=== PATIENT | male | born 1970 | race Caucasian/White ===

== ENCOUNTER 2019-06-08 21:28 | Emergency (ER) | payer OTHER ==
[2019-06-08] MEDS ORDERED: NA CHLORIDE 0.9% 1,000 ML ONE (21:51)
[2019-06-08 22:30] LABS: Urine Blood NEGATIVE (NEG); Urine Glucose NEGATIVE (NEG); Urine Protein TRACE (NEG); Urine Specific Gravity 1.015 (1.005-1.030)
[2019-06-08 22:47] LABS: Barbiturates NEGATIVE (NEGATIVE); Benzodiazepines NEGATIVE (NEGATIVE); Cocaine NEGATIVE (NEGATIVE); METHAMPHETAM NEGATIVE (NEGATIVE); Methadone NEGATIVE (NEGATIVE); Opiates NEGATIVE (NEGATIVE); Phencyclidine NEGATIVE (NEGATIVE); THC Cannibis NEGATIVE (NEGATIVE)
[2019-06-08 23:00] LABS: Absolute Lymphocytes (CBC) 1.8 K/uL (0.7-4.9); Basophils % 0.8 % (0-1.3); Hematocrit 43.6 % (39.6-49.0); MPV 7.9 fL (7.6-11.3); RBC Red Blood Cell Count 4.91 M/uL (4.33-5.43)
[2019-06-08 23:04] LABS: Protime INR 0.86
[2019-06-08 23:26] LABS: ALT/SGPT 58 U/L (12-78); AST/SGOT 53 U/L (15-37); Albumin 3.4 g/dL (3.4-5.0); Alkaline Phosphatase 67 U/L (45-117); BUN Blood Urea Nitrogen 7 mg/dL (7-18); Bicarbonate 24 mmol/L (21-32); Bilirubin Direct < 0.1 mg/dL (0-0.2); Bilirubin Total 0.2 mg/dL (0.2-1.0); Glucose Level 95 mg/dL (74-106); Potassium 3.9 mmol/L (3.5-5.1); Protein, Total 7.1 g/dL (6.4-8.2); Sodium Level 143 mmol/L (136-145); Troponin (Emerg Dept Use Only) < 0.02 ng/mL (0.0-0.045)
[2019-06-08] MEDS ORDERED: clonazePAM 0.5 MG TAB ONE (23:39)
[2019-06-09] MEDS ORDERED: NICOTINE 21 MG/PAT TD ONE (01:53)
[2019-06-09] MEDS ORDERED: DIPHENHYDRAMINE 50 MG/ML VIAL ONE (02:00)
--- NOTE | 2019-06-09 09:14 | ER ---
Nurse's Notes [facility] Name: Joe Marina Jr Age: 48 yrs Sex: Male : 1970 Arrival Date: 06/08/2019 Time: 21:29 Bed 6 Private MD: Diagnosis: Adjustment disorder with depressed mood;Major depressive disorder, recurrent;Suicidal ideations;Alcohol abuse Presentation: 06/08 21:28 Presenting complaint: EMS states: that pt stopped taking his bp medication 5 days ago fc and started extensively drinking ETOH. Pt told them he was trying to drink himself to . Transition of care: patient was not received from another setting of care. Onset of symptoms was June 08, 2019. Risk Assessment: Do you want to hurt yourself or someone else? Patient reports desire/thoughts of hurting themselves or someone else. Provider notified. Initial Sepsis Screen: Does the patient meet any 2 criteria? HR > 90 bpm. Does the patient have a suspected source of infection? No. Patient's initial sepsis screen is negative. Care prior to arrival: None. 21:28 Method Of Arrival: EMS: [facility] 21:28 Acuity: DARSHAN 2 fc Historical: - Allergies: 21:41 No Known Allergies; fc - Home Meds: 21:41 None [Active]; fc - PMHx: 21:41 Hypertension; PTSD; fc - PSHx: 21:41 Appendectomy; Cholecystectomy; Hernia repair; fc - Immunization history:: Last tetanus immunization: unknown. - Social history:: Smoking status: Patient uses tobacco products, smokes one pack cigarettes per day. Patient uses alcohol, 36 beers a day. Patient/guardian denies using street drugs. - Ebola Screening: : Patient negative for fever greater than or equal to 101.5 degrees Fahrenheit, and additional compatible Ebola Virus Disease symptoms Patient denies exposure to infectious person Patient denies travel to an Ebola-affected area in the 21 days before illness onset. Screenin:28 Abuse screen: Denies threats or abuse. Nutritional screening: No deficits noted. fc Tuberculosis screening: No symptoms or risk factors identified. Fall Risk None identified. Assessment: 21:29 General: Appears in no apparent distress. comfortable, well groomed, Behavior is ak1 agitated, anxious. 21:29 Pain: Denies pain. Neuro: Level of Consciousness is awake, alert, obeys commands, ak1 Oriented to person, place, time, situation, Appropriate for age Moves all extremities. Speech is normal, Pupils are dilated. Cardiovascular: No deficits noted. Respiratory: No deficits noted. GI: No signs and/or symptoms were reported involving the gastrointestinal system. : No signs and/or symptoms were reported regarding the genitourinary system. EENT: No signs and/or symptoms were reported regarding the EENT system. Derm: No signs and/or symptoms reported regarding the dermatologic system. Musculoskeletal: No signs and/or symptoms reported regarding the musculoskeletal system. 22:00 Reassessment: pt demanding IV fluids and Ativan. DR. Gustafosn informed, no new verbal [facility] orders. pt informed of wait for all lab results to return including UDS before we given any medications per Dr. Gustafson. pt encouraged to provide urine sample. sitter at bedside. . 22:07 Reassessment: Patient appears in no apparent distress at this time. pt demanding to [facility] speak to doctor. pt is adimit he only had alcohol. pt is adimit he receive Ativan. 22:55 Reassessment: pt continues to demand Ativan and now another "bag of fluid" pt stated to [facility] sitter that "if we were not going to do what he wants he will just walk out and leave" pt informed that after his threat of suicide he no longer gets to "walk out and leave" that if he so chooses to try [facility] department will be called. pt verbalized his understanding. pt was given ice water upon request. 23:08 Reassessment: pt requesting medications from the doctor as the doctor passed by in the [facility] trauma hallway. pt again informed of the wait for lab results. pt has already denied drinking alcohol on a daily basis. 06/09 00:30 Reassessment: Patient appears in no apparent distress at this time. No changes from ak1 previously documented assessment. Patient and/or family updated on plan of care and expected duration. Pain level reassessed. 01:15 Reassessment: Patient appears in no apparent distress at this time. No changes from ak1 previously documented assessment. Patient and/or family updated on plan of care and expected duration. Pain level reassessed. sitter remains at bedside. 02:50 Reassessment: Patient appears in no apparent distress at this time. No changes from [facility] previously documented assessment. Patient and/or family updated on plan of care and expected duration. Pain level reassessed. pt reminded that his girlfriend already spoke with hospital security at the pt's request upon arrival and knows where the pt is. pt notified that his girlfriend has not come to the ER as of yet. 03:38 Reassessment: pt appears to be sleeping, resp even and unlabored at this time. sitter ak1 remains at the bedside. 04:34 Reassessment: Patient appears in no apparent distress at this time. No changes from ak previously documented assessment. 05:38 Reassessment: repeat ETOH sent to lab. pt informed of wait for the results for [address] to come out and assess pt. pt asked about his girlfriend, pt informed again that his girlfriend has not come to the ER. 06:09 Reassessment: Patient appears in no apparent distress at this time. No changes from [facility] previously documented assessment. 07:00 Reassessment: RECD REPORT FROM [place]. 48YO WM P/W SI AND ETOH ABUSE. [facility] bp C/S PENDING. 07:28 Reassessment: Patient appears in no apparent distress at this time. Patient and/or ph family updated on plan of care and expected duration. Pain level reassessed. Patient is alert, oriented x 3, equal unlabored respirations, skin warm/dry/pink. Pt now awake, speaking w/ radioisotope technologist, denies SI at this time, states, " I don't want to kill myself, I was drunk when I was saying that before but I really don't." Awaiting [facility] artist representative for DOLLY franco, radioisotope technologist at bedside. 08:40 Reassessment: [facility] AT B/S. bp 08:48 Reassessment: PER [facility], PT CLEARED FOR D/C. bp 09:25 Reassessment: PT D/C HOME AMBULATORY, DENIES SI/HI, TRANSPORT EN ROUTE. bp 09:36 Reassessment: PT RETURNED FROM OUTSIDE WITH C/O SOB AFTER SMOKING. bp 09:58 Reassessment: Patient appears in no apparent distress at this time. Patient is alert, ph oriented x 3, equal unlabored respirations, skin warm/dry/pink. Pt administered PO anxiety medication, awaiting ride. Psych: 06/08 22:02 Objective: Patient is. Interventions: Removed personal items and placed in bag. Patient ak1 placed in hospital gown. Searched person for dangerous items. Belonging list filled out. Suicide Risk Assessment: Sad Person Scale: Sex of patient: Male: Score 1 point. Age of patient: Score 0 point if patient falls outside of specified age parameters. Depression: Score 1 point if signs of depression are present. Previous Attempt: Score 0 point if patient has not previously attempted suicide. Substance Abuse: Score 1 point if patient abuses alcohol or drugs. Rational Thinking: Score 1 point if patient is lacking rational thinking. Social Support: Score 0 if social support is present/available. Organized Plan: Score 1 point if patient had a plan in place. Relationship: Score 0 point if patient has a spouse or domestic partner. Patient uses. 22:05 Subjective: Patient's mood is sad, irritable, Delusions are denied, Hallucinations are ak1 denied Having thoughts of suicide. Plan for suicide is "drink myself to " pt stated to ERP that he "did not want to be here anymore" pt called his girlfriend to come picker his belongings. 23:10 Safety Checks: sitter at bedside. ak1 Vital Signs: 21:28 BP 141 / 106; Pulse 146; Resp 20; Temp 98.0(O); Pulse Ox 94% on R/A; Weight 92.99 kg fc (R); Height 6 ft. 4 in. (193.04 cm) (R); Pain 0/10; 22:08 BP 119 / 80; Pulse 126; Resp 20; Pulse Ox 88% on R/A; ak1 23:00 BP 133 / 89; Pulse 124; Resp 16; Temp 98; Pulse Ox 92% on R/A; ak1 06/09 00:01 BP 123 / 81; Pulse 127; Resp 18; Pulse Ox 93% on 3 lpm NC; oe 01:00 BP 123 / 80; Pulse 112; Resp 18; Pulse Ox 95% on 3 lpm NC; oe 02:00 BP 118 / 85; Pulse 108; Resp 18; Pulse Ox 91% on NC; oe 03:00 BP 115 / 81; Pulse 104; Resp 19; Pulse Ox 90% on R/A; oe 04:00 BP 122 / 85; Pulse 104; Resp 19; Pulse Ox 91% on R/A; oe 05:00 BP 116 / 63; Pulse 107; Resp 13; Pulse Ox 94% on R/A; oe 06:00 BP 129 / 93; Pulse 95; Resp 18; Pulse Ox 90% on R/A; oe 06:55 BP 124 / 70; Pulse 107; Resp 16; Pulse Ox 91% on R/A; oe 09:30 BP 145 / 96; Pulse 124; Resp 16; Pulse Ox 96% ; bp 09:58 Pulse 117; Resp 22; Pulse Ox 95% on R/A; ph 06/08 21:28 Body Mass Index 24.95 (92.99 kg, 193.04 cm) fc ED Course: 06/08 21:28 Arm band placed on Patient placed in an exam room, on a stretcher. fc 21:28 Patient has correct armband on for positive identification. Placed in gown. Bed in low fc position. Call light in reach. library monitor on. Pulse ox on. NIBP on. 21:28 No provider procedures requiring assistance completed. fc 21:29 Patient arrived in ED. ds1 21:30 Ari Gustafson MD is Attending Physician. tw4 21:38 Triage completed. fc 21:45 Safety checks: Items removed: yes. Door open/sign placed on door: yes. Family/friend lt1 present: no. Sitter present: Yes. 21:58 Adore Newman, RN is Primary Nurse. ak1 22:00 Safety checks: Items removed: yes. Door open/sign placed on door: yes. Family/friend lt1 present: no. Sitter present: Yes. 22:00 Initial lab(s) drawn, by me, sent to lab. EKG done, by ED staff, reviewed by Ari Gustafson MD. Inserted saline lock: 20 gauge in right antecubital area, using aseptic technique. Blood collected. 22:15 Safety checks: Items removed: yes. Door open/sign placed on door: yes. Family/friend lt1 present: no. Sitter present: Yes. 22:15 Straight cath inserted, using sterile technique, 16 Fr. Specimen obtained. rr5 22:30 Safety checks: Items removed: yes. Door open/sign placed on door: yes. Family/friend lt1 present: no. Sitter present: Yes. 22:40 Lab(s) recollected, by me, sent to lab. rr5 22:45 Safety checks: Items removed: yes. Door open/sign placed on door: yes. Family/friend lt1 present: no. Sitter present: Yes. 23:00 Safety checks: Items removed: yes. Door open/sign placed on door: yes. Family/friend lt1 present: no. Sitter present: Yes. 23:15 Safety checks: Items removed: yes. Door open/sign placed on door: yes. Family/friend lt1 present: no. Sitter present: Yes. 23:30 Safety checks: Items removed: yes. Door open/sign placed on door: yes. Family/friend lt1 present: no. Sitter present: Yes. 23:45 Safety checks: Items removed: yes. Door open/sign placed on door: yes. Family/friend lt1 present: no. Sitter present: Yes. 23:50 Diet: sandwich and apple juice given. oe 06/09 00:00 Safety checks: Items removed: yes. Door open/sign placed on door: yes. Family/friend oe present: no. Sitter present: Yes. 00:15 Safety checks: Items removed: yes. Door open/sign placed on door: yes. Family/friend oe present: no. Sitter present: Yes. 00:30 Safety checks: Items removed: yes. Door open/sign placed on door: yes. Family/friend oe present: no. Sitter present: Yes. 00:45 Safety checks: Items removed: yes. Door open/sign placed on door: yes. Family/friend oe present: no. Sitter present: Yes. 01:00 Safety checks: Items removed: yes. Door open/sign placed on door: yes. Family/friend oe present: no. Sitter present: Yes. 01:15 Safety checks: Items removed: yes. Door open/sign placed on door: yes. Family/friend oe present: no. Sitter present: Yes. 01:30 Safety checks: Items removed: yes. Door open/sign placed on door: yes. Family/friend oe present: no. Sitter present: Yes. 01:45 Safety checks: Items removed: yes. Door open/sign placed on door: yes. Family/friend oe present: no. Sitter present: Yes. 02:00 Safety checks: Items removed: yes. Door open/sign placed on door: yes. Family/friend oe present: no. Sitter present: Yes. 02:15 Safety checks: Items removed: yes. Door open/sign placed on door: yes. Family/friend oe present: no. Sitter present: Yes. 02:25 Safety checks: Items removed: yes. Door open/sign placed on door: yes. Family/friend oe present: no. Sitter present: Yes. 02:30 Safety checks: Items removed: yes. Door open/sign placed on door: yes. Family/friend oe present: no. Sitter present: Yes. 02:45 Safety checks: Items removed: yes. Door open/sign placed on door: yes. Family/friend oe present: no. Sitter present: Yes. 03:00 Safety checks: Items removed: yes. Door open/sign placed on door: yes. Family/friend oe present: no. Sitter present: Yes. 03:15 Safety checks: Items removed: yes. Door open/sign placed on door: yes. Family/friend oe present: no. Sitter present: Yes. 03:30 Safety checks: Items removed: yes. Door open/sign placed on door: yes. Family/friend oe present: no. Sitter present: Yes. 03:45 Safety checks: Items removed: yes. Door open/sign placed on door: yes. Family/friend oe present: no. Sitter present: Yes. 04:00 Safety checks: Items removed: yes. Door open/sign placed on door: yes. Family/friend oe present: no. Sitter present: Yes. 04:15 Safety checks: Items removed: yes. Door open/sign placed on door: yes. Family/friend oe present: no. Sitter present: Yes. 04:30 Safety checks: Items removed: yes. Door open/sign placed on door: yes. Family/friend oe present: no. Sitter present: Yes. 04:45 Safety checks: Items removed: yes. Door open/sign placed on door: yes. Family/friend oe present: no. Sitter present: Yes. 05:00 Safety checks: Items removed: yes. Door open/sign placed on door: yes. Family/friend oe present: no. Sitter present: Yes. 05:15 Safety checks: Items removed: yes. Door open/sign placed on door: yes. Family/friend oe present: no. Sitter present: Yes. 05:30 Safety checks: Items removed: yes. Door open/sign placed on door: yes. Family/friend oe present: no. Sitter present: Yes. 05:45 Safety checks: Items removed: yes. Door open/sign placed on door: yes. Family/friend oe present: no. Sitter present: Yes. 06:00 Safety checks: Items removed: yes. Door open/sign placed on door: yes. Family/friend oe present: no. Sitter present: Yes. 06:15 Safety checks: Items removed: yes. Door open/sign placed on door: yes. Family/friend oe present: no. Sitter present: Yes. 06:30 Safety checks: Items removed: yes. Door open/sign placed on door: yes. Family/friend oe present: no. Sitter present: Yes. 06:45 Safety checks: Items removed: yes. Door open/sign placed on door: yes. Family/friend oe present: no. Sitter present: Yes. 07:00 Safety checks: Items removed: yes. Door open/sign placed on door: yes. Family/friend oe present: no. Sitter present: Yes. 07:00 Safety checks: Items removed: yes. Door open/sign placed on door: yes. Family/friend em1 present: no. Sitter present: Yes. 07:15 Safety checks: Items removed: yes. Door open/sign placed on door: yes. Family/friend em1 present: no. Sitter present: Yes. 07:30 Safety checks: Items removed: yes. Door open/sign placed on door: yes. Family/friend em1 present: no. Sitter present: Yes. 07:45 Safety checks: Items removed: yes. Door open/sign placed on door: yes. Family/friend em1 present: no. Sitter present: Yes. 08:00 Safety checks: Items removed: yes. Door open/sign placed on door: yes. Family/friend em1 present: no. Sitter present:. Diet tray given. 08:15 Safety checks: Items removed: yes. Door open/sign placed on door: yes. Family/friend em1 present: no. Sitter present: Yes. 09:12 Attending Physician role handed off by Ari Gustafson MD cha 09:12 Zachary Warren MD is Attending Physician. gregorio 09:25 IV discontinued, intact, bleeding controlled, No redness/swelling at site. Pressure bp dressing applied. Administered Medications: 06/08 21:59 Drug: NS 0.9% 1000 ml Route: IV; Rate: 1 bolus; Site: right antecubital; ak1 23:05 Follow up: IV Status: Completed infusion; IV Intake: 1000ml ak1 23:44 Drug: KLONopin 0.5 mg Route: PO; ak1 23:44 Follow up: Response: No adverse reaction ak1 06/09 02:05 Drug: Nicoderm CQ 7 mg/24 hr 1 patches {Note: RIGHT UPPER ARM.} Route: Transdermal; rr5 Site: affected area; 02:08 Drug: Benadryl 50 mg Route: IVP; Site: right antecubital; rr5 06:09 Follow up: Response: No adverse reaction ak1 09:45 Drug: Ativan 2 mg Route: PO; ph 09:45 CANCELLED (Duplicate Order): Ativan 2 mg PO once ph Intake: 06/08 23:05 IV: 1000ml; Total: 1000ml. ak1 Outcome: 06/09 09:13 Discharge ordered by . gregorio 10:38 Patient left the ED. ph Signatures: Zachary Warren MD MD cha Chretien, Felicia, RN RN Jen Mcguire ds1 Jose Guadalupe Cameron em1 Adore Newman RN RN ak1 Izzy Galeas RN RN Ravi Sahu Brian, RN Ari Hernandez MD MD 4 Dewey De Oliveira RN RN rr5 Ana Segura lt1 Corrections: (The following items were deleted from the chart) 00:04 00:00 BP 123 / 81; Pulse 118bpm; Resp 16bpm; Pulse Ox 93% RA; ak1 ak1 00:43 00:26 Safety checks: Items removed: yes. Door open/sign placed on door: yes. oe Family/friend present: no. Sitter present: Yes. oe 01:42 00:49 Safety checks: Items removed: yes. Door open/sign placed on door: yes. oe Family/friend present: no. Sitter present: Yes. oe 02:42 02:23 Safety checks: Items removed: yes. Door open/sign placed on door: yes. oe Family/friend present: no. Sitter present: Yes. oe 02:42 02:25 Safety checks: Items removed: yes. Door open/sign placed on door: yes. oe Family/friend present: no. Sitter present: Yes. oe 03:12 02:42 Safety checks: Items removed: yes. Door open/sign placed on door: yes. oe Family/friend present: no. Sitter present: Yes. oe 03:57 03:43 Safety checks: Items removed: yes. Door open/sign placed on door: yes. oe Family/friend present: no. Sitter present: Yes. oe 06:16 05:55 Safety checks: Items removed: yes. Door open/sign placed on door: yes. oe Family/friend present: no. Sitter present: Yes. oe 06:45 06:28 Safety checks: Items removed: yes. Door open/sign placed on door: yes. oe Family/friend present: no. Sitter present: Yes. oe 06:58 06:49 Safety checks: Items removed: yes. Door open/sign placed on door: yes. oe Family/friend present: no. Sitter present: Yes. oe 07:04 06:58 Safety checks: Items removed: yes. Door open/sign placed on door: yes. oe Family/friend present: no. Sitter present: Yes. oe
--- NOTE | 2019-06-09 09:15 | EDPHYS ---
Physician Documentation [facility] Name: Joe Marina Jr Age: 48 yrs Sex: Male : 1970 Arrival Date: 06/08/2019 Time: 21:29 Bed 6 Private MD: ED Physician Zachary Warren HPI: 06/09 03:56 This 48 yrs old Male presents to ER via EMS with complaints of Suicidal tw4 Ideation. 03:56 The patient presents to the emergency department with suicide ideation, and the patient tw4 has a plan, to overdose with medications. Onset: The symptoms/episode began/occurred today. Associated signs and symptoms: The patient has no apparent associated signs or symptoms. Severity of symptoms: At their worst the symptoms were moderate in the emergency department the symptoms are unchanged. The patient has not experienced similar symptoms in the past. Historical: - Allergies: 06/08 21:41 No Known Allergies; fc - Home Meds: 21:41 None [Active]; fc - PMHx: 21:41 Hypertension; PTSD; fc - PSHx: 21:41 Appendectomy; Cholecystectomy; Hernia repair; fc - Immunization history:: Last tetanus immunization: unknown. - Social history:: Smoking status: Patient uses tobacco products, smokes one pack cigarettes per day. Patient uses alcohol, 36 beers a day. Patient/guardian denies using street drugs. - Ebola Screening: : Patient negative for fever greater than or equal to 101.5 degrees Fahrenheit, and additional compatible Ebola Virus Disease symptoms Patient denies exposure to infectious person Patient denies travel to an Ebola-affected area in the 21 days before illness onset. ROS: 06/09 03:56 Constitutional: Negative for fever, chills, and weight loss, Eyes: Negative for injury, tw4 pain, redness, and discharge, Cardiovascular: Negative for chest pain, palpitations, and edema, Respiratory: Negative for shortness of breath, cough, wheezing, and pleuritic chest pain, Abdomen/GI: Negative for abdominal pain, nausea, vomiting, diarrhea, and constipation, Back: Negative for injury and pain, MS/Extremity: Negative for injury and deformity, Skin: Negative for injury, rash, and discoloration. Neuro: Positive for Exam: 03:56 Constitutional: This is a well developed, well nourished patient who is awake, alert, tw4 and in no acute distress. Head/Face: Normocephalic, atraumatic. Chest/axilla: Normal chest wall appearance and motion. Nontender with no deformity. No lesions are appreciated. Cardiovascular: Regular rate and rhythm with a normal S1 and S2. No gallops, murmurs, or rubs. Normal PMI, no JVD. No pulse deficits. Respiratory: Lungs have equal breath sounds bilaterally, clear to auscultation and percussion. No rales, rhonchi or wheezes noted. No increased work of breathing, no retractions or nasal flaring. Abdomen/GI: Soft, non-tender, with normal bowel sounds. No distension or tympany. No guarding or rebound. No evidence of tenderness throughout. Back: No spinal tenderness. No costovertebral tenderness. Full range of motion. MS/ Extremity: Pulses equal, no cyanosis. Neurovascular intact. Full, normal range of motion. 03:56 Neuro: Orientation: is normal, to person, place \T\ time. Mentation: is normal, Memory: is normal. 03:56 Psych: Behavior/mood is anxious, uncooperative, Affect is animated, Oriented to person, place, time, Patient having thoughts of suicide. Judgement / Insight is impaired. Memory is normal. Delusions/hallucinations are not present. 09:42 Musculoskeletal/extremity: DVT Exam: No signs of deep vein thrombosis. no pain, no gregorio swelling, no tenderness, negative Homans' sign noted on exam, no appreciated bluish discoloration, no erythema, no increased warmth. Vital Signs: 06/08 21:28 BP 141 / 106; Pulse 146; Resp 20; Temp 98.0(O); Pulse Ox 94% on R/A; Weight 92.99 kg fc (R); Height 6 ft. 4 in. (193.04 cm) (R); Pain 0/10; 22:08 BP 119 / 80; Pulse 126; Resp 20; Pulse Ox 88% on R/A; ak1 23:00 BP 133 / 89; Pulse 124; Resp 16; Temp 98; Pulse Ox 92% on R/A; ak1 06/09 00:01 BP 123 / 81; Pulse 127; Resp 18; Pulse Ox 93% on 3 lpm NC; oe 01:00 BP 123 / 80; Pulse 112; Resp 18; Pulse Ox 95% on 3 lpm NC; oe 02:00 BP 118 / 85; Pulse 108; Resp 18; Pulse Ox 91% on NC; oe 03:00 BP 115 / 81; Pulse 104; Resp 19; Pulse Ox 90% on R/A; oe 04:00 BP 122 / 85; Pulse 104; Resp 19; Pulse Ox 91% on R/A; oe 05:00 BP 116 / 63; Pulse 107; Resp 13; Pulse Ox 94% on R/A; oe 06:00 BP 129 / 93; Pulse 95; Resp 18; Pulse Ox 90% on R/A; oe 06:55 BP 124 / 70; Pulse 107; Resp 16; Pulse Ox 91% on R/A; oe 09:30 BP 145 / 96; Pulse 124; Resp 16; Pulse Ox 96% ; bp 09:58 Pulse 117; Resp 22; Pulse Ox 95% on R/A; ph 06/08 21:28 Body Mass Index 24.95 (92.99 kg, 193.04 cm) fc MDM: 06/08 21:30 Patient medically screened. 4 06/09 09:41 Data reviewed: vital signs, nurses notes, lab test result(s), EKG. gregorio 06/08 21:30 Order name: Acetaminophen; Complete Time: 08:09 [facility] 06/08 21:30 Order name: Basic Metabolic Panel; Complete Time: 08: [facility] 06/08 21:30 Order name: CBC with Diff; Complete Time: 08:09 [facility] 06/08 21:30 Order name: ETOH Level; Complete Time: 08:09 [facility] 06/08 21:30 Order name: Hepatic Function; Complete Time: 08: [facility] 06/08 21:30 Order name: PT-INR; Complete Time: 08:09 [facility] 06/08 21:30 Order name: Ptt, Activated; Complete Time: 08:09 [facility] 06/08 21:30 Order name: Salicylate; Complete Time: 08: [facility] 06/08 21:30 Order name: Urine Drug Screen; Complete Time: 08:09 [facility] 06/08 22:20 Order name: Troponin (Emerg Dept Use Only); Complete Time: 08:09 EDMS 06/08 22:26 Order name: Urine Dipstick--Ancillary (enter results); Complete Time: 08:09 ar5 06/09 05:26 Order name: ETOH Level; Complete Time: 08:09 rr5 06/08 21:30 Order name: EKG; Complete Time: 21:31 tw4 06/08 21:30 Order name: EKG - Nurse/Tech; Complete Time: 22:00 tw4 06/08 21:30 Order name: IV Saline Lock; Complete Time: 22:00 tw4 06/08 21:30 Order name: Labs collected and sent; Complete Time: 22:00 tw4 06/08 21:30 Order name: Urine Dipstick-Ancillary (obtain specimen); Complete Time: 23:05 tw4 06/09 07:17 Order name: Diet Finger Food; Complete Time: 07:18 em1 06/09 09:41 Order name: Diet Regular; Complete Time: 09:41 gregorio Administered Medications: 06/08 21:59 Drug: NS 0.9% 1000 ml Route: IV; Rate: 1 bolus; Site: right antecubital; ak1 23:05 Follow up: IV Status: Completed infusion; IV Intake: 1000ml ak1 23:44 Drug: KLONopin 0.5 mg Route: PO; ak1 23:44 Follow up: Response: No adverse reaction pa1 06/09 02:05 Drug: Nicoderm CQ 7 mg/24 hr 1 patches {Note: RIGHT UPPER ARM.} Route: Transdermal; rr5 Site: affected area; 02:08 Drug: Benadryl 50 mg Route: IVP; Site: right antecubital; rr5 06:09 Follow up: Response: No adverse reaction ak1 09:45 Drug: Ativan 2 mg Route: PO; ph 09:45 CANCELLED (Duplicate Order): Ativan 2 mg PO once ph Disposition: 06/09/19 09:13 Discharged to Home. Impression: Adjustment disorder with depressed mood, Major depressive disorder, recurrent, Suicidal ideations, Alcohol abuse. - Condition is Stable. - Discharge Instructions: Adjustment Disorder, Adult, Alcohol Intoxication, Alcohol Use Disorder, Suicidal Feelings: How to Help Yourself, Helping Someone Who is Suicidal, Alcohol Intoxication, [id number], Alcohol Abuse and Nutrition, Stress and Stress Management. - Medication Reconciliation Form, Thank You Letter, Antibiotic Education, Prescription Opioid Use form. - Follow up: Private Physician; When: 2 - 3 days; Reason: Recheck today's complaints, Continuance of care, Re-evaluation by your physician. - Problem is new. - Symptoms have improved. Signatures: Dispatcher [employer] [facility] Zachary Warren MD MD cha Chretien, Felicia, RN RN Adore Newman, RN RN ak1 Izzy Galeas, RN RN Ari Gustafson MD MD tw4 Dionisio De Oliveira, RN RN rr5 Corrections: (The following items were deleted from the chart) 06/08 22:15 21:42 TROPONIN (EMERG DEPT USE ONLY)+C.LAB.BRZ ordered. [facility] 06/09 09:45 09:40 Ativan 2 mg PO once ordered. [facility] 10:38 09:13 06/09/2019 09:13 Discharged to Home. Impression: Adjustment disorder with ph depressed mood; Major depressive disorder, recurrent; Suicidal ideations; Alcohol abuse. Condition is Stable. Forms are Medication Reconciliation Form, Thank You Letter, Antibiotic Education, Prescription Opioid Use. Follow up: Private Physician; When: 2 - 3 days; Reason: Recheck today's complaints, Continuance of care, Re-evaluation by your physician. Problem is new. Symptoms have improved. gregorio
[2019-06-09] MEDS ORDERED: LORAZEPAM 1 MG TABLET ONE (09:41)
[2019-06-09 10:50] VITALS: TEMP 98
[2019-06-09 11:01] VITALS: BP 145/96
[2019-06-09 11:03] VITALS: O2SAT 95
--- NOTE | 2019-06-09 15:43 | EKG ---
Test Date: 2019-06-08 Test Time: 21:43:16 [employer] Assembler: JONAS MEASUREMENT RESULTS: Intervals: Rate: 131 NV: 150 QRSD: 86 QT: 278 QTc: 410 [place]: P: 75 NV: 150 QRS: 94 T: 53 INTERPRETIVE STATEMENTS: Sinus tachycardia Rightward axis Borderline ECG Compared to ECG 11/22/2012 20:05:09 Right-axis deviation now present Electronically Signed On 06-09-19 15:43:00 CDT by Kole Ambriz
== END 2019-06-09 10:38 | disposition home or self-care (01) ==
LOC: ER 21:28
DX: F43.21 Adjustment disorder with depressed mood (principal); F33.9 Major depressive disorder, recurrent, unspecified; F10.10 Alcohol abuse, uncomplicated; F43.10 Post-traumatic stress disorder, unspecified; I10 Essential (primary) hypertension; F17.210 Nicotine dependence, cigarettes, uncomplicated
CPT/HCPCS: 96361; 93005; 85025; 80048; 36415; 80320 ×2; 80329 ×2; 85610; 80076; 80307 ×8; 85730; 81003; 84484; 51702; 96374; 99285; J7030

== ENCOUNTER 2019-06-14 21:36 | Emergency (ER) | payer OTHER ==
[2019-06-14 22:32] LABS: Absolute Lymphocytes (CBC) 1.8 K/uL (0.7-4.9); Basophils % 0.7 % (0-1.3); Lymphocytes % 33.4 % (15.3-44.8); MPV 7.7 fL (7.6-11.3); RBC Red Blood Cell Count 4.78 M/uL (4.33-5.43)
[2019-06-14 22:38] LABS: Urine Blood NEGATIVE (NEG); Urine Glucose NEGATIVE (NEG); Urine Protein NEGATIVE (NEG); Urine Specific Gravity <1.005 (1.005-1.030); Urine pH 5.5 (5.0-7.0)
[2019-06-14 22:40] LABS: Protime INR 0.9
[2019-06-14 22:47] LABS: Barbiturates NEGATIVE (NEGATIVE); Benzodiazepines NEGATIVE (NEGATIVE); Cocaine NEGATIVE (NEGATIVE); METHAMPHETAM NEGATIVE (NEGATIVE); Methadone NEGATIVE (NEGATIVE); Opiates NEGATIVE (NEGATIVE); Phencyclidine NEGATIVE (NEGATIVE); THC Cannibis NEGATIVE (NEGATIVE)
[2019-06-14] MEDS ORDERED: NA CHLORIDE 0.9% 1,000 ML ONE (22:51)
[2019-06-14] MEDS ORDERED: DIAZEPAM 5 MG TABLET ONE (22:51)
[2019-06-14 23:07] LABS: ALT/SGPT 76 U/L (12-78); AST/SGOT 62 U/L (15-37); Albumin 3.6 g/dL (3.4-5.0); Alkaline Phosphatase 62 U/L (45-117); BUN Blood Urea Nitrogen 5 mg/dL (7-18); Bicarbonate 24 mmol/L (21-32); Bilirubin Direct 0.1 mg/dL (0-0.2); Bilirubin Total 0.2 mg/dL (0.2-1.0); Glucose Level 86 mg/dL (74-106); Protein, Total 7.3 g/dL (6.4-8.2); Sodium Level 137 mmol/L (136-145); Troponin (Emerg Dept Use Only) < 0.02 ng/mL (0.0-0.045)
[2019-06-14] MEDS ORDERED: LORazepam 2 MG/ML VIAL ONE (23:40)
[2019-06-15] MEDS ORDERED: LORazepam 2 MG/ML VIAL ONE (01:43)
[2019-06-15] MEDS ORDERED: LORAZEPAM 1 MG TABLET ONE (07:11)
--- NOTE | 2019-06-15 11:54 | ER ---
Nurse's Notes [facility] Name: Joe Marina Jr Age: 48 yrs Sex: Male : 1970 Arrival Date: 06/14/2019 Time: 21:40 Bed 17 Private MD: Diagnosis: Suicidal ideations;Depression, ETOH abuse Presentation: 06/14 21:35 Presenting complaint: Patient states: that he is very sad, states that the "war has fc kicked his ass today" and now he is suicidal. States that he just wants to . Had large amt of alcohol today. Transition of care: patient was not received from another setting of care. Onset of symptoms was June 14, 2019. Risk Assessment: Do you want to hurt yourself or someone else? Patient reports desire/thoughts of hurting themselves or someone else. Provider notified. Initial Sepsis Screen: Does the patient meet any 2 criteria? HR > 90 bpm. Yes Does the patient have a suspected source of infection? No. Patient's initial sepsis screen is negative. Care prior to arrival: None. 21:35 Method Of Arrival: Law Enforcement: [facility] [place] 21:35 Acuity: DARSHAN 2 fc Historical: - Allergies: 21:49 No Known Allergies; fc - Home Meds: 21:49 None [Active]; fc - PMHx: 21:49 Hypertension; PTSD; Suicide Attempt; fc - PSHx: 21:49 Appendectomy; Cholecystectomy; Hernia repair; fc - Immunization history:: Last tetanus immunization: up to date. - Social history:: Smoking status: Patient uses tobacco products, smokes one pack cigarettes per day. Patient uses alcohol, on a daily basis. "large amts". Patient/guardian denies using street drugs. - Ebola Screening: : Patient negative for fever greater than or equal to 101.5 degrees Fahrenheit, and additional compatible Ebola Virus Disease symptoms Patient denies exposure to infectious person Patient denies travel to an Ebola-affected area in the 21 days before illness onset. Screenin:35 Abuse screen: Denies threats or abuse. Nutritional screening: No deficits noted. fc Tuberculosis screening: No symptoms or risk factors identified. Fall Risk None identified. Assessment: 21:40 General: Appears in no apparent distress. uncomfortable, Behavior is calm, cooperative, jb4 anxious, when pt was questioned if he had a plan to harm himself, pt said he did have a plan bu refuses to tell what it is and says "you don't want to know.". Pain: Complains of pain in chest Pain does not radiate. Pain currently is 8 out of 10 on a pain scale. Quality of pain is described as pressure, Pain began suddenly. Neuro: Level of Consciousness is awake, alert, obeys commands, Oriented to person, place, time, situation. Cardiovascular: Patient's skin is warm and dry. Rhythm is sinus tachycardia. Respiratory: Airway is patent Respiratory effort is even, unlabored, Respiratory pattern is regular, symmetrical. GI: No deficits noted. No signs and/or symptoms were reported involving the gastrointestinal system. : No deficits noted. No signs and/or symptoms were reported regarding the genitourinary system. EENT: No deficits noted. No signs and/or symptoms were reported regarding the EENT system. Derm: Skin is intact, Skin is pink, warm \\T\\ dry. Musculoskeletal: Circulation, motion, and sensation intact. Range of motion: intact in all extremities. 22:30 Reassessment: Patient appears in no apparent distress at this time. Patient and/or jb4 family updated on plan of care and expected duration. Pain level reassessed. Patient is alert, oriented x 3, equal unlabored respirations, skin warm/dry/pink. 23:37 Reassessment: Pt reports that medication is not helping. States "it feels like I am jb4 shaking to ." provider notified, see MAR for orders. 23:45 Reassessment: Patient appears in no apparent distress at this time. Patient and/or jb4 family updated on plan of care and expected duration. Pain level reassessed. Patient is alert, oriented x 3, equal unlabored respirations, skin warm/dry/pink. 06/15 00:45 Reassessment: Patient appears in no apparent distress at this time. Patient and/or jb4 family updated on plan of care and expected duration. Pain level reassessed. Patient is alert, oriented x 3, equal unlabored respirations, skin warm/dry/pink. 02:00 Reassessment: Patient appears in no apparent distress at this time. Patient and/or jb4 family updated on plan of care and expected duration. Pain level reassessed. PT resting in bed with eyes closed, repiration even and unlabored. Pt desat to 89% O2 on room air, placed on 2L NC, provider notified. 02:18 Reassessment: O2 increased to 92% on 2L NC while patient is resting with eyes closed, jb4 respirations remain even and unlabored. 03:45 Reassessment: Patient appears in no apparent distress at this time. Patient and/or jb4 family updated on plan of care and expected duration. Pain level reassessed. Pt is resting in bed with no s/s of distress or pain noted. Respirations are even and unlabored. 05:00 Reassessment: Patient appears in no apparent distress at this time. No changes from jb4 previously documented assessment. Patient and/or family updated on plan of care and expected duration. Pain level reassessed. 06:15 Reassessment: Patient appears in no apparent distress at this time. No changes from jb4 previously documented assessment. Patient and/or family updated on plan of care and expected duration. Pain level reassessed. 07:06 Reassessment: Patient appears in no apparent distress at this time. No changes from jb4 previously documented assessment. Patient and/or family updated on plan of care and expected duration. Pain level reassessed. 08:37 Reassessment: Patient appears in no apparent distress at this time. Patient and/or em family updated on plan of care and expected duration. Pain level reassessed. Patient is alert, oriented x 3, equal unlabored respirations, skin warm/dry/pink. breakfast tray given, sitter at bedside. 10:35 Reassessment: reports not suicidal anymore, request to speak with the Dr. Felix Brown notified of pt requests. 11:30 Reassessment: Dr. Washington at bedside, received verbal order for atenolol [address] raquel Washington. 12:40 Reassessment: Patient appears in no apparent distress at this time. Patient and/or em family updated on plan of care and expected duration. Pain level reassessed. Patient is alert, oriented x 3, equal unlabored respirations, skin warm/dry/pink. reports he will go to [facility] or [facility] after being discharged, given a dollar for the bus. Psych: 06/14 21:49 Subjective: Patient's mood is angry, hopeless, Delusions are denied, Hallucinations are fc denied Having thoughts of suicide. Plan for suicide is jump of bridge and kill self. Objective: Patient is uncooperative, defensive, irritable, using poor eye contact, restless, suspicious, Speech is normal, Affect is inappropriate. Interventions: Removed personal items and placed in bag. Patient placed in hospital gown. Searched person for dangerous items. Urine collected and sent for urine drug test. Belonging list filled out. Suicide Risk Assessment: Sad Person Scale: Sex of patient: Male: Score 1 point. Age of patient: Score 0 point if patient falls outside of specified age parameters. Depression: Score 1 point if signs of depression are present. Previous Attempt: Score 1 point if patient has previously attempted suicide. Substance Abuse: Score 1 point if patient abuses alcohol or drugs. Rational Thinking: Score 1 point if patient is lacking rational thinking. Social Support: Score 1 point if social support is lacking and/or unavailable. Organized Plan: Score 1 point if patient had a plan in place. Relationship: Score 1 point if patient is , , , or for a single male Chronic Sickness: Score 0 point if patient does not have a chronic illness, debilitating, or severe disorder. TOTAL POINTS: If total points are 7-10, the proposed clinical action is to hospitalize or commit. Implement suicide precautions. Safety Checks: Personal items have been removed. Door is open. No visitors are present at this time. Patient uses "large amt" of beer, daily. Last use was 1 hours ago. Patient does not have a history of DTs. Vital Signs: 21:35 BP 139 / 104; Pulse 128; Resp 20; Pulse Ox 95% on R/A; Weight 95.25 kg (R); Height 6 fc ft. 4 in. (193.04 cm) (R); Pain 5/10; 23:30 BP 128 / 94; Pulse 102; Resp 16; Pulse Ox 95% on R/A; jb4 0830 00:45 BP 106 / 67; Pulse 119; Resp 16; Pulse Ox 100% on R/A; jb4 01:00 Temp 98.4(O); jb4 02:00 BP 130 / 87; Pulse 114; Resp 22; Pulse Ox 89% on R/A; jb4 02:18 Pulse Ox 92% on 2 lpm NC; jb4 02:30 BP 134 / 80; Pulse 115; Resp 21; Pulse Ox 100% on 2 lpm NC; jb4 03:45 BP 118 / 70; Pulse 114; Resp 21; Pulse Ox 92% on 2 lpm NC; jb4 04:39 BP 124 / 90; Pulse 105; Resp 22; Pulse Ox 100% on NC; cm6 05:00 BP 124 / 84; Pulse 97; Resp 19; Pulse Ox 95% on 2 lpm NC; jb4 06:15 BP 113 / 67; Pulse 105; Resp 20; Pulse Ox 92% on 2 lpm NC; jb4 07:00 BP 135 / 87; Pulse 98; Resp 18; Pulse Ox 97% on 2 lpm NC; jb4 07:31 BP 146 / 94; Pulse 99; Resp 18; Pulse Ox 97% on 2 lpm NC; jb1 10:00 BP 140 / 80; Pulse 98; Resp 18; Pulse Ox 98% 2 lpm ; jb1 06/14 21:35 Body Mass Index 25.56 (95.25 kg, 193.04 cm) fc 02:00 Pt placed on 2l NC jb4 ED Course: 06/14 21:35 Arm band placed on Patient placed in an exam room, on a stretcher. fc 21:35 Patient has correct armband on for positive identification. Placed in gown. Bed in low fc position. Call light in reach. labor relations consultant on. Pulse ox on. NIBP on. 21:35 No provider procedures requiring assistance completed. fc 21:40 Patient arrived in ED. fc 21:40 Safety checks: Items removed: yes. Door open/sign placed on door: yes. Family/friend cm6 present: no. Sitter present: Yes. 21:44 Tim Childress MD is Attending Physician. gs 21:44 Triage completed. fc 21:55 Safety checks: Items removed: yes. Door open/sign placed on door: yes. Family/friend cm6 present: no. Sitter present: Yes. 22:10 Safety checks: Items removed: yes. Door open/sign placed on door: yes. Family/friend cm6 present: no. Sitter present: Yes. 22:20 Initial lab(s) drawn, by me, sent to lab. Urine collected: clean catch specimen, clear. jb4 Inserted saline lock: 20 gauge in right antecubital area, using aseptic technique. Blood collected. 22:25 Safety checks: Items removed: yes. Door open/sign placed on door: yes. Family/friend cm6 present: no. Sitter present: Yes. 22:36 Macho Caballero RN is Primary Nurse. jb4 22:40 Safety checks: Items removed: yes. Door open/sign placed on door: yes. Family/friend cm6 present: no. Sitter present: Yes. 22:55 Safety checks: Items removed: yes. Door open/sign placed on door: yes. Family/friend cm6 present: no. Sitter present: Yes. 23:10 Safety checks: Items removed: yes. Door open/sign placed on door: yes. Family/friend cm6 present: no. Sitter present: Yes. 23:25 Safety checks: Items removed: yes. Door open/sign placed on door: yes. Family/friend cm6 present: no. Sitter present: Yes. 23:40 Safety checks: Items removed: yes. Door open/sign placed on door: yes. Family/friend cm6 present: no. Sitter present: Yes. 23:55 Safety checks: Items removed: yes. Door open/sign placed on door: yes. Family/friend cm6 present: no. Sitter present: Yes. 06/15 00:10 Safety checks: Items removed: yes. Door open/sign placed on door: yes. Family/friend cm6 present: no. Sitter present: Yes. 00:25 Safety checks: Items removed: yes. Door open/sign placed on door: yes. Family/friend cm6 present: no. Sitter present: Yes. 00:40 Safety checks: Items removed: yes. Door open/sign placed on door: yes. Family/friend cm6 present: no. Sitter present: Yes. 00:55 Safety checks: Items removed: yes. Door open/sign placed on door: yes. Family/friend cm6 present: no. Sitter present: Yes. 01:10 Safety checks: Items removed: yes. Door open/sign placed on door: yes. Family/friend cm6 present: no. Sitter present: Yes. 01:25 Safety checks: Items removed: yes. Door open/sign placed on door: yes. Family/friend cm6 present: no. Sitter present: Yes. 01:38 sheriff rojas stopped by and spoke with the patient just to check and see if he was ok.cm6 01:40 Safety checks: Items removed: yes. Door open/sign placed on door: yes. Family/friend cm6 present: no. Sitter present: Yes. 01:55 Safety checks: Items removed: yes. Door open/sign placed on door: yes. Family/friend cm6 present: no. Sitter present: Yes. 02:10 Safety checks: Items removed: yes. Door open/sign placed on door: yes. Family/friend cm6 present: no. Sitter present: Yes. 02:22 Safety checks: Items removed: yes. Door open/sign placed on door: yes. Family/friend cm6 present: no. Sitter present: Yes. 02:37 Safety checks: Items removed: yes. Door open/sign placed on door: yes. Family/friend cm6 present: no. Sitter present: Yes. 02:52 Safety checks: Items removed: yes. Door open/sign placed on door: yes. Family/friend cm6 present: no. Sitter present: Yes. 03:10 Safety checks: Items removed: yes. Door open/sign placed on door: yes. Family/friend cm6 present: no. Sitter present: Yes. 03:25 Safety checks: Items removed: yes. Door open/sign placed on door: yes. Family/friend cm6 present: no. Sitter present: Yes. 03:40 Safety checks: Items removed: yes. Door open/sign placed on door: yes. Family/friend cm6 present: no. Sitter present: Yes. 03:55 Safety checks: Items removed: yes. Door open/sign placed on door: yes. Family/friend cm6 present: no. Sitter present: Yes. 04:10 Safety checks: Items removed: yes. Door open/sign placed on door: yes. Family/friend cm6 present: no. Sitter present: Yes. 04:35 Safety checks: Items removed: yes. Door open/sign placed on door: yes. Family/friend cm6 present: no. Sitter present: Yes. 04:50 Safety checks: Items removed: yes. Door open/sign placed on door: yes. Family/friend cm6 present: no. Sitter present: Yes. 05:10 Safety checks: Items removed: yes. Door open/sign placed on door: yes. Family/friend cm6 present: no. Sitter present: Yes. 05:25 Safety checks: Items removed: yes. Door open/sign placed on door: yes. Family/friend cm6 present: no. Sitter present: Yes. 05:40 Safety checks: Items removed: yes. Door open/sign placed on door: yes. Family/friend cm6 present: no. Sitter present: Yes. 05:55 Safety checks: Items removed: yes. Door open/sign placed on door: yes. Family/friend cm6 present: no. Sitter present: Yes. 06:10 Safety checks: Items removed: yes. Door open/sign placed on door: yes. Family/friend cm6 present: no. Sitter present: Yes. 06:25 Safety checks: Items removed: yes. Door open/sign placed on door: yes. Family/friend cm6 present: no. Sitter present: Yes. 06:40 Safety checks: Items removed: yes. Door open/sign placed on door: yes. Family/friend cm6 present: no. Sitter present: Yes. 06:55 Safety checks: Items removed: yes. Door open/sign placed on door: yes. Family/friend cm6 present: no. Sitter present: Yes. 07:00 Safety checks: Items removed: yes. Door open/sign placed on door: yes. Family/friend jb1 present: no. Sitter present: Yes. 07:15 Safety checks: Items removed: yes. Door open/sign placed on door: yes. Family/friend jb1 present: no. Sitter present: Yes. 07:18 Attending Physician role handed off by Tim Childress MD kdr 07:18 Cali Washington MD is Attending Physician. kdr 07:30 Safety checks: Items removed: yes. Door open/sign placed on door: yes. Family/friend jb1 present: no. Sitter present: Yes. 07:45 Safety checks: Items removed: yes. Door open/sign placed on door: yes. Family/friend jb1 present: no. Sitter present: Yes. 07:50 called the [facility] and spoke with Paola at the transfer center to check on the eb status of the transfer/ Paola says she needs to review the clinical's and that she will call us right back. 08:00 Safety checks: Items removed: yes. Door open/sign placed on door: yes. Family/friend jb1 present: no. Sitter present: Yes. 08:15 Safety checks: Items removed: yes. Door open/sign placed on door: yes. Family/friend jb1 present: no. Sitter present: Yes. 08:30 Safety checks: Items removed: yes. Door open/sign placed on door: yes. Family/friend jb1 present: no. Sitter present: Yes. 08:45 Safety checks: Items removed: yes. Door open/sign placed on door: yes. Family/friend jb1 present: no. Sitter present: Yes. 09:00 Safety checks: Items removed: yes. Door open/sign placed on door: yes. Family/friend jb1 present: no. Sitter present: Yes. 09:15 Safety checks: Items removed: yes. Door open/sign placed on door: yes. Family/friend jb1 present: no. Sitter present: Yes. 09:30 Safety checks: Items removed: yes. Door open/sign placed on door: yes. Family/friend jb1 present: no. Sitter present: Yes. 09:45 Safety checks: Items removed: yes. Door open/sign placed on door: yes. Family/friend jb1 present: no. Sitter present: Yes. 10:00 Safety checks: Items removed: yes. Door open/sign placed on door: yes. Family/friend jb1 present: no. Sitter present: Yes. 10:15 Safety checks: Items removed: yes. Door open/sign placed on door: yes. Family/friend jb1 present: no. Sitter present: Yes. 10:18 called the [facility] again to check on the status of the transfer. Spoke with roula Fay she says that the clinical's have been received and are up for review. 10:30 Safety checks: Items removed: yes. Door open/sign placed on door: yes. Family/friend jb1 present: no. Sitter present: Yes. 10:45 Safety checks: Items removed: yes. Door open/sign placed on door: yes. Family/friend jb1 present: no. Sitter present: Yes. 11:00 Safety checks: Items removed: yes. Door open/sign placed on door: yes. Family/friend jb1 present: no. Sitter present: Yes. 11:15 Safety checks: Items removed: yes. Door open/sign placed on door: yes. Family/friend jb1 present: no. Sitter present: Yes. 11:30 Safety checks: Items removed: yes. Door open/sign placed on door: yes. Family/friend jb1 present: no. Sitter present: Yes. 12:39 IV discontinued, intact, bleeding controlled, No redness/swelling at site. Pressure em dressing applied. Administered Medications: 06/14 22:59 Drug: NS 0.9% 1000 ml Route: IV; Rate: 1 bolus; Site: right antecubital; jb4 06/15 00:00 Follow up: Response: No adverse reaction; IV Status: Completed infusion; IV Intake: jb4 1000ml 06/14 22:59 Drug: Valium 10 mg Route: PO; jb4 23:30 Follow up: Response: No adverse reaction; No change in condition jb4 23:43 Drug: Ativan 1 mg Route: IVP; Site: right antecubital; jb4 06/15 00:10 Follow up: Response: No adverse reaction; Marked relief of symptoms jb4 01:57 Drug: Ativan 1 mg Route: IVP; Site: right antecubital; jb4 02:07 Follow up: Response: No adverse reaction; Marked relief of symptoms 4 07:12 Drug: Ativan 1 mg Route: PO; sg 07:29 Follow up: Response: No adverse reaction; Marked relief of symptoms em 12:25 Drug: Atenolol 50 mg Route: PO; em 12:37 Follow up: Response: Medication administered at discharge. em Intake: 00:00 IV: 1000ml; Total: 1000ml. jb4 Outcome: 11:53 Discharge ordered by . kdr 12:38 Discharged to home ambulatory. em 12:38 Condition: good 12:38 Discharge instructions given to patient, Instructed on discharge instructions, follow up and referral plans. Demonstrated understanding of instructions, follow-up care. 12:47 Patient left the ED. em Signatures: Christophe Suarez jb1 Cj Ortega RN RN sg Rittger, Kevin, MD MD kdr Chretien, Felicia, RN RN fc Steve Dumont, SENSOR SPECIALIST SENSOR SPECIALIST em Macho Caballero RN RN jb4 Tim Childress MD MD gs Botello, Elizabeth eb Mack, Candace cm6 Corrections: (The following items were deleted from the chart) 06/14 21:47 21:46 BP 139 / 104; Pulse 128bpm; Resp 20bpm; Pulse Ox 95% RA; 95.25 kg Reported; fc Height 6 ft. 4 in. Reported; BMI: 25.5; Pain 5/10; fc 06/15 01:40 01:37 Safety checks: Items removed: yes. Door open/sign placed on door: yes. cm6 Family/friend present: no. Sitter present: Yes. cm6 02:21 01:38 Safety checks: Items removed: yes. Door open/sign placed on door: yes. cm6 Family/friend present: no. Sitter present: Yes. cm6 04:01 03:45 Reassessment: Patient appears in no apparent distress at this time. Patient jb4 and/or family updated on plan of care and expected duration. Pain level reassessed. Patient is alert, oriented x 3, equal unlabored respirations, skin warm/dry/pink. Pt is resting in bed with no s/s of distress or pain noted. jb4 04:14 02:00 Reassessment: Patient appears in no apparent distress at this time. Patient jb4 and/or family updated on plan of care and expected duration. Pain level reassessed. Patient is alert, oriented x 3, equal unlabored respirations, skin warm/dry/pink. jb4 04:16 02:00 Reassessment: Patient appears in no apparent distress at this time. Patient jb4 and/or family updated on plan of care and expected duration. Pain level reassessed. Patient is alert, oriented x 3, equal unlabored respirations, skin warm/dry/pink. Pt desat to 89% O2 on room air, placed on 2L NC, provider notified. jb4 06:42 06:39 Safety checks: Items removed: yes. Door open/sign placed on door: yes. cm6 Family/friend present: no. Sitter present: Yes. cm6 10:00 07:31 BP 146 / 94; Pulse 99bpm; Resp 18bpm; Pulse Ox 97% RA; jb1 jb1 10:15 10:10 Safety checks: jb1 jb1
--- NOTE | 2019-06-15 11:55 | EDPHYS ---
Physician Documentation [facility] Name: Joe Marina Jr Age: 48 yrs Sex: Male : 1970 Arrival Date: 06/14/2019 Time: 21:40 Bed 17 Private MD: ED Physician Cali Washington HPI: 06/15 04:53 This 48 yrs old Male presents to ER via [employer] with complaints of gs Suicidal Ideation, ETOH ABUSE. 04:53 The patient presents to the emergency department with suicide ideation, and the patient gs has a plan, DROWN IN RIVER. Onset: The symptoms/episode began/occurred yesterday. Associated signs and symptoms: Pertinent positives; substance abuse. Severity of symptoms: At their worst the symptoms were severe in the emergency department the symptoms are unchanged. The patient has experienced similar episodes in the past, multiple times. Historical: - Allergies: 06/14 21:49 No Known Allergies; fc - Home Meds: 21:49 None [Active]; fc - PMHx: 21:49 Hypertension; PTSD; Suicide Attempt; fc - PSHx: 21:49 Appendectomy; Cholecystectomy; Hernia repair; fc - Immunization history:: Last tetanus immunization: up to date. - Social history:: Smoking status: Patient uses tobacco products, smokes one pack cigarettes per day. Patient uses alcohol, on a daily basis. "large amts". Patient/guardian denies using street drugs. - Ebola Screening: : Patient negative for fever greater than or equal to 101.5 degrees Fahrenheit, and additional compatible Ebola Virus Disease symptoms Patient denies exposure to infectious person Patient denies travel to an Ebola-affected area in the 21 days before illness onset. ROS: 06/15 04:53 All other systems are negative. gs 14:35 Constitutional: Negative for fever, chills, and weight loss. kdr Exam: 04:53 Head/Face: Normocephalic, atraumatic. Eyes: Pupils equal round and reactive to light, gs extra-ocular motions intact. Lids and lashes normal. Conjunctiva and sclera are non-icteric and not injected. Cornea within normal limits. Periorbital areas with no swelling, redness, or edema. ENT: Nares patent. No nasal discharge, no septal abnormalities noted. Tympanic membranes are normal and external auditory canals are clear. Oropharynx with no redness, swelling, or masses, exudates, or evidence of obstruction, uvula midline. Mucous membranes moist. Neck: Trachea midline, no thyromegaly or masses palpated, and no cervical lymphadenopathy. Supple, full range of motion without nuchal rigidity, or vertebral point tenderness. No Meningismus. Chest/axilla: Normal chest wall appearance and motion. Nontender with no deformity. No lesions are appreciated. Respiratory: Lungs have equal breath sounds bilaterally, clear to auscultation and percussion. No rales, rhonchi or wheezes noted. No increased work of breathing, no retractions or nasal flaring. Abdomen/GI: Soft, non-tender, with normal bowel sounds. No distension or tympany. No guarding or rebound. No evidence of tenderness throughout. Back: No spinal tenderness. No costovertebral tenderness. Full range of motion. Skin: Warm, dry with normal turgor. Normal color with no rashes, no lesions, and no evidence of cellulitis. MS/ Extremity: Pulses equal, no cyanosis. Neurovascular intact. Full, normal range of motion. Neuro: Awake and alert, GCS 15, oriented to person, place, time, and situation. Cranial nerves II-XII grossly intact. Motor strength 5/5 in all extremities. Sensory grossly intact. Cerebellar exam normal. Normal gait. 04:53 Constitutional: The patient appears alert, awake. 04:53 Cardiovascular: Rate: tachycardic, Rhythm: regular, Pulses: no pulse deficits are appreciated. 04:53 Psych: Behavior/mood is depressed, Affect is flat, Patient having thoughts of suicide. Plan for suicide is drowning self Vital Signs: 06/14 21:35 BP 139 / 104; Pulse 128; Resp 20; Pulse Ox 95% on R/A; Weight 95.25 kg (R); Height 6 fc ft. 4 in. (193.04 cm) (R); Pain 5/10; 23:30 BP 128 / 94; Pulse 102; Resp 16; Pulse Ox 95% on R/A; jb4 06/15 00:45 BP 106 / 67; Pulse 119; Resp 16; Pulse Ox 100% on R/A; jb4 01:00 Temp 98.4(O); jb4 02:00 BP 130 / 87; Pulse 114; Resp 22; Pulse Ox 89% on R/A; jb4 02:18 Pulse Ox 92% on 2 lpm NC; jb4 02:30 BP 134 / 80; Pulse 115; Resp 21; Pulse Ox 100% on 2 lpm NC; jb4 03:45 BP 118 / 70; Pulse 114; Resp 21; Pulse Ox 92% on 2 lpm NC; jb4 04:39 BP 124 / 90; Pulse 105; Resp 22; Pulse Ox 100% on NC; cm6 05:00 BP 124 / 84; Pulse 97; Resp 19; Pulse Ox 95% on 2 lpm NC; jb4 06:15 BP 113 / 67; Pulse 105; Resp 20; Pulse Ox 92% on 2 lpm NC; jb4 07:00 BP 135 / 87; Pulse 98; Resp 18; Pulse Ox 97% on 2 lpm NC; jb4 07:31 BP 146 / 94; Pulse 99; Resp 18; Pulse Ox 97% on 2 lpm NC; jb1 10:00 BP 140 / 80; Pulse 98; Resp 18; Pulse Ox 98% 2 lpm ; jb1 06/14 21:35 Body Mass Index 25.56 (95.25 kg, 193.04 cm) fc 02:00 Pt placed on 2l NC jb4 MDM: 06/14 22:43 Patient medically screened. 06/15 04:53 Differential diagnosis: acute psychotic break, depression, ALCOHOLISM. Data reviewed: vital signs, nurses notes. Data reviewed: lab test result(s). Counseling: I had a detailed discussion with the patient and/or guardian regarding: the historical points, exam findings, and any diagnostic results supporting the discharge/admit diagnosis. ED course: SHOWED SOME EARLY WITHDRAWAL SIGN GAVE VALIUM AND ATIVAN. UPON ARRIVAL HAD BEEN 6 HOURS SINCE LAST DRINK. 11:56 ED course: I have interviewed the patient and note that he is awake, pleasant and kdr oriented x 4. He is aware of the circumstance that brought him to the ED. He plans to get back to his truck and then go to the [facility] for temporary living. He is trying to get a new jomar job but is having difficulty since he has no place to live. He states he has had no prior SI/SA or DUI's. He states that he realizes he needs to get his "head out of " and get things pulled together. 06/14 22:14 Order name: Acetaminophen fc 06/14 22:14 Order name: Basic Metabolic Panel 06/14 22:14 Order name: CBC with Diff 06/14 22:14 Order name: ETOH Level 06/14 22:14 Order name: Hepatic Function 06/14 22:14 Order name: PT-INR 06/14 22:14 Order name: Ptt, Activated 06/14 22:14 Order name: Salicylate 06/14 22:14 Order name: Urine Drug Screen 06/14 22:14 Order name: Troponin (emerg Dept Use Only) 06/14 22:31 Order name: Urine Dipstick--Ancillary (enter results) ar5 06/14 22:45 Order name: CBC with Automated Diff; Complete Time: 23:34 EDMS 06/14 22:45 Order name: Protime (+INR); Complete Time: 23:34 EDMS 06/14 22:45 Order name: PTT, Activated Partial Thromb; Complete Time: 23:34 EDMS 06/14 22:14 Order name: EKG; Complete Time: 22:16 06/14 22:45 Order name: Urine Dipstick-Ancillary; Complete Time: 23:34 EDMS 06/14 22:53 Order name: Salicylates Level; Complete Time: 23:34 EDMS 06/14 22:53 Order name: Urine Drug Screen; Complete Time: 23:34 EDMS 06/14 23:09 Order name: Basic Metabolic Panel; Complete Time: 23:34 EDMS 06/14 23:09 Order name: Liver (Hepatic) Function; Complete Time: 23:34 EDMS 06/14 23:09 Order name: Troponin (Emerg Dept Use Only); Complete Time: 23:34 EDMS 06/14 23:09 Order name: Acetaminophen Level; Complete Time: 23:34 EDMS 06/14 23:09 Order name: Alcohol Serum/Plasma; Complete Time: 23:34 EDMS 06/15 07:11 Order name: Diet Finger Food; Complete Time: 07:11 06/14 22:14 Order name: EKG - Nurse/Tech; Complete Time: 23:00 06/14 22:14 Order name: IV Saline Lock; Complete Time: 23:00 06/14 22:14 Order name: Labs collected and sent; Complete Time: 23:00 06/14 22:14 Order name: Urine Dipstick-Ancillary (obtain specimen); Complete Time: 22:59 Administered Medications: 06/14 22:59 Drug: NS 0.9% 1000 ml Route: IV; Rate: 1 bolus; Site: right antecubital; jb4 06/15 00:00 Follow up: Response: No adverse reaction; IV Status: Completed infusion; IV Intake: jb4 1000ml 06/14 22:59 Drug: Valium 10 mg Route: PO; jb4 23:30 Follow up: Response: No adverse reaction; No change in condition jb4 23:43 Drug: Ativan 1 mg Route: IVP; Site: right antecubital; jb4 06/15 00:10 Follow up: Response: No adverse reaction; Marked relief of symptoms jb4 01:57 Drug: Ativan 1 mg Route: IVP; Site: right antecubital; jb4 02:07 Follow up: Response: No adverse reaction; Marked relief of symptoms 4 07:12 Drug: Ativan 1 mg Route: PO; sg 07:29 Follow up: Response: No adverse reaction; Marked relief of symptoms em 12:25 Drug: Atenolol 50 mg Route: PO; em 12:37 Follow up: Response: Medication administered at discharge. em Disposition: 06/15/19 11:53 Discharged to Home. Impression: Suicidal ideations, Depression, ETOH abuse. - Condition is Stable. - Discharge Instructions: Suicidal Feelings: How to Help Yourself. - Medication Reconciliation Form, Thank You Letter form. - Follow up: Private Physician; When: 2 - 3 days; Reason: If symptoms return, Further diagnostic work-up, Recheck today's complaints, Continuance of care, Re-evaluation by your physician. - Problem is new. - Symptoms have improved. Signatures: Dispatcher [employer] Cj Sanders RN RN sg Cali Washington MD MD kdr Chretien, Felicia, RN RN Steve Dumont, HOT STONE SETTER HOT STONE SETTER Macho Zamudio RN RN jb4 Tim Childress MD MD gs Corrections: (The following items were deleted from the chart) 12:47 11:53 06/15/2019 11:53 Discharged to Home. Impression: Suicidal ideations; Depression, em ETOH abuse. Condition is Stable. Forms are Medication Reconciliation Form, Thank You Letter, Antibiotic Education, Prescription Opioid Use. Follow up: Private Physician; When: 2 - 3 days; Reason: If symptoms return, Further diagnostic work-up, Recheck today's complaints, Continuance of care, Re-evaluation by your physician. Problem is new. Symptoms have improved. kdr
[2019-06-15] MEDS ORDERED: ATENOLOL 50 MG TAB ONE (12:24)
[2019-06-15 13:02] VITALS: TEMP 98.4
[2019-06-15 13:16] VITALS: BP 140/80; O2SAT 98
--- NOTE | 2019-06-17 08:13 | EKG ---
Test Date: 2019-06-14 Test Time: 22:07:44 [employer]: PJ MEASUREMENT RESULTS: Intervals: Rate: 115 OH: 152 QRSD: 96 QT: 314 QTc: 434 [place]: P: 80 OH: 152 QRS: 89 T: 63 INTERPRETIVE STATEMENTS: Sinus tachycardia Otherwise normal ECG Compared to ECG 06/08/2019 21:43:16 Right-axis deviation no longer present Electronically Signed On 06-17-19 08:07:54 CDT by George Berger
== END 2019-06-15 12:47 | disposition home or self-care (01) ==
LOC: ER 21:36
DX: R45.851 Suicidal ideations (principal); F32.9 Major depressive disorder, single episode, unspecified; F10.10 Alcohol abuse, uncomplicated; F17.210 Nicotine dependence, cigarettes, uncomplicated
CPT/HCPCS: 96361; 93005; 85025; 80048; 36415; 80320; 80329 ×2; 85610; 80076; 80307 ×8; 85730; 81003; 84484; 96374; 99285; J7030

== ENCOUNTER 2019-09-16 00:53 | Emergency (ER) | payer OTHER ==
[2019-09-16 01:16] LABS: Absolute Lymphocytes (CBC) 2.7 K/uL (0.7-4.9); Basophils % 0.7 % (0-1.3); Hematocrit 45.6 % (39.6-49.0); Lymphocytes % 37.3 % (15.3-44.8); MPV 8.4 fL (7.6-11.3); RBC Red Blood Cell Count 5.02 M/uL (4.33-5.43)
[2019-09-16 01:20] LABS: Protime INR 0.89
[2019-09-16 01:31] LABS: ALT/SGPT 137 U/L (12-78); AST/SGOT 76 U/L (15-37); Albumin 3.8 g/dL (3.4-5.0); Alkaline Phosphatase 51 U/L (45-117); BUN Blood Urea Nitrogen 6 mg/dL (7-18); Bicarbonate 21 mmol/L (21-32); Bilirubin Direct 0.1 mg/dL (0-0.2); Bilirubin Total 0.3 mg/dL (0.2-1.0); Glucose Level 99 mg/dL (74-106); Potassium 3.8 mmol/L (3.5-5.1); Protein, Total 7.1 g/dL (6.4-8.2); Sodium Level 134 mmol/L (136-145)
[2019-09-16] MEDS ORDERED: NA CHLORIDE 0.9% 1,000 ML ONE ×2 (01:56→02:35)
[2019-09-16] MEDS ORDERED: LORazepam 2 MG/ML VIAL ONE (02:04)
[2019-09-16] MEDS ORDERED: THIAMINE 200 MG/2 ML INJ ONE ×2 (02:04→02:33)
--- NOTE | 2019-09-16 02:20 | ER ---
Nurse's Notes [facility] Name: Joe Marina Jr Age: 49 yrs Sex: Male : 1970 Arrival Date: 09/16/2019 Time: 00:55 Bed 15 Private MD: Diagnosis: Alcohol abuse with intoxication Presentation: 09/16 01:05 Presenting complaint: EMS states: Pt picked up at the [facility], initially ea requested to go to psych facility then reported he was having chest pain due to anxiety. PD at bedside, pt reported he was having SI without a plan. Transition of care: patient was not received from another setting of care. Onset of symptoms was September 16, 2019. Risk Assessment: Do you want to hurt yourself or someone else? Patient reports desire/thoughts of hurting themselves or someone else. Provider notified. Initial Sepsis Screen: Does the patient meet any 2 criteria? No. Patient's initial sepsis screen is negative. Does the patient have a suspected source of infection? No. Patient's initial sepsis screen is negative. Care prior to arrival: None. 01:05 Method Of Arrival: Ambulatory ea 01:05 Acuity: DARSHAN 2 ea Triage Assessment: 01:14 General: Appears in no apparent distress. Behavior is cooperative. Pain: Denies pain. ea Historical: - Allergies: 01:14 PENICILLINS; ea :14 Haloperidol; ea - PMHx: 01:14 Hypertension; PTSD; SUICIDE ATTEMPT; ea - PSHx: 01:14 Appendectomy; Cholecystectomy; Hernia repair; ea - Immunization history:: Adult Immunizations up to date. - Social history:: Smoking status: Patient uses tobacco products, smokes one pack cigarettes per day. - Ebola Screening: : No symptoms or risks identified at this time. - Family history:: not pertinent. Screenin:11 Abuse screen: Denies threats or abuse. Nutritional screening: No deficits noted. ea Tuberculosis screening: No symptoms or risk factors identified. Fall Risk None identified. Assessment: 01:00 General: Appears uncomfortable, Behavior is calm, cooperative. Pain: Denies pain. tr5 Neuro: Level of Consciousness is awake, alert, obeys commands, Oriented to person, place, time, Teradata Developer are equal bilaterally Moves all extremities. Cardiovascular: Heart tones present Capillary refill < 3 seconds Pulses are all present. Edema is absent. Respiratory: Airway is patent Respiratory effort is even, unlabored, Respiratory pattern is regular, symmetrical. GI: No signs and/or symptoms were reported involving the gastrointestinal system. : No signs and/or symptoms were reported regarding the genitourinary system. EENT: No signs and/or symptoms were reported regarding the EENT system. Derm: No signs and/or symptoms reported regarding the dermatologic system. Musculoskeletal: No signs and/or symptoms reported regarding the musculoskeletal system. 02:00 Reassessment: Patient and/or family updated on plan of care and expected duration. Pain ea level reassessed. Patient is alert, oriented x 3, equal unlabored respirations, skin warm/dry/pink. 03:41 Reassessment: Patient and/or family updated on plan of care and expected duration. Pain ea level reassessed. Patient is alert, oriented x 3, equal unlabored respirations, skin warm/dry/pink. 05:34 Reassessment: Patient and/or family updated on plan of care and expected duration. Pain ea level reassessed. Pt resting with eyes closed, respirations even and unlabored, chest expansions even and symmetrical. 07:00 General: Appears in no apparent distress. comfortable, Pt. is resting with eyes closed, rb1 respirations even, unlabored.. Cardiovascular: Patient's skin is warm and dry. Respiratory: Airway is patent Respiratory effort is even, unlabored, Respiratory pattern is regular, symmetrical. 08:00 Reassessment: Patient appears in no apparent distress at this time. No changes from rb1 previously documented assessment. Sitter at the bedside. 09:00 Reassessment: Patient appears in no apparent distress at this time. Patient and/or rb1 family updated on plan of care and expected duration. Pain level reassessed. Patient is alert, oriented x 3, equal unlabored respirations, skin warm/dry/pink. Patient denies pain at this time. 10:00 Reassessment: Patient appears in no apparent distress at this time. Pt. is resting with rb1 eyes closed, respirations even, unlabored. 11:00 Reassessment: Patient appears in no apparent distress at this time. No changes from rb1 previously documented assessment. 11:50 Reassessment: Called security for the pt. belongings. rb1 12:00 Reassessment: Patient appears in no apparent distress at this time. Patient and/or rb1 family updated on plan of care and expected duration. Pain level reassessed. Patient is alert, oriented x 3, equal unlabored respirations, skin warm/dry/pink. Pt. requested a professor of social work; provider notified. 12:09 Reassessment: Gave written community resources to the pt. Pt. reports that he does not rb1 have transportation back to [place] and the bus doesn't run on Tuesday. Notified [employer] litigation secretary. 12:20 Reassessment: Pt. will be taking a cab back to [place], cab will be here in twenty rb1 minutes. 12:26 Reassessment: Belongings were returned to the pt before discharge. rb1 12:42 Reassessment: Patient appears in no apparent distress at this time. Patient and/or rb1 family updated on plan of care and expected duration. Pain level reassessed. Patient is alert, oriented x 3, equal unlabored respirations, skin warm/dry/pink. Patient denies pain at this time. Psych: 01:15 Subjective: Patient's mood is sad. Objective: Patient is cooperative, Speech is normal, ea Affect is appropriate. Interventions: Removed personal items and placed in bag. Patient placed in hospital gown. Searched person for dangerous items. Suicide Risk Assessment: Sad Person Scale: Sex of patient: Male: Score 1 point. Age of patient: Score 0 point if patient falls outside of specified age parameters. Depression: Score 1 point if signs of depression are present. Previous Attempt: Score 1 point if patient has previously attempted suicide. Substance Abuse: Score 0 point if patient does not abuse alcohol or drugs. Rational Thinking: Score 0 point if patient has rational thinking. Social Support: Score 1 point if social support is lacking and/or unavailable. Organized Plan: Score 0 if patient did not have an organized plan in place. Safety Checks: Personal items have been removed. Door is open. No visitors are present at this time. Patient uses tobacco 1 pack. Commitment: Patient will be a voluntary commitment. Vital Signs: 01:10 BP 127 / 112; Pulse 103; Resp 19; Temp 98; Pulse Ox 95% on R/A; Weight 77.11 kg; Height ea 6 ft. 6 in. (198.12 cm); Pain 0/10; 01:45 BP 126 / 87; Pulse 87; Resp 18; Pulse Ox 97% on R/A; mt 03:46 BP 132 / 86; Pulse 92; Resp 17; Pulse Ox 96% on R/A; mt 09:29 BP 123 / 84; Pulse 93; Resp 20; Temp 98.2; Pulse Ox 97% on R/A; em1 12:20 BP 126 / 79; Pulse 84; Resp 17; Pulse Ox 99% on R/A; Pain 0/10; rb1 01:10 Body Mass Index 19.65 (77.11 kg, 198.12 cm) ea ED Course: 00:55 Patient arrived in ED. ds1 01:00 Safety checks: Items removed: yes. Door open/sign placed on door: yes. Family/friend mt present: no. Sitter present: Yes. 01:05 Davis Still, BESSIE is Primary Nurse. tr5 01:09 Zachary Warren MD is Attending Physician. gregorio 01:10 Triage completed. ea 01:10 Inserted saline lock: 20 gauge in right forearm, using aseptic technique. Blood mt collected. 01:12 Patient has correct armband on for positive identification. Placed in gown. Bed in low ea position. Call light in reach. 01:12 Arm band placed on right wrist. Patient placed in an exam room, on a stretcher, on ea pulse oximetry. 01:15 Safety checks: Items removed: yes. Door open/sign placed on door: yes. Family/friend mt present: no. Sitter present: Yes. 01:30 Safety checks: Items removed: yes. Door open/sign placed on door: yes. Family/friend mt present: no. Sitter present: Yes. 01:45 Safety checks: Items removed: yes. Door open/sign placed on door: yes. Family/friend mt present: no. Sitter present: Yes. 02:00 Safety checks: Items removed: yes. Door open/sign placed on door: yes. Family/friend mt present: no. Sitter present: Yes. 02:15 Safety checks: Items removed: yes. Door open/sign placed on door: yes. Family/friend mt present: no. Sitter present: Yes. 02:30 Safety checks: Items removed: yes. Door open/sign placed on door: yes. Family/friend mt present: no. Sitter present: Yes. 02:45 Safety checks: Items removed: yes. Door open/sign placed on door: yes. Family/friend mt present: no. Sitter present: Yes. 03:00 Safety checks: Items removed: yes. Door open/sign placed on door: yes. Family/friend mt present: no. Sitter present: Yes. 03:15 Safety checks: Items removed: yes. Door open/sign placed on door: yes. Family/friend mt present: no. Sitter present: Yes. 03:30 Safety checks: Items removed: yes. Door open/sign placed on door: yes. Family/friend mt present: no. Sitter present: Yes. 03:45 Safety checks: Items removed: yes. Door open/sign placed on door: yes. Family/friend mt present: no. Sitter present: Yes. 04:00 Safety checks: Items removed: yes. Door open/sign placed on door: yes. Family/friend mt present: no. Sitter present: Yes. 04:15 Safety checks: Items removed: yes. Door open/sign placed on door: yes. Family/friend mt present: no. Sitter present: Yes. 04:30 Safety checks: Items removed: yes. Door open/sign placed on door: yes. Family/friend mt present: no. Sitter present: Yes. 04:45 Safety checks: Items removed: yes. Door open/sign placed on door: yes. Family/friend mt present: no. Sitter present: Yes. 05:00 Safety checks: Items removed: yes. Door open/sign placed on door: yes. Family/friend mt present: no. Sitter present: Yes. 05:15 Safety checks: Items removed: yes. Door open/sign placed on door: yes. Family/friend mt present: no. Sitter present: Yes. 05:30 Safety checks: Items removed: yes. Door open/sign placed on door: yes. Family/friend mt present: no. Sitter present: Yes. 05:45 Safety checks: Items removed: yes. Door open/sign placed on door: yes. Family/friend mt present: no. Sitter present: Yes. 06:00 Safety checks: Items removed: yes. Door open/sign placed on door: yes. Family/friend mt present: no. Sitter present: Yes. 06:15 Safety checks: Items removed: yes. Door open/sign placed on door: yes. Family/friend mt present: no. Sitter present: Yes. 06:30 Safety checks: Items removed: yes. Door open/sign placed on door: yes. Family/friend mt present: no. Sitter present: Yes. 06:45 Safety checks: Items removed: yes. Door open/sign placed on door: yes. Family/friend mt present: no. Sitter present: Yes. 07:00 Safety checks: Items removed: yes. Door open/sign placed on door: yes. Family/friend em1 present: no. Sitter present: Yes. 07:15 Safety checks: Items removed: yes. Door open/sign placed on door: yes. Family/friend em1 present: no. Sitter present: Yes. 07:30 Safety checks: Items removed: yes. Door open/sign placed on door: yes. Family/friend em1 present: no. Sitter present: Yes. 07:45 Safety checks: Items removed: yes. Door open/sign placed on door: yes. Family/friend em1 present: no. Sitter present: Yes. 08:00 Safety checks: Items removed: yes. Door open/sign placed on door: yes. Family/friend em1 present: no. Sitter present: Yes. 08:15 Safety Checks: Personal items have been removed. The door is open or patient has been rb1 placed in a hallway bed/chair. There are no family/friend visitors at this time Sitter present at this time. 08:15 Safety checks: Items removed: yes. Door open/sign placed on door: yes. Family/friend em1 present: no. Sitter present: Yes. 08:30 Safety Checks: Personal items have been removed. The door is open or patient has been rb1 placed in a hallway bed/chair. There are no family/friend visitors at this time Sitter present at this time. 08:30 Safety checks: Items removed: yes. Door open/sign placed on door: yes. Family/friend em1 present: no. Sitter present: Yes. 08:45 Safety Checks: Personal items have been removed. The door is open or patient has been rb1 placed in a hallway bed/chair. There are no family/friend visitors at this time Sitter present at this time. 08:45 Safety checks: Items removed: yes. Door open/sign placed on door: yes. Family/friend em1 present: no. Sitter present: Yes. 09:00 Safety Checks: Personal items have been removed. The door is open or patient has been rb1 placed in a hallway bed/chair. There are no family/friend visitors at this time Sitter present at this time. 09:00 Safety checks: Items removed: yes. Door open/sign placed on door: yes. Family/friend em1 present: no. Sitter present: Yes. 09:15 Safety Checks: Personal items have been removed. The door is open or patient has been rb1 placed in a hallway bed/chair. There are no family/friend visitors at this time Sitter present at this time. 09:15 Safety checks: Items removed: yes. Door open/sign placed on door: yes. Family/friend em1 present: no. Sitter present: Yes. 09:30 Safety Checks: Personal items have been removed. The door is open or patient has been rb1 placed in a hallway bed/chair. There are no family/friend visitors at this time Sitter present at this time. 09:30 Safety checks: Items removed: yes. Door open/sign placed on door: yes. Family/friend em1 present: no. Sitter present: Yes. 09:34 Attending Physician role handed off by Zachary Warren MD ps1 09:34 Isrrael John MD is Attending Physician. ps1 09:45 Safety Checks: Personal items have been removed. The door is open or patient has been rb1 placed in a hallway bed/chair. There are no family/friend visitors at this time Sitter present at this time. 10:00 Safety Checks: Personal items have been removed. The door is open or patient has been rb1 placed in a hallway bed/chair. There are no family/friend visitors at this time Sitter present at this time. 10:15 Safety Checks: Personal items have been removed. The door is open or patient has been rb1 placed in a hallway bed/chair. There are no family/friend visitors at this time Sitter present at this time. 10:30 Safety Checks: Personal items have been removed. The door is open or patient has been rb1 placed in a hallway bed/chair. There are no family/friend visitors at this time Sitter present at this time. 10:45 Safety Checks: Personal items have been removed. The door is open or patient has been rb1 placed in a hallway bed/chair. There are no family/friend visitors at this time Sitter present at this time. 11:00 Safety Checks: Personal items have been removed. The door is open or patient has been rb1 placed in a hallway bed/chair. There are no family/friend visitors at this time Sitter present at this time. 11:15 Safety Checks: Personal items have been removed. The door is open or patient has been rb1 placed in a hallway bed/chair. There are no family/friend visitors at this time Sitter present at this time. 11:30 Safety Checks: Personal items have been removed. The door is open or patient has been rb1 placed in a hallway bed/chair. There are no family/friend visitors at this time Sitter present at this time. 11:45 Safety Checks: Personal items have been removed. The door is open or patient has been rb1 placed in a hallway bed/chair. There are no family/friend visitors at this time Sitter present at this time. 12:00 Safety Checks: Personal items have been removed. The door is open or patient has been rb1 placed in a hallway bed/chair. There are no family/friend visitors at this time Sitter present at this time. 12:15 Safety Checks: Personal items have been removed. The door is open or patient has been rb1 placed in a hallway bed/chair. There are no family/friend visitors at this time Sitter present at this time. 12:30 Safety Checks: Personal items have been removed. The door is open or patient has been rb1 placed in a hallway bed/chair. There are no family/friend visitors at this time Sitter present at this time. 12:45 Safety Checks: Personal items have been removed. The door is open or patient has been rb1 placed in a hallway bed/chair. There are no family/friend visitors at this time Sitter present at this time. 13:00 Safety Checks: Personal items have been removed. The door is open or patient has been rb1 placed in a hallway bed/chair. There are no family/friend visitors at this time Sitter present at this time. 13:01 No provider procedures requiring assistance completed. IV discontinued, intact, rb1 bleeding controlled, No redness/swelling at site. Pressure dressing applied. Administered Medications: 01:57 Drug: NS 0.9% 1000 ml Route: IV; Rate: 1 bolus; Site: right forearm; tr5 03:00 Follow up: Response: No adverse reaction; IV Status: Completed infusion; IV Intake: ea 1000ml 02:09 Drug: Thiamine 100 mg Route: IV; Rate: bolus; Site: right forearm; tr5 02:15 Follow up: IV Status: Completed infusion ea 02:11 Drug: Ativan 1 mg Route: IVP; Site: right antecubital; tr5 02:40 Follow up: Response: No adverse reaction ea 02:44 Drug: Banana Bag - (NS 0.9% 1000 ml, foLIC Acid 1 mg, Thiamine 100 mg, Multivitamin 1 ea amp) Route: IV; Rate: 125 ml/hr; Site: right antecubital; 02:48 Drug: Ativan 1 mg Route: IVP; Site: right antecubital; ea 03:00 Follow up: Response: No adverse reaction; Anxiety decreased ea Intake: 03:00 IV: 1000ml; Total: 1000ml. ea Outcome: 02:20 ER care complete, transfer ordered by . gregorio 11:33 Discharge ordered by . ps1 13:01 Discharged to home ambulatory. rb1 13:01 Condition: stable 13:01 Discharge instructions given to patient, Instructed on discharge instructions, follow up and referral plans. Demonstrated understanding of instructions, follow-up care, Prescriptions given X none Signatures: Zachary Warren MD MD cha Sanford, Jen ds1 Rakesh, Jose Guadalupe em1 Noelle Pena RN RN rb1 Baxter, Heather, RN RN hb Thompson, Moriah mt Antunez, Elena, RN RN ea Singer, Phillip, MD MD ps1 Rodriguez, Tommie, RN RN tr5 Corrections: (The following items were deleted from the chart) 17:34 13:16 Patient left the ED. rb1 17:38 12:00 Reassessment: Patient appears in no apparent distress at this time. Patient rb1 and/or family updated on plan of care and expected duration. Pain level reassessed. Patient is alert, oriented x 3, equal unlabored respirations, skin warm/dry/pink. rb1
--- NOTE | 2019-09-16 02:21 | EDPHYS ---
Physician Documentation [facility] Name: Joe Marina Jr Age: 49 yrs Sex: Male : 1970 Arrival Date: 09/16/2019 Time: 00:55 Bed 15 Private MD: ED Physician Isrrael John HPI: 09/16 02:15 This 49 yrs old Male presents to ER via Ambulatory with complaints of gregorio Suicidal Ideation. 02:15 The patient presents to the emergency department with anxiety, depression. Onset: The gregorio symptoms/episode began/occurred 2 day(s) ago. Past psychiatric history: Prior diagnosis: bipolar disorder, PTSD. Associated signs and symptoms: The patient has no apparent associated signs or symptoms. Severity of symptoms: At their worst the symptoms were mild in the emergency department the symptoms are unchanged. The patient has not experienced similar symptoms in the past. Historical: - Allergies: 01:14 PENICILLINS; ea 01:14 Haloperidol; ea - PMHx: 01:14 Hypertension; PTSD; SUICIDE ATTEMPT; ea - PSHx: 01:14 Appendectomy; Cholecystectomy; Hernia repair; ea - Immunization history:: Adult Immunizations up to date. - Social history:: Smoking status: Patient uses tobacco products, smokes one pack cigarettes per day. - Ebola Screening: : No symptoms or risks identified at this time. - Family history:: not pertinent. ROS: 02:15 Constitutional: Negative for fever, chills, and weight loss, Eyes: Negative for injury, gregorio pain, redness, and discharge, ENT: Negative for injury, pain, and discharge, Neck: Negative for injury, pain, and swelling, Cardiovascular: Negative for chest pain, palpitations, and edema, Respiratory: Negative for shortness of breath, cough, wheezing, and pleuritic chest pain, Abdomen/GI: Negative for abdominal pain, nausea, vomiting, diarrhea, and constipation, Back: Negative for injury and pain, : Negative for injury, bleeding, discharge, and swelling, MS/Extremity: Negative for injury and deformity, Skin: Negative for injury, rash, and discoloration, Neuro: Negative for headache, weakness, numbness, tingling, and seizure, Allergy/Immunology: Negative for hives, rash, and allergies, Endocrine: Negative for neck swelling, polydipsia, polyuria, polyphagia, and marked weight changes, Hematologic/Lymphatic: Negative for swollen nodes, abnormal bleeding, and unusual bruising. 02:15 Psych: Positive for anxiety. Exam: 02:15 Constitutional: This is a well developed, well nourished patient who is awake, alert, gregorio and in no acute distress. Head/Face: Normocephalic, atraumatic. Eyes: Pupils equal round and reactive to light, extra-ocular motions intact. Lids and lashes normal. Conjunctiva and sclera are non-icteric and not injected. Cornea within normal limits. Periorbital areas with no swelling, redness, or edema. ENT: Nares patent. No nasal discharge, no septal abnormalities noted. Tympanic membranes are normal and external auditory canals are clear. Oropharynx with no redness, swelling, or masses, exudates, or evidence of obstruction, uvula midline. Mucous membranes moist. Neck: Trachea midline, no thyromegaly or masses palpated, and no cervical lymphadenopathy. Supple, full range of motion without nuchal rigidity, or vertebral point tenderness. No Meningismus. Chest/axilla: Normal chest wall appearance and motion. Nontender with no deformity. No lesions are appreciated. Cardiovascular: Regular rate and rhythm with a normal S1 and S2. No gallops, murmurs, or rubs. Normal PMI, no JVD. No pulse deficits. Respiratory: Lungs have equal breath sounds bilaterally, clear to auscultation and percussion. No rales, rhonchi or wheezes noted. No increased work of breathing, no retractions or nasal flaring. Abdomen/GI: Soft, non-tender, with normal bowel sounds. No distension or tympany. No guarding or rebound. No evidence of tenderness throughout. Back: No spinal tenderness. No costovertebral tenderness. Full range of motion. Male : Normal genitalia with no discharge or lesions. Skin: Warm, dry with normal turgor. Normal color with no rashes, no lesions, and no evidence of cellulitis. MS/ Extremity: Pulses equal, no cyanosis. Neurovascular intact. Full, normal range of motion. Neuro: Awake and alert, GCS 15, oriented to person, place, time, and situation. Cranial nerves II-XII grossly intact. Motor strength 5/5 in all extremities. Sensory grossly intact. Cerebellar exam normal. Normal gait. 02:15 Psych: Behavior/mood is anxious, Affect is flat, animated, Oriented to Patient has no thoughts/intents to harm self or others. Judgement / Insight is normal. Memory is normal. Delusions/hallucinations are not present. Vital Signs: 01:10 BP 127 / 112; Pulse 103; Resp 19; Temp 98; Pulse Ox 95% on R/A; Weight 77.11 kg; Height ea 6 ft. 6 in. (198.12 cm); Pain 0/10; 01:45 BP 126 / 87; Pulse 87; Resp 18; Pulse Ox 97% on R/A; mt 03:46 BP 132 / 86; Pulse 92; Resp 17; Pulse Ox 96% on R/A; mt 09:29 BP 123 / 84; Pulse 93; Resp 20; Temp 98.2; Pulse Ox 97% on R/A; em1 12:20 BP 126 / 79; Pulse 84; Resp 17; Pulse Ox 99% on R/A; Pain 0/10; rb1 01:10 Body Mass Index 19.65 (77.11 kg, 198.12 cm) MDM: 01:10 Patient medically screened. [facility] 02:18 Data reviewed: vital signs, nurses notes, lab test result(s), EKG, radiologic studies, gregorio plain films. 09:34 ED course: patient is alert and awake. Will reassess for sobriety. UA provided. . ps1 11:34 ED course: Patient was intoxicated and not cogent to make suicidal claim with ps1 competence upon initial presentation. Refused by [facility] 2/2 intoxication. Reassessed patient who was sober, alert oriented and ambulating without assistance. He was given breakfast. States that he was not SI/HI at this time. Not on MELISSA. Changed disposition to discharge. . 09/16 01:01 Order name: Acetaminophen; Complete Time: 09/16 01:01 Order name: Basic Metabolic Panel; Complete Time: 09/16 01:01 Order name: CBC with Diff; Complete Time: 09/16 01:01 Order name: ETOH Level; Complete Time: 09/16 01:01 Order name: Hepatic Function; Complete Time: 09/16 01:01 Order name: PT-INR; Complete Time: 09/16 01:01 Order name: Ptt, Activated; Complete Time: 09/16 01:01 Order name: Salicylate; Complete Time: :58 ea 09/16 01:01 Order name: Urine Drug Screen; Complete Time: 09:35 ea 09/16 01:01 Order name: EKG; Complete Time: 01:03 ea 09/16 01:01 Order name: EKG - Nurse/Tech; Complete Time: 01:20 ea 09/16 01:01 Order name: IV Saline Lock; Complete Time: :20 ea 09/16 01:01 Order name: Labs collected and sent; Complete Time: :20 ea 09/16 01:01 Order name: Urine Dipstick-Ancillary (obtain specimen); Complete Time: 09:25 ea 09/16 08:46 Order name: Diet Finger Food; Complete Time: 08:47 rb1 Administered Medications: 01:57 Drug: NS 0.9% 1000 ml Route: IV; Rate: 1 bolus; Site: right forearm; tr5 03:00 Follow up: Response: No adverse reaction; IV Status: Completed infusion; IV Intake: ea 1000ml 02:09 Drug: Thiamine 100 mg Route: IV; Rate: bolus; Site: right forearm; tr5 02:15 Follow up: IV Status: Completed infusion ea 02:11 Drug: Ativan 1 mg Route: IVP; Site: right antecubital; tr5 02:40 Follow up: Response: No adverse reaction ea 02:44 Drug: Banana Bag - (NS 0.9% 1000 ml, foLIC Acid 1 mg, Thiamine 100 mg, Multivitamin 1 ea amp) Route: IV; Rate: 125 ml/hr; Site: right antecubital; 02:48 Drug: Ativan 1 mg Route: IVP; Site: right antecubital; ea 03:00 Follow up: Response: No adverse reaction; Anxiety decreased ea Disposition: 09/16/19 11:33 Discharged to Home. Impression: Alcohol abuse with intoxication. - Condition is Stable. - Discharge Instructions: Alcohol Intoxication. - Medication Reconciliation Form, Thank You Letter, Antibiotic Education, Prescription Opioid Use form. - Follow up: Emergency Department; When: As needed; Reason: Worsening of condition. Follow up: Private Physician; When: As needed; Reason: Recheck today's complaints, Continuance of care, Re-evaluation by your physician. - Problem is chronic. - Symptoms have improved. Signatures: Dispatcher [employer] Zachary Leal MD MD cha Baxter, Heather, BESSIE RN hb Trisha Alvarado RN RN ea Singer, Phillip, MD MD ps1 Davis Still RN RN tr5 Corrections: (The following items were deleted from the chart) 11:33 02:20 09/16/2019 02:20 Transfer ordered to [facility] [address] Diagnosis is Suicidal ideations; Bipolar disorder; Alcohol abuse with intoxication. Reason for transfer: Higher level of care. Accepting physician is TO [place]. Condition is Fair. Problem is new. Symptoms have improved. [facility] 13:16 11:33 09/16/2019 11:33 Discharged to Home. Impression: Alcohol abuse with intoxication. Condition is Stable. Forms are Medication Reconciliation Form, Thank You Letter, Antibiotic Education, Prescription Opioid Use. Follow up: Emergency Department; When: As needed; Reason: Worsening of condition. Follow up: Private Physician; When: As needed; Reason: Recheck today's complaints, Continuance of care, Re-evaluation by your physician. Problem is chronic. Symptoms have improved. ps1
[2019-09-16] MEDS ORDERED: MULTIVITAMINS 10 ML VIAL (INJ) IV ONE (02:34)
[2019-09-16] MEDS ORDERED: FOLIC ACID 5 MG/ML VIAL ONE (02:35)
[2019-09-16 06:12] LABS: Barbiturates NEGATIVE (NEGATIVE); Benzodiazepines NEGATIVE (NEGATIVE); Cocaine NEGATIVE (NEGATIVE); METHAMPHETAM NEGATIVE (NEGATIVE); Methadone NEGATIVE (NEGATIVE); Opiates NEGATIVE (NEGATIVE); Phencyclidine NEGATIVE (NEGATIVE); THC Cannibis NEGATIVE (NEGATIVE)
--- NOTE | 2019-09-16 06:12 | EKG ---
Test Date: 2019-09-16 Test Time: 01:15:07 Type Casting Machine Operator: SEAN MEASUREMENT RESULTS: Intervals: Rate: 86 OR: 168 QRSD: 98 QT: 362 QTc: 433 [place]: P: 81 OR: 168 QRS: 92 T: 101 INTERPRETIVE STATEMENTS: Normal sinus rhythm Rightward axis ST elevation, consider early repolarization, pericarditis, or injury Nonspecific ST abnormality Abnormal ECG Compared to ECG 06/14/2019 22:07:44 Right-axis deviation now present ST (T wave) deviation now present Sinus tachycardia no longer present Electronically Signed On 09-16-19 06:12:06 [employer] by Kole Ambriz
[2019-09-16 13:26] VITALS: BP 123/84; TEMP 98.2; O2SAT 97
== END 2019-09-16 13:16 | disposition home or self-care (01) ==
LOC: ER 00:53
DX: F10.129 Alcohol abuse with intoxication, unspecified (principal); Z88.0 Allergy status to penicillin; F17.210 Nicotine dependence, cigarettes, uncomplicated
CPT/HCPCS: 96361; 93005; 85025; 80048; 36415; 80320; 80329 ×2; 85610; 80076; 80307 ×8; 85730; 96375; 96374; 99285; J3411 ×2; J7030 ×2

== ENCOUNTER 2019-12-28 16:07 | Emergency (ER) | payer OTHER ==
--- OUTSIDE RECORDS SUMMARY | 2019-12-28 16:10 | XMS REPORT ---
:1970 Author Organization [facility] Address [address] [place] [address] Care Team Providers Name Role Phone Unavailable Unavailable Unavailable Payers Payer Name Policy Type Policy Number Effective Date Expiration Date Problems This patient has no known problems. Allergies, Adverse Reactions, Alerts Allergy Name Allergy Status Severity Reaction(s) Onset Inactive Treating Comments Type Date Date Clinician penicillin G DA Active MO 2019-10 00:00:0 0 No Known DA Active U 2003-02 Contrast -08 Allergies 00:00:0 0 No Known DA Active U 2003-02 Food -08 Allergies 00:00:0 0 No Known DA Active U 2003-02 Other -08 Allergies 00:00:0 0 PENICILLIN DA Active U 2003-02 00:00:0 0 penicillin G DA Active U 2001-02 00:00:0 0 Medications This patient has no known medications. Results Test Description Test Time Test Comments Text Results Atomic Results Result Comments - XR CHEST 2 V 2019-12-05 10:26:00 Patient Name: BASIL BERGER Unit No: [id number] EXAMS: CPT CODE: [id number] XR CHEST 2 V [id number] EXAMINATION: - XR CHEST 2 V LOCATION: W1 INDICATION/CLINICAL HISTORY: J44.0 COMPARISON: None. TECHNIQUE: Frontal and lateral views of the chest. FINDINGS: Cardiomediastinal silhouette: Normal. Pulmonary vasculature: Not congested. Lungs/pleura: No consolidation, pneumothorax or pleural effusion. There is pulmonary hyperinflation. Upper abdomen: Unremarkable. Regional osseous structures: Intact. IMPRESSION: Pulmonary hyperinflation. No consolidations or infiltrates. at 1026 Reported and signed by: Marcin Morataya M.D. CC: Rodger Fernandes MD Technologist: Clive Eng Time: DAP (Gy m2): Air Kerma (mGy): Trscr Dt/Tm: 12/05/2019 (1026) by:[email or web address] Printed Date/Time: 12/05/2019 (1030) Name: BASIL BERGER [facility] Phys: Rodger Castellano MD [address] : 1970 Age: 49 Sex: M [place] [id number] Loc: P.PUL Exam Date: 12/05/2019 Status: REG CLI PH: FAX: PAGE 1 Signed Report ACUTE HEPATITIS PANEL 2019-10-20 20:50:00 Test Item Value Reference Range Comments AB HEPATITIS A IGM (test NON REACTIVE INDEX NON REACT. Testing done at [facility] code=HAVMAB) [facility] [address] [place] [address] AB HEPATITIS B SURFACE <3.1 mIU/mL Immunity>9.9 Status of Immunity (test code=HBSAB) Anti-HBs Level Inconsistent with Immunity 0.0 - 9.9Consistent with Immunity >9.9Performed At: [facility] [id number] Patterson MD Ph:[phone] PERFORMED AT [facility] [address] AG HEPATITIS B SURFACE NON REACTIVE INDEX NonReactive Testing done at [facility] (test code=HBSAG) [facility] [address] [place] [address] [id number] AB HEPATITIS B CORE IGM NON REACTIVE INDEX NON REACT. Testing done at [facility] (test code=HBCMAB) [facility] [address] [place] [address] AB HEPATITIS C (test NON REACTIVE INDEX NON REACT. Testing done at [facility] code=HCVAB) [facility] [address] [place] [address] Specimen comments: May do on blood in lab, if possible.COMPREHENSIVE METABOLIC [id number] 06:51:00 Test Item Value Reference Range Comments SODIUM (test code=NA) 127 mmol/l 134.0-147.0 POTASSIUM (test code=K) 4.1 mmol/L 3.6-5.2 CHLORIDE (test code=CL) 98 mmol/l 98.0-107.0 CARBON DIOXIDE (test code=CO2) 26.9 mmol/l 21.0-33.0 ANION GAP (test code=GAP) 5.1 0-20 GLUCOSE (test code=GLU) 171 mg/dl 70.0-110.0 BLOOD UREA NITROGEN (test code=BUN) 11 mg/dl 7.0-18.0 CREATININE (test code=CREAT) 0.60 mg/dL 0.60-1.30 GFR NON BLACK (test code=GFRNONBLACK) 151 mL/min 90-95 GFR BLACK (test code=GFRBLACK) 183 mL/min 109-115 TOTAL PROTEIN (test code=PROT) 7.1 gm/dL 6.4-8.2 ALBUMIN (test code=ALB) 3.0 gm/dl 3.2-4.7 CALCIUM (test code=CA) 9.0 mg/dl 8.0-10.5 BILIRUBIN TOTAL (test code=BILT) 0.3 mg/dl 0.0-1.0 SGOT/AST (test code=AST) 50 Units/L 15.0-37.0 SGPT/ALT (test code=ALT) 88 Units/L 12.0-78.0 ALKALINE PHOSPHATASE TOTAL (test code=ALKP) 67 Units/L 50.0-136.0 [id number] 06:51:00 Test Item Value Reference Range Comments MAGNESIUM (test code=MAG) 2.0 mg/dl 1.8-2.4 CBC W/AUTO [id number] 06:23:00 Test Item Value Reference Range Comments WHITE BLOOD CELL (test code=WBC) 7.2 K/mm3 4.5-11.0 RED BLOOD CELL (test code=RBC) 4.87 M/mm3 4.40-5.90 HEMOGLOBIN (test code=HGB) 14.3 gm/dL 13.0-17.0 HEMATOCRIT (test code=HCT) 42.9 % 36.0-48.0 MEAN CELL VOLUME (test code=MCV) 88.1 UM3 80.0-94.0 MEAN CELL HGB (test code=MCH) 29.4 UUG 25.5-32.5 MEAN CELL HGB CONCETRATION (test code=MCHC) 33.3 gm/dL 29.0-35.5 RED CELL DISTRIBUTION WIDTH (test code=RDW) 14.7 % 11.5-15.0 RED CELL DISTRIBUTION WIDTH SD (test 47.6 fL 34.8-50.2 code=RDW-SD) PLATELET COUNT (test code=PLT) 307 K/mm3 150-400 MEAN PLATELET VOLUME (test code=MPV) 9.9 fl 7.4-10.4 NEUTROPHIL % (test code=NT%) 77.3 % 49.0-76.0 IMMATURE GRANULOCYTE % (test code=IG%) 0.8 % 0.0-0.4 LYMPHOCYTE % (test code=LY%) 10.8 % 23.0-38.0 MONOCYTE % (test code=MO%) 11.0 % 1.0-10.0 EOSINOPHIL % (test code=EO%) 0.0 % 1.0-5.0 BASOPHIL % (test code=BA%) 0.1 % 0.0-1.0 NEUTROPHIL # (test code=NT#) 5.6 K/mm3 2.4-6.3 IMMATURE GRANULOCYTE # (test code=IG#) 0.06 x10 3/uL 0.00-0.07 LYMPHOCYTE # (test code=LY#) 0.8 K/mm3 1.2-4.0 MONOCYTE # (test code=MO#) 0.8 K/mm3 0.0-0.6 EOSINOPHIL # (test code=EO#) 0.0 K/MM3 0.0-0.7 BASOPHIL # (test code=BA#) 0.0 K/mm3 0.0-0.2 ACUTE HEPATITIS [id number] 04:31:00 Test Item Value Reference Range Comments AB HEPATITIS A IGM (test NON REACTIVE INDEX NON REACT. Testing done at [facility] code=HAVMAB) [facility] [address] [place] [address]. [place] [address] AB HEPATITIS B SURFACE mIU/mL Immune >9.9 (test code=HBSAB) AG HEPATITIS B SURFACE NON REACTIVE INDEX NonReactive Testing done at [facility] (test code=HBSAG) [facility] [address] [place] [address] AB HEPATITIS B CORE IGM NON REACTIVE INDEX NON REACT. Testing done at [facility] (test code=HBCMAB) [facility] [address] [place] [address] AB HEPATITIS C (test NON REACTIVE INDEX NON REACT. Testing done at [facility] code=HCVAB) [facility] [address] [place] [address] Specimen comments: May do on blood in lab, if possible.AB HEPATITIS A [id number] 03:35:00 Test Item Value Reference Range Comments AB HEPATITIS A IGM (test code=HAVMAB) NON REACTIVE INDEX NON REACT. Specimen comments: May do on blood in lab, if possible.AG HEPATITIS B [id number] 03:35:00 Test Item Value Reference Range Comments AG HEPATITIS B SURFACE (test code=HBSAG) NON REACTIVE INDEX NonReactive Specimen comments: May do on blood in lab, if possible.AB HEPATITIS B CORE [id number] 03:35:00 Test Item Value Reference Range Comments AB HEPATITIS B CORE IGM (test NON REACTIVE INDEX NON REACT. code=HBCMAB) Specimen comments: May do on blood in lab, if possible.AB HEPATITIS [id number] 03:35:00 Test Item Value Reference Range Comments AB HEPATITIS C (test code=HCVAB) NON REACTIVE INDEX NON REACT. Specimen comments: May do on blood in lab, if possible.AB HEPATITIS A [id number] 03:34:00 Test Item Value Reference Range Comments AB HEPATITIS A IGM (test code=HAVMAB) INDEX NON REACT. Specimen comments: May do on blood in lab, if possible.AG HEPATITIS B [id number] 03:34:00 Test Item Value Reference Range Comments AG HEPATITIS B SURFACE (test code=HBSAG) NON REACTIVE INDEX NonReactive Specimen comments: May do on blood in lab, if possible.AB HEPATITIS B CORE [id number] 03:34:00 Test Item Value Reference Range Comments AB HEPATITIS B CORE IGM (test NON REACTIVE INDEX NON REACT. code=HBCMAB) Specimen comments: May do on blood in lab, if possible.AB HEPATITIS [id number] 03:34:00 Test Item Value Reference Range Comments AB HEPATITIS C (test code=HCVAB) NON REACTIVE INDEX NON REACT. Specimen comments: May do on blood in lab, if possible.AB HEPATITIS A [id number] 03:33:00 Test Item Value Reference Range Comments AB HEPATITIS A IGM (test code=HAVMAB) INDEX NON REACT. Specimen comments: May do on blood in lab, if possible.AG HEPATITIS B [id number] 03:33:00 Test Item Value Reference Range Comments AG HEPATITIS B SURFACE (test code=HBSAG) NON REACTIVE INDEX NonReactive Specimen comments: May do on blood in lab, if possible.AB HEPATITIS B CORE [id number] 03:33:00 Test Item Value Reference Range Comments AB HEPATITIS B CORE IGM (test code=HBCMAB) INDEX NON REACT. Specimen comments: May do on blood in lab, if possible.AB HEPATITIS [id number] 03:33:00 Test Item Value Reference Range Comments AB HEPATITIS C (test code=HCVAB) NON REACTIVE INDEX NON REACT. Specimen comments: May do on blood in lab, if possible.ACUTE HEPATITIS [id number] 03:29:00 Test Item Value Reference Range Comments AB HEPATITIS A IGM (test INDEX NONREACTIVE code=HAVMAB) AB HEPATITIS B SURFACE mIU/mL Immune >9.9 (test code=HBSAB) AG HEPATITIS B SURFACE NON REACTIVE INDEX NonReactive Testing done at [facility] (test code=HBSAG) [facility] [address] [place] [address]. [place] [address] AB HEPATITIS B CORE IGM INDEX NONREACTIVE (test code=HBCMAB) AB HEPATITIS C (test INDEX NONREACTIVE code=HCVAB) Specimen comments: May do on blood in lab, if possible.AB HEPATITIS A [id number] 03:06:00 Test Item Value Reference Range Comments AB HEPATITIS A IGM (test code=HAVMAB) INDEX NON REACT. Specimen comments: May do on blood in lab, if possible.AG HEPATITIS B [id number] 03:06:00 Test Item Value Reference Range Comments AG HEPATITIS B SURFACE (test code=HBSAG) NON REACTIVE INDEX NonReactive Specimen comments: May do on blood in lab, if possible.AB HEPATITIS B CORE [id number] 03:06:00 Test Item Value Reference Range Comments AB HEPATITIS B CORE IGM (test code=HBCMAB) INDEX NON REACT. Specimen comments: May do on blood in lab, if possible.AB HEPATITIS [id number] 03:06:00 Test Item Value Reference Range Comments AB HEPATITIS C (test code=HCVAB) INDEX NON REACT. Specimen comments: May do on blood in lab, if possible.- XR CHEST 1 [id number] 04:08:00 FAX: Kirby Rhodes MD [phone] [place]: St: REG-- Name: BASIL BERGER [facility] : 1970 Age/S: 49/M [address] [facility] Unit#: [id number] Loc: E.EXP [place], [place]: [place] [address] Acct: [id number] Dis Date: Status: REG ER PHONE #: [phone] Exam Date: 10/18/2019 0351 FAX #: [phone] Reason: SOB EXAMS: CPT CODE: [id number] XR CHEST 1 V [id number] AFTER HOURS SERVICE ON: 10/18/2019 4:07 AM AP Portable Chest Location Code M12 HISTORY: SOB FINDINGS: There are no infiltrates. There are coarse chronic appearing bilateral interstitial markings. There are no pleural effusions. There is no pneumothorax. Cardiac silhouette and mediastinum appear within normal limits. IMPRESSION: No active pulmonary findings. at 0408 Reported and signed by: Rigo Perez M.D. CC: Kirby Rhodes MD Technologist: PRECIOUS STRAUSS Trnscrd Date/Time/By: 10/18/2019 (0408) : By: [email or web address] PAGE 1 Signed Report FAX: Kirby Rhodes MD [phone] [place]: St: REG- Name: CELINEBASIL [facility] : 1969 Age/S: 49/M [address] [facility] Unit #: [id number] Loc: E.EXP [place], [place]: [place] [address] Acct: [id number] Dis Date: Status: REG ER PHONE #: [phone] Exam Date: 10/18/2019 035 FAX #: [phone] Reason: SOB EXAMS: CPT CODE: [id number] XR CHEST 1 [id number] < Continued> Orig Print D/T: S: 10/18/2019 (0414) PAGE 2 Signed ReportBASIC METABOLIC [id number] 04:05:00 Test Item Value Reference Range Comments SODIUM (test code=NA) 140 mmol/l 134.0-147.0 POTASSIUM (test code=K) 4.1 mmol/L 3.6-5.2 CHLORIDE (test code=CL) 101 mmol/l 98.0-107.0 CARBON DIOXIDE (test code=CO2) 26.5 mmol/l 21.0-33.0 ANION GAP (test code=GAP) 16.6 0-20 GLUCOSE (test code=GLU) 87 mg/dl 70.0-110.0 BLOOD UREA NITROGEN (test code=BUN) 3 mg/dl 7.0-18.0 CREATININE (test code=CREAT) 0.60 mg/dL 0.60-1.30 GFR NON BLACK (test code=GFRNONBLACK) 151 mL/min 90-95 GFR BLACK (test code=GFRBLACK) 183 mL/min 109-115 CALCIUM (test code=CA) 8.5 mg/dl 8.0-10.5 HEPATIC FUNCTION PANEL [id number] 04:05:00 Test Item Value Reference Range Comments TOTAL PROTEIN (test code=PROT) 7.9 gm/dL 6.4-8.2 ALBUMIN (test code=ALB) 3.3 gm/dl 3.2-4.7 BILIRUBIN TOTAL (test code=BILT) 0.2 mg/dl 0.0-1.0 BILIRUBIN DIRECT (test code=BILD) 0.1 mg/dl 0.0-0.3 SGOT/AST (test code=AST) 87 Units/L 15.0-37.0 SGPT/ALT (test code=ALT) 109 Units/L 12.0-78.0 ALKALINE PHOSPHATASE TOTAL (test code=ALKP) 82 Units/L 50.0-136.0 [id number] 04:05:00 Test Item Value Reference Range Comments LIPASE (test code=LIP) 147 Units/L 65.0-230.0 B-TYPE NATRIURETIC [id number] 04:05:00 Test Item Value Reference Range Comments B-TYPE NATRIURETIC PEPTIDE (test code=BNP) 6.8 PG/ML 5-100 [id number] 04:05:00 Test Item Value Reference Range Comments TROPONIN-I (test <0.02 NG/ML 0.00-0.06 REFERENCE RANGE TROPONIN I code=TROPI) HEALTHY INDIVIDUALS: <0.06 ng/mL R/O ISCHEMIA: 0.07 - 0.60 ng/mL CUT-OFF RANGE FOR AMI: 0.60 - 1.5 ng/mL BASIC METABOLIC [id number] 04:03:00 Test Item Value Reference Range Comments SODIUM (test code=NA) 140 mmol/l 134.0-147.0 POTASSIUM (test code=K) 4.1 mmol/L 3.6-5.2 CHLORIDE (test code=CL) 101 mmol/l 98.0-107.0 CARBON DIOXIDE (test code=CO2) 26.5 mmol/l 21.0-33.0 ANION GAP (test code=GAP) 16.6 0-20 GLUCOSE (test code=GLU) 87 mg/dl 70.0-110.0 BLOOD UREA NITROGEN (test code=BUN) 3 mg/dl 7.0-18.0 CREATININE (test code=CREAT) 0.60 mg/dL 0.60-1.30 GFR NON BLACK (test code=GFRNONBLACK) 151 mL/min 90-95 GFR BLACK (test code=GFRBLACK) 183 mL/min 109-115 CALCIUM (test code=CA) 8.5 mg/dl 8.0-10.5 HEPATIC FUNCTION PANEL [id number] 04:03:00 Test Item Value Reference Range Comments TOTAL PROTEIN (test code=PROT) 7.9 gm/dL 6.4-8.2 ALBUMIN (test code=ALB) 3.3 gm/dl 3.2-4.7 BILIRUBIN TOTAL (test code=BILT) 0.2 mg/dl 0.0-1.0 BILIRUBIN DIRECT (test code=BILD) 0.1 mg/dl 0.0-0.3 SGOT/AST (test code=AST) 87 Units/L 15.0-37.0 SGPT/ALT (test code=ALT) 109 Units/L 12.0-78.0 ALKALINE PHOSPHATASE TOTAL (test code=ALKP) 82 Units/L 50.0-136.0 [id number] 04:03:00 Test Item Value Reference Range Comments LIPASE (test code=LIP) 147 Units/L 65.0-230.0 B-TYPE NATRIURETIC [id number] 04:03:00 Test Item Value Reference Range Comments B-TYPE NATRIURETIC PEPTIDE (test code=BNP) PG/ML 5-100 [id number] 04:03:00 Test Item Value Reference Range Comments TROPONIN-I (test <0.02 NG/ML 0.00-0.06 REFERENCE RANGE TROPONIN I code=TROPI) HEALTHY INDIVIDUALS: <0.06 ng/mL R/O ISCHEMIA: 0.07 - 0.60 ng/mL CUT-OFF RANGE FOR AMI: 0.60 - 1.5 ng/mL BASIC METABOLIC [id number] 03:53:00 Test Item Value Reference Range Comments SODIUM (test code=NA) 140 mmol/l 134.0-147.0 POTASSIUM (test code=K) 4.1 mmol/L 3.6-5.2 CHLORIDE (test code=CL) 101 mmol/l 98.0-107.0 CARBON DIOXIDE (test code=CO2) 26.5 mmol/l 21.0-33.0 ANION GAP (test code=GAP) 16.6 0-20 GLUCOSE (test code=GLU) mg/dl 70.0-110.0 BLOOD UREA NITROGEN (test code=BUN) mg/dl 7.0-18.0 CREATININE (test code=CREAT) mg/dL 0.60-1.30 GFR NON BLACK (test code=GFRNONBLACK) mL/min 90-95 GFR BLACK (test code=GFRBLACK) mL/min 109-115 CALCIUM (test code=CA) mg/dl 8.0-10.5 HEPATIC FUNCTION PANEL [id number] 03:53:00 Test Item Value Reference Range Comments TOTAL PROTEIN (test code=PROT) gm/dL 6.4-8.2 ALBUMIN (test code=ALB) gm/dl 3.2-4.7 BILIRUBIN TOTAL (test code=BILT) mg/dl 0.0-1.0 BILIRUBIN DIRECT (test code=BILD) mg/dl 0.0-0.3 SGOT/AST (test code=AST) Units/L 15.0-37.0 SGPT/ALT (test code=ALT) Units/L 12.0-78.0 ALKALINE PHOSPHATASE TOTAL (test code=ALKP) Units/L 50.0-136.0 [id number] 03:53:00 Test Item Value Reference Range Comments LIPASE (test code=LIP) Units/L 65.0-230.0 B-TYPE NATRIURETIC [id number] 03:53:00 Test Item Value Reference Range Comments B-TYPE NATRIURETIC PEPTIDE (test code=BNP) PG/ML 5-100 [id number] 03:53:00 Test Item Value Reference Range Comments TROPONIN-I (test code=TROPI) NG/ML 0.00-0.06 CBC W/AUTO [id number] 03:47:00 Test Item Value Reference Range Comments WHITE BLOOD CELL (test code=WBC) 6.1 K/mm3 4.5-11.0 RED BLOOD CELL (test code=RBC) 5.15 M/mm3 4.40-5.90 HEMOGLOBIN (test code=HGB) 15.2 gm/dL 13.0-17.0 HEMATOCRIT (test code=HCT) 45.0 % 36.0-48.0 MEAN CELL VOLUME (test code=MCV) 87.4 UM3 80.0-94.0 MEAN CELL HGB (test code=MCH) 29.5 UUG 25.5-32.5 MEAN CELL HGB CONCETRATION (test code=MCHC) 33.8 gm/dL 29.0-35.5 RED CELL DISTRIBUTION WIDTH (test code=RDW) 14.6 % 11.5-15.0 RED CELL DISTRIBUTION WIDTH SD (test 46.6 fL 34.8-50.2 code=RDW-SD) PLATELET COUNT (test code=PLT) 313 K/mm3 150-400 MEAN PLATELET VOLUME (test code=MPV) 9.4 fl 7.4-10.4 NEUTROPHIL % (test code=NT%) 51.6 % 49.0-76.0 IMMATURE GRANULOCYTE % (test code=IG%) 0.8 % 0.0-0.4 LYMPHOCYTE % (test code=LY%) 35.7 % 23.0-38.0 MONOCYTE % (test code=MO%) 8.3 % 1.0-10.0 EOSINOPHIL % (test code=EO%) 2.8 % 1.0-5.0 BASOPHIL % (test code=BA%) 0.8 % 0.0-1.0 NEUTROPHIL # (test code=NT#) 3.1 K/mm3 2.4-6.3 IMMATURE GRANULOCYTE # (test code=IG#) 0.05 x10 3/uL 0.00-0.07 LYMPHOCYTE # (test code=LY#) 2.2 K/mm3 1.2-4.0 MONOCYTE # (test code=MO#) 0.5 K/mm3 0.0-0.6 EOSINOPHIL # (test code=EO#) 0.2 K/MM3 0.0-0.7 BASOPHIL # (test code=BA#) 0.1 K/mm3 0.0-0.2
[2019-12-28 17:00] LABS: Absolute Lymphocytes (CBC) 1.8 K/uL (0.7-4.9); Basophils % 0.8 % (0-1.3); Hematocrit 46.5 % (39.6-49.0); MPV 7.3 fL (7.6-11.3); RBC Red Blood Cell Count 5.21 M/uL (4.33-5.43)
[2019-12-28 17:04] LABS: Protime INR 0.89
[2019-12-28 17:15] LABS: Barbiturates NEGATIVE (NEGATIVE); Benzodiazepines NEGATIVE (NEGATIVE); Cocaine NEGATIVE (NEGATIVE); METHAMPHETAM NEGATIVE (NEGATIVE); Methadone NEGATIVE (NEGATIVE); Opiates NEGATIVE (NEGATIVE); Phencyclidine NEGATIVE (NEGATIVE); THC Cannibis NEGATIVE (NEGATIVE)
[2019-12-28] MEDS ORDERED: LORazepam 2 MG/ML VIAL ONE ×3 (17:15→23:16)
[2019-12-28 17:21] LABS: ALT/SGPT 53 U/L (12-78); AST/SGOT 52 U/L (15-37); Alkaline Phosphatase 63 U/L (45-117); BUN Blood Urea Nitrogen 5 mg/dL (7-18); Bicarbonate 24 mmol/L (21-32); Bilirubin Direct 0.1 mg/dL (0-0.2); Bilirubin Total 0.3 mg/dL (0.2-1.0); Glucose Level 104 mg/dL (74-106); Potassium 4.3 mmol/L (3.5-5.1); Protein, Total 8.2 g/dL (6.4-8.2); Sodium Level 136 mmol/L (136-145)
[2019-12-28 17:22] LABS: Urine Blood TRACE (NEG); Urine Glucose NEGATIVE (NEG); Urine Protein TRACE (NEG)
[2019-12-28] MEDS ORDERED: FOLIC ACID 1 MG, MULTIVITAMINS INJ 10 ML, THIAMINE HCL 100 MG in NA CHLORIDE 0.9% 1,000 ML IV ONE (18:00)
[2019-12-28] MEDS ORDERED: NICOTINE 21 MG/PAT TD ONE (23:20)
[2019-12-29] MEDS ORDERED: MIDAZOLAM HCL 2 MG/2 ML INJ ONE (02:06)
[2019-12-29] MEDS ORDERED: WATER FOR INJ,STERILE 10 ML ONE (03:34)
[2019-12-29] MEDS ORDERED: ZIPRASIDONE MESYLA 20 MG/VIAL IM ONE (03:34)
[2019-12-29] MEDS ORDERED: LORazepam 2 MG/ML VIAL ONE ×2 (07:45→08:01)
[2019-12-29] MEDS ORDERED: THIAMINE 200 MG/2 ML INJ ONE (08:02)
--- NOTE | 2019-12-29 08:45 | EDPHYS ---
Physician Documentation [facility] Name: Joe Marina Jr Age: 49 yrs Sex: Male : 1970 Arrival Date: 12/28/2019 Time: 16:08 Bed 17 Private MD: ED Physician Zachary Warren HPI: 12/27 16:54 This 49 yrs old Male presents to ER via Unassigned with complaints of la1 Suicidal Ideation. 16:54 The patient presents to the emergency department with depression, over unknown la1 circumstances. Onset: The symptoms/episode began/occurred at an unknown time. Past psychiatric history: Prior diagnosis: bipolar disorder, depression, Psychiatric medications include:. Associated signs and symptoms: Pertinent positives; suicide ideation. Severity of symptoms: At their worst the symptoms were moderate. The patient has experienced similar episodes in the past. pt reports he has been drinking heavily (32 beers in the last few hours) and is feeling suicidal. Denies plan. [facility] and [facility].. Historical: - Allergies: 17:24 Haloperidol; ss 17:24 PENICILLINS; ss - PMHx: 17:24 Hypertension; PTSD; SUICIDE ATTEMPT; ss - PSHx: 17:24 Appendectomy; Cholecystectomy; Hernia repair; ss - Immunization history:: Adult Immunizations up to date. - Social history:: Smoking status: Patient reports the use of cigarette tobacco products, smokes one pack cigarettes per day. Patient uses alcohol, on a daily basis. Patient/guardian denies using street drugs. ROS: 16:55 Constitutional: Negative for fever, chills, and weight loss, Eyes: Negative for injury, la1 pain, redness, and discharge, ENT: Negative for injury, pain, and discharge, Neck: Negative for injury, pain, and swelling, Cardiovascular: Negative for chest pain, palpitations, and edema, Respiratory: Negative for shortness of breath, cough, wheezing, and pleuritic chest pain, Abdomen/GI: Negative for abdominal pain, nausea, vomiting, diarrhea, and constipation, Back: Negative for injury and pain, : Negative for injury, bleeding, discharge, and swelling, MS/Extremity: Negative for injury and deformity, Skin: Negative for injury, rash, and discoloration, Neuro: Negative for headache, weakness, numbness, tingling, and seizure. 16:55 Psych: Positive for alcohol dependence, suicidal ideation. Exam: 16:56 Constitutional: This is a well developed, well nourished patient who is awake, alert, la1 and in no acute distress. Head/Face: Normocephalic, atraumatic. Eyes: Pupils equal round and reactive to light, extra-ocular motions intact. Neck: Trachea midline, Cardiovascular: Regular rate and rhythm with a normal S1 and S2. Respiratory: Lungs have equal breath sounds bilaterally, clear to auscultation Back: No spinal tenderness. No costovertebral tenderness. Full range of motion. Skin: Warm, dry with normal turgor. MS/ Extremity: Pulses equal, no cyanosis. Neurovascular intact. Full, normal range of motion. Neuro: Awake and alert, GCS 15, oriented to person, place, time, and situation. 17:05 Psych: Behavior/mood is anxious, Affect is calm, Oriented to person, place, time, la1 Patient having thoughts of suicide. Denies suicidal plan. Judgement / Insight is normal. Memory is normal. Delusions/hallucinations are not present. 17:10 ECG was reviewed by the Attending Physician. la1 Vital Signs: 16:15 BP 128 / 96; Pulse 128; Resp 23; Temp 99.0(TE); Pulse Ox 94% on R/A; Weight 89.36 kg; ss Height 6 ft. 4 in. (193.04 cm); Pain 0/10; 19:21 Pulse 116; Resp 21; Pulse Ox 95% on R/A; ss 03/14 01:59 BP 119 / 72; Pulse 119; Resp 18; Pulse Ox 95% on R/A; mg2 05:55 Pulse 92; Resp 18; Pulse Ox 98% on R/A; mg2 07:30 BP 142 / 95; Pulse 100; Resp 20; Temp 98.0; Pulse Ox 95% on R/A; kj1 12/27 16:15 Body Mass Index 23.98 (89.36 kg, 193.04 cm) ss 05:55 patient asleep mg2 MDM: 12/27 16:14 Patient medically screened. la1 21:49 Data reviewed: vital signs, nurses notes, lab test result(s), radiologic studies. ED la1 course: pt becoming agitated, asking to leave, clearly still intoxicated and stating he is going to walk out. Mental health deputy called since pt stated he was suicidal and I believe at the time he could be a risk to himself. Mental health deputy came out and placed an MELISSA on the pt. 12/27 16:22 Order name: Acetaminophen; Complete Time: 17:25 12/27 16:22 Order name: Basic Metabolic Panel; Complete Time: 17:25 12/27 16:22 Order name: CBC with Diff; Complete Time: 17:25 12/27 16:22 Order name: ETOH Level; Complete Time: 17:25 12/27 16:22 Order name: Hepatic Function; Complete Time: 17:25 12/27 16:22 Order name: PT-INR; Complete Time: :12/27 16:22 Order name: Ptt, Activated; Complete Time: 17:12/27 16:22 Order name: Salicylate; Complete Time: 17:25 12/27 16:22 Order name: Urine Drug Screen; Complete Time: 17:12/27 17:17 Order name: Urine Dipstick--Ancillary (enter results); Complete Time: 17:25 eb 12/27 16:22 Order name: EKG; Complete Time: 16:23 12/27 16:22 Order name: EKG - Nurse/Tech; Complete Time: 17:18 12/27 16:22 Order name: IV Saline Lock; Complete Time: 16:49 12/27 16:22 Order name: Labs collected and sent; Complete Time: 16:49 12/27 16:22 Order name: Urine Dipstick-Ancillary (obtain specimen); Complete Time: 17:04 12/27 16:49 Order name: Diet Regular; Complete Time: 16:50 ae4 12/28 07:20 Order name: Diet Regular; Complete Time: 07:21 kj1 EC:10 Rate is 128 beats/min. Rhythm is regular, Sinus tachycardia. Right axis deviation la1 noted. QRS is negative in lead I. W[place] interval is normal at 136 msec. QRS interval is normal. QT interval is normal. No Q waves. No ST changes noted. Clinical impression: sinus tachycardia with rightward axis deviation. Interpreted by me. Reviewed by me. Administered Medications: 17:18 Drug: Ativan 1 mg Route: IVP; Site: left antecubital; ss 19:28 Follow up: Response: No adverse reaction; No adverse reaction, pt appears to be more ss calm than when he arrived in ED, but states that the medication has not helped at all. David Mcconnell NP notified. 17:34 Drug: Banana Bag - (NS 0.9% 1000 ml, foLIC Acid 1 mg, Thiamine 100 mg, Multivitamin 1 ss amp) Route: IV; Rate: calculated rate; Site: left antecubital; 20:20 Drug: Ativan 1 mg Route: IVP; Site: left antecubital; ae4 22:19 Follow up: Response: Anxiety decreased ae4 23:32 Drug: Ativan 1 mg Route: IVP; Site: right antecubital; mg2 12/28 00:46 Follow up: Response: No adverse reaction; Marked relief of symptoms mg2 12/27 23:32 Drug: Nicotine 21 mg/24 hr 1 patches {Note: in the right upper arm.} Route: mg2 Transdermal; Site: affected area; 12/28 00:46 Follow up: Response: No adverse reaction mg2 02:11 Drug: Versed 1 mg Route: IVP; Site: right antecubital; mg2 07:10 Follow up: Response: No adverse reaction mg2 03:45 Drug: Geodon 10 mg Route: IM; Site: left deltoid; mg2 07:10 Follow up: Response: No adverse reaction mg2 07:47 Drug: Ativan 2 mg Route: IVP; Site: right antecubital; jl7 08:00 Follow up: Response: No adverse reaction; No change in condition jl7 08:04 Drug: Thiamine 100 mg Route: IV; Rate: calculated rate; Site: right antecubital; jl7 08:06 Follow up: Response: No adverse reaction; IV Status: Completed infusion jl7 08:04 Drug: Ativan 2 mg Route: IVP; Site: right antecubital; jl7 08:30 Follow up: Response: No adverse reaction; Marked relief of symptoms jl7 08:50 Drug: Librium - chlordiazePOXIDE 50 mg Route: PO; jl7 09:17 Follow up: Response: No adverse reaction jl7 Disposition: 08:37 Co-signature as Attending Physician, Zachary Warren MD. [facility] Disposition: 12/29/19 08:43 Discharged to Home. Impression: Essential (primary) hypertension, Alcohol abuse, Alcohol abuse with intoxication, Post-traumatic stress disorder (PTSD), Suicidal ideations. - Condition is Stable. - Discharge Instructions: Alcohol Intoxication, Hypertension, Suicidal Feelings: How to Help Yourself, Helping Someone Who is Suicidal, Alcohol Intoxication, [id number]-[id number], Hypertension, Uwuv-mg-Hkic, Alcohol Abuse and Nutrition, How to Take Your Blood Pressure, Lkha-yt-Uoyb, Managing Your Hypertension. - Prescriptions for chlordiazepoxide HCl 25 mg Oral capsule - take 1 capsule by ORAL route 4 times per day; 30 capsule. - Medication Reconciliation Form, Thank You Letter, Antibiotic Education, Prescription Opioid Use, SBAR form form. - Follow up: Private Physician; When: 1 - 2 days; Reason: Recheck today's complaints, Continuance of care, Re-evaluation by your physician. - Problem is new. - Symptoms have improved. Signatures: Dispatcher [employer] [facility] Zachary Warren MD MD cha Smirch, Shelby, RN RN ss David Scott, LINE PULLER-C LINE PULLER-Cla1 Go Petersen RN RN jl7 Florin Rosa RN RN mg2 Crow Schwartz RN RN ae4 Corrections: (The following items were deleted from the chart) 12/27 17:07 16:22 ACETAMINOPHEN+C.LAB.BRZ ordered. [facility] 12/28 08:49 08:43 12/29/2019 08:43 Discharged to Home. Impression: Essential (primary) gregorio hypertension; Alcohol abuse; Alcohol abuse with intoxication; Post-traumatic stress disorder (PTSD). Condition is Stable. Forms are SBAR form, Medication Reconciliation Form, Thank You Letter, Antibiotic Education, Prescription Opioid Use. Follow up: Private Physician; When: 1 - 2 days; Reason: Recheck today's complaints, Continuance of care, Re-evaluation by your physician. Problem is new. Symptoms have improved. [facility] 09:31 08:49 12/29/2019 08:43 Discharged to Home. Impression: Essential (primary) jl7 hypertension; Alcohol abuse; Alcohol abuse with intoxication; Post-traumatic stress disorder (PTSD); Suicidal ideations. Condition is Stable. Discharge Instructions: Alcohol Intoxication, Hypertension, Alcohol Intoxication, Diju-py-Oomf, Hypertension, Fjvw-jn-Gbbj, Alcohol Abuse and Nutrition, How to Take Your Blood Pressure, Vnnz-jc-Jyol, Managing Your Hypertension. Prescriptions for chlordiazepoxide HCl 25 mg Oral capsule - take 1 capsule by ORAL route 4 times per day; 30 capsule. and Forms are SBAR form, Medication Reconciliation Form, Thank You Letter, Antibiotic Education, Prescription Opioid Use. Follow up: Private Physician; When: 1 - 2 days; Reason: Recheck today's complaints, Continuance of care, Re-evaluation by your physician. Problem is new. Symptoms have improved. gregorio
--- NOTE | 2019-12-29 08:45 | ER ---
Nurse's Notes [facility] Name: Joe Marina Jr Age: 49 yrs Sex: Male : 1970 Arrival Date: 12/28/2019 Time: 16:08 Bed 17 Private MD: Diagnosis: Essential (primary) hypertension;Alcohol abuse;Alcohol abuse with intoxication;Post-traumatic stress disorder (PTSD);Suicidal ideations Presentation: 12/27 17:21 Chief complaint: Patient states: feeling suicidal x months. Pt reports he has had ss suicidal thoughts, but has no plan and is seeking help. Pt reports he has drank 32 beers today, the last one being 1 hour ago. Coronavirus screen: The patient has NOT traveled to a country currently being monitored by the [facility] within the last 14 days. Ebola Screen: Patient denies exposure to infectious person. Patient denies travel to an Ebola-affected area in the 21 days before illness onset. Initial Sepsis Screen: Does the patient meet any 2 criteria? RR > 20 per min. HR > 90 bpm. Does the patient have a suspected source of infection? No. Patient's initial sepsis screen is negative. Risk Assessment: Do you want to hurt yourself or someone else? Patient reports no desire to harm self or others. 17:21 Method Of Arrival: Ambulatory ss 17:21 Acuity: DARSHAN 2 ss Historical: - Allergies: 17:24 Haloperidol; ss 17:24 PENICILLINS; ss - PMHx: 17:24 Hypertension; PTSD; SUICIDE ATTEMPT; ss - PSHx: 17:24 Appendectomy; Cholecystectomy; Hernia repair; ss - Immunization history:: Adult Immunizations up to date. - Social history:: Smoking status: Patient reports the use of cigarette tobacco products, smokes one pack cigarettes per day. Patient uses alcohol, on a daily basis. Patient/guardian denies using street drugs. Screenin:30 Abuse screen: Denies threats or abuse. Denies injuries from another. Nutritional ss screening: No deficits noted. Tuberculosis screening: Never had TB. Fall Risk None identified. Assessment: 17:21 General: Appears distressed, uncomfortable, Behavior is anxious, crying, Smells of ss alcohol, Reports drank 32 beers today. Last drink consumed 1 hour ago. General: Reports Pt c/o suicidal ideations. Denies plan at this time. Has been having suicidal thoughts for the past few months, but has gotten worse lately. Pt reports that he was in an inpatient psych facility at the [place] weeks ago and would like to go back there. . Pain: Denies pain. Neuro: Level of Consciousness is awake, alert, obeys commands, Oriented to person, place, time, situation. Cardiovascular: Capillary refill < 3 seconds is brisk in bilateral fingers. Respiratory: Airway is patent Respiratory effort is labored, Respiratory pattern is regular, symmetrical, tachypnea. GI: Patient currently denies diarrhea, nausea, vomiting. : No signs and/or symptoms were reported regarding the genitourinary system. EENT: Oral mucosa is moist. Derm: Skin is intact, is healthy with good turgor, Skin is dry, Skin is pink, warm \\T\\ dry. normal. Musculoskeletal: Circulation, motion, and sensation intact. Range of motion: intact in all extremities, Swelling absent. 17:30 Reassessment: Pt states, "I feel like i'm shaking to . I need Ativan." Pt given ss diet tray which seems to have calmed him down.". 17:45 Reassessment: Patient belongings given to security staff member with copy of belongings ss list. 18:30 Reassessment: Pt verbalizes understanding that we are waiting for his ETOH level to drop below 100 in order to call [facility] for further evaluation and we will continue to sit with him 1:1. Rosa [facility] continues to sit with patient. Derm: Skin is pink, warm \\T\\ dry. 19:00 Reassessment: Report given to BESSIE Lauren. 20:00 Reassessment: Patient states " I am shaking to ." Patient is requesting medication ae4 to help him "relax". Provider notified, new order received. 20:50 Reassessment: Patient is increasingly agitated, pacing and states he wants his clothes ae4 and wishes to leave. Patient pointed to his IV and states he wants it out.provider notified. 21:18 Reassessment: Officer at bedside discussing patient's behavior and need to stay at the [facility]. 21:49 Reassessment: Patient is requesting more Ativan. Provider notified, no new orders ae4 received. Coffee and sugar provided. 23:40 Reassessment: patient is shaking. provider informed and medication given. mg2 12/28 00:45 Reassessment: Patient appears in no apparent distress at this time. patient sleeping mg2 now. 01:48 Reassessment: Patient appears in no apparent distress at this time. patient is getting mg2 shaky and anxious again. 02:40 Reassessment: Patient appears in no apparent distress at this time. mg2 03:40 Reassessment: Patient appears in no apparent distress at this time. Patient and/or mg2 family updated on plan of care and expected duration. Pain level reassessed. 04:47 Reassessment: Patient appears in no apparent distress at this time. patient sleeping mg2 now. 05:56 Reassessment: Patient appears in no apparent distress at this time. patient sleeping. mg2 07:00 Reassessment: Pt denies SI/HI at this time. Plans to go to [place] for alcohol addiction jl7 treatment. ERD notified. 07:30 Reassessment: Pt noted to have tremors and requests something to stop the shakes. ERD jl7 notified, VO for 2 mg Ativan IVP and will be to bedside to assess pt. 08:00 Reassessment: Pt reports no change in shaking, ERD notified and gave VO for 2 mg Ativan jl7 IVP and 100 mg Thiamine IVP. 08:45 Reassessment: Pt reports feeling better at this time. ERD notified and pt will be jl7 discharged once he has a ride. 09:00 Reassessment: Pt reports "I'm ready to go." Reports staying in at [facility] and will jl7 have a taxi take him there. ERD notified. Psych: 12/27 16:18 Subjective: Patient's mood is sad, Delusions are denied, Hallucinations are denied ss Having thoughts of suicide. Denies suicidal plan. Objective: Patient is cooperative, Speech is pressured, Affect is appropriate. Interventions: Removed personal items and placed in bag. Suicide Risk Assessment: Sad Person Scale: Sex of patient: Male: Score 1 point. Age of patient: Score 0 point if patient falls outside of specified age parameters. Depression: Score 1 point if signs of depression are present. Previous Attempt: Score 1 point if patient has previously attempted suicide. Substance Abuse: Score 1 point if patient abuses alcohol or drugs. Rational Thinking: Score 0 point if patient has rational thinking. Social Support: Score 1 point if social support is lacking and/or unavailable. Organized Plan: Score 0 if patient did not have an organized plan in place. Relationship: Score 1 point if patient is , , , or for a single male Chronic Sickness: Score 0 point if patient does not have a chronic illness, debilitating, or severe disorder. Patient uses 32 beers. Commitment: Patient will be a voluntary commitment. 12/28 07:00 Safety Checks: Personal items have been removed. Door is open. No visitors are present [facility] at this time. Sitter present. Vital Signs: 12/27 16:15 BP 128 / 96; Pulse 128; Resp 23; Temp 99.0(TE); Pulse Ox 94% on R/A; Weight 89.36 kg; ss Height 6 ft. 4 in. (193.04 cm); Pain 0/10; 19:21 Pulse 116; Resp 21; Pulse Ox 95% on R/A; ss 12/28 01:59 BP 119 / 72; Pulse 119; Resp 18; Pulse Ox 95% on R/A; mg2 05:55 Pulse 92; Resp 18; Pulse Ox 98% on R/A; mg2 07:30 BP 142 / 95; Pulse 100; Resp 20; Temp 98.0; Pulse Ox 95% on R/A; kj1 12/27 16:15 Body Mass Index 23.98 (89.36 kg, 193.04 cm) ss 05:55 patient asleep mg2 ED Course: 12/27 16:08 Patient arrived in ED. rg4 16:10 David Scott [facility]-C [facility]. la1 16:10 Cali Washington MD is Attending Physician. la1 16:15 Arm band placed on right wrist. ss 16:48 Crow Schwartz, BESSIE is Primary Nurse. ae4 17:05 Initial lab(s) drawn, by la, sent to lab. Urine collected: clean catch specimen, clear. mh5 Inserted saline lock: 22 gauge in left antecubital area, using aseptic technique. Blood collected. 17:05 Safety checks: Items removed: yes. Door open/sign placed on door: yes. Family/friend mh5 present: no. Sitter present:. 17:06 ETOH Level Sent. mh5 17:07 Basic Metabolic Panel Sent. mh5 17:07 Hepatic Function Sent. mh5 17:07 Salicylate Sent. mh5 17:23 Triage completed. ss 17:26 Patient has correct armband on for positive identification. Placed in gown. Bed in low mh5 position. Call light in reach. Side rails up X 1. Warm blanket given. 18:30 No provider procedures requiring assistance completed. ss 18:55 Diet: Patient given a regular meal tray. mh5 22:05 IV discontinued, intact, bleeding controlled, No redness/swelling at site. Pressure mg2 dressing applied. 22:06 Inserted saline lock: 18 gauge in right antecubital area, using aseptic technique. mg2 Blood collected. 12/28 07:51 Primary Nurse role handed off by Crow Schwartz RN jl7 07:51 Go Petersen RN is Primary Nurse. jl7 08:36 Attending Physician role handed off by Cali Washington MD cha 08:36 Zachary Warren MD is Attending Physician. gregorio Administered Medications: 12/27 17:18 Drug: Ativan 1 mg Route: IVP; Site: left antecubital; ss 19:28 Follow up: Response: No adverse reaction; No adverse reaction, pt appears to be more ss calm than when he arrived in ED, but states that the medication has not helped at all. David Mcconnell NP notified. 17:34 Drug: Banana Bag - (NS 0.9% 1000 ml, foLIC Acid 1 mg, Thiamine 100 mg, Multivitamin 1 ss amp) Route: IV; Rate: calculated rate; Site: left antecubital; 20:20 Drug: Ativan 1 mg Route: IVP; Site: left antecubital; ae4 22:19 Follow up: Response: Anxiety decreased ae4 23:32 Drug: Ativan 1 mg Route: IVP; Site: right antecubital; mg2 12/28 00:46 Follow up: Response: No adverse reaction; Marked relief of symptoms mg2 12/27 23:32 Drug: Nicotine 21 mg/24 hr 1 patches {Note: in the right upper arm.} Route: mg2 Transdermal; Site: affected area; 12/28 00:46 Follow up: Response: No adverse reaction mg2 02:11 Drug: Versed 1 mg Route: IVP; Site: right antecubital; mg2 07:10 Follow up: Response: No adverse reaction mg2 03:45 Drug: Geodon 10 mg Route: IM; Site: left deltoid; mg2 07:10 Follow up: Response: No adverse reaction mg2 07:47 Drug: Ativan 2 mg Route: IVP; Site: right antecubital; jl7 08:00 Follow up: Response: No adverse reaction; No change in condition jl7 08:04 Drug: Thiamine 100 mg Route: IV; Rate: calculated rate; Site: right antecubital; jl7 08:06 Follow up: Response: No adverse reaction; IV Status: Completed infusion jl7 08:04 Drug: Ativan 2 mg Route: IVP; Site: right antecubital; jl7 08:30 Follow up: Response: No adverse reaction; Marked relief of symptoms jl7 08:50 Drug: Librium - chlordiazePOXIDE 50 mg Route: PO; jl7 09:17 Follow up: Response: No adverse reaction 7 Outcome: 08:43 Discharge ordered by . gregorio 09:28 Discharged to home ambulatory. [facility] 09:28 Condition: stable 09:28 Discharge instructions given to patient, Instructed on discharge instructions, follow up and referral plans. medication usage, Demonstrated understanding of instructions, follow-up care, medications, Prescriptions given X 1. 09:31 Patient left the ED. [facility] Signatures: Zachary Warren MD MD cha Smirch, Shelby, RN RN ss David Scott, REGIONAL FORESTER-C REGIONAL FORESTER-Cla1 Charline Shearer [facility] Go Petersen RN RN jl7 Florin Rosa RN RN mg2 Ciarra Cuello kj1 Crow Schwartz RN RN ae4 Corrections: (The following items were deleted from the chart) 12/27 17:07 17:06 ACETAMINOPHEN+C.LAB.BRZ drawn and sent. [facility] EDMS 12/28 02:11 01:59 BP 119 / 72; Pulse 119bpm; Resp 18bpm; Pulse Ox 91% RA; mg2 mg2 09:28 08:45 Discharged to home ambulatory, [facility] jl7 09:28 08:45 Condition: stable [facility] jl7 09:28 08:45 Discharge instructions given to patient, Instructed on discharge instructions, 7 follow up and referral plans. medication usage, Demonstrated understanding of instructions, follow-up care, medications, Prescriptions given X 1, [facility] 09:30 08:00 Reassessment: Pt reports no change in shaking, ERD notified and gave VO for 2 mg jl7 IVP and 100 mg Thiamine IVP jl7 09:30 08:45 Reassessment: Pt reports feeling better at this time. ERD discharged and pt will jl7 be discharged once he has a ride jl7
[2019-12-29] MEDS ORDERED: chlordiazePOXIDE HCl 25 MG CAP ONE (08:48)
[2019-12-29 10:05] VITALS: BP 142/95; TEMP 98; O2SAT 95
--- NOTE | 2019-12-30 09:15 | EKG ---
Test Date: 2019-12-28 Test Time: 17:06:57 Sas Bi Developer: [place] MEASUREMENT RESULTS: Intervals: Rate: 128 DE: 136 QRSD: 88 QT: 292 QTc: 426 [place]: P: 34 DE: 136 QRS: 96 T: 54 INTERPRETIVE STATEMENTS: Sinus tachycardia Rightward axis Borderline ECG Compared to ECG 09/16/2019 01:15:07 Sinus rhythm no longer present ST (T wave) deviation no longer present Electronically Signed On 12-30-19 09:13:39 CDT by George Berger
== END 2019-12-29 09:31 | disposition home or self-care (01) ==
LOC: ER 16:07
DX: R45.851 Suicidal ideations (principal); F43.10 Post-traumatic stress disorder, unspecified; X58.XXXA Exposure to other specified factors, initial encounter; F10.129 Alcohol abuse with intoxication, unspecified; I10 Essential (primary) hypertension; Z88.0 Allergy status to penicillin; Z88.8 Allergy status to other drugs, medicaments and biological substances; F17.210 Nicotine dependence, cigarettes, uncomplicated
CPT/HCPCS: 93005; 85025; 80048; 36415; 80320; 80329 ×2; 85610; 80076; 80307 ×8; 85730; 81003; 96375; 96372; 96374; 99284; J3411 ×2; J2250; J3486; J7030

== ENCOUNTER 2020-02-19 07:19 | Emergency (ER) | payer OTHER ==
--- OUTSIDE RECORDS SUMMARY | 2020-02-19 07:23 | XMS REPORT ---
:[address] [facility] [place], [place] t Address [address] [place] [address] Care Team Providers Name Role Phone Unavailable Unavailable Unavailable Payers Payer Name Policy Type Policy Number Effective Date Expiration D ate Problems This patient has no known problems. Allergies, Adverse Reactions, Alerts Allergy Name Allergy Status Severity Reaction(s) Onset Inactive Treat ing Comments Type Date Date Clinician penicillin G [...] 2 V 2019-12-05 10:26:00 Patient Name: BASIL QUIGLEY Unit No: [id number] EXAMS: CPT CODE: [id number] XR CHEST 2 V 51425 EXAMINATION: - XR CHEST 2 V LOCATION: W1 INDICATION/CLINIC AL HISTORY: J44.0 COMPARISON: No ne. TECHNIQUE: Frontal and later al views of the chest. FINDING S: Cardiomediastinal silhouette : Normal. Pulmonary vasculature: Not congested. Lungs/pleura: No c onsolidation, pneumothorax or pleural effu musa. There is pulmonary hyperinflation. Upper abdomen: Unremarkable. Regional osseous structures: Intact. IMPRESSION: Pulmonary hyperinflation. No consolid ations or infiltrates. Amie ctronically Signed by Prabha Morataya on 12/05 at 1026 Reported and signed by: Marcin Morataya M.D. CC: Rodger Fernandes MD Technologist: Clive heck Time: DAP (Gy m2): Air Ker ma (mGy): Trscr Dt/Tm: 12/05/2019 (102 6) by:[email or web address] Srinie d Date/Time: 12/05/2019 (1030) Name: BASIL BERGER [facility] Phys: Rodger Ponce MD [address] : 1970 Age: 49 Sex: [place] [address] Loc: P .PUL E xam Date: 12/05/2019 Status: REG CLI PH: FAX: PAGE 1 Signed Report ACUTE HEPATITIS PANEL 2019-10-20 20:50:00 Test Item Value Reference Range Comments AB HEPATITIS A IGM (test NON REACTIVE INDEX NON REACT. Test ing done at IMMACULATA code = HAVMAB) [facility] [address] [place] [phone] AB HEPATITIS B SURFACE <3.1 mIU/mL Immunity>9.9 Status of Immunity (test code = HBSAB) Anti-HBs Level -- In consistent with Immunity 0.0 - 9.9Cons istent with Immunity >9.9Perform ed At: [facility] [place] [address] [id number] Patterson MD Ph:[phone] T PERFORMED AT [facility] [place] [address] [place] [address] AG HEPATITIS B SURFACE NON REACTIVE INDEX NonReactive Testin g done at IMMACULATA (test code = HBSAG) [facility] [address] [place] [id number] AB HEPATITIS B CORE IGM NON REACTIVE INDEX NON REACT. Testi ng done at IMMACULATA (test code = HBCMAB) [facility] [address] [place] [id number] AB HEPATITIS C (test code NON REACTIVE INDEX NON REACT. Meryl ting done at IMMACULATA = HCVAB) [facility] [address] [place] [phone] Specimen comments: May do on blood in lab, if possible.COMPREHENSIVE METABOLIC [id number] 06:51:00 Test Item Value Reference Range Comments SODIUM (test code = NA) 127 mmol/l 134.0-147.0 POTASSIUM (test code = K) 4.1 mmol/L 3.6-5.2 CHLORIDE (test code = CL) 98 mmol/l 98.0-107.0 CARBON DIOXIDE (test code = CO2) 26.9 mmol/l 21.0-33.0 ANION GAP (test code = GAP) 5.1 0-20 GLUCOSE (test code = GLU) 171 mg/dl 70.0-110.0 BLOOD UREA NITROGEN (test code = BUN) 11 mg/dl 7.0-18.0 CREATININE (test code = CREAT) 0.60 mg/dL 0.60-1.30 GFR NON BLACK (test code = GFRNONBLACK) 151 mL/min 90-95 GFR BLACK (test code = GFRBLACK) 183 mL/min 109-115 TOTAL PROTEIN (test code = PROT) 7.1 gm/dL 6.4-8.2 ALBUMIN (test code = ALB) 3.0 gm/dl 3.2-4.7 CALCIUM (test code = CA) 9.0 mg/dl 8.0-10.5 BILIRUBIN TOTAL (test code = BILT) 0.3 mg/dl 0.0-1.0 SGOT/AST (test code = AST) 50 Units/L 15.0-37.0 SGPT/ALT (test code = ALT) 88 Units/L 12.0-78.0 ALKALINE PHOSPHATASE TOTAL (test code = ALKP) 67 Units/L 50 .0-136.0 [id number] 06:51:00 Test Item Value Reference Range Comments MAGNESIUM (test code = MAG) 2.0 mg/dl 1.8-2.4 CBC W/AUTO [id number] 06:23:00 Test Item Value Reference Range Comments WHITE BLOOD CELL (test code = WBC) 7.2 K/mm3 4.5-11.0 RED BLOOD CELL (test code = RBC) 4.87 M/mm3 4.40-5.90 HEMOGLOBIN (test code = HGB) 14.3 gm/dL 13.0-17.0 HEMATOCRIT (test code = HCT) 42.9 % 36.0-48.0 MEAN CELL VOLUME (test code = MCV) 88.1 UM3 80.0-94.0 MEAN CELL HGB (test code = MCH) 29.4 UUG 25.5-32.5 MEAN CELL HGB CONCETRATION (test code = MCHC) 33.3 gm/dL 29 .0-35.5 RED CELL DISTRIBUTION WIDTH (test code = RDW) 14.7 % 11 .5-15.0 RED CELL DISTRIBUTION WIDTH SD (test code = 47.6 fL 34.8 -50.2 RDW-SD) PLATELET COUNT (test code = PLT) 307 K/mm3 150-400 MEAN PLATELET VOLUME (test code = MPV) 9.9 fl 7.4-10.4 NEUTROPHIL % (test code = NT%) 77.3 % 49.0-76.0 IMMATURE GRANULOCYTE % (test code = IG%) 0.8 % 0.0-0.4 LYMPHOCYTE % (test code = LY%) 10.8 % 23.0-38.0 MONOCYTE % (test code = MO%) 11.0 % 1.0-10.0 EOSINOPHIL % (test code = EO%) 0.0 % 1.0-5.0 BASOPHIL % (test code = BA%) 0.1 % 0.0-1.0 NEUTROPHIL # (test code = NT#) 5.6 K/mm3 2.4-6.3 IMMATURE GRANULOCYTE # (test code = IG#) 0.06 x10 3/uL 0.00-0. 07 LYMPHOCYTE # (test code = LY#) 0.8 K/mm3 1.2-4.0 MONOCYTE # (test code = MO#) 0.8 K/mm3 0.0-0.6 EOSINOPHIL # (test code = EO#) 0.0 K/MM3 0.0-0.7 BASOPHIL # (test code = BA#) 0.0 K/mm3 0.0-0.2 ACUTE HEPATITIS [id number] 04:31:00 Test Item Value Reference Range Comments AB HEPATITIS A IGM (test NON REACTIVE INDEX NON REACT. Test ing done at IMMACULATA code = HAVMAB) [place] [address] AB HEPATITIS B SURFACE mIU/mL Immune >9.9 (test code = HBSAB) AG HEPATITIS B SURFACE NON REACTIVE INDEX NonReactive Testin g done at IMMACULATA (test code = HBSAG) [place] [address] AB HEPATITIS B CORE IGM NON REACTIVE INDEX NON REACT. Testi ng done at IMMACULATA (test code = HBCMAB) [place] [address] AB HEPATITIS C (test code NON REACTIVE INDEX NON REACT. Meryl ting done at IMMACULATA = HCVAB) [place] [address] Specimen comments: May do on blood in lab, if possible.AB HEPATITIS A IGM 2019-10-19 03:35:00 Test Item Value Reference Range Comments AB HEPATITIS A IGM (test code = HAVMAB) NON REACTIVE INDEX NON R EACT. Specimen comments: May do on blood in lab, if possible.AG HEPATITIS B SURFACE 2019-10-19 03:35:00 Test Item Value Reference Range Comments AG HEPATITIS B SURFACE (test code = NON REACTIVE INDEX NonReacti ve HBSAG) Specimen comments: May do on blood in lab, if possible.AB HEPATITIS B CORE IGM 2019-10-19 03:35:00 Test Item Value Reference Range Comments AB HEPATITIS B CORE IGM (test code = NON REACTIVE INDEX NON REAC T. HBCMAB) Specimen comments: May do on blood in lab, if possible.AB HEPATITIS [id number] 03:35:00 Test Item Value Reference Range Comments AB HEPATITIS C (test code = HCVAB) NON REACTIVE INDEX NON REACT. Specimen comments: May do on blood in lab, if possible.AB HEPATITIS A IGM 2019-10-19 03:34:00 Test Item Value Reference Range Comments AB HEPATITIS A IGM (test code = HAVMAB) INDEX NON REAC T. Specimen comments: May do on blood in lab, if possible.AG HEPATITIS B SURFACE 2019-10-19 03:34:00 Test Item Value Reference Range Comments AG HEPATITIS B SURFACE (test code = NON REACTIVE INDEX NonReacti ve HBSAG) Specimen comments: May do on blood in lab, if possible.AB HEPATITIS B CORE IGM 2019-10-19 03:34:00 Test Item Value Reference Range Comments AB HEPATITIS B CORE IGM (test code = NON REACTIVE INDEX NON REAC T. HBCMAB) Specimen comments: May do on blood in lab, if possible.AB HEPATITIS [id number] 03:34:00 Test Item Value Reference Range Comments AB HEPATITIS C (test code = HCVAB) NON REACTIVE INDEX NON REACT. Specimen comments: May do on blood in lab, if possible.AB HEPATITIS A IGM 2019-10-19 03:33:00 Test Item Value Reference Range Comments AB HEPATITIS A IGM (test code = HAVMAB) INDEX NON REAC T. Specimen comments: May do on blood in lab, if possible.AG HEPATITIS B SURFACE 2019-10-19 03:33:00 Test Item Value Reference Range Comments AG HEPATITIS B SURFACE (test code = NON REACTIVE INDEX NonReacti ve HBSAG) Specimen comments: May do on blood in lab, if possible.AB HEPATITIS B CORE IGM 2019-10-19 03:33:00 Test Item Value Reference Range Comments AB HEPATITIS B CORE IGM (test code = HBCMAB) INDEX NON REACT. Specimen comments: May do on blood in lab, if possible.AB HEPATITIS [id number] 03:33:00 Test Item Value Reference Range Comments AB HEPATITIS C (test code = HCVAB) NON REACTIVE INDEX NON REACT. Specimen comments: May do on blood in lab, if possible.ACUTE HEPATITIS PANEL 2019-10-19 03:29:00 Test Item Value Reference Range Comments AB HEPATITIS A IGM (test INDEX NONREACTIVE code = HAVMAB) AB HEPATITIS B SURFACE mIU/mL Immune >9.9 (test code = HBSAB) AG HEPATITIS B SURFACE NON REACTIVE INDEX NonReactive Testin g done at IMMACULATA (test code = HBSAG) [facility] [address] [place] [place] [address] AB HEPATITIS B CORE IGM INDEX NONREACTIVE (test code = HBCMAB) AB HEPATITIS C (test code INDEX NONREACTIVE = HCVAB) Specimen comments: May do on blood in lab, if possible.AB HEPATITIS A IGM 2019-10-19 03:06:00 Test Item Value Reference Range Comments AB HEPATITIS A IGM (test code = HAVMAB) INDEX NON REAC T. Specimen comments: May do on blood in lab, if possible.AG HEPATITIS B SURFACE 2019-10-19 03:06:00 Test Item Value Reference Range Comments AG HEPATITIS B SURFACE (test code = NON REACTIVE INDEX NonReacti ve HBSAG) Specimen comments: May do on blood in lab, if possible.AB HEPATITIS B CORE IGM 2019-10-19 03:06:00 Test Item Value Reference Range Comments AB HEPATITIS B CORE IGM (test code = HBCMAB) INDEX NON REACT. Specimen comments: May do on blood in lab, if possible.AB HEPATITIS [id number] 03:06:00 Test Item Value Reference Range Comments AB HEPATITIS C (test code = HCVAB) INDEX NON REACT. Specimen comments: May do on blood in lab, if possible.- XR CHEST 1 [id number] 04:08:00 FAX: Kirby Rhodes MD [phone] [place]: St: REG Name: BASIL BERGER [facility] : 1970 Age/S: 49/M [address] [facility] Unit#: [id number] Loc: E.EXP [place], [place]: [place] [address] Acct: [id number] Dis Date: Status: REG ER PHONE #: [phone] Exam Date: 10/18/2019350 FAX #: [phone] Reason: SOB EXAMS: CPT CODE: [id number] XR CHEST 1 V 07165 AFTER HOURS SERVICE ON: 10/18/2019 4:07 AM [...] CC: Kirby Rhodes MD Technologist: PRECIOUS STRAUSS Trnwird Date/Time/By: 10/18/2019 (0408) : By: [email or web address] PAGE 1 Signed Report FAX: Kirby Rhodes MD [phone] [place]: St: REG Name: BASIL BERGER [facility] : 1970 Age/S: 49/M [address] [facility] Unit #: [id number] Loc: E.EXP [place], [place]: [place] [id number] Acct: [id number] Dis Date: Status: REG ER PHONE #: [phone] Exam Date: 10/18/2019 035 FAX #: [phone] Reason: SOB EXAMS: CPT CODE: [id number] XR CHEST 1 V 24126 <Continued> Orig Print D/T: S: 10/18/2019 (0411) PAGE 2 Signed ReportBASIC METABOLIC [id number] 04:05:00 Test Item Value Reference Range Comments SODIUM (test code = NA) 140 mmol/l 134.0-147.0 POTASSIUM (test code = K) 4.1 mmol/L 3.6-5.2 CHLORIDE (test code = CL) 101 mmol/l 98.0-107.0 CARBON DIOXIDE (test code = CO2) 26.5 mmol/l 21.0-33.0 ANION GAP (test code = GAP) 16.6 0-20 GLUCOSE (test code = GLU) 87 mg/dl 70.0-110.0 BLOOD UREA NITROGEN (test code = BUN) 3 mg/dl 7.0-18.0 CREATININE (test code = CREAT) 0.60 mg/dL 0.60-1.30 GFR NON BLACK (test code = GFRNONBLACK) 151 mL/min 90-95 GFR BLACK (test code = GFRBLACK) 183 mL/min 109-115 CALCIUM (test code = CA) 8.5 mg/dl 8.0-10.5 HEPATIC FUNCTION PANEL [id number] 04:05:00 Test Item Value Reference Range Comments TOTAL PROTEIN (test code = PROT) 7.9 gm/dL 6.4-8.2 ALBUMIN (test code = ALB) 3.3 gm/dl 3.2-4.7 BILIRUBIN TOTAL (test code = BILT) 0.2 mg/dl 0.0-1.0 BILIRUBIN DIRECT (test code = BILD) 0.1 mg/dl 0.0-0.3 SGOT/AST (test code = AST) 87 Units/L 15.0-37.0 SGPT/ALT (test code = ALT) 109 Units/L 12.0-78.0 ALKALINE PHOSPHATASE TOTAL (test code = ALKP) 82 Units/L 50 .0-136.0 [id number] 04:05:00 Test Item Value Reference Range Comments LIPASE (test code = LIP) 147 Units/L 65.0-230.0 B-TYPE NATRIURETIC [id number] 04:05:00 Test Item Value Reference Range Comments B-TYPE NATRIURETIC PEPTIDE (test code = BNP) 6.8 PG/ML 5-1 00 [id number] 04:05:00 Test Item Value Reference Range Comments TROPONIN-I (test code = <0.02 NG/ML 0.00-0.06 REFERENC E RANGE TROPONIN I TROPI) HEALTHY INDIVIDU ALS: <0.06 ng/mL R/O ISCHEM IA: 0.07 - 0.60 ng/mL CUT-O FF RANGE FOR AMI: 0.60 - 1.5 ng/mL BASIC METABOLIC [id number] 04:03:00 Test Item Value Reference Range Comments SODIUM (test code = NA) 140 mmol/l 134.0-147.0 POTASSIUM (test code = K) 4.1 mmol/L 3.6-5.2 CHLORIDE (test code = CL) 101 mmol/l 98.0-107.0 CARBON DIOXIDE (test code = CO2) 26.5 mmol/l 21.0-33.0 ANION GAP (test code = GAP) 16.6 0-20 GLUCOSE (test code = GLU) 87 mg/dl 70.0-110.0 BLOOD UREA NITROGEN (test code = BUN) 3 mg/dl 7.0-18.0 CREATININE (test code = CREAT) 0.60 mg/dL 0.60-1.30 GFR NON BLACK (test code = GFRNONBLACK) 151 mL/min 90-95 GFR BLACK (test code = GFRBLACK) 183 mL/min 109-115 CALCIUM (test code = CA) 8.5 mg/dl 8.0-10.5 HEPATIC FUNCTION PANEL [id number] 04:03:00 Test Item Value Reference Range Comments TOTAL PROTEIN (test code = PROT) 7.9 gm/dL 6.4-8.2 ALBUMIN (test code = ALB) 3.3 gm/dl 3.2-4.7 BILIRUBIN TOTAL (test code = BILT) 0.2 mg/dl 0.0-1.0 BILIRUBIN DIRECT (test code = BILD) 0.1 mg/dl 0.0-0.3 SGOT/AST (test code = AST) 87 Units/L 15.0-37.0 SGPT/ALT (test code = ALT) 109 Units/L 12.0-78.0 ALKALINE PHOSPHATASE TOTAL (test code = ALKP) 82 Units/L 50 .0-136.0 [id number] 04:03:00 Test Item Value Reference Range Comments LIPASE (test code = LIP) 147 Units/L 65.0-230.0 B-TYPE NATRIURETIC [id number] 04:03:00 Test Item Value Reference Range Comments B-TYPE NATRIURETIC PEPTIDE (test code = BNP) PG/ML 5-1 00 [id number] 04:03:00 Test Item Value Reference Range Comments TROPONIN-I (test code = <0.02 NG/ML 0.00-0.06 REFERENC E RANGE TROPONIN I TROPI) HEALTHY INDIVIDU ALS: <0.06 ng/mL R/O ISCHEM IA: 0.07 - 0.60 ng/mL CUT-O FF RANGE FOR AMI: 0.60 - 1.5 ng/mL BASIC METABOLIC [id number] 03:53:00 Test Item Value Reference Range Comments SODIUM (test code = NA) 140 mmol/l 134.0-147.0 POTASSIUM (test code = K) 4.1 mmol/L 3.6-5.2 CHLORIDE (test code = CL) 101 mmol/l 98.0-107.0 CARBON DIOXIDE (test code = CO2) 26.5 mmol/l 21.0-33.0 ANION GAP (test code = GAP) 16.6 0-20 GLUCOSE (test code = GLU) mg/dl 70.0-110.0 BLOOD UREA NITROGEN (test code = BUN) mg/dl 7.0-18.0 CREATININE (test code = CREAT) mg/dL 0.60-1.30 GFR NON BLACK (test code = GFRNONBLACK) mL/min 90-95 GFR BLACK (test code = GFRBLACK) mL/min 109-115 CALCIUM (test code = CA) mg/dl 8.0-10.5 HEPATIC FUNCTION PANEL [id number] 03:53:00 Test Item Value Reference Range Comments TOTAL PROTEIN (test code = PROT) gm/dL 6.4-8.2 ALBUMIN (test code = ALB) gm/dl 3.2-4.7 BILIRUBIN TOTAL (test code = BILT) mg/dl 0.0-1.0 BILIRUBIN DIRECT (test code = BILD) mg/dl 0.0-0.3 SGOT/AST (test code = AST) Units/L 15.0-37.0 SGPT/ALT (test code = ALT) Units/L 12.0-78.0 ALKALINE PHOSPHATASE TOTAL (test code = ALKP) Units/L 50 .0-136.0 [id number] 03:53:00 Test Item Value Reference Range Comments LIPASE (test code = LIP) Units/L 65.0-230.0 B-TYPE NATRIURETIC [id number] 03:53:00 Test Item Value Reference Range Comments B-TYPE NATRIURETIC PEPTIDE (test code = BNP) PG/ML 5-1 00 [id number] 03:53:00 Test Item Value Reference Range Comments TROPONIN-I (test code = TROPI) NG/ML 0.00-0.06 CBC W/AUTO [id number] 03:47:00 Test Item Value Reference Range Comments WHITE BLOOD CELL (test code = WBC) 6.1 K/mm3 4.5-11.0 RED BLOOD CELL (test code = RBC) 5.15 M/mm3 4.40-5.90 HEMOGLOBIN (test code = HGB) 15.2 gm/dL 13.0-17.0 HEMATOCRIT (test code = HCT) 45.0 % 36.0-48.0 MEAN CELL VOLUME (test code = MCV) 87.4 UM3 80.0-94.0 MEAN CELL HGB (test code = MCH) 29.5 UUG 25.5-32.5 MEAN CELL HGB CONCETRATION (test code = MCHC) 33.8 gm/dL 29 .0-35.5 RED CELL DISTRIBUTION WIDTH (test code = RDW) 14.6 % 11 .5-15.0 RED CELL DISTRIBUTION WIDTH SD (test code = 46.6 fL 34.8 -50.2 RDW-SD) PLATELET COUNT (test code = PLT) 313 K/mm3 150-400 MEAN PLATELET VOLUME (test code = MPV) 9.4 fl 7.4-10.4 NEUTROPHIL % (test code = NT%) 51.6 % 49.0-76.0 IMMATURE GRANULOCYTE % (test code = IG%) 0.8 % 0.0-0.4 LYMPHOCYTE % (test code = LY%) 35.7 % 23.0-38.0 MONOCYTE % (test code = MO%) 8.3 % 1.0-10.0 EOSINOPHIL % (test code = EO%) 2.8 % 1.0-5.0 BASOPHIL % (test code = BA%) 0.8 % 0.0-1.0 NEUTROPHIL # (test code = NT#) 3.1 K/mm3 2.4-6.3 IMMATURE GRANULOCYTE # (test code = IG#) 0.05 x10 3/uL 0.00-0. 07 LYMPHOCYTE # (test code = LY#) 2.2 K/mm3 1.2-4.0 MONOCYTE # (test code = MO#) 0.5 K/mm3 0.0-0.6 EOSINOPHIL # (test code = EO#) 0.2 K/MM3 0.0-0.7 BASOPHIL # (test code = BA#) 0.1 K/mm3 0.0-0.2
[2020-02-19 08:19] LABS: Absolute Lymphocytes (CBC) 1.7 K/uL (0.7-4.9); Basophils % 0.9 % (0-1.3); Hematocrit 48.1 % (39.6-49.0); Lymphocytes % 23.1 % (15.3-44.8); MPV 8.4 fL (7.6-11.3); RBC Red Blood Cell Count 5.36 M/uL (4.33-5.43)
[2020-02-19 08:29] LABS: Protime INR 1.02
--- NOTE | 2020-02-19 08:29 | RAD REPORT ---
EXAM DESCRIPTION: RAD - Chest Single View - 02/19/2020 8:15 am CLINICAL HISTORY: COPD Chest pain. COMPARISON: CHEST SINGLE VIEW dated 07/05/2010; CHEST PA AND LAT 2 VIEW dated 05/11/2010; CHEST SINGLE VIEW dated 03/09/2010; CHEST SINGLE VIEW dated 02/08/2010 FINDINGS: Portable technique limits examination quality. The lungs are grossly clear. The heart is normal in size. No displaced fractures. IMPRESSION: No acute intrathoracic process suspected.
[2020-02-19 08:41] LABS: ALT/SGPT 276 U/L (12-78); AST/SGOT 197 U/L (15-37); Albumin 3.6 g/dL (3.4-5.0); Alkaline Phosphatase 61 U/L (45-117); BUN Blood Urea Nitrogen 3 mg/dL (7-18); Bicarbonate 21 mmol/L (21-32); Bilirubin Total 0.3 mg/dL (0.2-1.0); Glucose Level 81 mg/dL (74-106); Protein, Total 7.2 g/dL (6.4-8.2); Sodium Level 131 mmol/L (136-145)
[2020-02-19 09:12] LABS: Barbiturates NEGATIVE (NEGATIVE); Benzodiazepines NEGATIVE (NEGATIVE); Cocaine NEGATIVE (NEGATIVE); METHAMPHETAM NEGATIVE (NEGATIVE); Methadone NEGATIVE (NEGATIVE); Opiates NEGATIVE (NEGATIVE); Phencyclidine NEGATIVE (NEGATIVE); THC Cannibis NEGATIVE (NEGATIVE)
[2020-02-19 10:47] LABS: Urine Blood TRACE (NEG); Urine Glucose NEGATIVE (NEG); Urine Protein NEGATIVE (NEG)
--- NOTE | 2020-02-19 11:35 | EKG ---
Test Date: 2020-02-19 Test Time: 08:35:06 Unarmed Security Officer: ABILIO MEASUREMENT RESULTS: Intervals: Rate: 93 OR: 160 QRSD: 100 QT: 338 QTc: 420 [place]geon: P: 86 OR: 160 QRS: 92 T: 78 INTERPRETIVE STATEMENTS: Normal sinus rhythm Biatrial enlargement Rightward axis Pulmonary disease pattern Abnormal ECG Compared to ECG 12/28/2019 17:06:57 Atrial abnormality now present Sinus tachycardia no longer present Electronically Signed On 02-19-20 11:34:37 CDT by George Berger
--- NOTE | 2020-02-19 13:52 | EDPHYS ---
Physician Documentation [facility] Name: Joe Marina Jr Age: 49 yrs Sex: Male : 1970 Arrival Date: 02/19/2020 Time: 07:20 Bed 17 Private MD: ED Physician Isrrael John HPI: 02/18 07:31 This 49 yrs old Male presents to ER via Unassigned with complaints of Psych ps1 Problem. 07:31 [facility]. Says that he has been drinking a lot \R\ ps1 24 beers a day. Drank 2 prior to coming in per EMS but states that hasn't had a drink in 12 hours. Hx of previous hospitalization for SI/ Psych at [facility]. Precipitated from getting divorce 5 years ago as well as bipolar/PTSD. Was living in [place] after [facility] but took a cab to [place] because that was his home. He has been living in the [facility] but essentially homeless. . Historical: - Allergies: 07:39 Haloperidol; hb 07:39 PENICILLINS; hb - PMHx: 07:39 Hypertension; PTSD; SUICIDE ATTEMPT; hb - PSHx: 07:39 Appendectomy; Cholecystectomy; Hernia repair; hb - Immunization history:: Adult Immunizations up to date. - Social history:: Smoking status: Patient denies any tobacco usage or history of. ROS: 07:31 Constitutional: Negative for fever, chills, and weight loss, Eyes: Negative for injury, ps1 pain, redness, and discharge, Cardiovascular: Negative for chest pain, palpitations, and edema, Respiratory: Negative for shortness of breath, cough, wheezing, and pleuritic chest pain, Abdomen/GI: Negative for abdominal pain, nausea, vomiting, diarrhea, and constipation, MS/Extremity: Negative for injury and deformity, Skin: Negative for injury, rash, and discoloration. 07:31 Psych: Positive for alcohol dependence. Exam: 07:47 Constitutional: This is a well developed, well nourished patient who is awake, alert, ps1 and in no acute distress. Head/Face: Normocephalic, atraumatic. Eyes: Pupils equal round and reactive to light, extra-ocular motions intact. Lids and lashes normal. Conjunctiva and sclera are non-icteric and not injected. Chest/axilla: Normal chest wall appearance and motion. Nontender with no deformity. No lesions are appreciated. Cardiovascular: Regular rate and rhythm. No gallops, murmurs, or rubs. Normal PMI, no JVD. No pulse deficits. Respiratory: Lungs have equal breath sounds bilaterally, clear to auscultation and percussion. No rales, rhonchi or wheezes noted. No increased work of breathing, no retractions or nasal flaring. Abdomen/GI: Soft, non-tender, with normal bowel sounds. No distension or tympany. No guarding or rebound. No evidence of tenderness throughout. Skin: Warm, dry with normal turgor. Normal color with no rashes, no lesions, and no evidence of cellulitis. MS/ Extremity: Pulses equal, no cyanosis. Neurovascular intact. Full, normal range of motion. Neuro: Awake and alert, GCS 15, oriented to person, place, time, and situation. Cranial nerves II-XII grossly intact. Sensory grossly intact. Vital Signs: 07:30 BP 138 / 88; Pulse 95; Resp 16; Temp 98.1; Pulse Ox 100% on R/A; Weight 83.91 kg; hb Height 5 ft. 10 in. (177.80 cm); Pain 4/10; 09:35 BP 142 / 76; Pulse 99; Resp 17; Temp 98.3(TE); Pulse Ox 100% on R/A; mh5 11:29 BP 128 / 92; Pulse 114; Resp 20; Temp 99.0(O); Pulse Ox 89% on R/A; mh5 07:30 Body Mass Index 26.54 (83.91 kg, 177.80 cm) hb MDM: 08:13 Patient medically screened. ps1 13:52 Data reviewed: vital signs, nurses notes. Counseling: I had a detailed discussion with ps1 the patient and/or guardian regarding: the historical points, exam findings, and any diagnostic results supporting the discharge/admit diagnosis, lab results, the need for outpatient follow up, to return to the emergency department if symptoms worsen or persist or if there are any questions or concerns that arise at home. ED course: Patient is alert and oriented and does not attest to SI thoughts at this time. Ambulatory, cogent. Does not appear clinically impaired. Requesting to leave. . 02/18 07:48 Order name: Acetaminophen; Complete Time: 08:47 ps1 02/18 07:48 Order name: CBC with Diff; Complete Time: 08:44 ps1 02/18 07:48 Order name: ETOH Level; Complete Time: 09:07 ps1 02/18 09:13 Interpretation: ETOH 324. ps1 02/18 07:48 Order name: PT-INR; Complete Time: 08:44 ps1 02/18 07:48 Order name: Salicylate; Complete Time: 09:30 ps1 02/18 07:48 Order name: Urine Drug Screen; Complete Time: 09:13 ps1 02/18 07:48 Order name: EKG; Complete Time: 07:49 ps1 02/18 07:48 Order name: CMP; Complete Time: 08:47 [facility] 02/18 09:13 Interpretation: Abnormal: AST 197; ALT 276; R/t ETOH abuse. ps1 02/18 07:48 Order name: CXR XRAY; Complete Time: 08:44 ps1 02/18 08:48 Order name: Troponin (emerg Dept Use Only); Complete Time: 09:35 [facility] 02/18 08:58 Order name: Diet Finger Food; Complete Time: 08:59 5 02/18 10:44 Order name: Urine Dipstick--Ancillary (enter results); Complete Time: 10:57 02/18 10:48 Order name: Diet Finger Food; Complete Time: 10:49 5 02/18 07:48 Order name: EKG - Nurse/Tech; Complete Time: 08:56 ps1 02/18 07:48 Order name: IV Saline Lock; Complete Time: 08:56 [facility] 02/18 07:48 Order name: Labs collected and sent; Complete Time: 08:56 [facility] 02/18 07:48 Order name: Urine Dipstick-Ancillary (obtain specimen); Complete Time: 08:56 ps1 Administered Medications: No medications were administered Disposition: 02/19/20 13:51 Discharged to Home. Impression: Alcohol abuse. - Condition is Stable. - Discharge Instructions: Alcohol Use Disorder. - Medication Reconciliation Form, Thank You Letter, Antibiotic Education, Prescription Opioid Use form. - Follow up: Private Physician; When: As needed; Reason: Recheck today's complaints, Continuance of care, Re-evaluation by your physician. Follow up: Emergency Department; When: As needed; Reason: Trouble breathing, Worsening of condition. - Problem is chronic. - Symptoms have improved. Signatures: Dispatcher [employer] EDIzzy Maria RN RN ph Macrina Gutiérrez RN RN Isrrael John MD MD ps1 Corrections: (The following items were deleted from the chart) 14:37 13:51 02/19/2020 13:51 Discharged to Home. Impression: Alcohol abuse. Condition is ph Stable. Forms are Medication Reconciliation Form, Thank You Letter, Antibiotic Education, Prescription Opioid Use. Follow up: Private Physician; When: As needed; Reason: Recheck today's complaints, Continuance of care, Re-evaluation by your physician. Follow up: Emergency Department; When: As needed; Reason: Trouble breathing, Worsening of condition. Problem is chronic. Symptoms have improved. ps1
--- NOTE | 2020-02-19 13:52 | ER ---
Nurse's Notes [facility] Name: Joe Marina Jr Age: 49 yrs Sex: Male : 1970 Arrival Date: 02/19/2020 Time: 07:20 Bed 17 Private MD: Diagnosis: Alcohol abuse Presentation: 02/18 07:30 Chief complaint: EMS states: [facility], feeling hb emotional pain, reports drinking >24 beers per day to make the emotional pain go away, has consumed approx 2-3 beers before arrival to ED today. Coronavirus screen: Proceed with normal triage. Ebola Screen: No symptoms or risks identified at this time. Initial Sepsis Screen: Does the patient meet any 2 criteria? No. Patient's initial sepsis screen is negative. Does the patient have a suspected source of infection? No. Patient's initial sepsis screen is negative. Risk Assessment: Do you want to hurt yourself or someone else? Patient reports no desire to harm self or others. Onset of symptoms was February 19, 2020. 07:30 Method Of Arrival: EMS: [facility] 07:30 Acuity: DARSHAN 2 [id number] Historical: - Allergies: 07:39 Haloperidol; hb 07:39 PENICILLINS; hb - PMHx: 07:39 Hypertension; PTSD; SUICIDE ATTEMPT; hb - PSHx: 07:39 Appendectomy; Cholecystectomy; Hernia repair; hb - Immunization history:: Adult Immunizations up to date. - Social history:: Smoking status: Patient denies any tobacco usage or history of. Screenin:56 Abuse screen: Denies threats or abuse. Denies injuries from another. Nutritional ph screening: No deficits noted. Tuberculosis screening: No symptoms or risk factors identified. Fall Risk None identified. Assessment: 09:00 General: Appears in no apparent distress. comfortable, slender, Behavior is ph cooperative, anxious, Denies fever, feeling ill. Pain: Denies pain. Neuro: Level of Consciousness is awake, alert, obeys commands, Oriented to person, place, time, situation. Cardiovascular: Capillary refill < 3 seconds in bilateral fingers Patient's skin is warm and dry. Respiratory: Airway is patent Respiratory effort is even, unlabored, Respiratory pattern is regular, symmetrical. GI: No signs and/or symptoms were reported involving the gastrointestinal system. Musculoskeletal: Circulation, motion, and sensation intact. Range of motion: intact in all extremities. 09:15 Reassessment: Librium held d/t ETOH being >300. ph 10:00 Reassessment: Patient appears in no apparent distress at this time. Patient and/or ph family updated on plan of care and expected duration. Pain level reassessed. Pt awake and lying in bed, states, " I am feeling shaky, can I get something for it?" ERP notified, no further orders at this time d/t elevated ETOH, explained this to pt. 11:30 Reassessment: Patient appears in no apparent distress at this time. Patient and/or ph family updated on plan of care and expected duration. Pain level reassessed. Pt continues to request medication for shakiness, no tremors noted, HR slightly tachycardic at 104, ERP notified, came to bedside to explain to pt that it would be approx 6 -8 hours before ETOH was low enough to administer medication for withdrawal symptoms. 12:30 Reassessment: Patient appears in no apparent distress at this time. Patient and/or ph family updated on plan of care and expected duration. Pain level reassessed. Pt resting quietly at this time. 13:30 Reassessment: Patient appears in no apparent distress at this time. Patient and/or ph family updated on plan of care and expected duration. Pain level reassessed. Patient is alert, oriented x 3, equal unlabored respirations, skin warm/dry/pink. 14:15 Reassessment: Patient appears in no apparent distress at this time. Patient and/or ph family updated on plan of care and expected duration. Pain level reassessed. Patient is alert, oriented x 3, equal unlabored respirations, skin warm/dry/pink. Pt ambulatory to restroom for BM, gait steady, after returning to room states, " Can I please go? I don't want to kill myself and I was drunk this morning and just upset. I [place] [facility] [place] [facility] and I am going to go there whem I leave here." ERP notified. Psych: 09:00 Subjective: Patient's mood is sad, hopeless, Delusions are denied, Hallucinations are ph denied Having thoughts of Pt denies wanting to harm self or others, then states, " I just don't want to be here anymore.". Objective: Patient is cooperative, Speech is normal, Affect is appropriate. Interventions: Removed personal items and placed in bag. Patient placed in hospital gown. Urine collected and sent for urine drug test. Belonging list filled out. Suicide Risk Assessment: Sad Person Scale: Sex of patient: Male: Score 1 point. Age of patient: Score 0 point if patient falls outside of specified age parameters. Depression: Score 1 point if signs of depression are present. Previous Attempt: Score 1 point if patient has previously attempted suicide. Substance Abuse: Score 1 point if patient abuses alcohol or drugs. Rational Thinking: Score 0 point if patient has rational thinking. Social Support: Score 1 point if social support is lacking and/or unavailable. Organized Plan: Score 0 if patient did not have an organized plan in place. Relationship: Score 1 point if patient is , , , or for a single male Chronic Sickness: Score 0 point if patient does not have a chronic illness, debilitating, or severe disorder. TOTAL POINTS: If total points are 5-6, proposed clinical action is to strongly consider hospitalization, depending upon confidence in the follow-up arrangement. Implement suicide precautions. Safety Checks: Personal items have been removed. Door is open. Patient uses aprrox 24 beers per day of beer, daily. Last use was 3 hours ago. Patient has a history of DTs. Vital Signs: 07:30 BP 138 / 88; Pulse 95; Resp 16; Temp 98.1; Pulse Ox 100% on R/A; Weight 83.91 kg; hb Height 5 ft. 10 in. (177.80 cm); Pain 4/10; 09:35 BP 142 / 76; Pulse 99; Resp 17; Temp 98.3(TE); Pulse Ox 100% on R/A; mh5 11:29 BP 128 / 92; Pulse 114; Resp 20; Temp 99.0(O); Pulse Ox 89% on R/A; mh5 07:30 Body Mass Index 26.54 (83.91 kg, 177.80 cm) ED Course: 07:20 Patient arrived in ED. am2 07:21 Isrrael John MD is Attending Physician. ps1 07:35 Triage completed. hb 07:39 Arm band placed on. EKG completed in triage. Results shown to MD. EKG completed in triage. Results shown to MD. 08:18 CXR XRAY In Process Unspecified. EDMS 08:56 Urine Drug Screen Sent. [facility] 09:00 Patient has correct armband on for positive identification. Placed in gown. Bed in low ph position. Side rails up X 1. Pulse ox on. NIBP on. Warm blanket given. 09:34 Diet: Patient given a regular meal tray. [facility] 09:34 Initial lab(s) drawn, by ED staff, sent to lab. Urine collected: clean catch specimen, [facility] clear. Inserted saline lock: 20 gauge in left antecubital area, using aseptic technique. Blood collected. 12:49 Izzy Galeas, RN is Primary Nurse. ph 14:35 No provider procedures requiring assistance completed. IV discontinued, intact, ph bleeding controlled, No redness/swelling at site. Pressure dressing applied. Administered Medications: No medications were administered Outcome: 13:51 Discharge ordered by . ps1 14:37 Patient left the ED. ph 14:37 Discharged to home ambulatory. ph 14:37 Condition: good 14:37 Discharge instructions given to patient, Instructed on discharge instructions, follow up and referral plans. Demonstrated understanding of instructions, follow-up care. Signatures: Dispatcher [employer] [facility] Izzy Galeas, RN RN ph Macrina Gutiérrez RN RN hb Martinez, Maria 5 Go Petersen RN RN jl7 Jania Anthony Phillip, MD MD ps1 Corrections: (The following items were deleted from the chart) 07:46 07:30 Acuity: DARSHAN 3 hb jlTan
[2020-02-19 15:13] VITALS: BP 128/92; TEMP 99; O2SAT 89
== END 2020-02-19 14:37 | disposition home or self-care (01) ==
LOC: ER 07:19
DX: F10.20 Alcohol dependence, uncomplicated (principal); F43.10 Post-traumatic stress disorder, unspecified; I10 Essential (primary) hypertension; Z88.0 Allergy status to penicillin; Z88.5 Allergy status to narcotic agent
CPT/HCPCS: 36415; 71045; 80053; 80307; 80320; 80329; 81003; 84484; 85025; 85610; 93005; 99284

== ENCOUNTER 2020-02-19 21:33 | Emergency (ER) | payer OTHER ==
--- OUTSIDE RECORDS SUMMARY | 2020-02-19 21:35 | XMS REPORT ---
:1970 Author Organization [facility] t Address [address] [place] [address] Care Team Providers Name Role Phone Unavailable [...] 10:26:00 Patient Name: BASIL QUIGLEY Unit No: [id number] EXAMS: CPT CODE: [id number] XR CHEST 2 V 40341 EXAMINATION: - XR CHEST 2 V LOCATION: [...] (mGy): Trscr Dt/Tm: 12/05/2019 (102 6) by:[email or web address] [place] Date/Time: 12/05/2019 (1030) Name: BASIL BERGER [facility] Phys: Rodger Ponce MD [address] : 1970 Age: 49 Sex: M [place] [address] Loc: P .PUL E xam Date: 12/05/2019 Status: REG CLI PH: FAX: PAGE 1 Signed Report ACUTE HEPATITIS PANEL 2019-10-20 20:50:00 Test Item Value Reference Range Comments AB HEPATITIS A IGM (test NON REACTIVE INDEX NON REACT. Test ing done at [facility] code = HAVMAB) [facility] [address] [place] [phone] AB HEPATITIS B SURFACE <3.1 mIU/mL Immunity>9.9 Status of Immunity (test code = HBSAB) Anti-HBs Level -- In consistent with Immunity 0.0 - 9.9Cons istent with Immunity >9.9Perform ed At: [facility] [address] [id number] Patterson MD Ph:[phone] T PERFORMED AT [facility] [address] [address] AG HEPATITIS B SURFACE NON REACTIVE INDEX NonReactive Testin g done at [facility] (test code = HBSAG) [facility] [address] [place] [phone] AB HEPATITIS B CORE IGM NON REACTIVE INDEX NON REACT. Testi ng done at [facility] (test code = HBCMAB) [facility] [address] [place] [phone] AB HEPATITIS C (test code NON REACTIVE INDEX NON REACT. Meryl ting done at [facility] = HCVAB) [facility] [address] [place] [phone] Specimen comments: May do on blood in lab, if possible.COMPREHENSIVE METABOLIC [id number] 06:51:00 Test Item Value Reference Range Comments [...] code = ALKP) 67 Units/L 50 .0-136.0 [id number] 06:51:00 Test Item Value Reference Range Comments MAGNESIUM (test code = MAG) 2.0 mg/dl 1.8-2.4 CBC W/AUTO [id number] 06:23:00 Test Item Value Reference Range Comments [...] = BA#) 0.0 K/mm3 0.0-0.2 ACUTE HEPATITIS [id number] 04:31:00 Test Item Value Reference Range Comments AB HEPATITIS A IGM (test NON REACTIVE INDEX NON REACT. Test ing done at [facility] code = HAVMAB) [facility] [address] [place] [address] [place] [address] AB HEPATITIS B SURFACE mIU/mL Immune >9.9 (test code = HBSAB) AG HEPATITIS B SURFACE NON REACTIVE INDEX NonReactive Testin g done at [facility] (test code = HBSAG) [facility] [address] [place] [address] [place] [address] AB HEPATITIS B CORE IGM NON REACTIVE INDEX NON REACT. Testi ng done at [facility] (test code = HBCMAB) [facility] [place] [address] AB HEPATITIS C (test code NON REACTIVE INDEX NON REACT. Meryl ting done at [facility] = HCVAB) [facility] [address] [place] [address] [place] [address] Specimen comments: May do on blood in [...] on blood in lab, if possible.AB HEPATITIS [id number] 03:35:00 Test Item Value Reference Range Comments [...] on blood in lab, if possible.AB HEPATITIS [id number] 03:34:00 Test Item Value Reference Range Comments [...] on blood in lab, if possible.AB HEPATITIS [id number] 03:33:00 Test Item Value Reference Range Comments [...] REACTIVE INDEX NonReactive Testin g done at [facility] (test code = HBSAG) [address] [place] [address] AB HEPATITIS B CORE IGM [...] on blood in lab, if possible.AB HEPATITIS [id number] 03:06:00 Test Item Value Reference Range Comments AB HEPATITIS C (test code = HCVAB) INDEX NON REACT. Specimen comments: May do on blood in lab, if possible.- XR CHEST 1 [id number] 04:08:00 FAX: Kirby Rhodes MD [phone] [place]: St: REG Name: BASIL BERGER [facility] : 1970 Age/S: 49/M [address] [facility] Unit#: [id number] Loc: E.EXP [place], [place] Phys: [place] [id number] Acct: [id number] Dis Date: Status: REG ER PHONE #: [phone] Exam Date: 10/18/2019350 FAX #: [phone] Reason: SOB EXAMS: CPT CODE: [id number] XR CHEST 1 V 58554 AFTER HOURS SERVICE ON: 10/18/2019 4:07 AM [...] CC: Kirby Rhodes MD Technologist: PRECIOUS [employer]AUSS Trnmdrd Date/Time/By: 10/18/2019 (0408) : By: [email or web address] PAGE 1 Signed Report FAX: Kirby Rhodes MD [phone] [place]: St: REG Name: BASIL BERGER [facility] : 1970 Age/S: 49/M [address] [facility] Unit #: [id number] Loc: E.EXP [place], [place]: [place] [id number] Acct: [id number] Dis Date: Status: REG ER PHONE #: [phone] Exam Date: 10/18/2019 035 FAX #: [phone] Reason: SOB EXAMS: CPT CODE: [id number] XR CHEST 1 V 04235 <Continued> Orig Print D/T: S: 10/18/2019 (0411) PAGE 2 Signed ReportBASIC METABOLIC [id number] 04:05:00 Test Item Value Reference Range Comments [...] CA) 8.5 mg/dl 8.0-10.5 HEPATIC FUNCTION PANEL [id number] 04:05:00 Test Item Value Reference Range Comments [...] code = ALKP) 82 Units/L 50 .0-136.0 [id number] 04:05:00 Test Item Value Reference Range Comments LIPASE (test code = LIP) 147 Units/L 65.0-230.0 B-TYPE NATRIURETIC [id number] 04:05:00 Test Item Value Reference Range Comments B-TYPE NATRIURETIC PEPTIDE (test code = BNP) 6.8 PG/ML 5-1 00 [id number] 04:05:00 Test Item Value Reference Range Comments TROPONIN-I (test code = <0.02 NG/ML 0.00-0.06 REFERENC E RANGE TROPONIN I TROPI) HEALTHY INDIVIDU ALS: <0.06 ng/mL R/O ISCHEM IA: 0.07 - 0.60 ng/mL CUT-O FF RANGE FOR AMI: 0.60 - 1.5 ng/mL BASIC METABOLIC [id number] 04:03:00 Test Item Value Reference Range Comments [...] CA) 8.5 mg/dl 8.0-10.5 HEPATIC FUNCTION PANEL [id number] 04:03:00 Test Item Value Reference Range Comments [...] code = ALKP) 82 Units/L 50 .0-136.0 [id number] 04:03:00 Test Item Value Reference Range Comments LIPASE (test code = LIP) 147 Units/L 65.0-230.0 B-TYPE NATRIURETIC [id number] 04:03:00 Test Item Value Reference Range Comments B-TYPE NATRIURETIC PEPTIDE (test code = BNP) PG/ML 5-1 00 [id number] 04:03:00 Test Item Value Reference Range Comments TROPONIN-I (test code = <0.02 NG/ML 0.00-0.06 REFERENC E RANGE TROPONIN I TROPI) HEALTHY INDIVIDU ALS: <0.06 ng/mL R/O ISCHEM IA: 0.07 - 0.60 ng/mL CUT-O FF RANGE FOR AMI: 0.60 - 1.5 ng/mL BASIC METABOLIC [id number] 03:53:00 Test Item Value Reference Range Comments [...] = CA) mg/dl 8.0-10.5 HEPATIC FUNCTION PANEL [id number] 03:53:00 Test Item Value Reference Range Comments TOTAL PROTEIN (test code = PROT) gm/dL 6.4-8.2 ALBUMIN (test code = ALB) gm/dl 3.2-4.7 BILIRUBIN TOTAL (test code = BILT) mg/dl 0.0-1.0 BILIRUBIN DIRECT (test code = BILD) mg/dl 0.0-0.3 SGOT/AST (test code = AST) Units/L 15.0-37.0 SGPT/ALT (test code = ALT) Units/L 12.0-78.0 ALKALINE PHOSPHATASE TOTAL (test code = ALKP) Units/L 50 .0-136.0 [id number] 03:53:00 Test Item Value Reference Range Comments LIPASE (test code = LIP) Units/L 65.0-230.0 B-TYPE NATRIURETIC [id number] 03:53:00 Test Item Value Reference Range Comments B-TYPE NATRIURETIC PEPTIDE (test code = BNP) PG/ML 5-1 00 [id number] 03:53:00 Test Item Value Reference Range Comments TROPONIN-I (test code = TROPI) NG/ML 0.00-0.06 CBC W/AUTO [id number] 03:47:00 Test Item Value Reference Range Comments [...]
[2020-02-19] MEDS ORDERED: NA CHLORIDE 0.9% 1,000 ML ONE (22:13)
[2020-02-19 22:15] LABS: Absolute Lymphocytes (CBC) 1.6 K/uL (0.7-4.9); Basophils % 0.8 % (0-1.3); Hematocrit 47.5 % (39.6-49.0); Lymphocytes % 18.1 % (15.3-44.8); MPV 8.8 fL (7.6-11.3); RBC Red Blood Cell Count 5.36 M/uL (4.33-5.43)
[2020-02-19 22:19] LABS: Protime INR 0.98
[2020-02-19 22:35] LABS: ALT/SGPT 290 U/L (12-78); AST/SGOT 190 U/L (15-37); Albumin 3.8 g/dL (3.4-5.0); Alkaline Phosphatase 67 U/L (45-117); BUN Blood Urea Nitrogen 6 mg/dL (7-18); Bicarbonate 22 mmol/L (21-32); Bilirubin Direct 0.1 mg/dL (0-0.2); Bilirubin Total 0.4 mg/dL (0.2-1.0); Glucose Level 88 mg/dL (74-106); Potassium 3.7 mmol/L (3.5-5.1); Protein, Total 7.5 g/dL (6.4-8.2); Sodium Level 127 mmol/L (136-145)
[2020-02-19] MEDS ORDERED: DIPHENHYDRAMINE 50 MG/ML VIAL ONE (22:59)
[2020-02-19 23:48] LABS: Barbiturates NEGATIVE (NEGATIVE); Benzodiazepines NEGATIVE (NEGATIVE); Cocaine NEGATIVE (NEGATIVE); METHAMPHETAM NEGATIVE (NEGATIVE); Methadone NEGATIVE (NEGATIVE); Opiates NEGATIVE (NEGATIVE); Phencyclidine NEGATIVE (NEGATIVE); THC Cannibis NEGATIVE (NEGATIVE)
[2020-02-19 23:52] LABS: Urine Blood TRACE (NEG); Urine Glucose NEGATIVE (NEG); Urine Protein 1+ (NEG)
[2020-02-20] MEDS ORDERED: DIPHENHYDRAMINE 50 MG/ML VIAL ONE (04:41)
[2020-02-20] MEDS ORDERED: LORazepam 2 MG/ML VIAL ONE ×2 (08:24→11:23)
[2020-02-20] MEDS ORDERED: NA CHLORIDE 0.9% 1,000 ML ONE (08:24)
[2020-02-20 08:32] LABS: BUN Blood Urea Nitrogen 4 mg/dL (7-18); Bicarbonate 26 mmol/L (21-32); Glucose Level 64 mg/dL (74-106); Potassium 4.2 mmol/L (3.5-5.1); Sodium Level 136 mmol/L (136-145)
[2020-02-20 12:51] LABS: Absolute Lymphocytes (CBC) 0.9 K/uL (0.7-4.9); Basophils % 0.9 % (0-1.3); Hematocrit 44.7 % (39.6-49.0); Lymphocytes % 18.2 % (15.3-44.8); MPV 8.6 fL (7.6-11.3); RBC Red Blood Cell Count 5.07 M/uL (4.33-5.43)
--- NOTE | 2020-02-20 16:01 | EDPHYS ---
Physician Documentation [facility] Name: Joe Marina Jr Age: 49 yrs Sex: Male : 1970 Arrival Date: 02/19/2020 Time: 21:34 Bed 16 Private MD: ED Physician Cali Washington HPI: 02/19 06:49 This 49 yrs old Male presents to ER via EMS with complaints of Psych Problem, tw4 Shortness Of Breath, Leg Pain. 06:49 The patient presents to the emergency department with a history of substance abuse, tw4 Type: beer, 12 cans per day. Onset: The symptoms/episode began/occurred yesterday. Past psychiatric history: Prior diagnosis: no previous psychiatric diagnosis known. Associated signs and symptoms: The patient has no apparent associated signs or symptoms. The patient has not experienced similar symptoms in the past. Historical: - Allergies: 02/18 21:46 PENICILLINS; ll1 21:46 Haloperidol; ll1 - PMHx: 21:46 Hypertension; SUICIDE ATTEMPT; PTSD; ll1 - PSHx: 21:46 Cholecystectomy; Hernia repair; Appendectomy; ll1 - Immunization history:: Adult Immunizations up to date. - Social history:: Smoking status: Patient reports the use of cigarette tobacco products, smokes one-half pack cigarettes per day, Patient uses alcohol, on a daily basis. admits to "couple of beers" a day. Patient/guardian denies using street drugs. ROS: 02/19 06:49 Constitutional: Negative for fever, chills, and weight loss, Eyes: Negative for injury, tw4 pain, redness, and discharge, Cardiovascular: Negative for chest pain, palpitations, and edema, Abdomen/GI: Negative for abdominal pain, nausea, vomiting, diarrhea, and constipation, Back: Negative for injury and pain, MS/Extremity: Negative for injury and deformity, Skin: Negative for injury, rash, and discoloration. Respiratory: MS/extremity: Positive for paresthesias. Psych: Positive for alcohol dependence, suicidal ideation. Exam: 06:49 Constitutional: This is a well developed, well nourished patient who is awake, alert, tw4 and in no acute distress. Head/Face: Normocephalic, atraumatic. Chest/axilla: Normal chest wall appearance and motion. Nontender with no deformity. No lesions are appreciated. Cardiovascular: Regular rate and rhythm with a normal S1 and S2. No gallops, murmurs, or rubs. Normal PMI, no JVD. No pulse deficits. Respiratory: Lungs have equal breath sounds bilaterally, clear to auscultation and percussion. No rales, rhonchi or wheezes noted. No increased work of breathing, no retractions or nasal flaring. Abdomen/GI: Soft, non-tender, with normal bowel sounds. No distension or tympany. No guarding or rebound. No evidence of tenderness throughout. Back: No spinal tenderness. No costovertebral tenderness. Full range of motion. MS/ Extremity: Pulses equal, no cyanosis. Neurovascular intact. Full, normal range of motion. Neuro: Awake and alert, GCS 15, oriented to person, place, time, and situation. Cranial nerves II-XII grossly intact. Motor strength 5/5 in all extremities. Sensory grossly intact. Cerebellar exam normal. Normal gait. 06:49 Psych: Behavior/mood is cooperative, depressed, Affect is flat, Oriented to person, place, time. Vital Signs: 02/18 21:41 BP 127 / 94; Pulse 111; Resp 18; Temp 98.8; Pulse Ox 96% ; Pain 5/10; ll1 22:01 BP 135 / 97 RA (auto/reg); Pulse 102; Resp 18; Pulse Ox 93% on R/A; jp3 02/19 00:35 Pulse Ox 89% on R/A; mg2 00:37 Pulse Ox 98% on 3 lpm NC; mg2 03:15 Pulse 99; Resp 19 S; Pulse Ox 96% on R/A; jd3 08:08 BP 145 / 89; Pulse 98; Resp 16 S; Temp 98.9(TE); Pulse Ox 100% on R/A; iw 11:26 BP 110 / 73; Pulse 102; Resp 16; Temp 98.6; Pulse Ox 94% on R/A; Pain 0/10; em1 MDM: 02/18 21:37 Patient medically screened. tw4 02/19 06:54 Differential diagnosis: depression, psychosis secondary to non-compliance. Data tw4 reviewed: vital signs, nurses notes. Data interpreted: Pulse oximetry: Interpretation: normal. Counseling: I had a detailed discussion with the patient and/or guardian regarding: the historical points, exam findings, and any diagnostic results supporting the discharge/admit diagnosis. 08:12 ED course: The patient continues to be stable in the ED. He is mildly tremulous but is kdr otherwise coherent and concerned for his safety if discharged. Labs are being redrawn given prior electrolyte abnormalities . 16:01 ED course: The patient continues to be stable in the ED and has not required further kdr intervention. [facility] has evaluated and recommended further inpatient evaluation and treatment. 02/18 21:58 Order name: Acetaminophen; Complete Time: 00:29 02/19 00:29 Interpretation: Abnormal: ACETA < 2.0. 02/18:58 Order name: Basic Metabolic Panel; Complete Time: 00:29 02/19 00:30 Interpretation: Normal except: NA 127; CL 93; BUN 6. 02/18:58 Order name: CBC with Diff; Complete Time: 00:29 02/19 00:31 Interpretation: Normal except: WBC 8.9. 02/18:58 Order name: ETOH Level; Complete Time: 00:29 02/19 00:32 Interpretation: Abnormal: ETOH 327. 02/18:58 Order name: Hepatic Function; Complete Time: 00:29 02/19 00:32 Interpretation: Normal except: AST 190; ALT 290; GLOB 3.7; A/G 1.0. 02/18:58 Order name: PT-INR; Complete Time: 00:29 02/19 00:34 Interpretation: Normal except: PT 11.6. 02/18:58 Order name: Ptt, Activated; Complete Time: 00:29 02/19 00:34 Interpretation: Within normal limits: PTT 24.8. 02/18:58 Order name: Salicylate; Complete Time: 00:29 02/19 00:34 Interpretation: SULMA 3.3. 02/18:58 Order name: Urine Drug Screen; Complete Time: 00:29 02/19 00:35 Interpretation: Within normal limits. 02/18 23:31 Order name: Urine Dipstick--Ancillary (enter results); Complete Time: 00:29 [facility] 02/19 00:34 Interpretation: Normal except: UPROT 1+; UKET TRACE. tw4 02/19 07:48 Order name: ETOH Level; Complete Time: 13:17 iw 02/19 08:05 Order name: CBC with Diff; Complete Time: 13:17 kdr 02/19 08:05 Order name: Chem 7; Complete Time: 13:17 kdr 02/18 21:58 Order name: EKG; Complete Time: 21:59 tw4 02/18 21:58 Order name: EKG - Nurse/Tech; Complete Time: 22:23 tw4 02/18 21:58 Order name: IV Saline Lock; Complete Time: 22:04 tw4 02/18 21:58 Order name: Labs collected and sent; Complete Time: 22:04 tw4 02/18 21:58 Order name: Urine Dipstick-Ancillary (obtain specimen); Complete Time: 22:05 tw4 02/19 07:51 Order name: Diet Finger Food; Complete Time: 07:52 bd 02/19 11:05 Order name: Diet Finger Food; Complete Time: 11:05 em1 02/19 12:30 Order name: ETOH Level; Complete Time: 13:17 sv Administered Medications: 02/18 22:10 Drug: Benadryl 50 mg Route: IVP; Site: left antecubital; mg2 02/19 03:10 Follow up: Response: No adverse reaction mg2 02/18 22:23 Drug: NS 0.9% 1000 ml Route: IV; Rate: 1 bolus; Site: left antecubital; mg2 02/19 01:24 Follow up: Response: No adverse reaction; IV Intake: 1000ml mg2 04:38 Drug: Benadryl 12.5 mg Route: IVP; Site: left antecubital; jd3 05:30 Follow up: Response: No adverse reaction jd3 08:27 Drug: Ativan 2 mg Route: IVP; Site: left antecubital; iw 09:00 Follow up: Response: No adverse reaction sv 08:28 Drug: NS 0.9% 1000 ml Route: IV; Rate: 1 bolus; Site: left antecubital; iw 09:30 Follow up: Response: No adverse reaction; IV Status: Completed infusion; IV Intake: sv 1000ml 11:23 Drug: Ativan 2 mg Route: IVP; Site: left antecubital; sv 12:00 Follow up: Response: No adverse reaction; Marked relief of symptoms sv Disposition: 02/20/20 15:59 Transfer ordered to [facility]. Diagnosis are Major depressive disorder, recurrent, Abuse of non-psychoactive substances, Alcohol abuse, Alcohol abuse with intoxication. - Reason for transfer: Higher level of care. - Accepting physician is Dr. Leung. - Condition is Fair. - Problem is an acute exacerbation. - Symptoms have improved. Signatures: Dispatcher [employer] EDGA Mecca Salguero RN BESSIE sv Cj Ortega RN RN sg Cali Washington MD MD kdr Radha Carolina RN RN iw Blake Oviedo RN RN jd3 Ari Gustafson MD MD tw4 Florin Rosa RN RN mg2 Boom Carrillo RN RN ll1 Corrections: (The following items were deleted from the chart) 10:45 08:05 ETHANOL+C.LAB.BRZ ordered. [facility] 16:19 15:59 02/20/2020 15:59 Transfer ordered to [facility]. Diagnosis sv is Major depressive disorder, recurrent; Abuse of non-psychoactive substances; Alcohol abuse; Alcohol abuse with intoxication. Reason for transfer: Higher level of care. Accepting physician is Dr. Leung. Condition is Fair. Problem is an acute exacerbation. Symptoms have improved. kdr
--- NOTE | 2020-02-20 16:01 | ER ---
Nurse's Notes [facility] Name: Joe Marina Jr Age: 49 yrs Sex: Male : 1970 Arrival Date: 02/19/2020 Time: 21:34 Bed 16 Private MD: Diagnosis: Major depressive disorder, recurrent;Abuse of non-psychoactive substances;Alcohol abuse;Alcohol abuse with intoxication Presentation: 02/18 21:41 Chief complaint: Patient states: PTSD has been acting up. Chest pressure with SOB. EMS ll1 states: Called out for SOB and unable to move legs. Upon arrival they found him SOB and wheezing. Reports SI upon initial EMS contact. Reported to EMS that he had trouble moving his left leg and right arm. Stroke scale negative for EMS. Coronavirus screen: Proceed with normal triage. Patient denies a cough. Patient reports shortness of breath or difficulty breathing. Patient denies measured and/or subjective temperature greater than 100.4F prior to today's visit. Patient denies travel on a cruise ship or to a country the [facility] currently lists as an affected area. Patient denies contact with known and/or suspected case of COVID-19. Ebola Screen: Patient denies travel to an Ebola-affected area in the 21 days before illness onset. Initial Sepsis Screen: Does the patient meet any 2 criteria? HR > 90 bpm. No. Patient's initial sepsis screen is negative. Does the patient have a suspected source of infection? No. Patient's initial sepsis screen is negative. Risk Assessment: Do you want to hurt yourself or someone else? Patient reports desire/thoughts of hurting themselves or someone else. Provider notified. Onset of symptoms was February 19, 2020. 21:41 Method Of Arrival: EMS ll1 21:41 Acuity: DARSHAN 2 ll1 Historical: - Allergies: 21:46 PENICILLINS; ll1 21:46 Haloperidol; ll1 - PMHx: 21:46 Hypertension; SUICIDE ATTEMPT; PTSD; ll1 - PSHx: 21:46 Cholecystectomy; Hernia repair; Appendectomy; ll1 - Immunization history:: Adult Immunizations up to date. - Social history:: Smoking status: Patient reports the use of cigarette tobacco products, smokes one-half pack cigarettes per day, Patient uses alcohol, on a daily basis. admits to "couple of beers" a day. Patient/guardian denies using street drugs. Screenin:00 Abuse screen: Denies threats or abuse. Denies injuries from another. Nutritional sg screening: No deficits noted. Tuberculosis screening: No symptoms or risk factors identified. Never had TB. Fall Risk None identified. Assessment: 22:00 General: Appears in no apparent distress. unkempt, well nourished, Behavior is sg cooperative, appropriate for age. Pain: Denies pain. Neuro: Level of Consciousness is awake, alert, obeys commands, Oriented to person, place, time, Cabin Service Agent are equal bilaterally Moves all extremities. Full function Speech is slurred, pt reports excessive alcohol intake throughout today. Facial symmetry appears normal. Cardiovascular: Capillary refill is brisk in bilateral fingers Patient's skin is warm and dry. Chest pain is denied. Respiratory: Airway is patent Respiratory effort is even, unlabored, Respiratory pattern is regular, symmetrical. GI: Abdomen is round non-distended. : No signs and/or symptoms were reported regarding the genitourinary system. EENT: No signs and/or symptoms were reported regarding the EENT system. Derm: Skin is pink, warm \\T\\ dry. Musculoskeletal: Circulation, motion, and sensation intact. Range of motion: intact in all extremities. 23:00 Reassessment: Patient appears in no apparent distress at this time. Patient states sg symptoms have not improved. 23:45 Reassessment: belongings forwarded to the [facility]. mg2 23:49 Reassessment: Patient appears in no apparent distress at this time. pt right side lying sg position, appears calm and quiet at this time, lights turned off but door remains open for visualization by the sitter/staff member. [id number] 01:12 Reassessment: Patient appears in no apparent distress at this time. Patient laying on vc left side, eyes closed chest rising up and down evenly, door open, lights out. 02:17 Reassessment: Patient appears in no apparent distress at this time. sitter at bedside. mg2 03:00 General: Appears in no apparent distress. Behavior is cooperative, appropriate for age, jd3 Reports "shaking". Pain: Denies pain. Neuro: Level of Consciousness is awake, alert, obeys commands, Oriented to person, place, time, situation, Cabin Service Agent are equal bilaterally Moves all extremities. Full function Speech is normal, Facial symmetry appears normal, Reports numbness in left leg since 2 weeks. Cardiovascular: Capillary refill < 3 seconds Patient's skin is warm and dry. Respiratory: Airway is patent Respiratory effort is even, unlabored, Respiratory pattern is regular, symmetrical. GI: Abdomen is round non-distended, Patient currently denies abdominal pain, constipation, diarrhea, nausea, vomiting. : No signs and/or symptoms were reported regarding the genitourinary system. EENT: No signs and/or symptoms were reported regarding the EENT system. Derm: Skin is intact, Skin is dry, Skin is normal, Skin temperature is warm. Musculoskeletal: Circulation, motion, and sensation intact. Range of motion: intact in all extremities. 03:42 Reassessment: Patient and/or family updated on plan of care and expected duration. Pain jd3 level reassessed. Patient is alert, oriented x 3, equal unlabored respirations, skin warm/dry/pink. pt reporting being uncomfortable/shaking, provider notified, no new orders at this time. pt requesting food, sandwich and chips given to pt with ice water. 04:00 Reassessment: Patient and/or family updated on plan of care and expected duration. Pain jd3 level reassessed. Patient is alert, oriented x 3, equal unlabored respirations, skin warm/dry/pink. pt resting in bed with eyes closed, even and unlabored respirations, sitter at bedside. awaiting accepting facility. 04:39 Reassessment: pt expressing shaking and unable to sleep, provider notified, new jd3 medication ordered, see MAR. 05:00 Reassessment: Patient appears in no apparent distress at this time. Patient and/or jd3 family updated on plan of care and expected duration. Pain level reassessed. Patient is alert, oriented x 3, equal unlabored respirations, skin warm/dry/pink. Patient states feeling better. 06:00 Reassessment: No changes from previously documented assessment. Patient and/or family jd3 updated on plan of care and expected duration. Pain level reassessed. Patient is alert, oriented x 3, equal unlabored respirations, skin warm/dry/pink. 08:30 General: Appears in no apparent distress. comfortable, Behavior is cooperative, sv appropriate for age, anxious. Pain: Denies pain. Neuro: Level of Consciousness is awake, alert, obeys commands, Oriented to person, place, time, situation, Moves all extremities. Full function. Respiratory: Airway is patent Respiratory effort is even, unlabored, Respiratory pattern is regular, symmetrical. Derm: Skin is normal. 11:15 Reassessment: Patient appears in no apparent distress at this time. Patient and/or sv family updated on plan of care and expected duration. Pain level reassessed. Patient is alert, oriented x 3, equal unlabored respirations, skin warm/dry/pink. Pt reports he's starting to shake again. Informed Dr Washington, medication order received. 12:38 Reassessment: Patient appears in no apparent distress at this time. No changes from sv previously documented assessment. Patient and/or family updated on plan of care and expected duration. Pain level reassessed. Patient is alert, oriented x 3, equal unlabored respirations, skin warm/dry/pink. Repeat ETOH and CBC send to lab. Pt given lunch tray. 16:19 Reassessment: Report given to EMS. Psych: 02/18 22:00 Subjective: Patient's mood is angry, irritable, Delusions are denied, Hallucinations sg are denied Having thoughts of suicide. Denies suicidal plan. Objective: Patient is cooperative, defensive, irritable, Speech is slurred, Affect is appropriate. Interventions: Removed personal items and placed in bag. Searched person for dangerous items. Belonging list filled out. 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 Suicide Risk Assessment: Sad Person Scale: Sex of patient: Male: Score 1 point. Age of patient: Score 0 point if patient falls outside of specified age parameters. Depression: Score 1 point if signs of depression are present. Previous Attempt: Score 1 point if patient has previously attempted suicide. Substance Abuse: Score 1 point if patient abuses alcohol or drugs. Rational Thinking: Score 0 point if patient has rational thinking. Social Support: Score 1 point if social support is lacking and/or unavailable. Organized Plan: Score 0 if patient did not have an organized plan in place. Relationship: Score 1 point if patient is , , , or for a single male Chronic Sickness: Score 0 point if patient does not have a chronic illness, debilitating, or severe disorder. TOTAL POINTS: If total points are 5-6, proposed clinical action is to strongly consider hospitalization, depending upon confidence in the follow-up arrangement. Implement suicide precautions. Safety Checks: Personal items have been removed. Door is open. Patient uses of beer, daily. Last use was 4 hours ago. 02/19 01:05 Subjective: Patient's mood is angry, irritable. Objective: Patient is cooperative, vc defensive, irritable. Interventions: Removed personal items and placed in bag. Patient placed in hospital gown. Searched person for dangerous items. Urine collected and sent for urine drug test. Belonging list filled out. Suicide Risk Assessment: Sad Person Scale: Sex of patient: Male: Score 1 point. Age of patient: Score 0 point if patient falls outside of specified age parameters. Depression: Score 1 point if signs of depression are present. Previous Attempt: Score 1 point if patient has previously attempted suicide. Substance Abuse: Score 1 point if patient abuses alcohol or drugs. Rational Thinking: Score 0 point if patient has rational thinking. Social Support: Score 1 point if social support is lacking and/or unavailable. Organized Plan: Score 0 if patient did not have an organized plan in place. Relationship: Score 1 point if patient is , , , or for a single male Chronic Sickness: Score 0 point if patient does not have a chronic illness, debilitating, or severe disorder. TOTAL POINTS: If total points are 5-6, proposed clinical action is to strongly consider hospitalization, depending upon confidence in the follow-up arrangement. Implement suicide precautions. Safety Checks: Personal items have been removed. Door is open. Patient placed in paper scrubs. Belongings have been sent with security. Patient uses of beer, daily. Last use was 5 hours ago. Commitment: Patient will be a voluntary commitment. Vital Signs: 02/18 21:41 BP 127 / 94; Pulse 111; Resp 18; Temp 98.8; Pulse Ox 96% ; Pain 5/10; ll1 22:01 BP 135 / 97 RA (auto/reg); Pulse 102; Resp 18; Pulse Ox 93% on R/A; jp3 02/19 00:35 Pulse Ox 89% on R/A; mg2 00:37 Pulse Ox 98% on 3 lpm NC; mg2 03:15 Pulse 99; Resp 19 S; Pulse Ox 96% on R/A; jd3 08:08 BP 145 / 89; Pulse 98; Resp 16 S; Temp 98.9(TE); Pulse Ox 100% on R/A; iw 11:26 BP 110 / 73; Pulse 102; Resp 16; Temp 98.6; Pulse Ox 94% on R/A; Pain 0/10; em1 ED Course: 02/18 21:34 Patient arrived in ED. sg 21:37 Ari Gustafson MD is Attending Physician. tw4 21:45 Triage completed. ll1 21:45 Inserted saline lock: 20 gauge in left antecubital area, using aseptic technique. jp3 ,using aseptic technique. By Tech Carlos Blood collected. 21:45 Initial lab(s) drawn, by ED staff, sent to lab. EKG done, by ED staff, reviewed by jp3 Ari Gustafson MD. 21:46 Arm band placed on Patient placed in an exam room, on a stretcher. ll1 21:54 Cj Ortega, RN is Primary Nurse. sg 22:00 Safety checks: Items removed: yes. Door open/sign placed on door: yes. Sitter present: jp3 Yes. Placed in gown. Bed in low position. Call light in reach. Warm blanket given. Pillow given. Verbal reassurance given. Noise minimized. Lights dimmed. Sitter at bedside. 23:31 Urine collected: clean catch specimen, clear, valeria colored. jp3 23:32 Legal drug screen obtained per protocol. jp3 02/19 01:03 Report received from BESSIE Corona. Patient is placed in psych hold. Patient is placed in sg psych hold. 01:24 No provider procedures requiring assistance completed. mg2 03:00 Report received from Cherie LA. jd3 04:10 Blake Oviedo, RN is Primary Nurse. jd3 07:30 Report given to Radha LA. jd3 08:03 Attending Physician role handed off by Ari Gustafson MD kdr 08:03 Cali Washington MD is Attending Physician. kdr 08:07 Primary Nurse role handed off by Blake Oviedo RN bd 08:14 Mecca Salguero, BESSIE is Primary Nurse. sv 08:41 Diet tray given. em1 11:37 faxed chart to [facility]. bd 16:19 IV discontinued, intact, bleeding controlled, No redness/swelling at site. Pressure sv dressing applied. Administered Medications: 02/18 22:10 Drug: Benadryl 50 mg Route: IVP; Site: left antecubital; mg2 02/19 03:10 Follow up: Response: No adverse reaction mg2 02/18 22:23 Drug: NS 0.9% 1000 ml Route: IV; Rate: 1 bolus; Site: left antecubital; mg2 02/19 01:24 Follow up: Response: No adverse reaction; IV Intake: 1000ml mg2 04:38 Drug: Benadryl 12.5 mg Route: IVP; Site: left antecubital; jd3 05:30 Follow up: Response: No adverse reaction jd3 08:27 Drug: Ativan 2 mg Route: IVP; Site: left antecubital; iw 09:00 Follow up: Response: No adverse reaction sv 08:28 Drug: NS 0.9% 1000 ml Route: IV; Rate: 1 bolus; Site: left antecubital; iw 09:30 Follow up: Response: No adverse reaction; IV Status: Completed infusion; IV Intake: sv 1000ml 11:23 Drug: Ativan 2 mg Route: IVP; Site: left antecubital; sv 12:00 Follow up: Response: No adverse reaction; Marked relief of symptoms sv Intake: 01:24 IV: 1000ml; Total: 1000ml. mg2 09:30 IV: 1000ml; Total: 2000ml. sv Outcome: 15:52 Transferred by ground EMS to [facility] Transfer form completed. sv Note: Report called to Mil LA at the NH. 15:52 Condition: stable 15:52 Instructed on the need for transfer. 15:59 ER care complete, transfer ordered by MD. kdr 16:19 Patient left the ED. sv Signatures: Jesenia Singer Stephanie RN BESSIE sv Cj Ortega RN Cali Cr MD MD kdr Radha Carolina RN RN iw Jose Guadalupe Cameron em1 Blake Oviedo RN Ari Raphael MD MD tw4 Florin Rosa RN RN mg2 Landon Larios jp3 Nya Ceron RN RN vc Lewis, Lynsay, RN RN ll1 Corrections: (The following items were deleted from the chart) 02/18 21:48 21:41 Chief complaint: EMS states: Called out for SOB and unable to move legs. Upon ll1 arrival they found him SOB and wheezing. Reports SI upon initial EMS contact. States his PTSD has been acting up. Reports CP and SOB. ll1 02/19 01:17 01:07 Objective: Patient is cooperative, defensive, irritable, [facility] 01:12 Reassessment: Patient appears in no apparent distress at this time. Patient vc laying on left side, eyes closed chest rising up and down evenly, door open, lights out. : Interventions: Removed personal items and placed in bag. Patient placed in hospital gown. Searched person for dangerous items. Urine collected and sent for urine drug test. Belonging list filled out. : Subjective: Patient's mood is angry, irritable, [facility] : Suicide Risk Assessment: Sad Person Scale: Sex of patient: Male: Score 1 point. Age of patient: Score 0 point if patient falls outside of specified age parameters. Depression: Score 1 point if signs of depression are present. Previous Attempt: Score 1 point if patient has previously attempted suicide. Substance Abuse: Score 1 point if patient abuses alcohol or drugs. Rational Thinking: Score 0 point if patient has rational thinking. Social Support: Score 1 point if social support is lacking and/or unavailable. Organized Plan: Score 0 if patient did not have an organized plan in place. Relationship: Score 1 point if patient is , , , or for a single male Chronic Sickness: Score 0 point if patient does not have a chronic illness, debilitating, or severe disorder. TOTAL POINTS: If total points are 5-6, proposed clinical action is to strongly consider hospitalization, depending upon confidence in the follow-up arrangement. Implement suicide precautions. Safety Checks: Personal items have been removed. Door is open. Patient placed in paper scrubs. Belongings have been sent with security. : Patient uses of beer, daily. Last use was 5 hours ago. [facility] Commitment: Patient will be a voluntary commitment. [facility] Objective: Patient is cooperative, defensive, irritable, [facility] 03:46 03:42 Reassessment: Patient and/or family updated on plan of care and expected jd3 duration. Pain level reassessed. Patient is alert, oriented x 3, equal unlabored respirations, skin warm/dry/pink. pt reporting being uncomfortable/shaking, provider notified, no new orders at this time. jd3
--- NOTE | 2020-02-20 16:19 | EKG ---
Test Date: 2020-02-19 Test Time: 22:15:12 Edi Architect: NOELLE MEASUREMENT RESULTS: Intervals: Rate: 101 NE: 158 QRSD: 98 QT: 326 QTc: 422 Nardin: P: 82 NE: 158 QRS: 88 T: 70 INTERPRETIVE STATEMENTS: Sinus tachycardia Right atrial enlargement Borderline ECG Compared to ECG 02/19/2020 08:35:06 Sinus rhythm no longer present Right-axis deviation no longer present Electronically Signed On 02-20-20 16:17:00 CDT by George Berger
[2020-02-21 15:37] VITALS: BP 110/73; TEMP 98.6; O2SAT 94
== END 2020-02-20 16:19 ==
LOC: ER 21:33
DX: F10.229 Alcohol dependence with intoxication, unspecified (principal); F55.8 Abuse of other non-psychoactive substances; R45.851 Suicidal ideations; I10 Essential (primary) hypertension; F17.210 Nicotine dependence, cigarettes, uncomplicated; Z88.0 Allergy status to penicillin; Z88.5 Allergy status to narcotic agent
CPT/HCPCS: 96361; 93005; 85025; 80048; 36415; 80320; 80329 ×2; 85610; 80076; 80307 ×8; 85730; 81003; 96375; 96374; 99285; J1200; J7030

== ENCOUNTER 2022-04-30 08:16 | Emergency (ER) | payer OTHER ==
[2022-04-30] MEDS ORDERED: IBUPROFEN 200 MG TAB PO ONE (09:04)
--- NOTE | 2022-04-30 09:33 | RAD REPORT ---
EXAM DESCRIPTION: RAD - Wrist Right 3 View - 04/30/2022 9:14 am CLINICAL HISTORY: PAINfollowing lifting injury COMPARISON: No comparisons FINDINGS: No fracture is identified. There is no dislocation or periosteal reaction noted. Epiphyses and growth plates are normal in appearance. No foreign body or other soft tissue abnormality. IMPRESSION: Negative right wrist examination.
--- NOTE | 2022-04-30 09:45 | EDPHYS ---
Physician Documentation [facility] Name: Joe Marina Jr Age: 51 yrs Sex: Male : 1970 Arrival Date: 04/30/2022 Time: 08:18 Bed 12 Private MD: ELIZABETH Physician Zachary Warren HPI: 04/30 08:51 This 51 yrs old Male presents to ER via Ambulatory with complaints of Wrist Injury. pm1 08:51 The patient or guardian reports pain. The complaints affect the right wrist diffusely. pm1 Context: The problem was sustained at home, resulted from lifting or pulling, a heavy object. Onset: The symptoms/episode began/occurred 1 month(s) ago. Modifying factors: the symptoms are aggravated by Flexion and extension of right wrist and movement of right thumb. Associated signs and symptoms: Pertinent negatives: cyanosis distally, decreased sensation distally, numbness distally, tingling distally. The patient has not experienced similar symptoms in the past. The patient has not recently seen a physician. Historical: - Allergies: 08:34 PENICILLINS; iw 08:34 Haldol; iw - PMHx: 08:34 Hypertension; PTSD; SUICIDE ATTEMPT; iw - Immunization history:: Adult Immunizations unknown. - Social history:: Smoking status: unknown. ROS: 08:51 Constitutional: Negative for fever, chills, and weight loss, Cardiovascular: Negative pm1 for chest pain, palpitations, and edema, Respiratory: Negative for shortness of breath, cough, wheezing, and pleuritic chest pain. 08:51 Skin: Negative for injury, rash, and discoloration, Neuro: Negative for headache, weakness, numbness, tingling, and seizure. 08:51 MS/extremity: Positive for pain, of the right wrist, Negative for decreased range of motion, deformity. 08:51 All other systems are negative. Exam: 08:51 Hand exam: is negative for decreased range of motion, deformity, Exam is positive for pm1 tenderness, to the radial side of right wrist. ROM: intact in all extremities, full active range of motion, in the right wrist and all right fingers, Circulation is intact in all extremities. 08:51 Skin: Exam negative for acute changes. 08:51 Constitutional: This is a well developed, well nourished patient who is awake, alert, and in no acute distress. Head/Face: Normocephalic, atraumatic. 08:51 Cardiovascular: Exam negative for acute changes, Rate: normal, Rhythm: regular, Pulses: no pulse deficits are appreciated. 08:51 Respiratory: Exam negative for acute changes, respiratory distress, shortness of breath. 08:51 Neuro: Exam negative for acute changes, Orientation: is normal, Mentation: is normal, Motor: is normal, moves all fours, strength is 5/5 in all extremities. Vital Signs: 08:33 BP 135 / 110; Pulse 89; Resp 16; Temp 98.1; Pulse Ox 100% on R/A; iw Procedures: 10:05 Splinting: Splint applied to right wrist using wrist splint, applied by myself. pm1 Examined by me, post splint application: neurovascular intact, 2+ distal pulses palpable, brisk capillary refill noted, Patient tolerated well. MDM: 08:35 Patient medically screened. [facility] 08:47 Data reviewed: vital signs. Data interpreted: Pulse oximetry: on room air is 100 %. pm1 Interpretation: normal. 09:43 Counseling: I had a detailed discussion with the patient and/or guardian regarding: the pm1 historical points, exam findings, and any diagnostic results supporting the discharge/admit diagnosis, radiology results, the need for outpatient follow up, to return to the emergency department if symptoms worsen or persist or if there are any questions or concerns that arise at home. 04/30 08:45 Order name: Wrist Right 3 View XRAY; Complete Time: 09:43 pm1 04/30 08:45 Order name: Splint - Thumb Spica; Complete Time: 19:18 pm1 Administered Medications: 09:29 Drug: Ibuprofen 600 mg Route: PO; iw 09:45 Follow up: Response: No adverse reaction iw Disposition Summary: 04/30/22 09:44 Discharge Ordered Location: Home pm1 Problem: new pm1 Symptoms: have improved pm1 Condition: Stable pm1 Diagnosis - Unspecified sprain of right wrist, initial encounter pm1 Followup: pm1 - With: Emergency Department - When: As needed - Reason: Worsening of condition Followup: pm1 - With: Private Physician - When: 5 - 6 days - Reason: Recheck today's complaints, Continuance of care, Re-evaluation by your physician Discharge Instructions: - Discharge Summary Sheet pm1 - Cast or Splint Care, Adult pm1 - Wrist Sprain, Adult pm1 Forms: - Medication Reconciliation Form pm1 - Thank You Letter pm1 - Antibiotic Education pm1 - Prescription Opioid Use pm1 Addendum: 05/02/2022 14:08 Co-signature as Attending Physician, Zachary Warren MD I agree with the assessment and c payne plan of care. Signatures: Dispatcher [employer] EDRI Zachary Warren MD MD cha Williams, Irene, RN RN iw Luis Manuel Wilson NP DIRECTOR OF OUTPATIENT SERVICES pm1 Corrections: (The following items were deleted from the chart) 04/30 08:34 08:34 Allergies: Haloperidol; iw iw
--- NOTE | 2022-04-30 09:45 | ER ---
Nurse's Notes [facility] Name: Joe Marina Jr Age: 51 yrs Sex: Male : 1970 Arrival Date: 04/30/2022 Time: 08:18 Bed 12 Private MD: Diagnosis: Unspecified sprain of right wrist, initial encounter Presentation: 04/30 08:33 Chief complaint: Patient states: pain and swelling to right wrist, was moving furniture iw about a month ago and the pain is getting worse. Coronavirus screen: At this time, the client does not indicate any symptoms associated with coronavirus-19. Ebola Screen: Patient negative for fever greater than or equal to 101.5 degrees Fahrenheit, and additional compatible Ebola Virus Disease symptoms Patient denies exposure to infectious person. Patient denies travel to an Ebola-affected area in the 21 days before illness onset. No symptoms or risks identified at this time. Initial Sepsis Screen: Does the patient meet any 2 criteria? No. Patient's initial sepsis screen is negative. Does the patient have a suspected source of infection? No. Patient's initial sepsis screen is negative. Risk Assessment: Do you want to hurt yourself or someone else? Patient reports no desire to harm self or others. Onset of symptoms was March 2022. 08:33 Method Of Arrival: Ambulatory iw 08:33 Acuity: DARSHAN 4 iw Triage Assessment: 09:59 General: Appears in no apparent distress. Behavior is calm, cooperative. iw Historical: - Allergies: 08:34 PENICILLINS; iw 08:34 Haldol; iw - PMHx: 08:34 Hypertension; PTSD; SUICIDE ATTEMPT; iw - Immunization history:: Adult Immunizations unknown. - Social history:: Smoking status: unknown. Screenin:59 Abuse screen: Denies threats or abuse. Denies injuries from another. Nutritional iw screening: No deficits noted. Tuberculosis screening: No symptoms or risk factors identified. Fall Risk None identified. Assessment: 08:40 General: Appears in no apparent distress. Behavior is calm, cooperative. Pain: iw Complains of pain in right arm and right wrist. Neuro: Level of Consciousness is awake, alert, obeys commands. Cardiovascular: Patient's skin is warm and dry. Respiratory: Respiratory effort is even, unlabored, Respiratory pattern is regular. Derm: Skin is intact, is healthy with good turgor. Musculoskeletal: Capillary refill Range of motion: intact in all extremities. Vital Signs: 08:33 BP 135 / 110; Pulse 89; Resp 16; Temp 98.1; Pulse Ox 100% on R/A; iw ED Course: 08:18 Patient arrived in ED. mr 08:24 Luis Manuel Wilson NP is PHCP. pm1 08:24 Zachary Warren MD is Attending Physician. pm1 08:34 Triage completed. iw 08:34 Arm band placed on. iw 08:40 Patient has correct armband on for positive identification. iw 08:48 Radha Carolina, RN is Primary Nurse. iw 09:16 Wrist Right 3 View XRAY In Process Unspecified. EDMS 09:59 No provider procedures requiring assistance completed. Patient did not have IV access iw during this emergency room visit. Administered Medications: 09:29 Drug: Ibuprofen 600 mg Route: PO; iw 09:45 Follow up: Response: No adverse reaction iw Medication: 09:00 VIS not applicable for this client. iw Outcome: 09:44 Discharge ordered by . pm1 09:59 Discharged to home ambulatory. iw 09:59 Condition: good 09:59 Discharge instructions given to patient, Instructed on discharge instructions, follow up and referral plans. Demonstrated understanding of instructions, follow-up care. 10:00 Patient left the ED. iw Signatures: Dispatcher [employer] EDCT Angelica Chase Radha Carolina RN RN iw Luis Manuel Wilson, [employer] INSULATOR R[employer]ATOR pm1 Corrections: (The following items were deleted from the chart) 08:34 08:34 Allergies: Haloperidol; iw iw
[2022-04-30 10:27] VITALS: BP 135/110; TEMP 98.1; O2SAT 100
== END 2022-04-30 10:00 | disposition home or self-care (01) ==
LOC: ER 08:16
DX: S63.501A Unspecified sprain of right wrist, initial encounter (principal); I10 Essential (primary) hypertension; Z88.0 Allergy status to penicillin; Z88.5 Allergy status to narcotic agent
CPT/HCPCS: 99283

== ENCOUNTER 2022-05-23 10:03 | Emergency (ER) | payer OTHER ==
--- OUTSIDE RECORDS SUMMARY | 2022-05-23 10:07 | XMS REPORT | Continuity of Care Document ---
:1970 Author Organization [facility] t Address [address] [place] [address] Care Team Providers Name Role Phone [facility], [facility] Primary Care Physician Unavailable Rodger Fernandes Attending Clinician Unavailable Noe Heath OD Attending Clinician NOE HEATH Attending Clinician Unavailable ARIELLE SÁNCHEZ Attending Clinician Unavailable DENILSON ESPINOZA Attending Clinician Unavailable Priti Sexton Attending Clinician Unavailable Physician, No Primary or Family Admitting Clinician Unavaila ble KNOW, DOES_NOT Admitting Clinician Unavailable ARIELLE SÁNCHEZ Admitting Clinician Unavailable Payers Payer Name Policy Type Policy Number Effective Date Expiration Date S ource Problems Condition Condition Condition Status Onset Resolution Last Treating Co mments Source Name Details Category Date Date Treatment Clinician Date Chest pain Chest pain Disease Active 2018-10 U nivalejandra 11-11 ity of 00:00: [address] Branch Allergies, Adverse Reactions, Alerts Allergy Allergy Status Severity Reaction(s) Onset Inactive Treating Comm ents Source Name Type Date Date Clinician penicill DA Active MO HIVES 2019- [facility] in G -02 Clear 00:00: [place] 00 [facility] Penicill Propensi Active Unknown - Uni vers ins ty to See comments 06-23 ity of adverse 00:00: [place] reaction 00 Medical s Branch PENICILL Drug Active Unknown-Cmnt Un nish INS Class 06-23 ity of 00:00: [place] 00 Medical Branch No Known DA Active U 2002-0 [facility] Contrast 02-21 [place] Allergie 00:[facility]: [facility] No Known DA Active U 2002-0 [facility] Food 02-21 [place] Allergie 00:00: d [facility] No Known DA Active U 2002-0 [facility] Other - [place] Allergie 00:00: d s 00 Medical [facility] PENICILL DA Active U 2002-0 [facility] IN -08 [place] 00:00: d [facility] penicill DA Active U 2000-0 [facility] in G 03-03 [place] 00:00: d 00 [facility] Social History Social Habit Start Date Stop Date Quantity Comments Source History [facility] o f Alcohol Comment [place] [facility] Exposure to Not sure [place] of SARS-CoV-2 (event) [facility] [place] [facility] History of tobacco Snuff User Univer sity of use [place] [facility] History [facility] o f Alcohol Binge [facility] al Branch Alcohol intake 2021-12-25 2021-12-25 Current drinker Unive rsity of 00:00:00 00:00:00 of alcohol [facility] [place] (finding) Branch Tobacco use and 2019-09-11 2019-09-11 Current user Univers ity of exposure 00:00:00 00:00:00 [facility] [place] Branch Cigarettes smoked 2019-09-11 2019-09-11 Univers ity of current (pack per 00:00:00 00:00:00 [facility] ) - Reported Branch Cigarette 2019-09-11 2019-09-11 University of pack-years 00:00:00 00:00:00 [facility] [place] Branch History [facility] 2019-09-11 2019-09-11 5 University o f Alcohol Frequency 00:00:00 [facility]00 [facility] 2019-09-11 2019-09-11 3 University o f Alcohol Std Drinks 00:00:00 00:00:00 [facility] Sex Assigned At [birth year] Universit y of 00:00:00 00:00:00 [facility] Smoking Status Start Date Stop Date Source Current every day smoker 2019-09-11 00:00:00 Uni versity [facility] Medications Ordered Filled Start Stop Current Ordering Indication Dosage Frequency Signature Comments Components Source Medication Medication Date Date Medication? Clinician (SIG) Name Name ciprofloxac 2020-10 Yes [id number] 500mg Take 1 Univers in HCl 500 1-30 tablet by ity of mg tablet 00:00: mouth 2 [place] (two) Medical times [place] daily. ATENOLOL Yes 50mg Take 50 mg Uni vers ORAL 4-03 by mouth ity of 09:46: daily. [address] aspirin 81 2020-0 Yes [id number] 81mg Take 1 U nivers mg chewable 4-03 tablet by ity of tablet 00:00: mouth [place] daily. Medical Branch atorvastati Yes [id number] 20mg Take 2 Univers n 10 mg 4-03 tablets by ity of tablet 00:00: mouth at [place] [address] bedtime. [facility] Vital Signs Vital Name Observation Time Observation Value Comments Source Body height 2021-12-25 16:17:00 188 cm Universi ty [facility] Procedures This patient has no known procedures. Encounters Start End Encounter Admission Attending Care Care Encounter Source Date/Time Date/Time Type Type Clinicians Facility Department ID 2019-10-22 Inpatient HOWIE Dom [facility] PUL [id number] [facility] 09:00:00 [facility] 2019-10-18 Inpatient [facility] MEXP [id number] [facility] 03:00:00 Harsh morales [facility] 2021-12-25 2021-12-25 Office CHINEDU Heath [id number] Univers 10:00:00 10:58:26 Visit Noe Y [id number] i ty of [facility] [id number] Sukhjinder as BANK [phone] [facility] BLDG. [facility] Branch 2021-12-25 2021-12-25 Outpatient R IVANA [facility] [id number] Univers 10:00:00 10:58:[address] [facility] 2020-01-18 2020-01-19 Outpatient [facility] [id number] [place] 00:00:00 00:00:00 ARIELLE Rangel Met maryuri 2019-12-14 2019-12-14 Emergency [facility] Charmaine [id number] [place] 00:00:00 00:00:00 DENILSON Berg8 Method i 2019-12-05 2019-12-05 Outpatient Dom [facility] PULM [id number] [facility] 09:00:00 09:00:00 Rodger [id number] [facility] 2019-10-18 2019-10-18 [facility] [id number] [facility] 19:37:00 19:37:00 [place] [place] [facility] Results Test Description Test Time Test Comments Results Result [facility] e Comments - XR CHEST 2 V 2019-12-05 Patient Name: 10:26:00 BASIL BERGER JR Unit No: [id number] EXAMS: CPT CODE: [id number] XR CHEST 2 V [id number] EXAMINATION: - XR CHEST 2 V LOCATION: [...] Printed Date/Time: 12/05/2019 (1030) Name: BASIL BERGER JR [facility] Phys: KELLI Rodger Byrd MD [address] : 1970 Age: 49 Sex: [place] [address] Loc: JosephinePUL Exam Date: 12/05/2019 Status: REG CLI PH: FAX: PAGE 1 Signed Report ACUTE HEPATITIS PANEL 2019-10-20 20:50:00 Test Item Value Reference Range Interpretation Comme nts AB HEPATITIS A IGM (test NON REACTIVE INDEX NON REACT. Testing done at [place] code = HAVMAB) [facility] [address] [place] [address]. [place] [address] AB HEPATITIS B SURFACE <3.1 mIU/mL Immunity>9.9 A Stat us of Immunity (test code = HBSAB) Anti-HBs Level --- I nconsistent with Immunity 0 .0 - 9.9Consistent w ith Immunity >9.9Performed A [facility] [id number] Kyle L MD Ph:[phone] ST PERFORMED AT Lab[address] [address] AG HEPATITIS B SURFACE NON REACTIVE INDEX NonReactive Testing done at [place] (test code = HBSAG) [facility] [address] [place] [address]. [place] [address]3 211 AB HEPATITIS B CORE IGM NON REACTIVE INDEX NON REACT. Testing done at [place] (test code = HBCMAB) [facility] [address] [place] [address]. [place] [address]3 211 AB HEPATITIS C (test NON REACTIVE INDEX NON REACT. T esting done at [place] code = HCVAB) [facility] [address] [place] [address]. [place] [address] [phone] Specimen comments: May do on blood in lab, if possible.COMPREHENSIVE METABOLIC [id number] 06:51:00 Test Item Value Reference Range Interpretation Comments SODIUM (test code = NA) 127 mmol/l 134.0-147.0 L POTASSIUM (test code = K) 4.1 mmol/L 3.6-5.2 N CHLORIDE (test code = CL) 98 mmol/l 98.0-107.0 N CARBON DIOXIDE (test code = CO2) 26.9 mmol/l 21.0-33.0 N ANION GAP (test code = GAP) 5.1 0-20 N GLUCOSE (test code = GLU) 171 mg/dl 70.0-110.0 H BLOOD UREA NITROGEN (test code = 11 mg/dl 7.0-18.0 N BUN) CREATININE (test code = CREAT) 0.60 mg/dL 0.60-1.30 N GFR NON BLACK (test code = 151 mL/min 90-95 H GFRNONBLACK) GFR BLACK (test code = GFRBLACK) 183 mL/min 109-115 H TOTAL PROTEIN (test code = PROT) 7.1 gm/dL 6.4-8.2 N ALBUMIN (test code = ALB) 3.0 gm/dl 3.2-4.7 L CALCIUM (test code = CA) 9.0 mg/dl 8.0-10.5 N BILIRUBIN TOTAL (test code = 0.3 mg/dl 0.0-1.0 N BILT) SGOT/AST (test code = AST) 50 Units/L 15.0-37.0 H SGPT/ALT (test code = ALT) 88 Units/L 12.0-78.0 H ALKALINE PHOSPHATASE TOTAL (test 67 Units/L 50.0-136.0 N code = ALKP) [id number] 06:51:00 Test Item Value Reference Range Interpretation Comments MAGNESIUM (test code = MAG) 2.0 mg/dl 1.8-2.4 N CBC W/AUTO [id number] 06:23:00 Test Item Value Reference Range Interpretation Comments WHITE BLOOD CELL (test code = 7.2 K/mm3 4.5-11.0 N WBC) RED BLOOD CELL (test code = 4.87 M/mm3 4.40-5.90 N RBC) HEMOGLOBIN (test code = HGB) 14.3 gm/dL 13.0-17.0 N HEMATOCRIT (test code = HCT) 42.9 % 36.0-48.0 N MEAN CELL VOLUME (test code = 88.1 UM3 80.0-94.0 N MCV) MEAN CELL HGB (test code = MCH) 29.4 UUG 25.5-32.5 N MEAN CELL HGB CONCETRATION 33.3 gm/dL 29.0-35.5 N (test code = MCHC) RED CELL DISTRIBUTION WIDTH 14.7 % 11.5-15.0 N (test code = RDW) RED CELL DISTRIBUTION WIDTH SD 47.6 fL 34.8-50.2 N (test code = RDW-SD) PLATELET COUNT (test code = 307 K/mm3 150-400 N PLT) MEAN PLATELET VOLUME (test code 9.9 fl 7.4-10.4 N = MPV) NEUTROPHIL % (test code = NT%) 77.3 % 49.0-76.0 H IMMATURE GRANULOCYTE % (test 0.8 % 0.0-0.4 H code = IG%) LYMPHOCYTE % (test code = LY%) 10.8 % 23.0-38.0 L MONOCYTE % (test code = MO%) 11.0 % 1.0-10.0 H EOSINOPHIL % (test code = EO%) 0.0 % 1.0-5.0 L BASOPHIL % (test code = BA%) 0.1 % 0.0-1.0 N NEUTROPHIL # (test code = NT#) 5.6 K/mm3 2.4-6.3 N IMMATURE GRANULOCYTE # (test 0.06 x10 3/uL 0.00-0.07 N code = IG#) LYMPHOCYTE # (test code = LY#) 0.8 K/mm3 1.2-4.0 L MONOCYTE # (test code = MO#) 0.8 K/mm3 0.0-0.6 H EOSINOPHIL # (test code = EO#) 0.0 K/MM3 0.0-0.7 N BASOPHIL # (test code = BA#) 0.0 K/mm3 0.0-0.2 N ACUTE HEPATITIS [id number] 04:31:00 Test Item Value Reference Range Interpretation Comments AB HEPATITIS A IGM NON REACTIVE NON REACT. Testing d one at (test code = INDEX CLEAR [place] ONAL HAVMAB) [facility] [address] [place] [address] AB HEPATITIS B mIU/mL Immune >9.9 SURFACE (test code = HBSAB) AG HEPATITIS B NON REACTIVE NonReactive Testing done at SURFACE (test code INDEX [facility] [place] [facility] = HBSAG) [facility] [address] [place] [address] AB HEPATITIS B NON REACTIVE NON REACT. Testing done at CORE IGM (test INDEX CLEAR OLE[place] RE GIONAL code = HBCMAB) [facility] [address] [facility] [place] [address] AB HEPATITIS C NON REACTIVE NON REACT. Testing done at (test code = INDEX CLEAR OLEA TOM[place] ONAL HCVAB) [facility] [address] [place] [address] Specimen comments: May do on blood in lab, if possible.AB HEPATITIS A IGM 2019-10-19 03:35:00 Test Item Value Reference Range Interpretation Comments AB HEPATITIS A IGM (test NON REACTIVE INDEX NON REACT. code = HAVMAB) Specimen comments: May do on blood in lab, if possible.AG HEPATITIS B SURFACE 2019-10-19 03:35:00 Test Item Value Reference Range Interpretation Comments AG HEPATITIS B SURFACE NON REACTIVE INDEX NonReactive (test code = HBSAG) Specimen comments: May do on blood in lab, if possible.AB HEPATITIS B CORE IGM 2019-10-19 03:35:00 Test Item Value Reference Range Interpretation Comments AB HEPATITIS B CORE IGM NON REACTIVE INDEX NON REACT. (test code = HBCMAB) Specimen comments: May do on blood in lab, if possible.AB HEPATITIS [id number] 03:35:00 Test Item Value Reference Range Interpretation Comments AB HEPATITIS C (test code NON REACTIVE INDEX NON REACT. = HCVAB) Specimen comments: May do on blood in lab, if possible.AB HEPATITIS A IGM 2019-10-19 03:34:00 Test Item Value Reference Range Interpretation Comments AB HEPATITIS A IGM (test code = INDEX NON REACT. HAVMAB) Specimen comments: May do on blood in lab, if possible.AG HEPATITIS B SURFACE 2019-10-19 03:34:00 Test Item Value Reference Range Interpretation Comments AG HEPATITIS B SURFACE NON REACTIVE INDEX NonReactive (test code = HBSAG) Specimen comments: May do on blood in lab, if possible.AB HEPATITIS B CORE IGM 2019-10-19 03:34:00 Test Item Value Reference Range Interpretation Comments AB HEPATITIS B CORE IGM NON REACTIVE INDEX NON REACT. (test code = HBCMAB) Specimen comments: May do on blood in lab, if possible.AB HEPATITIS [id number] 03:34:00 Test Item Value Reference Range Interpretation Comments AB HEPATITIS C (test code NON REACTIVE INDEX NON REACT. = HCVAB) Specimen comments: May do on blood in lab, if possible.AB HEPATITIS A IGM 2019-10-19 03:33:00 Test Item Value Reference Range Interpretation Comments AB HEPATITIS A IGM (test code = INDEX NON REACT. HAVMAB) Specimen comments: May do on blood in lab, if possible.AG HEPATITIS B SURFACE 2019-10-19 03:33:00 Test Item Value Reference Range Interpretation Comments AG HEPATITIS B SURFACE NON REACTIVE INDEX NonReactive (test code = HBSAG) Specimen comments: May do on blood in lab, if possible.AB HEPATITIS B CORE IGM 2019-10-19 03:33:00 Test Item Value Reference Range Interpretation Comments AB HEPATITIS B CORE IGM (test code = INDEX NON REACT. HBCMAB) Specimen comments: May do on blood in lab, if possible.AB HEPATITIS [id number] 03:33:00 Test Item Value Reference Range Interpretation Comments AB HEPATITIS C (test code NON REACTIVE INDEX NON REACT. = HCVAB) Specimen comments: May do on blood in lab, if possible.ACUTE HEPATITIS PANEL 2019-10-19 03:29:00 Test Item Value Reference Range Interpretation Comments AB HEPATITIS A IGM INDEX NONREACTIVE (test code = HAVMAB) AB HEPATITIS B mIU/mL Immune >9.9 SURFACE (test code = HBSAB) AG HEPATITIS B NON REACTIVE NonReactive Testing done at SURFACE (test code INDEX [facility] [place] [facility] = HBSAG) [facility] [address] [place] [address] AB HEPATITIS B INDEX NONREACTIVE CORE IGM (test code = HBCMAB) AB HEPATITIS C INDEX NONREACTIVE (test code = HCVAB) Specimen comments: May do on blood in lab, if possible.AB HEPATITIS A IGM 2019-10-19 03:06:00 Test Item Value Reference Range Interpretation Comments AB HEPATITIS A IGM (test code = INDEX NON REACT. HAVMAB) Specimen comments: May do on blood in lab, if possible.AG HEPATITIS B SURFACE 2019-10-19 03:06:00 Test Item Value Reference Range Interpretation Comments AG HEPATITIS B SURFACE NON REACTIVE INDEX NonReactive (test code = HBSAG) Specimen comments: May do on blood in lab, if possible.AB HEPATITIS B CORE IGM 2019-10-19 03:06:00 Test Item Value Reference Range Interpretation Comments AB HEPATITIS B CORE IGM (test code = INDEX NON REACT. HBCMAB) Specimen comments: May do on blood in lab, if possible.AB HEPATITIS [id number] 03:06:00 Test Item Value Reference Range Interpretation Comments AB HEPATITIS C (test code = HCVAB) INDEX NON REACT. Specimen comments: May do on blood in lab, if possible.- XR CHEST 1 [id number] 04:08:00 FAX: Kirby Rhodes MD [phone] [place]: St: REG Name: BASIL BERGER [facility] : 1970 Age/S: 49/M6801 [facility]ly [facility] Unit #: [id number] Loc: E.EXP [place], [place] Phys: Kirby Rhodes [id number] Acct: [id number] Dis Date: Status: REG ER PHONE #: [phone] Exam Date: 10/18/2019 0351 FAX #: [phone] Reason: SOB EXAMS: CPT CODE: [id number] XR CHEST 1 V [id number] AFTER HOURS SERVICE ON:10/18/2019 4:07 AM AP Portable Chest Location Code M12 HISTORY: SOB FINDINGS: There are no infiltrates. There are coarse chronic appearing bilateral interstitial markings. There are no pleural effusions.There is no pneumothorax. Cardiac silhouette and mediastinum appear within normal limits. IMPRESSION: No active pulmonary findings. at 0408 Reported and signed by: Rigo Perez M.D. CC: Kirby Rhodes MD Technologist: PRECIOUS STRAUSS Trnscrd Date/Time/By: 10/18/2019 (0408) : By: [email or web address] PAGE 1 Signed Report FAX: Kirby Rhodes MD [phone] [place]: EM St: REG Name: BASIL BERGER [facility] : 1970 Age/S: 49/M [address] [facility] Unit #: [id number] Loc: E.EXP [place], [place]: [place] [id number] Acct: [id number] Dis Date: Status: REG ER PHONE #: [phone] Exam Date: 10/18/2019350 FAX #: [phone] Reason: SOB EXAMS: CPT CODE: [id number] XR CHEST 1 V [id number] <Continued> Orig Print D/T: S: 10/18/2019 (0411) PAGE 2 Signed ReportBASIC METABOLIC [id number] 04:05:00 Test Item Value Reference Range Interpretation Comments SODIUM (test code = NA) 140 mmol/l 134.0-147.0 N POTASSIUM (test code = K) 4.1 mmol/L 3.6-5.2 N CHLORIDE (test code = CL) 101 mmol/l 98.0-107.0 N CARBON DIOXIDE (test code = CO2) 26.5 mmol/l 21.0-33.0 N ANION GAP (test code = GAP) 16.6 0-20 N GLUCOSE (test code = GLU) 87 mg/dl 70.0-110.0 N BLOOD UREA NITROGEN (test code = 3 mg/dl 7.0-18.0 L BUN) CREATININE (test code = CREAT) 0.60 mg/dL 0.60-1.30 N GFR NON BLACK (test code = 151 mL/min 90-95 H GFRNONBLACK) GFR BLACK (test code = GFRBLACK) 183 mL/min 109-115 H CALCIUM (test code = CA) 8.5 mg/dl 8.0-10.5 N HEPATIC FUNCTION PANEL [id number] 04:05:00 Test Item Value Reference Range Interpretation Comments TOTAL PROTEIN (test code = PROT) 7.9 gm/dL 6.4-8.2 N ALBUMIN (test code = ALB) 3.3 gm/dl 3.2-4.7 N BILIRUBIN TOTAL (test code = 0.2 mg/dl 0.0-1.0 N BILT) BILIRUBIN DIRECT (test code = 0.1 mg/dl 0.0-0.3 N BILD) SGOT/AST (test code = AST) 87 Units/L 15.0-37.0 H SGPT/ALT (test code = ALT) 109 Units/L 12.0-78.0 H ALKALINE PHOSPHATASE TOTAL (test 82 Units/L 50.0-136.0 N code = ALKP) [id number] 04:05:00 Test Item Value Reference Range Interpretation Comments LIPASE (test code = LIP) 147 Units/L 65.0-230.0 N B-TYPE NATRIURETIC [id number] 04:05:00 Test Item Value Reference Range Interpretation Comments B-TYPE NATRIURETIC PEPTIDE (test 6.8 PG/ML 5-100 N code = BNP) [id number] 04:05:00 Test Item Value Reference Range Interpretation Comments TROPONIN-I (test <0.02 NG/ML 0.00-0.06 N REFERENCE R REBECA code = TROPI) TROPONIN I HEA LTHY INDIVIDUALS: <0 .06 ng/mL R/O ISCHE TASHI: 0.07 - 0.60 ng/ mL CUT-OFF RANGE F OR AMI: 0.60 - 1.5 ng/m L BASIC METABOLIC [id number] 04:03:00 Test Item Value Reference Range Interpretation Comments SODIUM (test code = NA) 140 mmol/l 134.0-147.0 N POTASSIUM (test code = K) 4.1 mmol/L 3.6-5.2 N CHLORIDE (test code = CL) 101 mmol/l 98.0-107.0 N CARBON DIOXIDE (test code = CO2) 26.5 mmol/l 21.0-33.0 N ANION GAP (test code = GAP) 16.6 0-20 N GLUCOSE (test code = GLU) 87 mg/dl 70.0-110.0 N BLOOD UREA NITROGEN (test code = 3 mg/dl 7.0-18.0 L BUN) CREATININE (test code = CREAT) 0.60 mg/dL 0.60-1.30 N GFR NON BLACK (test code = 151 mL/min 90-95 H GFRNONBLACK) GFR BLACK (test code = GFRBLACK) 183 mL/min 109-115 H CALCIUM (test code = CA) 8.5 mg/dl 8.0-10.5 N HEPATIC FUNCTION PANEL [id number] 04:03:00 Test Item Value Reference Range Interpretation Comments TOTAL PROTEIN (test code = PROT) 7.9 gm/dL 6.4-8.2 N ALBUMIN (test code = ALB) 3.3 gm/dl 3.2-4.7 N BILIRUBIN TOTAL (test code = 0.2 mg/dl 0.0-1.0 N BILT) BILIRUBIN DIRECT (test code = 0.1 mg/dl 0.0-0.3 N BILD) SGOT/AST (test code = AST) 87 Units/L 15.0-37.0 H SGPT/ALT (test code = ALT) 109 Units/L 12.0-78.0 H ALKALINE PHOSPHATASE TOTAL (test 82 Units/L 50.0-136.0 N code = ALKP) [id number] 04:03:00 Test Item Value Reference Range Interpretation Comments LIPASE (test code = LIP) 147 Units/L 65.0-230.0 N B-TYPE NATRIURETIC [id number] 04:03:00 Test Item Value Reference Range Interpretation Comments B-TYPE NATRIURETIC PEPTIDE (test code PG/ML 5-100 = BNP) [id number] 04:03:00 Test Item Value Reference Range Interpretation Comments TROPONIN-I (test <0.02 NG/ML 0.00-0.06 N REFERENCE R REBECA code = TROPI) TROPONIN I HEA LTHY INDIVIDUALS: <0 .06 ng/mL R/O ISCHE TASHI: 0.07 - 0.60 ng/ mL CUT-OFF RANGE F OR AMI: 0.60 - 1.5 ng/m L BASIC METABOLIC [id number] 03:53:00 Test Item Value Reference Range Interpretation Comments SODIUM (test code = NA) 140 mmol/l 134.0-147.0 N POTASSIUM (test code = K) 4.1 mmol/L 3.6-5.2 N CHLORIDE (test code = CL) 101 mmol/l 98.0-107.0 N CARBON DIOXIDE (test code = CO2) 26.5 mmol/l 21.0-33.0 N ANION GAP (test code = GAP) 16.6 0-20 N GLUCOSE (test code = GLU) mg/dl 70.0-110.0 BLOOD UREA NITROGEN (test code = mg/dl 7.0-18.0 BUN) CREATININE (test code = CREAT) mg/dL 0.60-1.30 GFR NON BLACK (test code = mL/min 90-95 GFRNONBLACK) GFR BLACK (test code = GFRBLACK) mL/min 109-115 CALCIUM (test code = CA) mg/dl 8.0-10.5 HEPATIC FUNCTION PANEL [id number] 03:53:00 Test Item Value Reference Range Interpretation Comments TOTAL PROTEIN (test code = PROT) gm/dL 6.4-8.2 ALBUMIN (test code = ALB) gm/dl 3.2-4.7 BILIRUBIN TOTAL (test code = BILT) mg/dl 0.0-1.0 BILIRUBIN DIRECT (test code = BILD) mg/dl 0.0-0.3 SGOT/AST (test code = AST) Units/L 15.0-37.0 SGPT/ALT (test code = ALT) Units/L 12.0-78.0 ALKALINE PHOSPHATASE TOTAL (test Units/L 50.0-136.0 code = ALKP) [id number] 03:53:00 Test Item Value Reference Range Interpretation Comments LIPASE (test code = LIP) Units/L 65.0-230.0 B-TYPE NATRIURETIC [id number] 03:53:00 Test Item Value Reference Range Interpretation Comments B-TYPE NATRIURETIC PEPTIDE (test code PG/ML 5-100 = BNP) [id number] 03:53:00 Test Item Value Reference Range Interpretation Comments TROPONIN-I (test code = TROPI) NG/ML 0.00-0.06 CBC W/AUTO [id number] 03:47:00 Test Item Value Reference Range Interpretation Comments WHITE BLOOD CELL (test code = 6.1 K/mm3 4.5-11.0 N WBC) RED BLOOD CELL (test code = 5.15 M/mm3 4.40-5.90 N RBC) HEMOGLOBIN (test code = HGB) 15.2 gm/dL 13.0-17.0 N HEMATOCRIT (test code = HCT) 45.0 % 36.0-48.0 N MEAN CELL VOLUME (test code = 87.4 UM3 80.0-94.0 N MCV) MEAN CELL HGB (test code = MCH) 29.5 UUG 25.5-32.5 N MEAN CELL HGB CONCETRATION 33.8 gm/dL 29.0-35.5 N (test code = MCHC) RED CELL DISTRIBUTION WIDTH 14.6 % 11.5-15.0 N (test code = RDW) RED CELL DISTRIBUTION WIDTH SD 46.6 fL 34.8-50.2 N (test code = RDW-SD) PLATELET COUNT (test code = 313 K/mm3 150-400 N PLT) MEAN PLATELET VOLUME (test code 9.4 fl 7.4-10.4 N = MPV) NEUTROPHIL % (test code = NT%) 51.6 % 49.0-76.0 N IMMATURE GRANULOCYTE % (test 0.8 % 0.0-0.4 H code = IG%) LYMPHOCYTE % (test code = LY%) 35.7 % 23.0-38.0 N MONOCYTE % (test code = MO%) 8.3 % 1.0-10.0 N EOSINOPHIL % (test code = EO%) 2.8 % 1.0-5.0 N BASOPHIL % (test code = BA%) 0.8 % 0.0-1.0 N NEUTROPHIL # (test code = NT#) 3.1 K/mm3 2.4-6.3 N IMMATURE GRANULOCYTE # (test 0.05 x10 3/uL 0.00-0.07 N code = IG#) LYMPHOCYTE # (test code = LY#) 2.2 K/mm3 1.2-4.0 N MONOCYTE # (test code = MO#) 0.5 K/mm3 0.0-0.6 N EOSINOPHIL # (test code = EO#) 0.2 K/MM3 0.0-0.7 N BASOPHIL # (test code = BA#) 0.1 K/mm3 0.0-0.2 N
[2022-05-23] MEDS ORDERED: ONDANSETRON 4 MG/2 ML VIAL ONE (10:36)
[2022-05-23] MEDS ORDERED: KETOROLAC 30 MG/ML INJ ONE (10:36)
[2022-05-23] MEDS ORDERED: NA CHLORIDE 0.9% 1,000 ML ONE (10:36)
[2022-05-23 10:55] LABS: Absolute Lymphocytes (CBC) 1.5 K/uL (0.7-4.9); Hematocrit 40.9 % (39.6-49.0); Lymphocytes % 27.9 % (15.3-44.8); MCV 86.7 fL (80-100); MPV 8.2 fL (7.6-11.3); RBC Red Blood Cell Count 4.72 M/uL (4.33-5.43)
[2022-05-23 11:06] LABS: Albumin 3.9 g/dL (3.4-5.0); Bilirubin Total 0.3 mg/dL (0.2-1.0); Potassium 4.2 mmol/L (3.5-5.1); Protein, Total 7.3 g/dL (6.4-8.2)
--- NOTE | 2022-05-23 11:08 | RAD REPORT ---
EXAM DESCRIPTION: CT - Stone Protocol - 05/23/2022 10:47 am CLINICAL HISTORY: Abdominal pain. Flank pain COMPARISON: 2010 TECHNIQUE: Computed axial tomography of the abdomen pelvis was obtained without oral or IV contrast. Lack of IV and oral contrast limits evaluation of solid organs, appendix, bowel, and vessels. Gage l reformatted images were obtained and reviewed. All CT scans are performed using dose optimization technique as appropriate and may include automated exposure control or mA/KV adjustment according to patient size. FINDINGS: A renal calculus is not seen. An ureteral calculus is not noted. A bladder calculus is not present. Proximal and mid left ureter are normal caliber. There is focal dilatation of distal left u reter which is unchanged from the 2010 exam Small hepatic cysts. Cholecystectomy. Spleen, pancreas and adrenals appear grossly normal Right inguinal hernia repair There is no evidence of diverticulitis. Small umbilical hernia. Spondylosis L5-S1 IMPRESSION: Negative for a genitourinary calculus
[2022-05-23 11:29] LABS: Urine Blood Negative (Negative); Urine Glucose Negative (Negative); Urine Protein Negative (Negative)
[2022-05-23 11:45] LABS: Urine Bacteria None Seen /HPF (<20); Urine RBC <5 /HPF (None Seen)
--- NOTE | 2022-05-23 12:26 | RAD REPORT ---
EXAM DESCRIPTION: Sabino Carlin And Lat (2 Views)05/23/2022 12:10 pm CLINICAL HISTORY: Cough COMPARISON: 2019 FINDINGS: The lungs are hyperaerated. The lungs appear clear of acute infiltrate. The heart is normal size IMPRESSION: No acute abnormalities displayed
--- NOTE | 2022-05-23 13:20 | RAD REPORT ---
EXAM DESCRIPTION: CT - Angio Aorta For Dissection - 05/23/2022 12:30 pm CLINICAL HISTORY: . Chest and abd pain COMPARISON: CT May 23, 2022 TECHNIQUE: Computed tomography angiography of the chest, abdomen pelvis were obtained. 100 cc Isovue 370 was administered intravenously. Coronal and sagittal reconstruction were performed. MIP 3D reconstruction was performed All CT scans are performed using dose optimization technique as appropriate and may include automated exposure control or mA/KV adjustment according to patient size. FINDINGS: An aortic dissection is not seen. An aortic aneurysm is not displayed. The celiac, SMA and EMILIO are patent . A lung consolidation is not present. A pericardial effusion is not seen. A pleural effusion is not no samuel. Hepatic cysts. Cholecystectomy Spleen, pancreas,adrenals and kidneys demonstrate no significant abnormality. There no evidence diverticulitis. Small umbilical hernia. Postsurgical changes right inguinal hernia repair IMPRESSION: Negative for an aortic dissection.
--- NOTE | 2022-05-23 13:54 | EDPHYS ---
Physician Documentation [facility] Name: Joe Marina Jr Age: 51 yrs Sex: Male : 1970 Arrival Date: 05/23/2022 Time: 10:09 Bed 16 Private MD: ED Physician Zachary Warren HPI: 05/23 11:20 This 51 yrs old Male presents to ER via Ambulatory with complaints of Flank gregorio Pain - right. 11:20 The patient complains of pain in the right subscapular area and right mid back. The gregorio pain does not radiate. Onset: The symptoms/episode began/occurred 3 day(s) ago. Modifying factors: The symptoms are alleviated by nothing. the symptoms are aggravated by nothing. Associated signs and symptoms: The patient has no apparent associated signs or symptoms. Severity of pain: At its worst the pain was mild in the emergency department the pain is unchanged. The patient has not experienced similar symptoms in the past. Historical: - Allergies: 10:20 Haldol; tp1 10:20 PENICILLINS; tp1 - Home Meds: 10:20 None [Active]; tp1 - PMHx: 10:20 Hypertension; PTSD; tp1 - PSHx: 10:20 Appendectomy; Cholecystectomy; hernia mesh; tp1 - Immunization history:: Client reports receiving the 2nd dose of the Covid vaccine. - Social history:: Smoking status: Patient reports the use of cigarette tobacco products, smokes one pack cigarettes per day. ROS: 11:21 Constitutional: Negative for fever, chills, and weight loss, Eyes: Negative for injury, gregorio pain, redness, and discharge, ENT: Negative for injury, pain, and discharge, Neck: Negative for injury, pain, and swelling, Cardiovascular: Negative for chest pain, palpitations, and edema, Respiratory: Negative for shortness of breath, cough, wheezing, and pleuritic chest pain, : Negative for injury, bleeding, discharge, and swelling, MS/Extremity: Negative for injury and deformity, Skin: Negative for injury, rash, and discoloration, Neuro: Negative for headache, weakness, numbness, tingling, and seizure, Psych: Negative for depression, anxiety, suicide ideation, homicidal ideation, and hallucinations, Allergy/Immunology: Negative for hives, rash, and allergies, Endocrine: Negative for neck swelling, polydipsia, polyuria, polyphagia, and marked weight changes, Hematologic/Lymphatic: Negative for swollen nodes, abnormal bleeding, and unusual bruising. 11:21 Abdomen/GI: Positive for abdominal pain, of the posterior aspect of right lateral abdomen. Exam: 11:21 Constitutional: This is a well developed, well nourished patient who is awake, alert, gregorio and in no acute distress. Head/Face: Normocephalic, atraumatic. Eyes: Pupils equal round and reactive to light, extra-ocular motions intact. Lids and lashes normal. Conjunctiva and sclera are non-icteric and not injected. Cornea within normal limits. Periorbital areas with no swelling, redness, or edema. ENT: Nares patent. No nasal discharge, no septal abnormalities noted. Tympanic membranes are normal and external auditory canals are clear. Oropharynx with no redness, swelling, or masses, exudates, or evidence of obstruction, uvula midline. Mucous membranes moist. Neck: Trachea midline, no thyromegaly or masses palpated, and no cervical lymphadenopathy. Supple, full range of motion without nuchal rigidity, or vertebral point tenderness. No Meningismus. Chest/axilla: Normal chest wall appearance and motion. Nontender with no deformity. No lesions are appreciated. Cardiovascular: Regular rate and rhythm with a normal S1 and S2. No gallops, murmurs, or rubs. Normal PMI, no JVD. No pulse deficits. Respiratory: Lungs have equal breath sounds bilaterally, clear to auscultation and percussion. No rales, rhonchi or wheezes noted. No increased work of breathing, no retractions or nasal flaring. Abdomen/GI: Soft, non-tender, with normal bowel sounds. No distension or tympany. No guarding or rebound. No evidence of tenderness throughout. Male : Normal genitalia with no discharge or lesions. Skin: Warm, dry with normal turgor. Normal color with no rashes, no lesions, and no evidence of cellulitis. MS/ Extremity: Pulses equal, no cyanosis. Neurovascular intact. Full, normal range of motion. Neuro: Awake and alert, GCS 15, oriented to person, place, time, and situation. Cranial nerves II-XII grossly intact. Motor strength 5/5 in all extremities. Sensory grossly intact. Cerebellar exam normal. Normal gait. Psych: Awake, alert, with orientation to person, place and time. Behavior, mood, and affect are within normal limits. 11:21 Abdomen/GI: Exam negative for acute changes. 11:21 Back: pain, that is mild, that is moderate, of the right subscapular area and right mid back. Vital Signs: 10:20 BP 119 / 75; Pulse 89; Resp 16; Pulse Ox 98% on R/A; tp1 11:14 BP 115 / 80; Pulse 73; Resp 16; Temp 97.9; Pulse Ox 98% on R/A; Weight 95.25 kg; Height tp1 6 ft. 4 in. (193.04 cm); 13:30 BP 131 / 89; Pulse 70; Resp 16; Pulse Ox 100% on R/A; vg1 11:14 Body Mass Index 25.56 (95.25 kg, 193.04 cm) tp1 MDM: 10:23 Patient medically screened. [facility] 11:23 Differential diagnosis: nephrolithiasis, pyelonephritis, diverticulitis, pancreatitis, gregorio Basilar Pneumonia Cholelithiasis Hydronephrosis Osteoarthritis ruptured disc, sprain, Ureterolithiasis. Data reviewed: vital signs, nurses notes, lab test result(s), radiologic studies, CT scan, plain films. Data interpreted: media liaison officer: rate is 73 beats/min, rhythm is regular, Pulse oximetry: on room air is 98 %. Test interpretation: by ED physician or midlevel provider: plain radiologic studies. Counseling: I had a detailed discussion with the patient and/or guardian regarding: the historical points, exam findings, and any diagnostic results supporting the discharge/admit diagnosis, lab results, radiology results, the need for outpatient follow up, for definitive care, an site identification specialist. 05/23 10:23 Order name: CBC with Diff; Complete Time: 11:15 gregorio 05/23 10:23 Order name: CMP; Complete Time: 11:15 gregorio 05/23 10:23 Order name: Lipase; Complete Time: 11:15 gregorio 05/23 10:23 Order name: Urine Microscopic Only; Complete Time: 11:53 gregorio 05/23 11:16 Order name: D-Dimer; Complete Time: 11:53 gregorio 05/23 11:29 Order name: Urine Dipstick-Ancillary; Complete Time: 11:30 [facility] 05/23 10:23 Order name: IV Saline Lock; Complete Time: 11:00 [facility] 05/23 10:23 Order name: Labs collected and sent; Complete Time: 11:00 [facility] 05/23 10:23 Order name: CT Stone Protocol; Complete Time: 11:15 [facility] 05/23 11:16 Order name: Chest Pa And Lat (2 Views) XRAY; Complete Time: 13:30 [facility] 05/23 11:55 Order name: CT Aorta for Dissection: RO PE , DISSECTION; Complete Time: 13:30 [facility] Administered Medications: 10:37 Drug: Zofran (Ondansetron) 4 mg Route: IVP; Site: left antecubital; tp1 11:18 Follow up: Response: Nausea unchanged tp1 14:05 Follow up: Response: No adverse reaction; Marked relief of symptoms vg1 10:39 Drug: Ketorolac 30 mg Route: IVP; Site: left antecubital; tp1 11:17 Follow up: Response: Pain is unchanged, physician notified tp1 14:05 Follow up: Response: No adverse reaction; Marked relief of symptoms vg1 10:59 Drug: NS 0.9% 1000 ml Route: IV; Rate: 1 bolus; Site: left antecubital; tp1 14:04 Follow up: IV Status: Completed infusion; IV Intake: 500ml vg1 Disposition Summary: 05/23/22 13:54 Discharge Ordered Location: Home gregorio Problem: new gregorio Symptoms: have improved gregorio Condition: Stable gregorio Diagnosis - Other injury of muscle and tendon of back wall of thorax gregorio - Other injury of muscle, fascia and tendon of lower back gregorio Followup: gregorio - With: Private Physician - When: 2 - 3 days - Reason: Recheck today's complaints, Continuance of care, Re-evaluation by your physician Discharge Instructions: - Discharge Summary Sheet gregorio - Acute Back Pain, Adult gregorio - Musculoskeletal Pain gregorio Forms: - Medication Reconciliation Form gregorio - Thank You Letter gregorio - Antibiotic Education gregorio - Prescription Opioid Use gregorio Prescriptions: - Ibuprofen 600 mg Oral Tablet - take 1 tablet by ORAL route every 6 hours As needed take with food; 20 tablet; gregorio Refills: 0, Product Selection Permitted - Tylenol-Codeine #3 300 mg-30 mg Oral - take 2 tablet by ORAL route every 6 hours; 15 tablet; Refills: 0, Product gregorio Selection Permitted Signatures: Dispatcher [employer] EDZachary Baer MD MD cha Parker, Tiffany, BESSIE RN tp1 Silvia Shearer RN vg1
--- NOTE | 2022-05-23 13:54 | ER ---
Nurse's Notes [facility] Name: Joe Marina Jr Age: 51 yrs Sex: Male : 1970 Arrival Date: 05/23/2022 Time: 10:09 Bed 16 Private MD: Diagnosis: Other injury of muscle and tendon of back wall of thorax;Other injury of muscle, fascia and tendon of lower back Presentation: 05/23 10:20 Chief complaint: Patient states: intermittent,sharp/achy pain in the right upper tp1 quadrant pain that radiates to the right posterior back, rated 5/10. onset was 4 days ago. stated he thought the pain was due to constipation and took a laxative this morning, however BM did not relieve pain. reports diarrhea before taking laxative. denies n/v. Coronavirus screen: Vaccine status: Patient reports receiving the 2nd dose of the covid vaccine. Ebola Screen: Patient denies exposure to infectious person. Patient denies travel to an Ebola-affected area in the 21 days before illness onset. Initial Sepsis Screen: Does the patient meet any 2 criteria? No. Patient's initial sepsis screen is negative. Does the patient have a suspected source of infection? No. Patient's initial sepsis screen is negative. Risk Assessment: Do you want to hurt yourself or someone else? Patient reports no desire to harm self or others. Onset of symptoms was May 19, 2022. 10:20 Method Of Arrival: Ambulatory tp1 10:20 Acuity: DARSHAN 3 tp1 Triage Assessment: 10:20 General: Appears in no apparent distress. comfortable, Behavior is calm, cooperative. tp1 Pain: Complains of pain in right upper quadrant Pain radiates to right mid back Pain currently is 5 out of 10 on a pain scale. Quality of pain is described as aching, sharp, Pain began 4 days ago. EENT: No signs and/or symptoms were reported regarding the EENT system. Neuro: Level of Consciousness is awake, alert, obeys commands, Oriented to person, place, time, situation. Cardiovascular: Patient's skin is warm and dry. Respiratory: Airway is patent Respiratory effort is even, unlabored. GI: Abdomen is flat, non-distended, Last BM was May 23, 2022. Abd is soft X 4 quads Abdomen is tender to palpation in right upper quadrant Reports diarrhea, Patient currently denies nausea, vomiting. : Reports denies burning the urination or frequency. Derm: Skin is pink, warm \\T\\ dry. Musculoskeletal: Circulation, motion, and sensation intact. Historical: - Allergies: 10:20 Haldol; tp1 10:20 PENICILLINS; tp1 - Home Meds: 10:20 None [Active]; tp1 - PMHx: 10:20 Hypertension; PTSD; tp1 - PSHx: 10:20 Appendectomy; Cholecystectomy; hernia mesh; tp1 - Immunization history:: Client reports receiving the 2nd dose of the Covid vaccine. - Social history:: Smoking status: Patient reports the use of cigarette tobacco products, smokes one pack cigarettes per day. Screenin:00 Abuse screen: Denies threats or abuse. Nutritional screening: No deficits noted. vg1 Tuberculosis screening: No symptoms or risk factors identified. Fall Risk No fall in past 12 months (0 pts). No secondary diagnosis (0 pts). IV access (20 points). Ambulatory Aid- None/Bed Rest/Nurse Assist (0 pts). Gait- Normal/Bed Rest/Wheelchair (0 pts) Mental Status- Oriented to own ability (0 pts). Total Dumont Fall Scale indicates No Risk (0-24 pts). Assessment: 10:20 General: see triage assessment . tp1 11:20 Reassessment: Patient appears in no apparent distress at this time. No changes from tp1 previously documented assessment. Patient and/or family updated on plan of care and expected duration. Pain level reassessed. Patient is alert, oriented x 3, equal unlabored respirations, skin warm/dry/pink. continues to CO 4/10 pain. stated medication did not help. denies need for further medication. door closed, noise minimized. 12:26 Reassessment: Patient appears in no apparent distress at this time. No changes from tp1 previously documented assessment. Patient and/or family updated on plan of care and expected duration. Pain level reassessed. Patient is alert, oriented x 3, equal unlabored respirations, skin warm/dry/pink. 13:30 Reassessment: Patient appears in no apparent distress at this time. No changes from vg1 previously documented assessment. Patient and/or family updated on plan of care and expected duration. Pain level reassessed. Patient is alert, oriented x 3, equal unlabored respirations, skin warm/dry/pink. 14:06 Reassessment: Pt refused prescriptions, stated " Im a recovering addict and I dont want vg1 to have that Tylenol 3 and I have ibuprofen at home, tell doctor thank you though" Provider notified. Vital Signs: 10:20 BP 119 / 75; Pulse 89; Resp 16; Pulse Ox 98% on R/A; tp1 11:14 BP 115 / 80; Pulse 73; Resp 16; Temp 97.9; Pulse Ox 98% on R/A; Weight 95.25 kg; Height tp1 6 ft. 4 in. (193.04 cm); 13:30 BP 131 / 89; Pulse 70; Resp 16; Pulse Ox 100% on R/A; vg1 11:14 Body Mass Index 25.56 (95.25 kg, 193.04 cm) tp1 ED Course: 10:09 Patient arrived in ED. am2 10:20 Arm band placed on. tp1 10:22 Zachary Warren MD is Attending Physician. [facility] 10:25 Janee Albert RN is Primary Nurse. tp1 10:30 Patient has correct armband on for positive identification. Bed in low position. Call tp1 light in reach. Side rails up X 1. Pulse ox on. NIBP on. 10:34 Inserted saline lock: 20 gauge in left antecubital area, using aseptic technique. Blood tp1 collected. 10:49 CT Stone Protocol In Process Unspecified. EDMS 11:07 Triage completed. tp1 12:12 Chest Pa And Lat (2 Views) XRAY In Process Unspecified. EDMS 12:31 CT Aorta for Dissection: RO PE , DISSECTION In Process Unspecified. EDMS 14:06 No provider procedures requiring assistance completed. IV discontinued, intact, vg1 bleeding controlled, No redness/swelling at site. Pressure dressing applied. Administered Medications: 10:37 Drug: Zofran (Ondansetron) 4 mg Route: IVP; Site: left antecubital; tp1 11:18 Follow up: Response: Nausea unchanged tp1 14:05 Follow up: Response: No adverse reaction; Marked relief of symptoms vg1 10:39 Drug: Ketorolac 30 mg Route: IVP; Site: left antecubital; tp1 11:17 Follow up: Response: Pain is unchanged, physician notified tp1 14:05 Follow up: Response: No adverse reaction; Marked relief of symptoms vg1 10:59 Drug: NS 0.9% 1000 ml Route: IV; Rate: 1 bolus; Site: left antecubital; tp1 14:04 Follow up: IV Status: Completed infusion; IV Intake: 500ml vg1 Medication: 14:05 VIS not applicable for this client. vg1 Intake: 14:04 IV: 500ml; Total: 500ml. vg1 Outcome: 13:54 Discharge ordered by MD. perkins 14:06 Discharged to home ambulatory, with family. vg1 14:06 Condition: good 14:06 Discharge instructions given to patient, family, Instructed on discharge instructions, follow up and referral plans. Demonstrated understanding of instructions, follow-up care. 14:08 Patient left the ED. vg1 Signatures: Dispatcher [employer] EDMS Zachary Warren MD MD cha Moreno, Amanda am2 Garcia, Victoria RN RN vg1 Janee Albert RN RN tp1 Corrections: (The following items were deleted from the chart) 11:14 10:20 BP 115 / 80; Pulse 73bpm; Resp 16bpm; Pulse Ox 98% RA; tp1 tp1 11:17 11:14 BP 115 / 80; Pulse 73bpm; Resp 16bpm; Pulse Ox 98% RA; tp1 tp1 11:34 11:15 General: see triage assessment . tp1 tp1
[2022-05-23 14:25] VITALS: TEMP 97.9
[2022-05-23 14:28] VITALS: BP 131/89; O2SAT 100
== END 2022-05-23 14:08 | disposition home or self-care (01) ==
LOC: ER 10:03
DX: S29.092A Other injury of muscle and tendon of back wall of thorax, initial encounter (principal); S39.092A Other injury of muscle, fascia and tendon of lower back, initial encounter; I10 Essential (primary) hypertension; F17.210 Nicotine dependence, cigarettes, uncomplicated; Z88.0 Allergy status to penicillin; Z88.5 Allergy status to narcotic agent
CPT/HCPCS: 85025; 36415; 85379; 83690; 80053; 76377; 71275; 74175; 74176; 71046; Q9967; J7030; J2405; 81003; 81015; 96361; 96374; 96375; 99284

== ENCOUNTER 2023-07-08 18:37 | Emergency (ER) | payer OTHER ==
--- OUTSIDE RECORDS SUMMARY | 2023-07-08 18:41 | XMS REPORT | Continuity of Care Document ---
:1970 Author Organization [facility] t Address [address] [facility] [address] [place] [address] Care Team Providers Name Role Phone [facility], [facility] Primary Care Physician [phone] Rodger Fernandes Attending Clinician Unavailable NOE HEATH Attending Clinician Unavailable Doctor Unassigned, [place] Attending Clinician Unavailable Noe Heath OD Attending Clinician JIM SONG Attending Clinician Unavailable Jim Muñoz Attending Clinician ARIELLE SÁNCHEZ Attending Clinician Unavailable Sherice Tejeda DO Attending Clinician Jason Hall MD Attending Clinician DENILSON ESPINOZA Attending Clinician Unavailable Priti Sexton Attending Clinician Unavailable LAURA BECERRA Attending Clinician Unavailable Soto Mann MD Attending Clinician Genesis Cr MD Attending Clinician GEENSIS CR Attending Clinician Unavailable Physician, No Primary or Family Admitting Clinician Unavaila ble KNOW, DOES_NOT Admitting Clinician Unavailable JIM SONG Admitting Clinician Unavailable ARIELLE SÁNCHEZ Admitting Clinician Unavailable Jason Hall MD Admitting Clinician LAURA BECERRA Admitting Clinician Unavailable Payers Payer Name Policy Type Policy Number Effective Date Expiration Date [facility] [id number] 2006 00:00:00 Problems Condition Condition Condition Status Onset Resolution Last Treating Co mments Source Name Details Category Date Date Treatment Clinician Date Chest pain Chest pain Disease Active 2020-0 M ethodi at rest at rest 01-17 00:00: Hospita 00 l Generalize Generalize Disease Active 2020-0 M ethodi d weakness d weakness 01-17 00:00: Hospita 00 l Suicidal Suicidal Disease Active 2020-0 Metho di ideations ideations 01-17 00:00: Hospita 00 l 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 00:00: Ho spita duced duced 00 l disorder disorder Chest pain Chest pain Disease Active 2018- U nivers 11-11 ity of 00:00: [place] [address] Medical Branch Allergies, Adverse Reactions, Alerts Allergy Allergy Status Severity Reaction(s) Onset Inactive Treating Comm ents Source Name Type Date Date Clinician Penicill Propensi Active Unknown 2020-0 Metho di ins ty to Reaction 01-17 st adverse 00:00: Hospita reaction 00 l s to drug Penicill Propensi Active Rash 2019-0 Method i ins ty to 2 st adverse 00:00: Hospita reaction 00 l s to drug penicill DA Active MO HIVES 2020-0 [facility] in G 10-18 Clear 00:00: [place] [address] [place] [address] Penicill Propensi Active Unknown - Uni vers ins ty to See comments 06-23 ity of adverse 00:00: [place] reaction 00 Medical s Branch PENICILL Drug Active Unknown-Cmnt Un nish INS Class 06-23 ity of 00:00: [place] [facility] Penicill Propensi Active Unknown - Uni vers ins ty to See comments 06-23 ity of adverse 00:00: [place] reaction 00 Medical s Branch No Known DA Active U 2003-0 [facility] Contrast -08 [place] Allergie 00:00: d s 00 [facility] No Known DA Active U 2003-0 [facility] Food 5-08 [place] Allergie 00:00: d s 00 [facility] No Known DA Active U 2002-0 [facility] Other 5-08 [place] Allergie 00:00: d s 00 Medical Center PENICILL DA Active U 2002-0 [facility] IN -08 [place] 00:00: d 00 [facility] penicill DA Active U 2000-0 [facility] in G 03-03 [place] 00:00: d 00 [facility] Social History Social Habit Start Date Stop Date Quantity Comments Source Sexual orientation [facility] Exposure to Not sure [place] of SARS-CoV-2 (event) [facility] History of tobacco Snuff User Univer sity of use [facility] History [facility] o f Alcohol Binge [facility] Tobacco use and 2021-12-25 2021-12-25 User of Universit y of exposure 00:00:00 00:00:00 smokeless [facility] tobacco [place] Cigarette 2021-12-25 2021-12-25 University of pack-years 00:00:00 00:00:00 [facility] History of Social 2019-12-14 2019-12-[address] function 00:00:00 00:00:00 Hospital Alcohol Comment 2019-12-14 2019-12-14 binge drinking Metho dist 00:00:00 00:00:00 Hospital Cigarettes smoked 2019-12-14 2019-12-[address] current (pack per 00:00:00 00:00:00 Hospita l day) - Reported Alcohol intake 2019-12-14 2019-12-14 Current drinker Metho dist 00:00:00 00:00:00 of alcohol Hospital (finding) History [facility] 2019-09-11 2019-09-11 3 University o f Alcohol Std Drinks 00:00:00 00:00:00 [facility] History [facility] 2019-09-11 2019-09-11 5 University o f Alcohol Frequency 00:00:00 00:00:00 [facility] Sex Ass[birth year] At [birth year] [facility] 00:[facility] Smoking Status Start Date Stop Date Source Smokes tobacco daily 2021-12-25 [facility] [place] Sm[facility] 2020-01-19 00:00:00 [facility] Medications Ordered Filled Start Stop Current Ordering Indication Dosage Frequency Signature Comments Components Source Medication Medication Date Date Medication? Clinician (SIG) Name Name ciprofloxac 2020-10 Yes [id number] 500mg Take 1 Univers in HCl 500 1-30 tablet by ity of mg tablet 00:00: mouth 2 [place] (two) Medical times Branch daily. ciprofloxac 2020-10 Yes [id number] 500mg Take 1 Univers in HCl 500 1-30 tablet by ity of mg tablet 00:00: mouth 2 [place] (two) Medical times Branch daily. ATENOLOL 2020-0 Yes 50mg Take 50 mg Uni vers ORAL 4-03 by mouth ity of 09:46: daily. [address] Branch ATENOLOL 2020-0 Yes 50mg Take 50 mg Uni vers ORAL 4-03 by mouth ity of 09:46: daily. [address] Branch aspirin 81 2020-0 Yes [id number] 81mg Take 1 U nivers mg chewable 4-03 tablet by ity of tablet 00:00: mouth [place] 00 daily. Medical Branch atorvastati 2020-0 Yes [id number] 20mg Take 2 Univers n 10 mg 4-03 tablets by ity of tablet 00:00: mouth at [place] [address] bedtime. Medical Branch aspirin 81 2020-0 Yes [id number] 81mg Take 1 U nivers mg chewable 4-03 tablet by ity of tablet 00:00: mouth [place] 00 daily. Medical Branch atorvastati 2020-0 Yes [id number] 20mg Take 2 Univers n 10 mg 4-03 tablets by ity of tablet 00:00: mouth at [place] [address] bedtime. Medical Branch Vital Signs Vital Name Observation Time Observation Value Comments Source Body height 2021-12-25 16:17:00 188 cm [facility] Medical [place] Procedures Procedure Date / Time Performed Performing Clinician [facility] e REFERRAL- 2023-01-24 05:01:00 Doctor Unassigned, [facility]PONSE Name Medical Branch Plan of Care Planned Activity Planned Date Details Comments Source Future Scheduled 2023-06-22 [facility] Test 19:08:58 malignant neoplasm of colon (procedure) [code = 448541310] Future Scheduled 2023-06-22 [facility] Test 19:08:58 malignant neoplasm of colon (procedure) [code = 317905943] Future Scheduled 2023-06-22 [facility] Test 19:08:58 malignant neoplasm of colon (procedure) [code = 631906933] Future Scheduled 2023-06-22 COVID-[address] [facility] Test 19:08:58 (#1) [code = COVID-19 VACCINE (#1)] Future Scheduled 2023-06-22 [facility] Test 19:08:58 malignant neoplasm of colon (procedure) [code = 986994947] Future Scheduled 2023-06-22 [facility] Test 19:08:58 malignant neoplasm of colon (procedure) [code = 814847869] Future Scheduled 2023-06-22 SHINGLES VACCINES [facility] Test 19:08:58 (1 of 2) [code = SHINGLES VACCINES (1 of 2)] Future Scheduled 2023-06-22 INFLUENZA VACCINE [facility] Test 19:08:58 (#1) [code = INFLUENZA VACCINE (#1)] Encounters Start End Encounter Admission Attending Care Care Encounter Source Date/Time Date/Time Type Type Clinicians Facility Department ID 2019-10-22 Inpatient HOWIE Fernandes [facility] PUL [id number] [facility] 09:00:[address] 2019-10-18 Inpatient HCAMN MEXP [id number] [facility] 03:00:[address] [place] [address] 2023-02-03 2023-02-03 Outpatient Jimi HEATH [facility] [id number] Univers 13:15:00 13:15:00 NOE witt [facility] 2023-01-24 2023-01-24 Orders Doctor MAZARIEGOS [id number] Univers 00:00:00 00:00:00 Only Unassigned, DEENA 350.1.13.10 ity of [place] [facility] 4.2.7.2.686 Sukhjinder as [phone] [address] 2021-12-25 2021-12-25 [facility] [id number] Univers 10:00:00 10:58:26 NOE ity o f [facility] 2021-12-25 2021-12-25 Office Iv[facility] [id number] Univers 10:00:00 10:58:26 Visit Noe Y 350.1.13.10 i ty of NATIONAL 4.2.7.2.686 Sukhjinder as BANK [phone] [facility] BLDG. 136 Branch 2021-12-25 2021-12-25 [facility]patient [facility] [id number] Univers 10:00:00 10:58:26 NOE ity o f [facility] 2021-12-25 2021-12-25 Orders Doctor DELILAH [id number] Univers 00:00:00 00:00:00 Only Unassigned, DEENA 350.1.13.10 ity of [place] [facility] 4.2.7.2.686 Sukhjinder as [phone] [address] 2021-12-15 2021-12-15 Orders Doctor DELILAH 1.2.840.114 [id number] Univers 00:00:00 00:00:00 Only Unassigned, DEENA 350.1.13.10 ity of [place] [facility]OSPITAL 4.2.7.2.686 Sukhjinder as [phone] [address] 2021-09-14 2021-09-15 Emergency X LIZET, [facility] ERT [id number] Univers 18:43:00 00:24:00 JIM y o [facility] 2021-09-14 2021-09-15 Emergency Lizet, [place] [id number] Univers 18:43:00 00:24:00 [facility] 350.1.13.10 i ty of [place] 4[place]7.2.686 [place] [phone] [facility] 014 Branch 2020-01-18 2020-01-19 [facility]patient [facility] [id number] [place] 00:00:00 00:00:00 ARIELLE Moser8 [facility] 2020-01-17 2020-01-18 Emergency Sherice Tejeda [facility] 1.2.840.1 [id number] Univers 08:04:36 09:45:00 Jason Hall [facility] 350.1.13.10 ity of [place] 4.2.7.2.686 [facility] [phone] [place] [address] Branch ([facility]) 2019-12-14 2019-12-14 Emergency [facility] Charmaine [id number] [place] 00:00:00 00:00:00 DENILSON Julian Method i 2019-12-05 2019-12-05 Outpatient Dom [facility] PUL [id number] [facility] 09:00:00 09:00:00 Rodger Waddell [facility] 2019-10-18 2019-10-18 Outpatient Woody [facility] LABO G00 [id number] [facility] 19:37:00 19:37:00 Magy arzate Clear Priti [facility] 2019-09-11 2019-09-12 Outpatient X MARIAM [facility] JOSE [id number] Univers 03:48:47 16:25:00 LAURA ity [facility] 2019 2019-06-25 Emergency Soto Mann [facility] 1.2.840. [id number] Univers 11:05:47 11:35:00 Genesis Cr [place] 350.1.13.10 ity of [place] 4.2.7.2.686 [facility] [phone] [place] [address] Branch 2019 2019-06-25 Emergency X OWEN WIMARION ERT [id number] Univers 11:05:47 11:35:00 GENESIS ity [facility] Results Test Description Test Time Test Comments Results Result [facility] e Comments - XR CHEST 2 V 2019-12-05 Patient Name: 10:26:00 BASIL BERGER JR Unit No: [id number] EXAMS: CPT CODE: [id number] XR CHEST 2 V 96522 EXAMINATION: - XR CHEST 2 V LOCATION: W1 INDICATION/CLINICAL HISTORY: J44.0 COMPARISON: None. TECHNIQUE: Frontal and lateral views of the chest. FINDINGS: Cardiomediastinal silhouette: Normal. Pulmonary vasculature: Not congested. Lungs/pleura: No consolidation, pneumothorax or pleural effusion. There is pulmonary hyperinflation. Upper abdomen: Unremarkable. Regional osseous structures: Intact. IMPRESSION: Pulmonary hyperinflation. No consolidations or infiltrates. at 1026 Reported and signed by: Maricn Morataya M.D. CC: Rodger Fernandes MD Technologist: Clive Eng Time: DAP (Gy m2): Air Kerma (mGy): Trscr Dt/Tm: 12/05/2019 (1026) by:[email or web address] Printed Date/Time: 12/05/2019 (1030) Name: CELINEBASIL JR [facility] Phys: Rodger Castellano MD [address] : 1970 Age: 49 Sex: [place] [address] Loc: P.PUL Exam Date: 12/05/2019 Status: REG CLI PH: FAX: PAGE 1 Signed Report ACUTE HEPATITIS PANEL 2019-10-20 20:50:00 Test Item Value Reference Range Interpretation Comme nts AB HEPATITIS A IGM (test NON REACTIVE INDEX NON REACT. Testing done at [facility] code = HAVMAB) [facility] [address] [place] [address]. [place] [address] AB HEPATITIS B SURFACE <3.1 mIU/mL Immunity>9.9 A Stat us of Immunity (test code = HBSAB) Anti-HBs Level --- I nconsistent with Immunity 0 .0 - 9.9Consistent w ith Immunity >9.9Performed A t: HD [address] [id number] Patterson MD Ph:[phone] ST PERFORMED AT [facility] [address] AG HEPATITIS B SURFACE NON REACTIVE INDEX NonReactive Testing done at [facility] (test code = HBSAG) [facility] [address] [place] [address]. [place], [place] [address] AB HEPATITIS B CORE IGM NON REACTIVE INDEX NON REACT. Testing done at [facility] (test code = HBCMAB) [facility] [address] [place] [address] [place] [address] AB HEPATITIS C (test NON REACTIVE INDEX NON REACT. T esting done at [facility] code = HCVAB) [facility] [address] [place], [place] [address] [address] [phone] Specimen comments: May do on blood in lab, if possible.COMPREHENSIVE METABOLIC [id number] 06:51:00 Test Item Value Reference Range Interpretation [...] 67 Units/L 50.0-136.0 N code = ALKP) [id number] 06:51:00 Test Item Value Reference Range Interpretation Comments MAGNESIUM (test code = MAG) 2.0 mg/dl 1.8-2.4 N CBC W/AUTO [id number] 06:23:00 Test Item Value Reference Range Interpretation [...] BA#) 0.0 K/mm3 0.0-0.2 N ACUTE HEPATITIS [id number] 04:31:00 Test Item Value Reference Range Interpretation Comments AB HEPATITIS A IGM NON REACTIVE NON REACT. Testing d one at (test code = INDEX CLEAR OLEA TOMMY ONAL HAVMAB) [facility] [address] [place] [address] AB HEPATITIS B mIU/mL Immune >9.9 SURFACE (test code = HBSAB) AG HEPATITIS B NON REACTIVE NonReactive Testing done at SURFACE (test code INDEX CLEAR [place] [facility]AL = HBSAG) [facility] [address] [place] [address] [phone] AB HEPATITIS B NON REACTIVE NON REACT. Testing done at CORE IGM (test INDEX CLEAR OLEA RE GIONAL code = HBCMAB) [facility] [address] [place] [address] [phone] AB HEPATITIS C NON REACTIVE NON REACT. Testing done at (test code = INDEX CLEAR OLEA TOMMY ONAL HCVAB) [facility] [address] [place] [address] [phone] Specimen comments: May do on blood [...] on blood in lab, if possible.AB HEPATITIS [id number] 03:35:00 Test Item Value Reference Range Interpretation [...] on blood in lab, if possible.AB HEPATITIS [id number] 03:34:00 Test Item Value Reference Range Interpretation [...] on blood in lab, if possible.AB HEPATITIS [id number] 03:33:00 Test Item Value Reference Range Interpretation [...] INDEX CLEAR [place] [facility]AL = HBSAG) [facility] [address] [place] [address] AB HEPATITIS B INDEX NONREACTIVE CORE IGM [...] on blood in lab, if possible.AB HEPATITIS [id number] 03:06:00 Test Item Value Reference Range Interpretation [...] in lab, if possible.- XR CHEST 1 [id number] 04:08:00 FAX: Kirby Rhodes MD [phone] [place]: St: REG Name: BASIL BERGER [facility] : 1970 Age/S: 49/M [address] [facility] Unit #: [id number] Loc: E.EXP [place], [place]: [place] [address] Acct: [id number] Dis Date: Status: REG ER PHONE #: [phone] Exam Date: 10/18/2019350 FAX #: [phone] Reason: SOB EXAMS: CPT CODE: [id number] XR CHEST 1 V 26375 AFTER HOURS SERVICE ON:10/18/2019 4:07 AM AP [...] CC: Kirby Rhodes MD Technologist: PRECIOUS STRAUSS Trnhird Date/Time/By: 10/18/2019 (0408) : By: [email or web address] PAGE 1 Signed Report FAX:Kirby Rhodes MD [phone] [place]: St: REG Name: BASIL BERGER [facility] : 1970 Age[facility]S: 49[facility] Unit #: [id number] Loc: E.EXP [place], [place]: [place] [address] Acct: [id number] Dis Date: Status: REG ER PHONE #: [phone] Exam Date: 10/18/2019 035 FAX #: [phone] Reason: SOB EXAMS: CPT CODE: [id number] XR CHEST 1 V 93387 <Continued> Orig Print D/T: S: 10/18/2019 (0411) PAGE 2 Signed Report BASIC METABOLIC [id number] 04:05:00 Test Item Value Reference Range Interpretation [...] 8.5 mg/dl 8.0-10.5 N HEPATIC FUNCTION PANEL [id number] 04:05:00 Test Item Value Reference Range Interpretation [...] 82 Units/L 50.0-136.0 N code = ALKP) [id number] 04:05:00 Test Item Value Reference Range Interpretation Comments LIPASE (test code = LIP) 147 Units/L 65.0-230.0 N B-TYPE NATRIURETIC [id number] 04:05:00 Test Item Value Reference Range Interpretation Comments B-TYPE NATRIURETIC PEPTIDE (test 6.8 PG/ML 5-100 N code = BNP) [id number] 04:05:00 Test Item Value Reference Range Interpretation Comments TROPONIN-I (test <0.02 NG/ML 0.00-0.06 N REFERENCE R REBECA code = TROPI) TROPONIN I HEA LTHY INDIVIDUALS: <0 .06 ng/mL R/O ISCHE TASHI: 0.07 - 0.60 ng/ mL CUT-OFF RANGE F OR AMI: 0.60 - 1.5 ng/m L BASIC METABOLIC [id number] 04:03:00 Test Item Value Reference Range Interpretation [...] 8.5 mg/dl 8.0-10.5 N HEPATIC FUNCTION PANEL [id number] 04:03:00 Test Item Value Reference Range Interpretation [...] 82 Units/L 50.0-136.0 N code = ALKP) [id number] 04:03:00 Test Item Value Reference Range Interpretation Comments LIPASE (test code = LIP) 147 Units/L 65.0-230.0 N B-TYPE NATRIURETIC [id number] 04:03:00 Test Item Value Reference Range Interpretation Comments B-TYPE NATRIURETIC PEPTIDE (test code PG/ML 5-100 = BNP) [id number] 04:03:00 Test Item Value Reference Range Interpretation Comments TROPONIN-I (test <0.02 NG/ML 0.00-0.06 N REFERENCE R REBECA code = TROPI) TROPONIN I HEA LTHY INDIVIDUALS: <0 .06 ng/mL R/O ISCHE TASHI: 0.07 - 0.60 ng/ mL CUT-OFF RANGE F OR AMI: 0.60 - 1.5 ng/m L BASIC METABOLIC [id number] 03:53:00 Test Item Value Reference Range Interpretation [...] = CA) mg/dl 8.0-10.5 HEPATIC FUNCTION PANEL [id number] 03:53:00 Test Item Value Reference Range Interpretation Comments TOTAL PROTEIN (test code = PROT) gm/dL 6.4-8.2 ALBUMIN (test code = ALB) gm/dl 3.2-4.7 BILIRUBIN TOTAL (test code = BILT) mg/dl 0.0-1.0 BILIRUBIN DIRECT (test code = BILD) mg/dl 0.0-0.3 SGOT/AST (test code = AST) Units/L 15.0-37.0 SGPT/ALT (test code = ALT) Units/L 12.0-78.0 ALKALINE PHOSPHATASE TOTAL (test Units/L 50.0-136.0 code = ALKP) [id number] 03:53:00 Test Item Value Reference Range Interpretation Comments LIPASE (test code = LIP) Units/L 65.0-230.0 B-TYPE NATRIURETIC [id number] 03:53:00 Test Item Value Reference Range Interpretation Comments B-TYPE NATRIURETIC PEPTIDE (test code PG/ML 5-100 = BNP) [id number] 03:53:00 Test Item Value Reference Range Interpretation Comments TROPONIN-I (test code = TROPI) NG/ML 0.00-0.06 CBC W/AUTO [id number] 03:47:00 Test Item Value Reference Range Interpretation [...]
--- NOTE | 2023-07-08 19:22 | EDPHYS ---
Physician Documentation [facility] Name: Joe Marina Jr Age: 53 yrs Sex: Male : 1970 Arrival Date: 07/08/2023 Time: 18:37 Bed IW2 Private MD: ED Physician Zachary Warren HPI: 07/08 19:08 This 53 yrs old Male presents to ER via Ambulatory with complaints of Rash. cp 19:08 The patient's rash thought to be caused by an unknown cause. The rash is located on the cp chin and lower lip. The rash can be described as erythematous, pustular, vesicular. Onset: The symptoms/episode began/occurred 4 day(s) ago. Associated signs and symptoms: Pertinent positives: burning sensation, swelling of lips, Pertinent negatives: fever, drainage. Severity of symptoms: in the emergency department the symptoms are unchanged despite home interventions. Historical: - Allergies: 19:05 Haldol; cm10 19:05 PENICILLINS; cm10 - PMHx: 19:05 Hypertension; PTSD; SUICIDE ATTEMPT; cm10 - PSHx: 19:05 Appendectomy; hernia mesh; Cholecystectomy; cm10 - Immunization history:: Adult Immunizations. - Social history:: Smoking status: unknown. ROS: 19:10 Constitutional: Negative for body aches, chills, fever, cp 19:10 ENT: Negative for drainage from ear(s), ear pain, sore throat, difficulty swallowing, difficulty handling secretions, 19:10 Respiratory: Negative for cough, shortness of breath, wheezing, 19:10 Skin: Positive for rash, swelling, of the chin and lower lip, 19:10 All other systems are negative, Exam: 19:15 Constitutional: The patient appears in no acute distress, alert, awake, non-toxic, well cp developed, well nourished, 19:15 Head/face: Noted is swelling, that is mild, of the left lower lip, cp 19:15 Eyes: Periorbital structures: appear normal, Conjunctiva: normal, no exudate, no cp injection, Lids and lashes: appear normal, bilaterally, 19:15 ENT: External ear(s): are unremarkable, Nose: is normal, Mouth: Oral mucosa: moist, abscess, is not appreciated, Posterior pharynx: is normal, airway is patent, no erythema, no exudate, 19:15 Neck: ROM/movement: is normal, is supple, without pain, no range of motions limitations, Lymph nodes: no appreciated lymphadenopathy, 19:15 Chest/axilla: Inspection: normal, 19:15 Cardiovascular: Rate: normal, 19:15 Respiratory: the patient does not display signs of respiratory distress, Respirations: normal, no use of accessory muscles, no retractions, labored breathing, is not present, 19:15 Skin: rash can be described as erythematous, papular, vesicular, on the lower lip and shaved area below lower lip, Vital Signs: 19:02 BP 140 / 101; Pulse 72; Resp 18; Temp 97.7(TE); Pulse Ox 99% ; Weight 95.25 kg; Height cm10 76 in. ; Pain 0/10; 19:02 Body Mass Index 25.56 (95.25 kg, 193.04 cm) cm10 19:02 Pain Scale: Adult cm10 MDM: 19:08 Patient medically screened. cp 19:15 Differential diagnosis: impetigo, herpes, cellulitis, abscess. cp 19:20 Data reviewed: vital signs, nurses notes. cp 19:20 Counseling: I had a detailed discussion with the patient and/or guardian regarding the cp historical points, exam findings, and any diagnostic results supporting the discharge/admit diagnosis, to return to the emergency department if symptoms worsen or persist or if there are any questions or concerns that arise at home. Administered Medications: No medications were administered Disposition Summary: 07/08/23 19:21 Discharge Ordered Notes: Location: Home cp Problem: new cp Symptoms: are unchanged cp Condition: Stable cp Diagnosis - Other lesions of oral mucosa - lower lip cp Followup: cp - With: Private Physician - When: 2 - 3 days - Reason: Recheck today's complaints Discharge Instructions: - Discharge Summary Sheet cp Forms: - Medication Reconciliation Form cp - Thank You Letter cp - Antibiotic Education cp - Prescription Opioid Use cp - Patient Portal Instructions cp - Leadership Thank You Letter cp Prescriptions: - Clindamycin HCl 300 mg Oral Capsule - take 1 capsule ORAL route every 6 hours for 10 days; 40 capsule; Refills: 0, cp Product Selection Permitted - Acyclovir 400 mg Oral Tablet - take 1 tablet ORAL route every 8 hours; 30 tablet; Refills: 0, Product cp Selection Permitted Signatures: Page, Zachary, Bushra Ferguson cp, RN RN cm10
--- NOTE | 2023-07-08 19:22 | ER ---
Nurse's Notes [facility] Name: Joe Marina Jr Age: 53 yrs Sex: Male : 1970 Arrival Date: 07/08/2023 Time: 18:37 Bed IW2 Private MD: Diagnosis: Other lesions of oral mucosa-lower lip Presentation: 07/08 19:02 Chief complaint: Patient states: rash to his chin area. Pt states that he has a history cm10 of staph. Pt states that this started after shaving. Coronavirus screen: Vaccine status:. Ebola Screen: Patient denies travel to an Ebola-affected area in the 21 days before illness onset. No symptoms or risks identified at this time. Initial Sepsis Screen: Does the patient meet any 2 criteria? No. Patient's initial sepsis screen is negative. Does the patient have a suspected source of infection? No. Patient's initial sepsis screen is negative. Risk Assessment: Do you want to hurt yourself or someone else? Patient reports no desire to harm self or others. Onset of symptoms was July 08, 2023. 19:02 Method Of Arrival: Ambulatory cm10 19:02 Acuity: DARSHAN 4 cm10 Triage Assessment: 19:05 General: Appears in no apparent distress. comfortable, Behavior is calm, cooperative. cm10 Pain: Complains of pain in mouth and chin. Neuro: No deficits noted. Level of Consciousness is awake, alert, obeys commands, Oriented to person, place, time, situation. Respiratory: No deficits noted. Airway is patent Respiratory effort is even, unlabored, Respiratory pattern is regular, symmetrical. Derm: Rash noted that is vesicular, on mouth and chin. Historical: - Allergies: 19:05 Haldol; cm10 19:05 PENICILLINS; cm10 - PMHx: 19:05 Hypertension; PTSD; SUICIDE ATTEMPT; cm10 - PSHx: 19:05 Appendectomy; hernia mesh; Cholecystectomy; cm10 - Immunization history:: Adult Immunizations. - Social history:: Smoking status: unknown. Screenin:29 [facility] ED Fall Risk Assessment (Adult) History of falling in the last 3 months, cm10 including since admission No falls in past 3 months (0 pts) Confusion or Disorientation No (0 pts) Intoxicated or Sedated No (0 pts) Impaired Gait No (0 pts) Mobility Assist Device Used No (0 pt) Altered Elimination No (0 pt) Score/Fall Risk Level 0 - 2 = Low Risk Oriented to surroundings, Maintained a safe environment, Provided non-skid footwear. Abuse screen: Denies threats or abuse. Denies injuries from another. Nutritional screening: No deficits noted. Tuberculosis screening: No symptoms or risk factors identified. Vital Signs: 19:02 BP 140 / 101; Pulse 72; Resp 18; Temp 97.7(TE); Pulse Ox 99% ; Weight 95.25 kg; Height cm10 76 in. ; Pain 0/10; 19:02 Body Mass Index 25.56 (95.25 kg, 193.04 cm) cm10 19:02 Pain Scale: Adult cm10 ED Course: 18:38 Patient arrived in ED. rg4 18:43 Zachary Herman PA is PHCP. cp 18:43 Zachary Warren MD is Attending Physician. cp 19:05 Triage completed. cm10 19:06 Arm band placed on Patient placed in waiting room. cm10 19:29 Patient has correct armband on for positive identification. Provided Education on: ER cm10 process and procedures.. 19:29 No provider procedures requiring assistance completed. Patient did not have IV access cm10 during this emergency room visit. Administered Medications: No medications were administered Medication: 19:29 VIS not applicable for this client. cm10 Outcome: 19:21 Discharge ordered by . cp 19:29 Discharged to home ambulatory, with significant other, cm10 19:29 Condition: good 19:29 Discharge instructions given to patient, Instructed on discharge instructions, follow up and referral plans. medication usage, Demonstrated understanding of instructions, follow-up care, medications, Prescriptions given X 2, 19:30 Patient left the ED. cm10 Signatures: Zachary Herman PA PA cp Garcia, Rubi rg4 Bushra Cameron, RN RN cm10
[2023-07-08 19:35] VITALS: BP 140/101; TEMP 97.7; O2SAT 99
== END 2023-07-08 19:30 | disposition home or self-care (01) ==
LOC: ER 18:37
DX: K13.79 Other lesions of oral mucosa (principal); R21 Rash and other nonspecific skin eruption; I10 Essential (primary) hypertension; Z88.0 Allergy status to penicillin; Z88.5 Allergy status to narcotic agent
CPT/HCPCS: 99283

== ENCOUNTER 2024-06-12 21:01 | Emergency (ER) | payer OTHER ==
--- OUTSIDE RECORDS SUMMARY | 2024-06-12 21:05 | XMS REPORT | Continuity of Care Document ---
Author Name Unknown Address [address] [facility] [address] [place] [address] [facility]wood llcect Address [address] [facility] [address] [place] [address] Care Team Providers Care Director Statistical Programming Name Role Phone [facility] Primary Care Physician U Rodger Davidson Attending Clinician UnavailRAGINI Harvey Attending Clinician Unavailable RAGINI BURDICK Attending Clinician Unavailable Doctor Unassigned, [place] Attending Clinician U MEGHAN Samson Attending Clinician Unavailable Meghan Bustos OD Attending Clinician [phone] JIM SONG Attending Clinician UnavailJim Hyde Attending Clinician Sherice Tejeda DO Attending Clinician [phone] Jason Hall MD Attending Clinician [phone] Priti Sexton Attending Clinician LAURA Hernandez Attending Clinician Unavailable Soto Mann MD Attending Clinician [phone] Genesis Cr MD Attending Clinician [phone] GENESIS CR Attending Clinician Unavailable Physician, No Primary or Family Admitting Clinic yazmin Unavailable KNOW, DOES_NOT Admitting Clinician Unavailable [place], [place] [facility] Admitting C linician Unavailable JIM SONG Admitting Clinician Unavaila Jason Taveras MD Admitting Clinician [phone] LAURA BECERRA Admitting Clinician Unavailable Payers Payer Name Policy Type Policy Number Effective Date Expirati on Date Source [facility] [id number] 2023 00:00:00 [facility] [id number] 2006 00:00:00 Problems Condition Name Condition Details Condition Category Status Onset Date Resolution Date Last Treatment Date Treating Clinician Comments Source Chest pain Chest pain Disease Active 2018-10 00:00: 00 [facility] Allergies, Adverse Reactions, Alerts Allergy Name Allergy Type Status Severity Reaction(s) Onset Date Inactive Date Treating Clinician Comments Source penicill in G DA Active [place] HIVES 10-18 00:00: 00 [facility] Penicill ins Propensi ty to adverse reaction s Active Unknown - See comments 06-23 00:00: 00 [facility] PENICILL INS Drug Class Active Unknown-Cmnt 06-23 00:00: 00 [facility] Penicill ins Propensi ty to adverse reaction s Active Unknown - See comments 06-23 00:00: 00 [facility] No Known Contrast Allergie s DA Active U 02-21 00:00: 00 [facility] No Known Food Allergie s DA Active U 02-21 00:00: 00 [facility] No Known Other Allergie s DA Active U 02-21 00:00: 00 [facility] PENICILL IN DA Active U -08 00:00: 00 [facility] penicill in G DA Active U 2000- 5-18 00:00: 00 [facility] Social History Social Habit Start Date Stop Date Quantity Comments Source History SDOH Alcohol Comment [facility] Exposure to SARS-CoV-2 (event) Not sure [facility] of tobacco use Snuff User [facility] History SDOH Alcohol Binge [facility] Tobacco use and exposure 2021-12-25 00:00:00 2021-12-25 00:00:00 User of smokeless tobacco [facility] Cigarettes smoked current (pack per day) - Reported 2021-12-25 00:00:00 2021-12-25 00:00:00 [facility] Cigarette pack-years 2021-12-25 00:00:00 2021-12-25 00:00:00 [facility] Alcohol intake 2021-12-25 00:00:00 2021-12-25 00:00:00 Current drinker of alcohol (finding) [facility] History of Social function 2020-05-21 00:00:00 2020-05-21 00:00:00 [facility] History SDOH Alcohol Frequency 2019-09-11 00:00:00 2019-09-11 00:00:00 5 [facility] History SDOH Alcohol Std Drinks 2019-09-11 00:00:00 2019-09-11 00:00:00 3 [facility] Sex Assigned At 1970 00:00:00 1970 00:00:00 [facility] Smoking Status Start Date Stop Date Source Smokes tobacco daily 2021-12-25 00:00:00 [facility] Medications Ordered Medication Name Filled Medication Name Start Date Stop Date Current Medication? Ordering Clinician Indication Dosage Frequency Signature (SIG) Comments Components Source ciprofloxac in HCl 500 mg tablet 2020-10 00:00: 00 Yes [id number] 500mg Take 1 tablet by mouth 2 (two) times daily[facility] ATENOLOL ORAL 01-17 09:46: 11 Yes 50mg Take 50 mg by mouth daily. [facility] aspirin 81 mg chewable tablet 01-17 00:00: 00 Yes [id number] 81mg Take 1 tablet by mouth daily. [facility] atorvastati n 10 mg tablet 01-17 00:00: 00 Yes [id number] 20mg Take 2 tablets by mouth at bedtime. [facility] Vital Signs Vital Name Observation Time Observation Value Comments S selin Body height 2021-12-25 16:17:00 188 cm [facility] Procedures Procedure Date / Time Performed Performing Clinicia n Source REFERRAL- REQUEST/RESPONSE 2023-12-30 05:01:00 Doctor Unassigned, [place]o [facility] REFERRAL- REQUEST/RESPONSE 2023-01-24 05:01:00 Doctor Unassigned, [place] [facility] Encounters Start Date/Time End Date/Time Encounter Type Admission Type Attending Clinicians Care Facility Care Department Encounter ID Source 2019-10-22 09:00:00 Inpatient Rodger Martins [facility] [id number] [facility] 2019-10-18 03:00:00 Inpatient [facility] [id number] [facility] 2024-02-17 11:16:38 2024-02-17 23:59:00 Outpatient R RAGINI BURDICK [facility] [id number] [facility] 2024-02-17 11:16:38 2024-02-17 23:59:00 Hospital Encounter Ragini Burdick [facility] 1..840.114 350.1.13.10 4.2.7.2.686 [id number] [facility] 2023-12-30 00:00:00 2023-12-30 00:00:00 Orders Only Doctor Unassigned, [place] [facility] 1..840.114 350.1.13.10 4.2.7.2.686 [id number] [facility] 2023-02-03 13:15:00 2023-02-03 13:15:00 [id number] 2023-01-24 00:00:00 2023-01-24 00:00:00 Orders Only Doctor Unassigned, [place] [facility] 1.2.840.114 350.1.13.10 4.2.7.2.686 [id number] [facility] 2021-12-25 10:00:00 2021-12-25 10:58:26 Outpatient R [facility] [id number] [facility] 2021-12-25 10:00:00 2021-12-25 10:58:26 Office Visit BustosMeghan [facility] [employer] [facility]. 1..840.114 350.1.13.10 4.2.7.2.686 [id number] [facility] 2021-12-25 10:00:00 2021-12-25 10:58:26 Outpatient R IVANA [facility] [id number] [facility] 2021-12-25 00:00:00 2021-12-25 00:00:00 Orders Only Doctor Unassigned, [place] [facility] 1.2.840.114 350.1.13.10 4.2.7.2.686 [id number] [facility] 2021-12-15 00:00:00 2021-12-15 00:00:00 Orders Only Doctor Unassigned, [place] [facility] 1.2.840.114 350.1.13.10 4.2.7.2.686 [id number] [facility] 2021-09-14 18:43:00 2021-09-15 00:24:00 Emergency X JIM SONG [facility] ERT [id number] [facility] 2021-09-14 18:43:00 2021-09-15 00:24:00 Emergency Jim Song [facility] 1.2.840.114 350.1.13.10 4.2.7.2.686 [id number] [facility] 2020-01-17 08:04:36 2020-01-18 09:45:00 Emergency Sherice TejedaJason [facility] 1.2.840.114 350.1.13.10 4.2.7.2.686 [id number] [facility] 2019-12-05 09:00:00 2019-12-05 09:00:00 Outpatient Aleksandramanolo Rodger [facility] [id number] [facility] 2019-10-18 19:37:00 2019-10-18 19:37:00 Outpatient Priti Fuller [facility] [id number] [facility] 2019-09-11 03:48:47 2019-09-12 16:25:00 Outpatient LAURA TADEO [facility] JOSE [id number] [facility] 2019 11:05:47 2019-06-25 11:35:00 Emergency Soto Mann [facility] Cr [facility] 1.2.840.114 350.1.13.10 4.2.7.2.686 [id number] [facility] 2019 11:05:47 2019-06-25 11:35:00 Emergency X GENESIS CR [facility] ERT [id number] [facility] Results Test Description Test Time Test Comments Results Resul t Comments Source - XR CHEST 2 V 2019-12-05 10:26:00 Patient Name: BASIL MARINA Unit No: [id number] EXAMS: CPT CODE: [id number] XR CHEST 2 V 83343 EXAMINATION: - XR CHEST 2 V LOCATION: [...] by:[email or web address] Printed Date/Time: 12/05/2019 (1030) Name: BASIL MARINA [facility] Phys: Rodger Castellano MD [address] : 1970 Age: 49 Sex: [place] [address] Loc: P.PUL Exam Date: 12/05/2019 Status: REG CLI PH: FAX: PAGE 1 Signed Report Specimen comments: May do on blood in lab, if possible.COMPREHENSIVE METABOLIC [id number] 06:51:00* Test Item Value Reference Range Interpretation Comme nts SODIUM (test code = NA) 127 mmol/l 134.0-147.0 L POTASSIUM (test code = K) 4.1 mmol/L 3.6-5.2 N CHLORIDE (test code = CL) 98 mmol/l 98.0-107.0 N CARBON DIOXIDE (test code = CO2) 26.9 mmol/l 21.0-33.0 N ANION GAP (test code = GAP) 5.1 0-20 N GLUCOSE (test code = GLU) 171 mg/dl 70.0-110.0 H BLOOD UREA NITROGEN (test co de = BUN) 11 mg/dl 7.0-18.0 N CREATININE (test code = CREAT) 0.60 mg/dL 0.60-1.30 N GFR NON BLACK (test code = GFRNONBLACK) 151 mL/min 90-95 H GFR BLACK (test code = GFRBLACK) 183 mL/min 109-115 H TOTAL PROTEIN (test code = PROT) 7.1 gm/dL 6.4-8.2 N ALBUMIN (test code = ALB) 3.0 gm/dl 3.2-4.7 L CALCIUM (test code = CA) 9.0 mg/dl 8.0-10.5 N BILIRUBIN TOTAL (test code = BILT) 0.3 mg/dl 0.0-1.0 N SGOT/AST (test code = AST) 50 Units/L 15.0-37.0 H SGPT/ALT (test code = ALT) 88 Units/L 12.0-78.0 H ALKALINE PHOSPHATASE TOTAL ( test code = ALKP) 67 Units/L 50.0-136.0 N [id number] 06:51:00* Test Item Value Reference Range Interpretation Comme nts MAGNESIUM (test code = MAG) 2.0 mg/dl 1.8-2.4 N CBC W/AUTO [id number] 06:23:00* Test Item Value Reference Range Interpretation Comme nts WHITE BLOOD CELL (test code = WBC) 7.2 K/mm3 4.5-11.0 N RED BLOOD CELL (test code = RBC) 4.87 M/mm3 4.40-5.90 N HEMOGLOBIN (test code = HGB) 14.3 gm/dL 13.0-17.0 N HEMATOCRIT (test code = HCT) 42.9 % 36.0-48.0 N MEAN CELL VOLUME (test code = MCV) 88.1 UM3 80.0-94.0 N MEAN CELL HGB (test code = MCH) 29.4 UUG 25.5-32.5 N MEAN CELL HGB CONCETRATION (test code = MCHC) 33.3 gm/dL 29.0-35.5 N RED CELL DISTRIBUTION WIDTH (test code = RDW) 14.7 % 11.5-15.0 N RED CELL DISTRIBUTION WIDTH SD (test code = RDW-SD) 47.6 fL 34.8-50.2 N PLATELET COUNT (test code = PLT) 307 K/mm3 150-400 N MEAN PLATELET VOLUME (test c ode = MPV) 9.9 fl 7.4-10.4 N NEUTROPHIL % (test code = NT%) 77.3 % 49.0-76.0 H IMMATURE GRANULOCYTE % (test code = IG%) 0.8 % 0.0-0.4 H LYMPHOCYTE % (test code = LY%) 10.8 % 23.0-38.0 L MONOCYTE % (test code = MO%) 11.0 % 1.0-10.0 H EOSINOPHIL % (test code = EO%) 0.0 % 1.0-5.0 L BASOPHIL % (test code = BA%) 0.1 % 0.0-1.0 N NEUTROPHIL # (test code = NT#) 5.6 K/mm3 2.4-6.3 N IMMATURE GRANULOCYTE # (test code = IG#) 0.06 x10 3/uL 0.00-0.07 N LYMPHOCYTE # (test code = LY#) 0.8 K/mm3 1.2-4.0 L MONOCYTE # (test code = MO#) 0.8 K/mm3 0.0-0.6 H EOSINOPHIL # (test code = EO#) 0.0 K/MM3 0.0-0.7 N BASOPHIL # (test code = BA#) 0.0 K/mm3 0.0-0.2 N ACUTE HEPATITIS [id number] 04:31:00* Test Item Value Reference Range Interpretation Comme nts AB HEPATITIS A IGM (test code = HAVMAB) NON REACTIVE INDEX NON REACT. Testing done at [facility] [address] [place] [address] AB HEPATITIS B SURFACE (test code = HBSAB) mIU/mL Immune >9.9 AG HEPATITIS B SURFACE (test code = HBSAG) NON REACTIVE INDEX NonReactive Testing done at [facility] [address] [place] [address] AB HEPATITIS B CORE IGM (test code = HBCMAB) NON REACTIVE INDEX NON REACT. Testing done at [facility] [address] [place] [address] AB HEPATITIS C (test code = HCVAB) NON REACTIVE INDEX NON REACT. Testing done at [facility] [address] [place] [address] Specimen comments: May do on blood in lab, if possible.AB HEPATITIS A IGM 2019-10-19 03:35:00* Test Item Value Reference Range Interpretation Comme nts AB HEPATITIS A IGM (test code = HAVMAB) NON REACTIVE INDEX NON REACT. Specimen comments: May do on blood in lab, if possible.AG HEPATITIS B SURFACE 2019-10-19 03:35:00* Test Item Value Reference Range Interpretation Comme nts AG HEPATITIS B SURFACE (test code = HBSAG) NON REACTIVE INDEX NonReactive Specimen comments: May do on blood in lab, if possible.AB HEPATITIS B CORE IGM 2019-10-19 03:35:00* Test Item Value Reference Range Interpretation Comme nts AB HEPATITIS B CORE IGM (test code = HBCMAB) NON REACTIVE INDEX NON REACT. Specimen comments: May do on blood in lab, if possible.AB HEPATITIS [id number] 03:35:00* Test Item Value Reference Range Interpretation Comme nts AB HEPATITIS C (test code = HCVAB) NON REACTIVE INDEX NON REACT. Specimen comments: May do on blood in lab, if possible.AB HEPATITIS A IGM 2019-10-19 03:34:00* Test Item Value Reference Range Interpretation Comme nts AB HEPATITIS A IGM (test code = HAVMAB) INDEX NON SUSSY CT. Specimen comments: May do on blood in lab, if possible.AG HEPATITIS B SURFACE 2019-10-19 03:34:00* Test Item Value Reference Range Interpretation Comme nts AG HEPATITIS B SURFACE (test code = HBSAG) NON REACTIVE INDEX NonReactive Specimen comments: May do on blood in lab, if possible.AB HEPATITIS B CORE IGM 2019-10-19 03:34:00* Test Item Value Reference Range Interpretation Comme nts AB HEPATITIS B CORE IGM (test code = HBCMAB) NON REACTIVE INDEX NON REACT. Specimen comments: May do on blood in lab, if possible.AB HEPATITIS [id number] 03:34:00* Test Item Value Reference Range Interpretation Comme nts AB HEPATITIS C (test code = HCVAB) NON REACTIVE INDEX NON REACT. Specimen comments: May do on blood in lab, if possible.AB HEPATITIS A IGM 2019-10-19 03:33:00* Test Item Value Reference Range Interpretation Comme nts AB HEPATITIS A IGM (test code = HAVMAB) INDEX NON SUSSY CT. Specimen comments: May do on blood in lab, if possible.AG HEPATITIS B SURFACE 2019-10-19 03:33:00* Test Item Value Reference Range Interpretation Comme nts AG HEPATITIS B SURFACE (test code = HBSAG) NON REACTIVE INDEX NonReactive Specimen comments: May do on blood in lab, if possible.AB HEPATITIS B CORE IGM 2019-10-19 03:33:00* Test Item Value Reference Range Interpretation Comme nts AB HEPATITIS B CORE IGM (bert t code = HBCMAB) INDEX NON REACT. Specimen comments: May do on blood in lab, if possible.AB HEPATITIS [id number] 03:33:00* Test Item Value Reference Range Interpretation Comme nts AB HEPATITIS C (test code = HCVAB) NON REACTIVE INDEX NON REACT. Specimen comments: May do on blood in lab, if possible.ACUTE HEPATITIS PANEL 2019-10-19 03:29:00* Test Item Value Reference Range Interpretation Comme nts AB HEPATITIS A IGM (test code = HAVMAB) INDEX NONREACTIVE AB HEPATITIS B SURFACE (test code = HBSAB) mIU/mL Immune >9.9 AG HEPATITIS B SURFACE (test code = HBSAG) NON REACTIVE INDEX NonReactive Testing done at [facility] [address] [place] [address]. [place] [address] AB HEPATITIS B CORE IGM (test code = HBCMAB) INDEX NONREACTIVE AB HEPATITIS C (test code = HCVAB) INDEX NONREACTIVE Specimen comments: May do on blood in lab, if possible.AB HEPATITIS B CORE IGM 2019-10-19 03:06:00* Test Item Value Reference Range Interpretation Comme nts AB HEPATITIS B CORE IGM (bert t code = HBCMAB) INDEX NON REACT. Specimen comments: May do on blood in lab, if possible.AB HEPATITIS [id number] 03:06:00* Test Item Value Reference Range Interpretation Comme nts AB HEPATITIS C (test code = HCVAB) INDEX NON REACT. Specimen comments: May do on blood in lab, if possible.AB HEPATITIS A IGM 2019-10-19 03:06:00* Test Item Value Reference Range Interpretation Comme nts AB HEPATITIS A IGM (test code = HAVMAB) INDEX NON SUSSY CT. Specimen comments: May do on blood in lab, if possible.AG HEPATITIS B SURFACE 2019-10-19 03:06:00* Test Item Value Reference Range Interpretation Comme nts AG HEPATITIS B SURFACE (test code = HBSAG) NON REACTIVE INDEX NonReactive Specimen comments: May do on blood in lab, if possible.- XR CHEST 1 [id number] 04:08:00FAX: Kirby Rhodes MD [phone] [place]: St: REG Name: BASIL MARINA [facility] : 1970 Age/S: 49/M [address] Unit #: [id number] Loc: E.EXP [place], [place]: [place] [id number] Acct: [id number] Dis Date: Status: REG ER PHONE #: [phone] Exam Date: 10/18/2019 0351 FAX #: [phone] Reason: SOB EXAMS: CPT CODE: [id number] XR CHEST 1 V 25949 AFTER HOURS SERVICEON: 10/18/2019 4:07 AM AP Portable Chest Location Code M12 HISTORY: SOB FINDINGS: There are no infiltrates. There are coarse chronic appearing bilateral interstitial markings. There are no pleural effusions. There is no pneumothorax. Cardiac silhouette and mediastinum appear within normal limits. IMPRESSION: No active pulmonary findings. at 0408 Reported and signed by: Rigo Perez M.D. CC: Kirby Rhodes MD Technologist: [employer] Trnohrd Date/Time/By: 10/18/2019 (0408) : By: [email or web address] PAGE 1 Signed Report FAX: Kirby Rhodes MD [phone] [place]: St: REG Name: BASIL MARINA [facility] : 1970 Age/S:49/M [address] [facility] [employer] Unit #: [id number] Loc: E.EXP [place], [place]: [place] [id number] Acct: [id number] Dis Date: Status: REG ER PHONE #: [phone] Exam Date: FAX #: [phone] Reason: SOB EXAMS: CPT CODE: [id number] XR CHEST 1 V 19479 <Continued> Orig Print D/T: S: 10/18/2019 (0411) PAGE 2 Signed ReportBASIC METABOLIC [id number] 04:05:00* Test Item Value Reference Range Interpretation Comme nts SODIUM (test code = NA) 140 mmol/l 134.0-147.0 N POTASSIUM (test code = K) 4.1 mmol/L 3.6-5.2 N CHLORIDE (test code = CL) 101 mmol/l 98.0-107.0 N CARBON DIOXIDE (test code = CO2) 26.5 mmol/l 21.0-33.0 N ANION GAP (test code = GAP) 16.6 0-20 N GLUCOSE (test code = GLU) 87 mg/dl 70.0-110.0 N BLOOD UREA NITROGEN (test co de = BUN) 3 mg/dl 7.0-18.0 L CREATININE (test code = CREAT) 0.60 mg/dL 0.60-1.30 N GFR NON BLACK (test code = GFRNONBLACK) 151 mL/min 90-95 H GFR BLACK (test code = GFRBLACK) 183 mL/min 109-115 H CALCIUM (test code = CA) 8.5 mg/dl 8.0-10.5 N HEPATIC FUNCTION PANEL [id number] 04:05:00* Test Item Value Reference Range Interpretation Comme nts TOTAL PROTEIN (test code = PROT) 7.9 gm/dL 6.4-8.2 N ALBUMIN (test code = ALB) 3.3 gm/dl 3.2-4.7 N BILIRUBIN TOTAL (test code = BILT) 0.2 mg/dl 0.0-1.0 N BILIRUBIN DIRECT (test code = BILD) 0.1 mg/dl 0.0-0.3 N SGOT/AST (test code = AST) 87 Units/L 15.0-37.0 H SGPT/ALT (test code = ALT) 109 Units/L 12.0-78.0 H ALKALINE PHOSPHATASE TOTAL ( test code = ALKP) 82 Units/L 50.0-136.0 N [id number] 04:05:00* Test Item Value Reference Range Interpretation Comme nts LIPASE (test code = LIP) 147 Units/L 65.0-230.0 N B-TYPE NATRIURETIC [id number] 04:05:00* Test Item Value Reference Range Interpretation Comme nts B-TYPE NATRIURETIC PEPTIDE ( test code = BNP) 6.8 PG/ML 5-100 N [id number] 04:05:00* Test Item Value Reference Range Interpretation Comme nts TROPONIN-I (test code = TROPI) <0.02 NG/ML 0.00-0.06 N REFERENCE RANGE TROPONIN I HEALTHY INDIVIDUALS: <0.06 ng/mL R/O ISCHEMIA: 0.07 - 0.60 ng/mL CUT-OFF RANGE FOR AMI: 0.60 - 1.5 ng/mL BASIC METABOLIC [id number] 04:03:00* Test Item Value Reference Range Interpretation Comme nts SODIUM (test code = NA) 140 mmol/l 134.0-147.0 N POTASSIUM (test code = K) 4.1 mmol/L 3.6-5.2 N CHLORIDE (test code = CL) 101 mmol/l 98.0-107.0 N CARBON DIOXIDE (test code = CO2) 26.5 mmol/l 21.0-33.0 N ANION GAP (test code = GAP) 16.6 0-20 N GLUCOSE (test code = GLU) 87 mg/dl 70.0-110.0 N BLOOD UREA NITROGEN (test co de = BUN) 3 mg/dl 7.0-18.0 L CREATININE (test code = CREAT) 0.60 mg/dL 0.60-1.30 N GFR NON BLACK (test code = GFRNONBLACK) 151 mL/min 90-95 H GFR BLACK (test code = GFRBLACK) 183 mL/min 109-115 H CALCIUM (test code = CA) 8.5 mg/dl 8.0-10.5 N HEPATIC FUNCTION PANEL [id number] 04:03:00* Test Item Value Reference Range Interpretation Comme nts TOTAL PROTEIN (test code = PROT) 7.9 gm/dL 6.4-8.2 N ALBUMIN (test code = ALB) 3.3 gm/dl 3.2-4.7 N BILIRUBIN TOTAL (test code = BILT) 0.2 mg/dl 0.0-1.0 N BILIRUBIN DIRECT (test code = BILD) 0.1 mg/dl 0.0-0.3 N SGOT/AST (test code = AST) 87 Units/L 15.0-37.0 H SGPT/ALT (test code = ALT) 109 Units/L 12.0-78.0 H ALKALINE PHOSPHATASE TOTAL ( test code = ALKP) 82 Units/L 50.0-136.0 N [id number] 04:03:00* Test Item Value Reference Range Interpretation Comme nts LIPASE (test code = LIP) 147 Units/L 65.0-230.0 N B-TYPE NATRIURETIC [id number] 04:03:00* Test Item Value Reference Range Interpretation Comme [facility] B-TYPE NATRIURETIC PEPTIDE ( test code = BNP) PG/ML 5-100 [id number] 04:03:00* Test Item Value Reference Range Interpretation Comme [facility] TROPONIN-I (test code = TROPI) <0.02 NG/ML 0.00-0.06 N REFERENCE RANGE TROPONIN I HEALTHY INDIVIDUALS: <0.06 ng/mL R/O ISCHEMIA: 0.07 - 0.60 ng/mL CUT-OFF RANGE FOR AMI: 0.60 - 1.5 ng/mL BASIC METABOLIC [id number] 03:53:00* Test Item Value Reference Range Interpretation Comme nts SODIUM (test code = NA) 140 mmol/l 134.0-147.0 N POTASSIUM (test code = K) 4.1 mmol/L 3.6-5.2 N CHLORIDE (test code = CL) 101 mmol/l 98.0-107.0 N CARBON DIOXIDE (test code = CO2) 26.5 mmol/l 21.0-33.0 N ANION GAP (test code = GAP) 16.6 0-20 N GLUCOSE (test code = GLU) mg/dl 70.0-110.0 BLOOD UREA NITROGEN (test co de = BUN) mg/dl 7.0-18.0 CREATININE (test code = CREAT) mg/dL 0.60-1.30 GFR NON BLACK (test code = GFRNONBLACK) mL/min 90-95 GFR BLACK (test code = GFRBLACK) mL/min 109-115 CALCIUM (test code = CA) mg/dl 8.0-10.5 HEPATIC FUNCTION PANEL [id number] 03:53:00* Test Item Value Reference Range Interpretation Comme nts TOTAL PROTEIN (test code = PROT) gm/dL 6.4-8.2 ALBUMIN (test code = ALB) gm/dl 3.2-4.7 BILIRUBIN TOTAL (test code = BILT) mg/dl 0.0-1.0 BILIRUBIN DIRECT (test code = BILD) mg/dl 0.0-0.3 SGOT/AST (test code = AST) Units/L 15.0-37.0 SGPT/ALT (test code = ALT) Units/L 12.0-78.0 ALKALINE PHOSPHATASE TOTAL ( test code = ALKP) Units/L 50.0-136.0 [id number] 03:53:00* Test Item Value Reference Range Interpretation Comme nts LIPASE (test code = LIP) Units/L 65.0-230.0 B-TYPE NATRIURETIC [id number] 03:53:00* Test Item Value Reference Range Interpretation Comme nts B-TYPE NATRIURETIC PEPTIDE ( test code = BNP) PG/ML 5-100 [id number] 03:53:00* Test Item Value Reference Range Interpretation Comme [facility] TROPONIN-I (test code = TROPI) NG/ML 0.00-0.06 CBC W/AUTO [id number] 03:47:00* Test Item Value Reference Range Interpretation Comme nts WHITE BLOOD CELL (test code = WBC) 6.1 K/mm3 4.5-11.0 N RED BLOOD CELL (test code = RBC) 5.15 M/mm3 4.40-5.90 N HEMOGLOBIN (test code = HGB) 15.2 gm/dL 13.0-17.0 N HEMATOCRIT (test code = HCT) 45.0 % 36.0-48.0 N MEAN CELL VOLUME (test code = MCV) 87.4 UM3 80.0-94.0 N MEAN CELL HGB (test code = MCH) 29.5 UUG 25.5-32.5 N MEAN CELL HGB CONCETRATION (test code = MCHC) 33.8 gm/dL 29.0-35.5 N RED CELL DISTRIBUTION WIDTH (test code = RDW) 14.6 % 11.5-15.0 N RED CELL DISTRIBUTION WIDTH SD (test code = RDW-SD) 46.6 fL 34.8-50.2 N PLATELET COUNT (test code = PLT) 313 K/mm3 150-400 N MEAN PLATELET VOLUME (test c ode = MPV) 9.4 fl 7.4-10.4 N NEUTROPHIL % (test code = NT%) 51.6 % 49.0-76.0 N IMMATURE GRANULOCYTE % (test code = IG%) 0.8 % 0.0-0.4 H LYMPHOCYTE % (test code = LY%) 35.7 % 23.0-38.0 N MONOCYTE % (test code = MO%) 8.3 % 1.0-10.0 N EOSINOPHIL % (test code = EO%) 2.8 % 1.0-5.0 N BASOPHIL % (test code = BA%) 0.8 % 0.0-1.0 N NEUTROPHIL # (test code = NT#) 3.1 K/mm3 2.4-6.3 N IMMATURE GRANULOCYTE # (test code = IG#) 0.05 x10 3/uL 0.00-0.07 N LYMPHOCYTE # (test code = LY#) 2.2 K/mm3 1.2-4.0 N MONOCYTE # (test code = MO#) 0.5 K/mm3 0.0-0.6 N EOSINOPHIL # (test code = EO#) 0.2 K/MM3 0.0-0.7 N BASOPHIL # (test code = BA#) 0.1 K/mm3 0.0-0.2 N Notes Date/Time Note Provider Source 2019-10-19 13:29:00 [facility] ([facility]) Discharge Summary REPORT#:[id number] REPORT STATUS: Signed DATE:10/19/19 TIME: 1328 PATIENT: BASIL MARINA UNIT #: [id number] ROOM/BED: [place] [address] : 69 AGE: 49 SEX: M ATTEND: Priti Sexton MD ADM AUTHOR: Rossi Aparicio * ALL edits or amendments must be made on the electronic/computer document * PCP PCP Discharge to: home General Information Date of admission: Observation Start Date: Date of admission: 10/18/19 Date of discharge: 10/19/19 Admission diagnosis: COPD Exacerbation Discharge diagnosis: Same Hospital course: Mr Marina is a 49 y/o male who came to the ED with complaints of worsening SOB over the past 1 week. Pt continues to smoke and his hospital room smells like an jessy tray. He states he has had a cough as well and nothing has helped. Pt has anxiety and it has been worse as well. Per ER note, he has quit taking his Latuda which has made the anxiety worse. On arrivla his BP was 133/90, HR 120 and afebrile. CBC and BMP were unremarkable. CXR was negative. He was admitted and has been seen dorys laurel and chart reviewed. 1. COPD Exacerbation- Continue with steroids and nebulizer tx. Pulm on consult for assistnace. Pt need to stop smoking. -Much better, DC on abx, steroids and HFA. 2. Anxiety- Pt reports being off of his psych meds. We will restart them IF out pharmacy carries them. If they do not, we will conslut psych. PRN ativan. -Better 3. HTN- Resume meds, adjust as needed. 4. CAD- No CP, resume home meds. Pt. condition on discharge: improved, stable Med Rec Med Rec Discharge meds: Continue taking these medications: ATENOLOL (TENORMIN) 50 MG TAB 50 MILLIGRAM ORAL DAILY. Start taking the following new medications: QUEtiapine (SEROquel) 25 MG TAB 50 MILLIGRAM ORAL BEDTIME. Qty = 30 No Refills BENZONATATE (TESSALON) 100 MG CAP 100 MILLIGRAM ORAL THREE TIMES A DAY. Qty = 30 No Refills CEFDINIR (OMNICEF) 300 MG CAP 300 MILLIGRAM ORAL EVERY 12 HOURS. Qty = 10 No Refills predniSONE (predniSONE) 10 MG TAB 10 MILLIGRAM ORAL DAILY. Qty = 18 No Refills Instructions: 3 tabs po daily x 3 days, then 2 tabs po daily x 3 days, then 1 tab po daily x 3 days ALBUTEROL (PROAIR HFA 90 MCG/ACT) 90 MCG INHALER 1 PUFF INHALATION RT - EVERY 4 HOURS NEEDED. as needed for sob Qty = 8.5 No Refills Objective VS/I O Last Documented: Result Date Time Pulse Ox 93 10/19 1050 B/P 150/94 10/19 1050 B/P Mean 112.8 10/19 1050 O2 Delivery Room air 10/19 1050 Pulse 84 10/19 1050 Resp 18 10/19 1050 O2 Flow Rate 3.325175 10/19 0715 Temp 98.2 10/19 0704 FiO2 21 10/18 2030 24 hour I O ending at 0700: 10/19 0700 10/18 1900 Intake Total 200 360 Output Total Balance 200 360 Intake, Oral 200 360 Number Voids 2 Patient Weight Weight (lb): Weight (oz): Weight (kg): 79.545 General appearance: alert, awake, oriented, no acute distress Head/Eyes: atraumatic, EOMI, normocephalic ENT: normal nose, normal sinus, moist mucosal membranes Neck: non-tender, no lymphadenopathy, no masses or swelling Cardiovascular: regular rate rhythm, normal heart sounds Respiratory: no distress, no tenderness, aerating well GI: soft, non-tender, no guarding, no rebound Extremities: moves all, no edema-all extremities, no calf tenderness Musculoskeletal: no CVA tenderness, no midline vertebral tend, no muscle spasm, no paraspinal tenderness Neuro/REGIONAL MERCHANDISING MANAGER: alert, oriented X 3, normal speech Skin: dry, intact, no gross abnormalities Psychiatry: no hallucinations, normal affect Results Findings/Data: Laboratory Tests: 10/19 10/18 0539 1350 Chemistry Sodium (134.0 - 147.0 mmol/l) 127 L Potassium (3.6 - 5.2 mmol/L) 4.1 Chloride (98.0 - 107.0 mmol/l) 98 Carbon Dioxide (21.0 - 33.0 mmol/l) 26.9 Anion Gap (0 - 20) 5.1 BUN (7.0 - 18.0 mg/dl) 11 Creatinine (0.60 - 1.30 mg/dL) 0.60 Est GFR ( Amer) (109 - 115 mL/min) 183 H Est GFR (Non-Af Amer) (90 - 95 mL/min) 151 H Glucose (70.0 - 110.0 mg/dl) 171 H Calcium (8.0 - 10.5 mg/dl) 9.0 Magnesium (1.8 - 2.4 mg/dl) 2.0 Total Bilirubin (0.0 - 1.0 mg/dl) 0.3 AST (15.0 - 37.0 Units/L) 50 H ALT (12.0 - 78.0 Units/L) 88 H Total Alk Phosphatase (50.0 - 136.0 Units/L) 67 Total Protein (6.4 - 8.2 gm/dL) 7.1 Albumin (3.2 - 4.7 gm/dl) 3.0 L Hematology WBC (4.5 - 11.0 K/mm3) 7.2 RBC (4.40 - 5.90 M/mm3) 4.87 Hgb (13.0 - 17.0 gm/dL) 14.3 Hct (36.0 - 48.0 %) 42.9 MCV (80.0 - 94.0 UM3) 88.1 MCH (25.5 - 32.5 UUG) 29.4 MCHC (29.0 - 35.5 gm/dL) 33.3 RDW (11.5 - 15.0 %) 14.7 Plt Count (150 - 400 K/mm3) 307 MPV (7.4 - 10.4 fl) 9.9 Neut % (Auto) (49.0 - 76.0 %) 77.3 H Lymph % (Auto) (23.0 - 38.0 %) 10.8 L Estill % (Auto) (1.0 - 10.0 %) 11.0 H Eos % (Auto) (1.0 - 5.0 %) 0.0 L Baso % (Auto) (0.0 - 1.0 %) 0.1 Neut # (Auto) (2.4 - 6.3 K/mm3) 5.6 Lymph # (Auto) (1.2 - 4.0 K/mm3) 0.8 L Estill # (Auto) (0.0 - 0.6 K/mm3) 0.8 H Eos # (Auto) (0.0 - 0.7 K/MM3) 0.0 Baso # (Auto) (0.0 - 0.2 K/mm3) 0.0 Immature Gran % (0.0 - 0.4 %) 0.8 H Immature Gran # (0.00 - 0.07 x10 3/uL) 0.06 Serology Hepatitis A IgM Ab (NON REACT. INDEX) NON REACTIVE Hep Bs Antigen (NonReactive INDEX) NON REACTIVE Hep B Core IgM Ab (NON REACT. INDEX) NON REACTIVE Hepatitis C Antibody (NON REACT. INDEX) NON REACTIVE Discharge Instructions Diet: Resume Activity: as tolerated Additional instructions: PCP 1 week Pulm 2 weeks at 1333 RPT #:[id number] END OF REPORT [facility] 2019-10-18 14:19:00 [id number] [facility] [place] [address] PATIENT NAME: BASIL MARINA ADMIT DATE: 10/18/19 ACCOUNT NO: [id number] DISCHARGE DATE: 10/19/19 ROOM NO: E[facility] REPORT TYPE: CONSULTATION REPORT DATE OF : [birth year] AGE: 49 SEX: M ADMITTING PHYSICIAN:Priti Sexton MD ATTENDING PHYSICIAN:Priti Sexton MD CONSULTATION DATE: 10/18/2019 CONSULTING PHYSICIAN: Kenroy Gallagher MD PULMONARY CONSULTATION REASON FOR CONSULTATION: Shortness of breath, chronic obstructive pulmonary disease. HISTORY OF PRESENT ILLNESS: Mr. Marina is an unfortunate 49-year-old white male, smoker. He reportedly smokes about a pack of cigarettes a day over the past 35 years, although he has cut down some recently. 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 The patient tells me he has not been diagnosed with COPD or any lung condition in the past. He has had high blood pressure. He previously was treated with atenolol but has been out for about a week. He also was treated for bipolar disorder, but has been off his medication for unclear period of time. The patient reportedly had told another examiner that he had coronary artery disease with a 40% lesion in one location. The patient feels he has been increasingly ill over the past 2 weeks. He has noted increasing shortness of breath. He has had cough productive of white or green sputum. He has not had any hemoptysis. He does have wheezing. Shortness of breath has been exertional. There has been no paroxysmal nocturnal dyspnea. No orthopnea. The patient has not had any fever, chills, or sweats. He has had some anorexia. He noticed he gags with coughing and feels an urge to vomit. Chest pain has been minimal, worse with coughing. The patient came to the Emergency Room at [facility] Emergency Department. Upon arrival, the patient was noted to have temperature of 98 degrees orally, heart rate 120, respirations 17, blood pressure 133/90, oxyhemoglobin saturation 96% with the patient breathing room air. Review of triage nurse notes indicate "the patient presents to the ED with intermittent chest pain and cough x 1 week, history of COPD. Awake, alert, oriented x3, respirations even and nonlabored, skin warm, dry and intact." The patient had laboratory evaluation in the Emergency Room setting. CBC had revealed a white count of 6100, hemoglobin of 15.2 gm/dL, hematocrit 45%, platelet count 313,000. Differential white cell count is essentially normal by automated differential. Basic metabolic profile, hepatic panel, lipase, BNP, and troponin I were done. These revealed a BUN of 3, creatinine 0.6, AST of 87, ALT of 109. The remainder of a hepatic panel was normal as was a basic metabolic panel. Lipase is normal at 147 U/L. BNP was normal at 6.8 pg/mL. Troponin I was normal at less than 0.02 ng/mL. Chest x-ray had been interpreted as showing coarse chronic-appearing bilateral interstitial markings. There were no pleural PATIENT NAME: BASIL MARINA effusions. There was no pneumothorax. Cardiac silhouette and mediastinum appeared within normal limits. The patient had been admitted to the hospital. Pulmonary consultation was sought for assistance with further evaluation and treatment. When I first went to his room, the patient was not in his room. Nurse reported that he had been going out to smoke, but volunteered that he might have gone to the ICU waiting room to charge his phone. Both ICU waiting rooms were checked and the patient was not in either one. The patient later was found on subsequent visit. PAST MEDICAL HISTORY: Remarkable for, 1. Hypertension. 2. Bipolar disorder. 3. Coronary artery disease. PAST SURGICAL HISTORY: 1. Laparoscopic cholecystectomy. 2. Right inguinal herniorrhaphy with mesh. 3. Appendectomy. 4. Tonsillectomy. ALLERGIES: REPORTED TO PENICILLIN. SOCIAL HISTORY: The patient smoked 35 pack years. He drinks some alcohol drinks for New Year, but says he is not an everyday alcohol drinker. There is no history of illicit drug use. The patient reports he had been a food service driver of commercial trucks, but had "lost everything" and now was being treated as "indigent." FAMILY HISTORY: Unhelpful. REVIEW OF SYSTEMS: The patient has had some anorexia. He has had gagging with coughing. There have been no urinary symptoms. No joint swelling. No skin rash. He has had some nasal and sinus congestion and drainage for the past 2 weeks since his respiratory illness occurred. There has been no fever, no chills, no sweats. He does have some cold feelings. He has dentures. No loss of consciousness. He has had some dizziness occasionally with coughing. No syncope. No seizure activity. No paralysis. PHYSICAL EXAMINATION: VITAL SIGNS: He was noted to have an oxyhemoglobin saturation of 95% with the patient breathing room air, heart rate was 105, respirations were 18 per minute and unlabored, temperature most recently 97.5 degrees, blood pressure 131/86. HEENT: Exam revealed he is normocephalic. No evidence of cranial trauma. Examination of the eyes reveals hyperemia of the conjunctivae. The pupils are equal, round, and reactive to light. Extraocular movements are intact. Exam of the nose is unremarkable. Exam of the mouth reveals he has some mild pharyngeal erythema. He has class 1 Mallampati pharynx. He has an upper and lower denture plate in place. Buccal mucosa is moist. There is no mass, no ulcer, no plaque. NECK: Exam of the neck reveals no lymphadenopathy. No jugular venous distention. HEART: Exam of the heart reveals regular rhythm, rapid rate. No murmur. LUNGS: Exam of the lungs reveals decreased breath sounds. Few inspiratory crackles are noted bilaterally. Expiratory phase is prolonged after a coughing spell. The patient had transient expiratory wheezing on right. ABDOMEN: Exam of the patient's abdomen reveals it to be soft and nontender. No PATIENT NAME: BASIL MARINA hepatosplenomegaly. No mass. Bowel sounds are active. EXTREMITIES: Exam of the extremities reveals them to be symmetric, well developed. There is no digital clubbing. No cyanosis. No nail bed pallor. NEUROLOGIC: The patient is awake and cooperative. Moves the extremities symmetrically. No cranial nerve deficits are appreciated. ASSESSMENT: 1. Chronic obstructive pulmonary disease with acute exacerbation. 2. Shortness of breath. 3. Cough. We will send sputum C and S and begin some antitussive treatments. 4. Hypertension by history. 5. Bipolar disorder. 6. Tobacco abuse. PLAN: 1. Stop smoking. 2. Resume usual medications for bipolar disorder and hypertension. 3. Check for hepatitis antibodies. 4. Stop smoking. 5. Corticosteroids. 6. Aerosol bronchodilators. 7. Antibiotics. 8. Mucolytics. Dictated By: Kenroy Gallagher MD WT: CON:ETONY/KORTNEY/NTS Conf#: [id number]#: [id number] Authenticated and Edited by Kenroy Gallagher MD On 11/19/19 1:30:49 PM at 1333 PATIENT NAME: BASIL MARINA [facility] 2019-10-18 14:03:00 [facility] ([facility]) Pulmonary Consult Note - Brief REPORT#:[id number] REPORT STATUS: Signed DATE:10/18/19 TIME: 1403 PATIENT: BASIL MARINA UNIT #: [id number] ROOM/BED: [place] [address] : [birth year] AGE: 49 SEX: M ATTEND: Priti Sexton MD ADM AUTHOR: Kenroy Gallagher MD * ALL edits or amendments must be made on the electronic/computer document * History of Present Illness HPI Chief complaint: SOB, cough History - Adult longitudinal Past medical history: Reports: COPD, Coronary artery disease (40% blockage), Hypertension. Additional surgical history: Denies Family history: Reports: Hypertension. Alcohol use: Denies EtOH use Drug use: Denies recreational drugs Smoking status for patients 13 years old or older: Current every day smoker Other social history: Local resident Allergies: Coded Allergies: penicillin G (Intermediate, HIVES 10/18/19) DRUG INGREDIENT Cyrus PENICILLIN G Pulmonary Brief Consult Note General appearance: coughing during exam Head/eyes: abnl conjunctiva/sclera (hyperemia), atraumatic, normocephalic, PERRL , EOMI ENT: moist mucosal membranes Neck: no JVD, no lymphadenopathy Cardiovascular: normal heart sounds, regular rate rhythm, no murmur, no rub Respiratory/chest: decreased breath sounds, prolonged exp phase Abdomen: soft, non-tender, normal bowel sounds, no distention, no guarding Extremities: no calf tenderness, no cyanosis, no edema Neuro/REGIONAL MERCHANDISING MANAGER: alert, CNII-XII intact, no motor deficits, fine tremor Psychiatry: anxious Full note dictated: No (to follow) at 1407 RPT #:[id number] END OF REPORT [facility] 2019-10-18 13:23:00 [facility] ([facility] Hospitalist History Physical REPORT#:[id number] REPORT STATUS: Signed DATE:10/18/19 TIME: 1323 PATIENT: BASIL MARINA UNIT #: [id number] ROOM/BED: [place] [address] : [birth year] AGE: 49 SEX: M ATTEND: Priti Sexton MD ADM AUTHOR: Rossi Aparicio * ALL edits or amendments must be made on the electronic/computer document * History of Present Illness HPI Chief complaint: COPD Exacerbation Anxiety PCP: PCP: No Primary or Family Physician HPI: Mr Marina is a 49 y/o male who came to the ED with complaints of worsening SOB over the past 1 week. Pt continues to smoke and his hospital room smells like an jessy tray. He states he has had a cough as well and nothing has helped. Pt has anxiety and it has been worse as well. Per ER note, he has quit taking his Latuda which has made the anxiety worse. On arrivla his BP was 133/90, HR 120 and afebrile. CBC and BMP were unremarkable. CXR was negative. He was admitted and has been seen doryssage barragan and chart reviewed. 10/18/19329: [Embedded Image Not Available] Laboratory Tests: 10/18 329 Chemistry Sodium (134.0 - 147.0 mmol/l) 140 Potassium (3.6 - 5.2 mmol/L) 4.1 Chloride (98.0 - 107.0 mmol/l) 101 Carbon Dioxide (21.0 - 33.0 mmol/l) 26.5 Anion Gap (0 - 20) 16.6 BUN (7.0 - 18.0 mg/dl) 3 L Creatinine (0.60 - 1.30 mg/dL) 0.60 Est GFR ( Amer) (109 - 115 mL/min) 183 H Est GFR (Non-Af Amer) (90 - 95 mL/min) 151 H Glucose (70.0 - 110.0 mg/dl) 87 Calcium (8.0 - 10.5 mg/dl) 8.5 Total Bilirubin (0.0 - 1.0 mg/dl) 0.2 Direct Bilirubin (0.0 - 0.3 mg/dl) 0.1 AST (15.0 - 37.0 Units/L) 87 H ALT (12.0 - 78.0 Units/L) 109 H Total Alk Phosphatase (50.0 - 136.0 Units/L) 82 Troponin I (0.00 - 0.06 NG/ML) <0.02 B-Natriuretic Peptide (5 - 100 PG/ML) 6.8 Total Protein (6.4 - 8.2 gm/dL) 7.9 Albumin (3.2 - 4.7 gm/dl) 3.3 Lipase (65.0 - 230.0 Units/L) 147 Hematology WBC (4.5 - 11.0 K/mm3) 6.1 RBC (4.40 - 5.90 M/mm3) 5.15 Hgb (13.0 - 17.0 gm/dL) 15.2 Hct (36.0 - 48.0 %) 45.0 MCV (80.0 - 94.0 UM3) 87.4 MCH (25.5 - 32.5 UUG) 29.5 MCHC (29.0 - 35.5 gm/dL) 33.8 RDW (11.5 - 15.0 %) 14.6 Plt Count (150 - 400 K/mm3) 313 MPV (7.4 - 10.4 fl) 9.4 Neut % (Auto) (49.0 - 76.0 %) 51.6 Lymph % (Auto) (23.0 - 38.0 %) 35.7 Estill % (Auto) (1.0 - 10.0 %) 8.3 Eos % (Auto) (1.0 - 5.0 %) 2.8 Baso % (Auto) (0.0 - 1.0 %) 0.8 Neut # (Auto) (2.4 - 6.3 K/mm3) 3.1 Lymph # (Auto) (1.2 - 4.0 K/mm3) 2.2 Estill # (Auto) (0.0 - 0.6 K/mm3) 0.5 Eos # (Auto) (0.0 - 0.7 K/MM3) 0.2 Baso # (Auto) (0.0 - 0.2 K/mm3) 0.1 Immature Gran % (0.0 - 0.4 %) 0.8 H Immature Gran # (0.00 - 0.07 x10 3/uL) 0.05 Recent Impressions: RADIOLOGY - XR CHEST 1 V 10/18 0350 Report Impression - Status: SIGNED Entered: 10/18/2019 0411 IMPRESSION: No active pulmonary findings. Impression By: Mallika - Rigo Perez M.D. Informant/historian: patient, prior records History Past medical history: Reports: COPD, Coronary artery disease (40% blockage), Hypertension. Additional surgical history: Denies Family history: Reports: Hypertension. Alcohol use: Denies EtOH use Drug use: Denies recreational drugs Smoking status for patients 13 years old or older: Current every day smoker Other social history: Local resident Medication/Allergy-Vaccine Hx Home Medications: No Known Home Medications Allergies: Coded Allergies: penicillin G (Intermediate, HIVES 10/18/19) DRUG INGREDIENT Cyrus PENICILLIN G Review of Systems Constitutional: Denies: chills, fatigue, fever. Skin: Denies: abrasion, bruising, ecchymosis. Allergy/Immun: Denies: allergic reaction, anaphylaxis, itching. Eyes: Denies: redness, discharge, itching. ENT: Denies: ear drainage, earache, mouth pain. Respiratory: Denies: GUSMAN (dyspnea on exertion), hemoptysis, parox nocturnal dyspnea. Cardiovascular: Denies: chest pain, GUSMAN (dyspnea on exertion), orthopnea. GI: Denies: abdominal pain, constipation, dysphagia. : Denies: flank pain, frequency, nocturia. Musculoskeletal: Denies: arthritis, extremity swelling, neck pain. Heme: Denies: adenopathy, bleeding, petechiae. Endocrine: Denies: cold intolerance, heat intolerance, polyphagia. Neuro: Denies: bladder dysfunction, bowel dysfunction, dizziness. Psych: Reports: anxiety. Denies: auditory hallucination, confusion. All systems rev neg: except as marked Objective General VS/I O: Vital Signs: Date Time Temp Pulse Resp B/P B/P Pulse O2 O2 Flow FiO2 Mean Ox Delivery Rate 10/18 1118 97.5 132 18 131/86 100.9 91 Room air 10/18 0730 3.884489 10/18 0649 102 18 109/69 82.3 92 Room air 10/18 0544 Nasal 3.732284 cannula 10/18 0542 97.9 97 18 112/66 81.4 94 Nasal 4.356741 cannula 10/18 0525 98 18 129/78 95 98 Nasal 4.115508 cannula 10/18 0415 96 Nasal 4.566544 cannula 10/18 0405 88 Room air 10/18 0352 101 18 130/84 99 99 Room air 10/18 0301 98.0 120 17 133/90 104 96 Room air 24 hour I O ending at 0700: 10/18 0700 10/17 1900 Intake Total 240 Output Total Balance 240 Intake, Oral 240 Patient 79.545 kg Weight Weight Stated/Reported Measurement Method Patient Weight Weight (lb): Weight (oz): Weight (kg): 79.545 Physical Exam General appearance: alert, awake, oriented Head/Eyes: atraumatic, EOMI, normocephalic ENT: moist mucosal membranes, normal nose, normal sinus Neck: non-tender, no masses or swelling Cardiovascular: normal heart sounds, regular rate rhythm, no murmur Respiratory: decreased breath sounds, wheezing, clear to auscultation, symmetric expansion, no distress Abdomen: non-tender, soft, no distention Rectal: deferred Extremities: moves all, no calf tenderness Musculoskeletal: no CVA tenderness, no midline vertebral tend, no muscle spasm Neuro/REGIONAL MERCHANDISING MANAGER: alert, oriented X 3, CNII-XII intact, normal speech Skin: dry, intact Psychiatry: normal affect Results Findings/Data: Laboratory Tests 10/18 329 Chemistry Sodium (134.0 - 147.0 mmol/l) 140 Potassium (3.6 - 5.2 mmol/L) 4.1 Chloride (98.0 - 107.0 mmol/l) 101 Carbon Dioxide (21.0 - 33.0 mmol/l) 26.5 Anion Gap (0 - 20) 16.6 BUN (7.0 - 18.0 mg/dl) 3 L Creatinine (0.60 - 1.30 mg/dL) 0.60 Est GFR ( Amer) (109 - 115 mL/min) 183 H Est GFR (Non-Af Amer) (90 - 95 mL/min) 151 H Glucose (70.0 - 110.0 mg/dl) 87 Calcium (8.0 - 10.5 mg/dl) 8.5 Total Bilirubin (0.0 - 1.0 mg/dl) 0.2 Direct Bilirubin (0.0 - 0.3 mg/dl) 0.1 AST (15.0 - 37.0 Units/L) 87 H ALT (12.0 - 78.0 Units/L) 109 H Total Alk Phosphatase (50.0 - 136.0 Units/L) 82 Troponin I (0.00 - 0.06 NG/ML) <0.02 B-Natriuretic Peptide (5 - 100 PG/ML) 6.8 Total Protein (6.4 - 8.2 gm/dL) 7.9 Albumin (3.2 - 4.7 gm/dl) 3.3 Lipase (65.0 - 230.0 Units/L) 147 Laboratory Tests 10/18 329 Hematology WBC (4.5 - 11.0 K/mm3) 6.1 RBC (4.40 - 5.90 M/mm3) 5.15 Hgb (13.0 - 17.0 gm/dL) 15.2 Hct (36.0 - 48.0 %) 45.0 MCV (80.0 - 94.0 UM3) 87.4 MCH (25.5 - 32.5 UUG) 29.5 MCHC (29.0 - 35.5 gm/dL) 33.8 RDW (11.5 - 15.0 %) 14.6 Plt Count (150 - 400 K/mm3) 313 MPV (7.4 - 10.4 fl) 9.4 Neut % (Auto) (49.0 - 76.0 %) 51.6 Lymph % (Auto) (23.0 - 38.0 %) 35.7 Estill % (Auto) (1.0 - 10.0 %) 8.3 Eos % (Auto) (1.0 - 5.0 %) 2.8 Baso % (Auto) (0.0 - 1.0 %) 0.8 Neut # (Auto) (2.4 - 6.3 K/mm3) 3.1 Lymph # (Auto) (1.2 - 4.0 K/mm3) 2.2 Estill # (Auto) (0.0 - 0.6 K/mm3) 0.5 Eos # (Auto) (0.0 - 0.7 K/MM3) 0.2 Baso # (Auto) (0.0 - 0.2 K/mm3) 0.1 Immature Gran % (0.0 - 0.4 %) 0.8 H Immature Gran # (0.00 - 0.07 x10 3/uL) 0.05 Radiology data: Recent Impressions: RADIOLOGY - XR CHEST 1 V 10/18 0350 Report Impression - Status: SIGNED Entered: 10/18/2019 0411 IMPRESSION: No active pulmonary findings. Impression By: Mallika Perez M.D. Diagnosis, Assessment Plan Plan discussed with: patient, nurse Free Text DxA P Notes Free Text DxA P Notes: 1. COPD Exacerbation- Continue with steroids and nebulizer tx. Pulm on consult for assistnace. Pt need to stop smoking. 2. Anxiety- Pt reports being off of his psych meds. We will restart them IF out pharmacy carries them. If they do not, we will conslut psych. PRN ativan. 3. HTN- Resume meds, adjust as needed. 4. CAD- No CP, resume home meds. at 1330 RPT #:[id number] END OF REPORT [facility] 2019-10-18 03:30:00 [facility] ([facility] EMERGENCY PROVIDER REPORT REPORT#:[id number] REPORT STATUS: Signed DATE:10/18/19 TIME: 033 PATIENT: BASIL MARINA UNIT #: [id number] ROOM/BED: 329-1 AGE: 49 SEX: M PCP PHYS: No Primary or Family Physician SERVICE AUTHOR: Kirby Rhodes MD * ALL edits or amendments must be made on the electronic/computer document * HPI-Dyspnea/Wheezing General Confirmed Patient Yes Initial Greet Date/Time 10/18/19 0301 Presentation Chief Complaint Shortness of breath Hx Obtained From Patient )( Sudden in Onset? Yes Onset Occurred One week ago Symptom Duration Since onset Progression since Onset Gradually worsening Associated with Reports: Cough. Free Text HPI Notes Free Text HPI Notes 49 y/o M w/ PMHx of CAD(40% blockage), HTN, bipolar depression and COPD presents to the ED w/ c/o SOB onset 1 wk ago. Pt reports cough and CP. He states the sxs had gradually worsening. He notes he had stopped taking his latuda medicine for awhile d/t personal issues. He notes that he feels like his body is "giving up". Portions of this section were scribed by Bari Campbell on 10/18/19 at 0433 Review of Systems ROS Statements All systems rev neg except as marked. Focused Review of Systems Constitutional Denies: Chills, Fever. Ears/Nose/Throat Denies: Sore throat. Respiratory Reports: Cough, non-productive, Shortness of breath. Cardiovascular Reports: Chest pain. Denies: Palpitations. Musculoskeletal Denies: Joint pain, Myalgia. Skin Denies: Rash. Additional Review of Systems Eyes Denies: Blurred bilat. GI Denies: Abdominal pain, Diarrhea, Nausea, Vomiting. Male Denies: Dysuria. Hematologic Denies: Bleeding. Neurologic Denies: Generalized weakness, Numbness, Tingling. Portions of this section were scribed by Bari Campbell on 10/18/19 at 0330 Past Medical History - Adult Stated Complaint cp and cough Allergies Coded Allergies: penicillin G (Intermediate, HIVES 10/18/19) DRUG INGREDIENT Cyrus PENICILLIN G Home Medications Reported Medications No Known Home Medications Pt reports no significant: Past surgical history Past Medical History: Reports: COPD, Coronary artery disease (40% blockage), Hypertension. Smoking status for patients 13 years old or older: Current every day smoker Other Social History Local resident Portions of this section were scribed by Bari Campbell on 10/18/19 at 0330 Physical Exam Vital Signs Vital Signs First Documented: Result Date Time Pulse Ox 96 10/18 0301 B/P 133/90 10/18 0301 B/P Mean 104 10/18 0301 O2 Delivery Room air 10/18 030 Temp 36.7 10/18 0301 Pulse 120 10/18 0301 Resp 17 10/18 0301 O2 Flow Rate 4.909615 10/18 0415 Last Documented: Result Date Time Pulse Ox 96 10/18 041 O2 Delivery Nasal cannula 10/18 414 O2 Flow Rate 4.006208 10/18 0415 B/P 130/84 10/18 0352 B/P Mean 99 10/18 0352 Pulse 101 10/18 0352 Resp 18 10/18 0352 Temp 36.7 10/18 0301 Review of Vital Signs Reviewed Focused PE General/Const General/Const Well developed, Well nourished Text/Dict Notes appears stated age Behavior Anxious, Tearful. Ears/Nose/Throat Ears/Nose/Throat Airway patent, Mucous membranes moist MS Neck Neck Supple, No meningismus, Full range of motion, No adenopathy, No swelling Resp/Chest Resp Distress/Stridor Resp distress mild. Diminished Breath Sounds Decreased bilateral. Cardiovascular Cardiovascular Heart rate NL, Regular rhythm, Peripheral circulation NL Abdomen/GI Abdomen/GI Soft, Non-tender, No distention, No palpable mass, No pulsatile mass MS Lower Extrem Lower Ext/Pelvis/MS Inspection NL, No deformity Skin Skin No rash, Warm, Dry Neurologic Neurologic Oriented X3, Speech NL Additional PE MS Head Head Atraumatic, Normocephalic Eyes Eyes PERRL, Conjunctiva NL MS Upper Extrem Upper Extremity/MS Inspection NL, No deformity Psychiatric Psychiatric Affect NL, Mood NL Portions of this section were scribed by Bari Campbell on 10/18/19 at 0429 Interpretation Diagnostics Lab Results Interpretation Results Laboratory Tests 10/18/19 0330: [Embedded Image Not Available] Laboratory Tests: 10/18 329 Chemistry Sodium (134.0 - 147.0 mmol/l) 140 Potassium (3.6 - 5.2 mmol/L) 4.1 Chloride (98.0 - 107.0 mmol/l) 101 Carbon Dioxide (21.0 - 33.0 mmol/l) 26.5 Anion Gap (0 - 20) 16.6 BUN (7.0 - 18.0 mg/dl) 3 L Creatinine (0.60 - 1.30 mg/dL) 0.60 Est GFR ( Amer) (109 - 115 mL/min) 183 H Est GFR (Non-Af Amer) (90 - 95 mL/min) 151 H Glucose (70.0 - 110.0 mg/dl) 87 Calcium (8.0 - 10.5 mg/dl) 8.5 Total Bilirubin (0.0 - 1.0 mg/dl) 0.2 Direct Bilirubin (0.0 - 0.3 mg/dl) 0.1 AST (15.0 - 37.0 Units/L) 87 H ALT (12.0 - 78.0 Units/L) 109 H Total Alk Phosphatase (50.0 - 136.0 Units/L) 82 Troponin I (0.00 - 0.06 NG/ML) <0.02 B-Natriuretic Peptide (5 - 100 PG/ML) 6.8 Total Protein (6.4 - 8.2 gm/dL) 7.9 Albumin (3.2 - 4.7 gm/dl) 3.3 Lipase (65.0 - 230.0 Units/L) 147 Hematology WBC (4.5 - 11.0 K/mm3) 6.1 RBC (4.40 - 5.90 M/mm3) 5.15 Hgb (13.0 - 17.0 gm/dL) 15.2 Hct (36.0 - 48.0 %) 45.0 MCV (80.0 - 94.0 UM3) 87.4 MCH (25.5 - 32.5 UUG) 29.5 MCHC (29.0 - 35.5 gm/dL) 33.8 RDW (11.5 - 15.0 %) 14.6 Plt Count (150 - 400 K/mm3) 313 MPV (7.4 - 10.4 fl) 9.4 Neut % (Auto) (49.0 - 76.0 %) 51.6 Lymph % (Auto) (23.0 - 38.0 %) 35.7 [place] % (Auto) (1.0 - 10.0 %) 8.3 Eos % (Auto) (1.0 - 5.0 %) 2.8 Baso % (Auto) (0.0 - 1.0 %) 0.8 Neut # (Auto) (2.4 - 6.3 K/mm3) 3.1 Lymph # (Auto) (1.2 - 4.0 K/mm3) 2.2 [place] # (Auto) (0.0 - 0.6 K/mm3) 0.5 Eos # (Auto) (0.0 - 0.7 K/MM3) 0.2 Baso # (Auto) (0.0 - 0.2 K/mm3) 0.1 Immature Gran % (0.0 - 0.4 %) 0.8 H Immature Gran # (0.00 - 0.07 x10 3/uL) 0.05 Recent Impressions: RADIOLOGY - XR CHEST 1 V 10/18 035 Report Impression - Status: SIGNED Entered: 10/18/2019 0411 IMPRESSION: No active pulmonary findings. Impression By: Mallika - Rigo Perez M.D. Lab Imaging Statement Laboratory radiographic studies reviewed and considered in the medical decision-making. Point of Care Testing Pulse Oximetry Pulse Ox % 96 On: Room air Interpretation Interpreted by me, Pulse oximetry normal Time 0301 ECG #1 Interpretation Date 10/18/19 Time 0318 Interpreted by ED physician NL ECG Interpretation No acute ischemic changes, No STEMI, Normal QRS, Normal ST waves, Normal axis, Normal intervals Rate 110 Radiography X-Ray Chest View 1 view Text/Dict Note IMPRESSION: No active pulmonary findings. Interpretation/Wet Read by Interpret - Radiologist Reviewed by ED physician Portions of this section were scribed by Bari Campbell on 10/18/19 at 0431 Re-Evaluation MDM )( Re-Evaluation/Progress #1 Text/Dict Note wheezing improved but patient still feels symptomatic. discussed results and need for admission. Pt agrees to plan. Time of Re-Eval 042 )( Re-Eval Status Improved ED Course Medication(s) Ordered Medication(s) Ordered: Anti-Infective Agents Sig/Kathia Start time Last Medication Dose Route Stop Time Status Admin Azithromycin 500 MG X1ED STA 10/18 425 DC 10/18 PO 01/02 0427 0437 Ceftriaxone Sodium 1,000 MG X1ED STA 10/18 0426 DC 10/18 Sodium Chloride 10 ML IV 10/18 0428 0437 Autonomic Drugs Sig/Kathia Start time Last Medication Dose Route Stop Time Status Admin Albuterol/Ipratropium 3 ML RTQ4H 10/18 0700 AC NEB 10/19 0327 Albuterol Sulfate 7.5 MG X1ED STA 10/18 0325 DC 10/18 NEB 10/18 0326 0339 Central Nervous System Agents Sig/Kathia Start time Last Medication Dose Route Stop Time Status Admin Acetaminophen 650 MG Q4H PRN PRN 10/18 0430 AC PO 10/19 0327 Hydrocodone Bitart/ 1 TAB Q4H PRN PRN 10/18 0430 AC Acetaminophen PO 10/19 0327 Electrolytic, Caloric, And Che Sig/Kathia Start time Last Medication Dose Route Stop Time Status Admin Sodium Chloride 1,000 ML X1ED STA 10/18 0325 DC 10/18 IV 10/18 0424 0339 Eye, Ear, Nose And Throat (Een Sig/Kathia Start time Last Medication Dose Route Stop Time Status Admin Ipratropium [place] 0.5 MG X1ED STA 10/18 0325 DC 10/18 NEB 10/18 0326 0339 Hormones And Synthetic Substit Sig/Kathia Start time Last Medication Dose Route Stop Time Status Admin Prednisone 60 MG X1ED STA 10/18 0325 DC 10/18 PO 10/18 0326 0339 Consultation Consultation Referral/Consult Name Dennis Parikh MD Pouch Maker Called Wash Driller Requested Call Time 0430 Requested Call Date 10/18/19 Free Text Consult Notes routine consult Portions of this section were scribed by Bari Campbell on 10/18/19 at 0433 Patient Discharge Departure Vital Signs/Condition Vital Signs First Documented: Result Date Time Pulse Ox 96 10/18 0301 B/P 133/90 10/18 0301 B/P Mean 104 10/18 0301 O2 Delivery Room air 10/18 030 Temp 36.7 10/18 030 Pulse 120 10/18 0301 Resp 17 10/18 0301 O2 Flow Rate [id number] 10/18 0415 Last Documented: Result Date Time Pulse Ox 96 10/18 0415 O2 Delivery Nasal cannula 10/18 0415 O2 Flow Rate 4.161510 10/18 0415 B/P 130/84 10/18 0352 B/P Mean 99 10/18 0352 Pulse 101 10/18 0352 Resp 18 10/18 0352 Temp 36.7 10/18 0301 All vital signs available at the time of this entry have been reviewed. Condition Guarded Clinical Impression Clinical Impression Primary Impression: COPD exacerbation Secondary Impressions: Anxiety Disposition Decision Admit Admit Physician Name Priti Sexton MD Admit Physician Hospitalist Request Time 043 Request Date 10/18/19 )( Admission Accepts Yes )( Accepted Time 431 )( Accepted Date 10/18/19 Call Information will see patient Discharge/Care Plan Counseled Regarding Diagnosis, Lab results, Imaging studies, Need for admission Supervising Physician Note Scribe Statement Bari Campbell, 10/18/19 0338, scribing for and in the presence of Dr. Kirby Rhodes. Signed By: Bari Campbell, 10/18/19 0338 Provider Scribed Statement I personally performed the services described in this documentation and reviewed the documentation that was dictated to the scribe(s) in my presence, and it accurately records my words and actions. Kirby Rhodes, 10/18/19 Portions of this section were scribed by Bari Campbell on 10/18/19 at 0433 at 0644 RPT #:[id number] END OF REPORT [facility]
[2024-06-12 23:00] LABS: PT Prothrombin Time 10.4 SECONDS (9.4-12.5); Protime INR 0.93
[2024-06-12] MEDS ORDERED: METHYLPREDNISOLONE 125 MG INJ ONE (23:11)
[2024-06-12] MEDS ORDERED: LEVALBUTEROL 1.25 MG/3 ML NEB ONE (23:11)
[2024-06-12] MEDS ORDERED: predniSONE 20 MG TAB ONE (23:11)
[2024-06-12] MEDS ORDERED: THIAMINE 200 MG/2 ML INJ ONE (23:11)
[2024-06-12] MEDS ORDERED: IPRATROPIUM BROM 0.5MG/2.5ML ONE (23:11)
[2024-06-12] MEDS ORDERED: levoFLOXacin 750 MG TAB ONE (23:12)
[2024-06-12] MEDS ORDERED: NA CHLORIDE 0.9% 1,000 ML ONE (23:12)
[2024-06-12 23:13] LABS: Absolute Basophils 0.1 K/uL (0-0.5); Absolute Eosinophils 0.2 K/uL (0-0.5); Absolute Lymphocytes (CBC) 2.2 K/uL (0.7-4.9); Absolute Monocytes 0.7 K/uL (0.1-1.3); Absolute Neutrophil 5.3 K/uL (1.8-8.0); Basophils % 0.8 % (0-1.3); Eosinophils % 2.2 % (0-4.4); Hematocrit 40.6 % (39.6-49.0); Hemoglobin 13.6 g/dL (13.6-17.9); Lymphocytes % 25.9 % (15.3-44.8); MCH 28.4 pg (27.0-35.0); MCHC 33.4 g/dL (32.0-36.0); MCV 85.2 fL (80-100); MPV 8.5 fL (7.6-11.3); Monocytes % 8.7 % (3.3-12.3); Neutrophils % 62.4 % (41.7-73.7); Nucleated Red Blood Cells % 0.1 % (0-0); Platelets 277 thou/uL (152-406); RBC Red Blood Cell Count 4.76 M/uL (4.33-5.43); Red Cell Distribution Width 15.3 % (12.1-15.2)
[2024-06-12 23:18] LABS: ALT/SGPT 45 U/L (16-61); AST/SGOT 19 U/L (15-37); Albumin 3.8 g/dL (3.4-5.0); Alkaline Phosphatase 60 U/L (45-117); BUN Blood Urea Nitrogen 20 mg/dL (7-18); Bicarbonate 28 mEq/L (21-32); Bilirubin Total 0.2 mg/dL (0.2-1.0); Globulin 3.9 g/dL (2.3-3.5); Glomerular Filtration Rate 96 ml/min (=/>90); Glucose Level 89 mg/dL (74-106); Magnesium 2.1 mg/dL (1.6-2.4); NT PRO-BNP 14 pg/mL (<125); Protein, Total 7.7 g/dL (6.4-8.2); Sodium Level 134 mEq/L (136-145); Troponin High Sensitivity 4.5 pg/mL (<58.9)
[2024-06-12 23:19] LABS: Bilirubin Direct < 0.2 mg/dL (0-0.2)
--- NOTE | 2024-06-12 23:21 | EDPHYS ---
Physician Documentation [facility] Name: Joe Marina Jr Age: 53 yrs Sex: Male : 1970 Arrival Date: 06/12/2024 Time: 21:01 Bed 12 Private MD: ED Physician Zachary Warren HPI: 06/12 22:52 This 53 yrs old Male presents to ER via Ambulatory with complaints of gregorio Breathing Difficulty, Cough, Congestion. 22:52 The patient has shortness of breath at rest, with light activity. Onset: The gregorio symptoms/episode began/occurred 3 day(s) ago. Duration: The symptoms are continuous, and are steadily getting worse. The patient's shortness of breath is aggravated by coughing, supine position. Associated signs and symptoms: Pertinent positives: non-productive cough. Severity of symptoms: At their worst the symptoms were moderate in the emergency department the symptoms are unchanged. The patient has experienced similar episodes in the past, multiple times. Historical: - Allergies: 21:25 PENICILLINS; kc6 21:25 Haldol; kc6 21:25 Bees; kc6 - PMHx: 21:25 Hypertension; PTSD; SUICIDE ATTEMPT; Alcoholism; kc6 - PSHx: 21:25 Appendectomy; Cholecystectomy; hernia mesh; kc6 21:25 Tonsillectomy; kc6 - Immunization history:: Client reports having NOT received the Covid vaccine. Flu vaccine is not up to date. - Infectious Disease History:: Denies. - Social history:: Smoking status: Patient reports the use of cigarette tobacco products, smokes one pack cigarettes per day. ROS: 22:53 Constitutional: Negative for fever, chills, and weight loss, Eyes: Negative for injury, gregorio pain, redness, and discharge, ENT: Negative for injury, pain, and discharge, Neck: Negative for injury, pain, and swelling, Cardiovascular: Negative for chest pain, palpitations, and edema, Abdomen/GI: Negative for abdominal pain, nausea, vomiting, diarrhea, and constipation, Back: Negative for injury and pain, : Negative for injury, bleeding, discharge, and swelling, MS/Extremity: Negative for injury and deformity, Skin: Negative for injury, rash, and discoloration, Neuro: Negative for headache, weakness, numbness, tingling, and seizure, Psych: Negative for depression, anxiety, suicide ideation, homicidal ideation, and hallucinations, Allergy/Immunology: Negative for hives, rash, and allergies, Endocrine: Negative for neck swelling, polydipsia, polyuria, polyphagia, and marked weight changes, Hematologic/Lymphatic: Negative for swollen nodes, abnormal bleeding, and unusual bruising, 22:53 Respiratory: Positive for shortness of breath, wheezing, inspiratory, expiratory, Exam: 22:53 Constitutional: This is a well developed, well nourished patient who is awake, alert, gregorio and in no acute distress. Head/Face: Normocephalic, atraumatic. Eyes: Pupils equal round and reactive to light, extra-ocular motions intact. Lids and lashes normal. Conjunctiva and sclera are non-icteric and not injected. Cornea within normal limits. Periorbital areas with no swelling, redness, or edema. ENT: Nares patent. No nasal discharge, no septal abnormalities noted. Tympanic membranes are normal and external auditory canals are clear. Oropharynx with no redness, swelling, or masses, exudates, or evidence of obstruction, uvula midline. Mucous membranes moist. Neck: Trachea midline, no thyromegaly or masses palpated, and no cervical lymphadenopathy. Supple, full range of motion without nuchal rigidity, or vertebral point tenderness. No Meningismus. Chest/axilla: Normal chest wall appearance and motion. Nontender with no deformity. No lesions are appreciated. Cardiovascular: Regular rate and rhythm with a normal S1 and S2. No gallops, murmurs, or rubs. Normal PMI, no JVD. No pulse deficits. Abdomen/GI: Soft, non-tender, with normal bowel sounds. No distension or tympany. No guarding or rebound. No evidence of tenderness throughout. Back: No spinal tenderness. No costovertebral tenderness. Full range of motion. Male : Normal genitalia with no discharge or lesions. Skin: Warm, dry with normal turgor. Normal color with no rashes, no lesions, and no evidence of cellulitis. MS/ Extremity: Pulses equal, no cyanosis. Neurovascular intact. Full, normal range of motion. Neuro: Awake and alert, GCS 15, oriented to person, place, time, and situation. Cranial nerves II-XII grossly intact. Motor strength 5/5 in all extremities. Sensory grossly intact. Cerebellar exam normal. Normal gait. Psych: Awake, alert, with orientation to person, place and time. Behavior, mood, and affect are within normal limits. 22:53 Respiratory: the patient does not display signs of respiratory distress, Respirations: normal, no acute changes, Breath sounds: bronchial sounds, that are mild, are scattered, decreased breath sounds, that are mild, are scattered, rhonchi, that are mild, are scattered, stridor, is not appreciated, + upper airway congestion. wheezing: inspiratory expiratory is scattered, 22:53 Musculoskeletal/extremity: Circulation is intact in all extremities. Sensation intact. Compartment Syndrome exam of affected extremity: is normal. Weight bearing: able to fully bear weight, DVT Exam: No signs of deep vein thrombosis. no pain, no swelling, no tenderness, negative Homans' sign noted on exam, no appreciated bluish discoloration, no erythema, no increased warmth, 23:12 ECG was reviewed by the Attending Physician. [facility] Vital Signs: 21:23 BP 142 / 106; Pulse 71; Resp 19 S; Temp 98.3(O); Pulse Ox 100% on R/A; Weight 97.52 kg kc6 (R); Height 6 ft. 4 in. (R); Pain 5/10; 21:26 BP 133 / 95; kc6 22:30 BP 157 / 88; Pulse 73; Resp 19; Pulse Ox 100% on R/A; me1 23:30 BP 149 / 86; Pulse 71; Resp 19; Pulse Ox 100% ; il1 06/13 00:13 BP 140 / 85; Pulse 74; Resp 18; Temp 98.3; Pulse Ox 100% on R/A; il1 06/12 21:23 Body Mass Index 26.17 (97.52 kg, 193.04 cm) [facility] 06/12 21:23 Pain Scale: Adult kc6 [place] Coma Score: 06/12 22:53 Eye Response: spontaneous(4). Motor Response: obeys commands(6). Verbal Response: gregorio oriented(5). Total: 15. MDM: 21:37 Patient medically screened. [facility] 22:56 Differential diagnosis: Anemia asthma, Bronchitis CHF exacerbation, Chronic Obstructive gregorio Pulmonary Disease pneumonia, Pneumothorax Psychogenic pulmonary edema, Pulmonary Embolism reactive airway disease, Sepsis Unstable Angina. Antibiotic administration: The patient is discharged and will get outpatient antibiotics, Levaquin. Differential Diagnosis: Obstructed Airway Bronchitis Influenza Upper Respiratory Infection Sinusitis Pharyngitis Asthma Exacerbation Viral Syndrome Pneumonia. Immunization status: Influenza vaccine: within last 5 years. Data reviewed: vital signs, nurses notes, lab test result(s), EKG, radiologic studies, plain films. Consideration of Admission/Observation Escalation of care including admission/observation considered. I considered the following discharge prescriptions or medication management in the emergency department Medications were administered in the Emergency Department. See MAR. Independent interpretation of the following test(s) in the Emergency Department EKG: See my EKG interpretation above. Test considered but Not performed: CT: no ct chest. Care significantly affected by the following chronic conditions: Hypertension, ptsd, suicide attempt, etoh, tobacco abuse. Counseling: I had a detailed discussion with the patient and/or guardian regarding the historical points, exam findings, and any diagnostic results supporting the discharge/admit diagnosis, the presence of at least one elevated blood pressure reading (>120/80) during this emergency department visit, radiology results, the need for outpatient follow up. 06/12 21:40 Order name: Basic Metabolic Panel 06/12 21:40 Order name: CBC with Diff; Complete Time: 23:19 06/12 21:40 Order name: LFT's 06/12 21:40 Order name: Magnesium 06/12 21:40 Order name: NT PRO-BNP 06/12 21:40 Order name: PT-INR; Complete Time: 23:12 06/12 21:40 Order name: Troponin HS 06/12 21:40 Order name: Blood Culture Adult (2) 06/12 21:40 Order name: SARS RAPID 06/12 21:40 Order name: Flu 06/12 21:40 Order name: XRAY Chest (1 view) 06/12 21:40 Order name: EKG; Complete Time: 21:41 06/12 21:40 Order name: Cardiac monitoring; Complete Time: 23:08 06/12 21:40 Order name: EKG - Nurse/Tech; Complete Time: 22:43 06/12 21:40 Order name: IV Saline Lock; Complete Time: 22:43 06/12 21:40 Order name: Labs collected and sent; Complete Time: 22:43 06/12 21:40 Order name: O2 Per Protocol; Complete Time: 23:08 06/12 21:40 Order name: O2 Sat Monitoring; Complete Time: 23:08 gregorio EC:12 Rate is 63 beats/min. Rhythm is regular. QRS [place] is Normal. ND interval is normal. QRS gregorio interval is normal. QT interval is normal. No Q waves. T waves are Normal. No ST changes noted. Clinical impression: NSR w/ Non-specific ST/T Changes and No evidence of ischemia. Interpreted by me. Reviewed by me. Administered Medications: 23:33 Drug: NS 0.9% IV 1000 ml IV at 1 bolus Per protocol; 1000 mL bolus Route: IV; Rate: 1 me1 bolus; Site: left antecubital; 06/13 00:09 Follow up: Response: No adverse reaction; IV Status: Completed infusion me1 06/12 23:33 Drug: Thiamine IV 100 mg IV at bolus once Route: IV; Rate: bolus; Site: left me1 antecubital; 23:34 Follow up: Response: No adverse reaction; IV Status: Completed infusion me1 23:33 Drug: MethylPrednisoLONE IVP 125 mg IVP once Route: IVP; Site: left antecubital; me1 23:49 Follow up: Response: No adverse reaction me1 23:33 Drug: LevOfloxacin PO 750 mg PO once Route: PO; me1 23:49 Follow up: Response: No adverse reaction me1 23:34 Drug: predniSONE PO 60 mg PO once Route: PO; me1 23:49 Follow up: Response: No adverse reaction me1 23:34 Drug: Levalbuterol Inhalation 3.75 mg Inhalation once Route: Inhalation; me1 23:49 Follow up: Response: No adverse reaction; Wheezing diminished me1 23:34 Drug: Ipratropium Inhalation Aerosol 0.5 mg Inhalation once Route: Inhalation; me1 23:49 Follow up: Response: No adverse reaction; Wheezing diminished me1 23:48 Drug: Levalbuterol Inhalation 1.25 mg Inhalation once Route: Inhalation; me1 23:50 Follow up: Response: No adverse reaction; Wheezing diminished me1 Disposition Summary: 06/12/24 23:20 Discharge Ordered Notes: Location: Home gregorio Problem: new gregorio Symptoms: have improved gregorio Condition: Stable gregorio Diagnosis - COPD/ Chronic obstructive pulmonary disease with (acute) exacerbation gregorio - Dyspnea gregorio - Tobacco abuse counseling gregorio - Tobacco use gregorio Followup: gregorio - With: Private Physician - When: 2 - 3 days - Reason: Recheck today's complaints, Continuance of care, Re-evaluation by your physician Followup: gregorio - With: Audie Jacobsen MD - When: 2 - 3 days - Reason: Recheck today's complaints, Re-evaluation by your physician Followup: gregorio - With: Marito Ramírez DO - When: 2 - 3 days - Reason: Recheck today's complaints, Re-evaluation by your physician Discharge Instructions: - Discharge Summary Sheet gregorio - Chronic Bronchitis, Adult gregorio - Chronic Obstructive Pulmonary Disease gregorio - Steps to Quit Smoking gregorio - Health Risks of Smoking gregorio - Chronic Obstructive Pulmonary Disease Exacerbation gregorio - Chronic Obstructive Pulmonary Disease, [id number] gregorio - Steps to Quit Smoking, [id number] gregorio - Cough, Adult, [id number] gregorio - How to Use a Nebulizer, Adult gregorio - Cough, Adult gregorio - Chronic Obstructive Pulmonary Disease Exacerbation, [id number] [facility] Forms: - Medication Reconciliation Form gregorio - Antibiotic Education gregorio - Prescription Opioid Use gregorio - Patient Portal Instructions [facility] - Leadership Thank You Letter [facility] Prescriptions: - albuterol sulfate 90 mcg/actuation Inhalation HFA Aerosol Inhaler - inhale 2 puff INHALATION route every 4 to 6 hours as needed for shortness of gregorio breath or wheezing; 1 unit; Refills: 0, Product Selection Permitted - Albuterol Sulfate 2.5 mg /3 mL (0.083 %) Inhalation Solution for Nebulization - inhale 1 unit NEBULIZATION route every 4-6 hours As needed; 25 unit; Refills: gregorio 0, Product Selection Permitted - Prednisone 20 mg Oral Tablet - take 2 tablets ORAL route once daily for 5 days; 10 tablet; Refills: 0, Product [facility] Selection Permitted - levofloxacin 500 mg Oral tablet - take 1 tablet ORAL route once daily for 7 days; 7 tablet; Refills: 0, Product [facility] Selection Permitted Signatures: Dispatcher [employer] Zachary Leal MD MD cha Campbell, Kaitlyn, RN RN kc6 Cherie Beck RN RN me1
--- NOTE | 2024-06-12 23:21 | ER ---
Nurse's Notes [facility] Name: Joe Marina Jr Age: 53 yrs Sex: Male : 1970 Arrival Date: 06/12/2024 Time: 21:01 Bed 12 Private MD: Diagnosis: COPD/ Chronic obstructive pulmonary disease with (acute) exacerbation;Dyspnea;Tobacco abuse counseling;Tobacco use Presentation: 06/12 21:23 Chief complaint: Patient states: breathing difficulty with productive cough and kc6 congestion x1mo worse in the last 3 days. Coronavirus screen: At this time, the client does not indicate any symptoms associated with coronavirus-19. Ebola Screen: No symptoms or risks identified at this time. Initial Sepsis Screen: Does the patient meet any 2 criteria? No. Patient's initial sepsis screen is negative. Does the patient have a suspected source of infection? No. Patient's initial sepsis screen is negative. Risk Assessment: Do you want to hurt yourself or someone else? Patient reports no desire to harm self or others. Onset of symptoms was June 12, 2024. 21:23 Method Of Arrival: Ambulatory kc6 21:23 Acuity: DARSHAN 3 kc6 Historical: - Allergies: 21:25 PENICILLINS; kc6 21:25 Haldol; kc6 21:25 Bees; kc6 - PMHx: 21:25 Hypertension; PTSD; SUICIDE ATTEMPT; Alcoholism; kc6 - PSHx: 21:25 Appendectomy; Cholecystectomy; hernia mesh; kc6 21:25 Tonsillectomy; kc6 - Immunization history:: Client reports having NOT received the Covid vaccine. Flu vaccine is not up to date. - Infectious Disease History:: Denies. - Social history:: Smoking status: Patient reports the use of cigarette tobacco products, smokes one pack cigarettes per day. Screenin:30 [facility] ED Fall Risk Assessment (Adult) History of falling in the last 3 months, me1 including since admission No falls in past 3 months (0 pts) Confusion or Disorientation No (0 pts) Intoxicated or Sedated No (0 pts) Impaired Gait No (0 pts) Mobility Assist Device Used No (0 pt) Altered Elimination No (0 pt) Score/Fall Risk Level 0 - 2 = Low Risk Maintained a safe environment, Provided non-skid footwear, Hourly rounding (assess needs \T\ fall precautionary measures) done. Abuse screen: Denies threats or abuse. Nutritional screening: No deficits noted. Tuberculosis screening: No symptoms or risk factors identified. Assessment: 21:30 General: Appears comfortable, ill, well groomed, well developed, well nourished, me1 Behavior is calm, cooperative, appropriate for age, Reports breathing difficulty with productive cough and congestion x1mo worse in the last 3 days. Pain: Denies pain. Neuro: Level of Consciousness is awake, alert, obeys commands, Oriented to person, place, time, situation, Appropriate for age. Cardiovascular: Patient's skin is warm and dry. Cardiovascular: Rhythm is sinus rhythm. Respiratory: Reports shortness of breath cough that is productive, congestion x 1 month Airway is patent Respiratory effort is even, unlabored, Respiratory pattern is regular, symmetrical, Breath sounds with wheezes bilaterally. GI: No signs and/or symptoms were reported involving the gastrointestinal system. : No signs and/or symptoms were reported regarding the genitourinary system. EENT: No signs and/or symptoms were reported regarding the EENT system. Derm: Skin is intact, is healthy with good turgor, Skin is pink, warm \T\ dry. Musculoskeletal: No signs and/or symptoms reported regarding the musculoskeletal system. Vital Signs: 21:23 BP 142 / 106; Pulse 71; Resp 19 S; Temp 98.3(O); Pulse Ox 100% on R/A; Weight 97.52 kg kc6 (R); Height 6 ft. 4 in. (R); Pain 5/10; 21:26 BP 133 / 95; kc6 22:30 BP 157 / 88; Pulse 73; Resp 19; Pulse Ox 100% on R/A; me1 23:30 BP 149 / 86; Pulse 71; Resp 19; Pulse Ox 100% ; de1 06/13 00:13 BP 140 / 85; Pulse 74; Resp 18; Temp 98.3; Pulse Ox 100% on R/A; me1 06/12 21:23 Body Mass Index 26.17 (97.52 kg, 193.04 cm) [facility] 06/12 21:23 Pain Scale: Adult [facility] Juan Coma Score: 06/12 22:53 Eye Response: spontaneous(4). Motor Response: obeys commands(6). Verbal Response: gregorio oriented(5). Total: 15. ED Course: 21:20 Patient arrived in ED. gm2 21:25 Triage completed. kc6 21:25 Arm band placed on. kc6 21:30 Patient has correct armband on for positive identification. Bed in low position. Call me1 light in reach. Side rails up X2. Provided Education on: POC. Verbalized understanding.. Client placed on continuous cardiac and pulse oximetry monitoring. NIBP monitoring applied. engine monitor on. Pulse ox on. NIBP on. 21:30 No provider procedures requiring assistance completed. me1 21:37 Zachary Warren MD is Attending Physician. gregorio 22:12 Cherie Beck, RN is Primary Nurse. me1 22:32 XRAY Chest (1 view) In Process Unspecified. EDMS 22:35 EKG done, by ED staff, reviewed by Zachary Warren MD. oe 22:41 Inserted saline lock: 20 gauge in left antecubital area, using aseptic technique. Blood oe collected. Flushed with 10 mL NS. 22:44 Basic Metabolic Panel Sent. oe 22:44 CBC with Diff Sent. oe 22:44 LFT's Sent. oe 22:44 Magnesium Sent. oe 22:44 NT PRO-BNP Sent. oe 22:44 PT-INR Sent. oe 22:44 Troponin HS Sent. oe 23:20 Audie Jacobsen MD is Referral Physician. gregorio 23:20 Marito Ramírez DO is Referral Physician. [facility] 06/13 00:15 IV discontinued, intact, bleeding controlled, No redness/swelling at site. Pressure me1 dressing applied. Administered Medications: 06/12 23:33 Drug: NS 0.9% IV 1000 ml IV at 1 bolus Per protocol; 1000 mL bolus Route: IV; Rate: 1 me1 bolus; Site: left antecubital; 06/13 00:09 Follow up: Response: No adverse reaction; IV Status: Completed infusion me1 06/12 23:33 Drug: Thiamine IV 100 mg IV at bolus once Route: IV; Rate: bolus; Site: left me1 antecubital; 23:34 Follow up: Response: No adverse reaction; IV Status: Completed infusion me1 23:33 Drug: MethylPrednisoLONE IVP 125 mg IVP once Route: IVP; Site: left antecubital; me1 23:49 Follow up: Response: No adverse reaction me1 23:33 Drug: LevOfloxacin PO 750 mg PO once Route: PO; me1 23:49 Follow up: Response: No adverse reaction me1 23:34 Drug: predniSONE PO 60 mg PO once Route: PO; me1 23:49 Follow up: Response: No adverse reaction me1 23:34 Drug: Levalbuterol Inhalation 3.75 mg Inhalation once Route: Inhalation; me1 23:49 Follow up: Response: No adverse reaction; Wheezing diminished me1 23:34 Drug: Ipratropium Inhalation Aerosol 0.5 mg Inhalation once Route: Inhalation; me1 23:49 Follow up: Response: No adverse reaction; Wheezing diminished me1 23:48 Drug: Levalbuterol Inhalation 1.25 mg Inhalation once Route: Inhalation; me1 23:50 Follow up: Response: No adverse reaction; Wheezing diminished me1 Medication: 21:30 VIS not applicable for this client. me1 Outcome: 23:20 Discharge ordered by . gregorio 06/13 00:15 Discharged to home ambulatory, with significant other, me1 Condition: stable Discharge instructions given to patient, significant other, Instructed on discharge instructions, follow up and referral plans. medication usage, Demonstrated understanding of instructions, follow-up care, medications, Prescriptions given X x5 including written RX for neb machine 00:16 Patient left the ED. me1 Signatures: Dispatcher [employer] EDZachary Baer MD MD cha Espinosa, Orlando oe Campbell, Kaitlyn RN RN kc6 Cherie Beck RN RN me1 Makayla Kiser gm2 Corrections: (The following items were deleted from the chart) 00:10 06/12 21:23 Chief complaint: Patient states: breathing difficulty with productive cough me1 and congestion x1mo worse in the last 3 days kc6
[2024-06-12 23:48] LABS: SARS-CoV-2 Antigen CONTROL BLUE LINE VIS/BG OK; SARS-CoV-2 Antigen Rapid Res Negative (Negative)
[2024-06-13 01:08] VITALS: TEMP 98.3; O2SAT 100
[2024-06-13 01:18] VITALS: BP 140/85
--- NOTE | 2024-06-13 09:03 | RAD REPORT ---
EXAM DESCRIPTION: RAD - Chest Single View - 06/12/2024 10:30 pm CLINICAL HISTORY: Cough;Dyspnea COMPARISON: None. TECHNIQUE: XR CHEST 1 VIEW 06/12/2024 9:40 PM CDT FINDINGS: Cardiac silhouette is normal in size. Lungs are clear without consolidation, atelectasis, mass or edema. There is no pleural effusion. There is no pneumothorax. There are no acute osseous fin dings. IMPRESSION: Clear lungs. Electronically signed by: Osvaldo Wylie MD 06/12/2024 10:58 PM CDT RP Due to temporary technical issues with the PACS/Fluency reporting system, reports are being signed by the in house radiologist without review as a courtesy to ensure prompt reporting. The interpreting r adiologist is fully responsible for the content of the report.
--- NOTE | 2024-06-14 12:55 | EKG ---
Test Date: 2024-06-12 Test Time: 22:22:36 Crime Prevention Worker: JONAS MEASUREMENT RESULTS: Intervals: Rate: 63 WA: 176 QRSD: 100 QT: 380 QTc: 388 Ideal: P: 79 WA: 176 QRS: 88 T: 96 INTERPRETIVE STATEMENTS: Normal sinus rhythm Nonspecific ST abnormality Abnormal ECG Compared to ECG 02/19/2020 22:15:12 ST (T wave) deviation now present Sinus tachycardia no longer present Atrial abnormality no longer present Electronically Signed On 06-14-24 12:54:34 CDT by Jayro Fontenot
== END 2024-06-13 00:16 | disposition home or self-care (01) ==
LOC: ER 21:01
DX: J44.1 Chronic obstructive pulmonary disease with (acute) exacerbation (principal); R06.00 Dyspnea, unspecified; Z72.0 Tobacco use; Z71.6 Tobacco abuse counseling; Z11.52 Encounter for screening for COVID-19; I10 Essential (primary) hypertension; F10.20 Alcohol dependence, uncomplicated
CPT/HCPCS: 96361; 93005; 87040 ×2; 85025; 80048; 36415; 83735; 85610; 80076; 84484; 83880; 87804 ×2; 71045; 96375; 96374; 99285; 87811; J3411; J7512; J7614; J7644; J2919; J7030